=== PATIENT | male | born 1935 | race African-American/Black ===

== ENCOUNTER 2018-04-23 16:51 | Inpatient (IN) | payer MEDICARE, OTHER ==
[~2018-04-23] VITALS: Ht 170.2 cm; Wt 67.4 kg
[~2018-04-23 16:51] MED LIST: ADALAT20 MG ORAL; AMLODIPINE BESY10 MG ORAL; ASPIR 8181 MG ORAL; DOCUSATE SODIU100 MG ORAL; DOCUSIL100 M1 ORAL; KEPPRA500 MG PO; LABETALOL HCL200 MG PO; LISINOPRIL20 MG ORAL; LOVASTATIN20 MG PO; NAMENDA10 MG ORAL; NORMODYNE300 MG ORAL; TAMSULOSIN HCL0.4 MG ORAL; TEMAZEPAM15 MG ORAL; ZESTRIL10 MG PO; ZOLPIDEM TARTRA10 MG ORAL
[2018-04-23 18:00] VITALS: BP 136/62
[2018-04-23 18:45] LABS: APPEARANCE,URINE SLIGHTLY CLOUDY; BILIRUBIN, URINE NEGATIVE (NEGATIVE); COLOR,URINE PALE YELLOW; GLUCOSE, URINE (UA) NEGATIVE (NEGATIVE); KETONES,URINE NEGATIVE (NEGATIVE); LEUKOCYTE ESTERASE ,URINE NEGATIVE (NEGATIVE); NITRITE,URINE NEGATIVE (NEGATIVE); PH,URINE 5 (4.5-8.0); PROTEIN,URINE 2+ (NEGATIVE); UROBILINOGEN,URINE NORMAL MG/DL (0.0-1.0)
[2018-04-23 18:45] LABS: BASOPHILS % (AUTO) 2.1 % (0.0-2.0); EOSINOPHILS % (AUTO) 4.9 % (0.0-3.0); HEMATOCRIT 44.4 % (42.0-52.0); MEAN CORPUSCULAR VOLUME 83 FL (80-99); MONOCYTES % (AUTO) 9.6 % (1.0-10.0); NEUTROPHILS % (AUTO) 65.3 % (45.0-75.0); PLATELET COUNT 301 K/UL (150-450); RED BLOOD COUNT 5.35 M/UL (4.70-6.10); WHITE BLOOD COUNT 6.2 K/UL (4.8-10.8)
[2018-04-23 19:13] LABS: ANION GAP 9 mmol/L (5-15); BLOOD UREA NITROGEN 23 mg/dL (7-18); CALCIUM 8.4 MG/DL (8.5-10.1); CARBON DIOXIDE 23 MMOL/L (21-32); CHLORIDE 107 MMOL/L (98-107); CREATININE 1.8 MG/DL (0.55-1.30); POTASSIUM 4.3 MMOL/L (3.5-5.1); SODIUM 139 MMOL/L (136-145)
[2018-04-23 19:27] LABS: ALANINE AMINOTRANSFERASE 28 U/L (12-78); ALBUMIN 3.4 G/DL (3.4-5.0); ALBUMIN/GLOBULIN RATIO 0.8 (1.0-2.7); ALKALINE PHOSPHATASE 89 U/L (46-116); ASPARTATE AMINO TRANSFERASE 18 U/L (15-37); BILIRUBIN,TOTAL 0.4 MG/DL (0.2-1.0); CREATINE KINASE 277 U/L (26-308); PHOSPHORUS 3.6 MG/DL (2.5-4.9)
[2018-04-23] MEDS ORDERED: UNOBMED (20:33)
[2018-04-23 21:21] VITALS: BP 128/57
--- NOTE | 2018-04-23 22:15 | Emergency Room Report ---
History of Present Illness General Chief Complaint: Male Urogenital Problems Source: Medical Record, EMS Present Illness HPI Patient is an 82-year-old male brought in by EMS after increased hematuria. [facility] was [facility]. Patient prior history of prostate cancer. Patient previously been diagnosed with a abdominal aortic aneurysm. Patient had been noted to have increased blood in his urine. Patient was sent in by Dr. Harry.History is limited by poor historian. Allergies: Coded Allergies: No Known Allergies (Verified , 11/13/08) Patient History Past Medical History: see triage record Reviewed Nursing Documentation: PMH: Agreed; PSxH: Agreed Nursing Documentation-PMH Past Medical History: No History, Except For Hx Hypertension: Yes Hx Seizures: Yes Review of Systems All Other Systems: limited - by poor historian Physical Exam Vital Signs Date Time Temp Pulse Resp B/P (MAP) Pulse Ox O2 Delivery O2 Flow Rate FiO2 04/23/18 17:04 98.6 73 24 136/62 93 Non-Rebreather 98.6 Sp02 EP Interpretation: reviewed, normal General Appearance: normal inspection, well appearing, no apparent distress, alert, Chronically Ill Head: atraumatic ENT: normal voice Neck: normal inspection, supple, no bony tend, limited range of motion Respiratory: normal inspection, lungs clear, normal breath sounds, no respiratory distress, no retraction, no wheezing Cardiovascular #1: regular rate, rhythm Gastrointestinal: normal inspection, normal bowel sounds, non tender, soft, no guarding, no hernia Genitourinary: no CVA tenderness Musculoskeletal: normal inspection, back normal, normal range of motion Neurologic: normal inspection, alert, responsive, other - slow speech Psychiatric: normal inspection, judgement/insight normal, mood/affect normal Skin: normal inspection, normal color, no rash Medical Decision Making Diagnostic Impression: Primary Impression: Prostate CA Additional Impressions: Abdominal aortic aneurysm (AAA) 3.0 cm to 5.5 cm in diameter in male Hematuria ER Course The patient presented for hematuria. Differential diagnosis included was not limited to urinary tract infection, renal cell carcinoma, bladder CA pyelonephritis among others.Because of complexity of patient's case laboratory testing and imaging studies were ordered. CT imaging of the abdomen pelvis read by radiology showed 4.5 cm fusiform abdominal aortic aneurysm the patient was initially noted to have a large prostate. The patient was discussed with Dr. Harry who states that this aneurysm has been diagnosed in the past. Patient had previously declined operative management of prostate cancer.Dr. Harry the was contacted for inpatient management due to primary care physician and will further evaluate hematuria Labs Test 04/23/18 17:40 04/23/18 18:20 Urine Color Pale yellow Urine Appearance Slightly cloudy Urine pH 5 (4.5-8.0) Urine Specific [place] 1.015 (1.005-1.035) Urine Protein 2+ (NEGATIVE) Urine Glucose (UA) Negative (NEGATIVE) Urine Ketones Negative (NEGATIVE) Urine Blood 5+ (NEGATIVE) Urine Nitrite Negative (NEGATIVE) Urine Bilirubin Negative (NEGATIVE) Urine Urobilinogen Normal MG/DL (0.0-1.0) Urine Leukocyte Esterase Negative (NEGATIVE) Urine RBC Tntc /HPF (0 - 0) Urine WBC 0-2 /HPF (0 - 0) Urine Squamous Epithelial Cells Few /LPF (NONE/OCC) Urine Bacteria Occasional /HPF (NONE) White Blood Count 6.2 K/UL (4.8-10.8) Red Blood Count 5.35 M/UL (4.70-6.10) Hemoglobin 14.0 G/DL (14.2-18.0) Hematocrit 44.4 % (42.0-52.0) Mean Corpuscular Volume 83 FL (80-99) Mean Corpuscular Hemoglobin 26.2 PG (27.0-31.0) Mean Corpuscular Hemoglobin Concent 31.5 G/DL (32.0-36.0) Red Cell Distribution Width 16.0 % (11.6-14.8) Platelet Count 301 K/UL (150-450) Mean Platelet Volume 8.3 FL (6.5-10.1) Neutrophils (%) (Auto) 65.3 % (45.0-75.0) Lymphocytes (%) (Auto) 18.0 % (20.0-45.0) Monocytes (%) (Auto) 9.6 % (1.0-10.0) Eosinophils (%) (Auto) 4.9 % (0.0-3.0) Basophils (%) (Auto) 2.1 % (0.0-2.0) Sodium Level 139 MMOL/L (136-145) Potassium Level 4.3 MMOL/L (3.5-5.1) Chloride Level 107 MMOL/L (98-107) Carbon Dioxide Level 23 MMOL/L (21-32) Anion Gap 9 mmol/L (5-15) Blood Urea Nitrogen 23 mg/dL (7-18) Creatinine 1.8 MG/DL (0.55-1.30) Estimat Glomerular Filtration Rate mL/min (>60) Glucose Level 114 MG/DL (74-106) Lactic Acid Level 1.20 mmol/L (0.4-2.0) Calcium Level 8.4 MG/DL (8.5-10.1) Phosphorus Level 3.6 MG/DL (2.5-4.9) Magnesium Level 2.4 MG/DL (1.8-2.4) Total Bilirubin 0.4 MG/DL (0.2-1.0) Aspartate Amino Transf (AST/SGOT) 18 U/L (15-37) Alanine Aminotransferase (ALT/SGPT) 28 U/L (12-78) Alkaline Phosphatase 89 U/L (46-116) Total Creatine Kinase 277 U/L (26-308) Creatine Kinase MB 3.0 NG/ML (0.0-3.6) Creatine Kinase MB Relative Index 1.0 Troponin I 0.015 ng/mL (0.000-0.056) Pro-B-Type Natriuretic Peptide 563 pg/mL (0-125) Total Protein 7.5 G/DL (6.4-8.2) Albumin 3.4 G/DL (3.4-5.0) Globulin 4.1 g/dL Albumin/Globulin Ratio 0.8 (1.0-2.7) EKG Diagnostic Results Rate: normal Rhythm: NSR ST Segments: other - lateral twave inversion Last Vital Signs Date Time Temp Pulse Resp B/P (MAP) Pulse Ox O2 Delivery O2 Flow Rate FiO2 04/23/18 21:21 98.6 72 22 128/57 94 Room Air 98.6 Status: unchanged Disposition: ADMITTED INPATIENT Condition: Serious Referrals: John Hay MD (PCP) Damian Lozada MD Apr 23, 2018 22:15
[2018-04-23] MEDS ORDERED: COLACE100 MG ORAL (22:54)
[2018-04-23] MEDS ORDERED: LIPITOR20 MG ORAL (23:07)
[2018-04-24] MEDS ORDERED: Acetaminophen 500mg (ES) tab ORAL PRN (00:15)
[2018-04-24] MEDS ORDERED: Norco 5mg/325mg tab ORAL PRN (00:15)
[2018-04-24] MEDS ORDERED: Docusate 100mg cap ORAL PRN (00:30)
[2018-04-24] MEDS ORDERED: Zolpidem 5mg tab ORAL PRN (00:30)
[2018-04-24] MEDS ORDERED: 1/2NS w/KCl 20mEq 1000ml 1,000 ML IV ONE (01:04)
[2018-04-24] MEDS: Potassium Chloride 20 MEQ in 1/2 NS 1000ml 1,000 ML IV SCH ×2 (02:08→15:12)
[2018-04-24 06:56] LABS: BASOPHILS % (AUTO) 2.2 % (0.0-2.0); EOSINOPHILS % (AUTO) 5.2 % (0.0-3.0); HEMATOCRIT 43.9 % (42.0-52.0); HEMOGLOBIN 13.9 G/DL (14.2-18.0); LYMPHOCYTES % (AUTO) 13.2 % (20.0-45.0); MEAN CORPUSCULAR VOLUME 80 FL (80-99); MONOCYTES % (AUTO) 10.1 % (1.0-10.0); NEUTROPHILS % (AUTO) 69.4 % (45.0-75.0); PLATELET COUNT 236 K/UL (150-450); RED BLOOD COUNT 5.47 M/UL (4.70-6.10); RED CELL DISTRIBUTION WIDTH 15.7 % (11.6-14.8); WHITE BLOOD COUNT 5.8 K/UL (4.8-10.8)
[2018-04-24 07:10] LABS: ANION GAP 9 mmol/L (5-15); BLOOD UREA NITROGEN 17 mg/dL (7-18); CALCIUM 8.2 MG/DL (8.5-10.1); CARBON DIOXIDE 21 MMOL/L (21-32); CHLORIDE 108 MMOL/L (98-107); CREATININE 1.6 MG/DL (0.55-1.30); POTASSIUM 4.5 MMOL/L (3.5-5.1); SODIUM 138 MMOL/L (136-145)
[2018-04-24] MEDS: Memantine 5 MG TAB ORAL SCH ×2 (08:32→18:13)
[2018-04-24] MEDS: Lisinopril 20mg tab ORAL SCH (08:33)
[2018-04-24 08:35] VITALS: BP 149/75
--- NOTE | 2018-04-24 08:53 | Diagnostic Imaging Report ---
Indication: Shortness of breath Technique: One view of the chest Comparison: 01/17/2018 Findings: Inspiration is suboptimal. There is a triangular opacity in the right infrahilar region, may reflect crowding of previously prominent bronchovascular markings but area of consolidation is possible. There is generalized interstitial prominence throughout the right mid and lower lung. The heart is mildly enlarged. The pleural spaces are clear. The upper lungs are clear. Impression: Right basal triangular opacity. Review of subsequent chest CT indicates that this is most likely on the basis of crowded bronchovascular markings. Interstitial changes of the right mid and lower lung are probably on the basis of chronic fibrotic change. No definite acute process Cardiomegaly
[2018-04-24] MEDS ORDERED: Memantine 10mg tab ORAL SCH (09:00)
[2018-04-24] MEDS: Minoxidil 2.5mg tab ORAL SCH ×2 (10:10→21:34)
[2018-04-24 12:38] VITALS: BP 138/74
--- NOTE | 2018-04-24 12:46 | Diagnostic Imaging Report ---
Indication: Abdominal pain, hematuria Technique: Spiral acquisitions obtained through the abdomen and pelvis. No oral contrast utilized, per emergency room physician request No IV contrast utilized, per referring physician request.. Multiplanar reconstructions were generated. Total dose length product 711.83 mGycm. CTDIvol(s) 11.63,10.82 mGy. Dose reduction achieved using automated exposure control Comparison: None. Reference made to abdomen ultrasound from 2009 Findings: There is some image degradation due to respiratory motion artifact. Bullous changes, interstitial opacities, and scarring are seen at both lung bases, right greater than left. The right kidney is atrophic, demonstrates fairly extensive perinephric fat stranding. The left kidney demonstrates mild perinephric fat stranding. No hydronephrosis or hydroureter, renal or ureteral calculi demonstrated. The bladder is unremarkable. The prostate is enlarged. Lack of IV contrast limits assessment of the renal parenchyma. No gross renal parenchymal mass or cyst is evident. Lack of IV contrast limits assessment of the other solid organs. The liver demonstrates a cyst in segment 2. It also demonstrate one or more subcentimeter low-attenuation lesions which are too small to characterize, most likely represent benign simple cysts. The gallbladder, bile ducts, pancreas, spleen, adrenals are all unremarkable. No retroperitoneal or mesenteric mass or adenopathy. There is an unusual fluid attenuation mass anterior to the right side of the bladder which measures 2.6 cm in diameter. This extends to the edge of the inguinal canal but does not frankly herniate. There is extensive colonic diverticulosis. No evidence of acute diverticulitis. Appendix is normal. No small bowel distention. No free or loculated intraperitoneal gas or fluid is evident. The distal esophagus demonstrates a small sliding-type hiatal hernia. The remainder the stomach is unremarkable. The duodenum is unremarkable. There is a tiny fat-containing umbilical hernia incidentally noted There is a fusiform aneurysm of the proximal abdominal aorta which measures up to 4.5 cm in diameter. This extends to the level of the superior mesenteric artery origin. Distal to this, the abdominal aorta is ectatic but not frankly aneurysmal. The heart is enlarged. There is a pericardial effusion, which measures up to 8 mm thick The bones demonstrate bilateral L5 spondylolysis, grade 1 L5 on S1 spondylolisthesis. There are secondary degenerative change of the lumbosacral junction. Degenerative spondylosis changes are seen elsewhere as well. Impression: Atrophic right kidney. Nonspecific extensive perinephric fat stranding, could indicate acute nephritis or could be chronic. Less extensive left perinephric fat stranding is nonspecific, minimal Prostatomegaly Otherwise, no definite findings to suggest etiology of stated clinical history of hematuria Bullous changes, interstitial opacities, scarring seen at both lung bases, right greater than left 4.5 cm fusiform proximal abdominal aortic aneurysm Cardiomegaly Pericardial effusion Left lobe liver cysts. Subcentimeter low-attenuation liver lesions, too small to characterize, most likely benign simple cortical cysts Unusual fluid attenuation mass anterior to the right side of the bladder, significance uncertain but appears to be cystic. Colonic diverticulosis. No evidence of diverticulitis Bilateral L5 spondylolysis, grade 1 L5 on S1 spondylolisthesis. Incidental findings as noted, including degenerative spondylosis, sliding-type hiatal hernia, tiny fat-containing umbilical hernia This agrees with the preliminary interpretation provided overnight by Dr. Haji The CT scanner at [facility] is accredited by the [employer] and the scans are performed using protocols designed to limit radiation exposure to as low as reasonably achievable to attain images of sufficient resolution adequate for diagnostic evaluation.
--- NOTE | 2018-04-24 13:45 | History and Physical Report ---
DATE OF ADMISSION: 04/23/2018 CHIEF COMPLAINT: Gross hematuria. HISTORY OF PRESENT ILLNESS: This is an 82-year-old male, who lives in a board and [facility] facility. The patient was complaining of intermittent gross hematuria. He has a known history of prostate cancer. The patient has been seen by several urologists. His regular urologist is Dr. Matt More. The patient's family before declined surgery for the patient. The patient is alert and is open for surgical option. The patient has multiple risk factors including abdominal aortic aneurysm and hypertensive cardiovascular disease with renal impairment. The decision to operate, they was debated about two years ago, and the patient's family made a decision not to operate. PAST MEDICAL HISTORY: 1. 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 2. Abdominal aortic aneurysm, last known diameter of 4 cm. 3. History of prostate CA. 4. Seizure disorder. HOME MEDICATIONS: Amlodipine, baby aspirin, atorvastatin, sodium docusate, labetalol, Keppra, Zestril, lovastatin, Namenda, nifedipine, tamsulosin, and temazepam. ALLERGIES: No known drug allergies. FAMILY HISTORY: Unremarkable. SOCIAL HISTORY: He lives in a [place] and [facility]. HABITS: He is a cigarette smoker. There is no history of alcohol abuse or a drug abuse. REVIEW OF SYSTEMS: HEENT: Hearing and eyesight are normal. ENDOCRINE: No history of diabetes, thyroid, or adrenal problems. RESPIRATORY: He has some shortness of breath and occasionally wheezes. CARDIOVASCULAR: He denies chest pain or palpitations. He has a history of abdominal aortic aneurysm, but asymptomatic from that standpoint. The patient was seen by vascular surgery before, but had no regular followup. NEUROLOGIC: No history of stroke, syncope, or Parkinson disease. PHYSICAL EXAMINATION: GENERAL: This is an elderly male, who is in no acute distress. VITAL SIGNS: Blood pressure 149/75, pulse 75, respirations 20, and temperature 98.2. HEENT: The head is normocephalic and atraumatic. Pupils are equal, round, and reactive to light and accommodation consensually. NECK: Supple. Trachea midline. There was no lymphadenopathy or thyromegaly. LUNGS: Clear to auscultation and percussion with a few wheezes. HEART: There is a grade 2 systolic ejection murmur. ABDOMEN: Soft and nontender. Bowel sounds were active. EXTREMITIES: No clubbing, cyanosis, or edema. NEUROLOGICAL: He is alert and oriented x4. Cranial nerves II through XII intact. LABORATORY AND ANCILLARY DATA: CBC within normal limits. Serum chemistry, electrolytes within normal limits. Creatinine on admission 1.8, today 1.6, BUN 17, PSA 7.71. Urinalysis, 5+ blood on dipstick, too numerous to count red blood cells. IMAGING STUDIES: CT scan reported by ER physician is not an official report shows fusiform 4.5 cm abdominal aortic aneurysm. ASSESSMENT: 1. Gross hematuria due to known prostate CA. 2. Fusiform 4.5 diameter abdominal aortic aneurysm. 3. 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 4. History of prostate CA. 5. Seizure disorder. PLAN: 1. His blood pressure needs to be optimized better given his history of extensive fusiform aortic aneurysm and hypertensive nephrosclerosis. 2. The question of surgical intervention for his prostate cancer should be revisited with the caveats of the patient is having multiple risk factors, which include the abdominal aortic aneurysm, hypertensive cardiovascular disease, and the main thing is abdominal aortic aneurysm. John Hay M.D. DR: QUE JOB#: [id number] CC:
[2018-04-24 15:53] VITALS: BP 149/69
--- NOTE | 2018-04-24 19:01 | Cardiology Report ---
APPROVED REPORT EKG Measurement Heart [id number] Normal sinus rhythm Possible Left atrial enlargement Abnormal ECG
[2018-04-24 20:00] VITALS: BP 144/77
[2018-04-24] MEDS: Tamsulosin 0.4mg cap ORAL SCH (21:34)
[2018-04-25] MEDS: Potassium Chloride 20 MEQ in 1/2 NS 1000ml 1,000 ML IV SCH ×2 (03:11→17:23)
--- NOTE | 2018-04-25 04:15 | Consultation ---
DATE OF CONSULTATION: 04/24/2018 UROLOGY CONSULTATION ATTENDING/CONSULTING PHYSICIAN: John Hay M.D. CHIEF COMPLAINT AND HISTORY OF PRESENT ILLNESS: I was asked by Dr. Hay to evaluate this very pleasant 82-year-old gentleman regarding history of gross hematuria and prostate cancer. Briefly, the patient has a history of prostate cancer and is followed at an outside facility regarding the same. He presented to the hospital with intermittent hematuria. He was admitted to the hospital and given the above, I was asked to evaluate the patient. PAST MEDICAL HISTORY: 1. Prostate cancer. 2. Intermittent hematuria. 3. 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 4. Abdominal aortic aneurysm. 5. Seizure disorder. MEDICATIONS: Please see the chart for current medications and administration details. Briefly, the patient does take baby aspirin daily at home. He is receiving levofloxacin for antibiotic coverage. ALLERGIES: No known drug allergies. SOCIAL HISTORY: Unremarkable for tobacco, alcohol, or drug use. The patient lives in a board and care. FAMILY HISTORY: Unremarkable. REVIEW OF SYSTEMS: A 12-system review of systems was essentially unremarkable outside what is described above. PHYSICAL EXAMINATION: GENERAL: The patient is an elderly gentleman. Awake, alert, and oriented x4, pleasant, in no obvious distress. HEENT: NC/AT. EOMI. Oropharynx clear. NECK: Supple. Full range of motion. CHEST: Within normal limits. ABDOMEN: Soft, nontender, and nondistended. EXTREMITIES: Warm and well perfused. No cyanosis, clubbing, or edema. BACK: No CVA tenderness to percussion. NEUROLOGIC: Grossly nonfocal. GENITOURINARY: Reveals normal male external genitalia. LABORATORY DATA: White blood cell count 5.8, hematocrit 43.9, and platelets 236. Sodium 138, potassium 4.5, chloride 108, bicarbonate 21, BUN 17, creatinine 1.6, glucose 102, and calcium 8.2. LFTs within normal limits. Urinalysis, specific gravity 1.015, pH 5.0. Dip test notable for 2+ protein, 5+ occult blood. Microanalysis with too numerous to count red blood cells per high-power field, 0 to 2 white blood cells per high-power field, and occasional bacteria seen. DIAGNOSTIC IMAGING: CT scan of the abdomen and pelvis reveals an atrophic right kidney. There is nonspecific extensive perinephric fat stranding. There is prostatomegaly. There was no other noted source of possible hematuria. There are bullous changes in both lung bases and a 4.5 cm fusiform proximal abdominal aortic aneurysm. There is cardiomegaly and pericardial effusion. There are liver cysts. There is diverticulosis without diverticulitis. ASSESSMENT AND PLAN: In summary, the patient is an 82-year-old gentleman with a history of prostate cancer. He presented with a history of some gross hematuria. Physical exam is essentially unremarkable and his urine at the bedside now is currently clear. Laboratory data is notable for evidence of microhematuria and renal insufficiency. Diagnostic imaging does not reveal any additional source of hematuria. It does reveal some renal atrophy. It appears that this patient's hematuria has improved after some antibiotics and fluids. I will place him on observation for the same. Once he is discharged, he can follow up with his regular urologist for cystoscopy to complete his workup. Thank you for allowing me to participate in the care of this unfortunate gentleman. Please do not hesitate to contact me with any questions that you may further have regarding his care. I will see him with you as needed. Javi Renteria M.D. DR: KADY JOB#: [id number] CC:
[2018-04-25 08:14] LABS: ANION GAP 10 mmol/L (5-15); BLOOD UREA NITROGEN 23 mg/dL (7-18); CALCIUM 8.3 MG/DL (8.5-10.1); CARBON DIOXIDE 22 MMOL/L (21-32); CHLORIDE 109 MMOL/L (98-107); CREATININE 1.7 MG/DL (0.55-1.30); POTASSIUM 4.6 MMOL/L (3.5-5.1); SODIUM 141 MMOL/L (136-145)
[2018-04-25 09:00] VITALS: BP 131/66
[2018-04-25] MEDS: Lisinopril 20mg tab ORAL SCH (09:27)
[2018-04-25] MEDS: Minoxidil 2.5mg tab ORAL SCH ×2 (09:28→21:31)
[2018-04-25] MEDS: Memantine 5 MG TAB ORAL SCH ×2 (09:28→17:23)
--- NOTE | 2018-04-25 12:43 | General Progress Note ---
Assessment/Plan Assessment/Plan Gross Hematuris - resolved 4.5 AAA - Vascular Surgery Eval pending. Subjective Allergies: Coded Allergies: No Known Allergies (Verified , 11/13/08) Subjective No new c/o. Gross hematuria resolved. Objective Last 24 Hour Vital Signs Date Time Temp Pulse Resp B/P (MAP) Pulse Ox O2 Delivery O2 Flow Rate FiO2 04/25/18 09:29 76 131/66 04/25/18 09:28 131/66 04/25/18 09:28 76 131/66 04/25/18 09:27 131/66 04/25/18 09:00 Room Air 04/25/18 09:00 97.9 76 19 131/66 (87) 99 97.9 04/24/18 21:35 78 144/77 04/24/18 21:34 144/77 04/24/18 21:00 Room Air 04/24/18 20:00 98.6 78 19 144/77 (99) 95 98.6 04/24/18 15:53 98.8 69 22 149/69 (95) 95 98.8 Intake and Output 04/24/18 04/25/18 19:00 07:00 Intake Total 1280 ml 1520 ml Output Total 700 ml 600 ml Balance 580 ml 920 ml Intake Oral 380 ml 720 ml IV Total 900 ml 800 ml Output Urine Total 700 ml 600 ml # Voids 3 # Bowel Movements 1 Laboratory Tests 04/25/18 06:35: Sodium Level 141, Potassium Level 4.6, Chloride Level 109H, Carbon Dioxide Level 22, Anion Gap 10, Blood Urea Nitrogen 23H, Creatinine 1.7H, Estimat Glomerular Filtration Rate , Glucose Level 98, Calcium Level 8.3L Height (Feet): 5 Height (Inches): 7.00 Weight (Pounds): 148 Objective CV RR Lungs CTA Abd SNT. BS + E No CCE John Hay MD Apr 25, 2018 12:43
[2018-04-25 16:22] LABS: APPEARANCE,URINE CLEAR; BILIRUBIN, URINE NEGATIVE (NEGATIVE); COLOR,URINE YELLOW; GLUCOSE, URINE (UA) NEGATIVE (NEGATIVE); KETONES,URINE NEGATIVE (NEGATIVE); LEUKOCYTE ESTERASE ,URINE NEGATIVE (NEGATIVE); NITRITE,URINE NEGATIVE (NEGATIVE); PH,URINE 5 (4.5-8.0); PROTEIN,URINE 1+ (NEGATIVE); UROBILINOGEN,URINE NORMAL MG/DL (0.0-1.0)
[2018-04-25] MEDS ORDERED: Tubing IV Secondary IV ONE (17:19)
[2018-04-25 21:00] VITALS: BP 127/67
[2018-04-25] MEDS: Tamsulosin 0.4mg cap ORAL SCH (21:30)
--- NOTE | 2018-04-25 21:41 | General Progress Note ---
Progress Note Progress Note Patient seen and examined earlier in am Asked to eval re AAA No abd pain No back pain No leg pain Abdo soft nontender 2+ femorals intact pedal dopplers 4.5 cm AAA Smoker renal failure hematuria Rec F/U as outpatient in out office Hematuria w/u per renal Ok for d/c per vascular point once medically cleared d/w pt at length d/w nurse at bedside Rasta Llamas MD Apr 25, 2018 21:41
[2018-04-26] VITALS: BP 122/60
[2018-04-26 04:00] VITALS: BP 117/60
[2018-04-26] MEDS: Potassium Chloride 20 MEQ in 1/2 NS 1000ml 1,000 ML IV SCH ×2 (06:07→11:08)
[2018-04-26 08:13] LABS: BASOPHILS % (AUTO) 1.6 % (0.0-2.0); EOSINOPHILS % (AUTO) 5.5 % (0.0-3.0); HEMATOCRIT 41.7 % (42.0-52.0); LYMPHOCYTES % (AUTO) 16.1 % (20.0-45.0); MEAN CORPUSCULAR VOLUME 81 FL (80-99); MONOCYTES % (AUTO) 10.5 % (1.0-10.0); NEUTROPHILS % (AUTO) 66.3 % (45.0-75.0); PLATELET COUNT 221 K/UL (150-450); RED BLOOD COUNT 5.12 M/UL (4.70-6.10); RED CELL DISTRIBUTION WIDTH 16.1 % (11.6-14.8); WHITE BLOOD COUNT 5.6 K/UL (4.8-10.8)
[2018-04-26] MEDS: Lisinopril 20mg tab ORAL SCH (08:41)
[2018-04-26] MEDS: Memantine 5 MG TAB ORAL SCH ×2 (08:41→16:47)
[2018-04-26] MEDS: Minoxidil 2.5mg tab ORAL SCH ×2 (08:42→21:19)
[2018-04-26 08:46] LABS: ALANINE AMINOTRANSFERASE 21 U/L (12-78); ALBUMIN 2.6 G/DL (3.4-5.0); ALBUMIN/GLOBULIN RATIO 0.7 (1.0-2.7); ALKALINE PHOSPHATASE 73 U/L (46-116); ANION GAP 10 mmol/L (5-15); ASPARTATE AMINO TRANSFERASE 17 U/L (15-37); BILIRUBIN,TOTAL 0.4 MG/DL (0.2-1.0); BLOOD UREA NITROGEN 25 mg/dL (7-18); CALCIUM 7.5 MG/DL (8.5-10.1); CARBON DIOXIDE 16 MMOL/L (21-32); CHLORIDE 112 MMOL/L (98-107); CREATININE 1.8 MG/DL (0.55-1.30); POTASSIUM 5.1 MMOL/L (3.5-5.1); SODIUM 138 MMOL/L (136-145)
[2018-04-26 09:00] VITALS: BP 107/67
[2018-04-26] MEDS ORDERED: Potassium Chloride 20 MEQ in 1/2 NS 1000ml 1,000 ML IV SCH (11:00)
[2018-04-26 12:00] VITALS: BP 120/63
--- NOTE | 2018-04-26 15:51 | General Progress Note ---
Assessment/Plan Assessment/Plan Gross Hematuris - resolved 4.5 AAA - Vascular Surgery Eval noted. Spoke to Vasc. Sx. Patient nonambulatory. Vascular surgery to complete eval CHRISTINE!. Subjective Allergies: Coded Allergies: No Known Allergies (Verified , 11/13/08) Subjective No new c/o. Gross hematuria resolved. Objective Last 24 Hour Vital Signs Date Time Temp Pulse Resp B/P (MAP) Pulse Ox O2 Delivery O2 Flow Rate FiO2 04/26/18 12:00 97.3 75 21 120/63 (82) 96 97.3 04/26/18 09:00 Room Air 04/26/18 09:00 98.6 79 18 107/67 (80) 95 98.6 04/26/18 08:43 81 128/76 04/26/18 08:42 128/76 04/26/18 08:42 81 128/76 04/26/18 08:41 128/76 04/26/18 04:00 98.2 73 20 117/60 (79) 98 98.2 04/26/18 00:00 98.0 74 20 122/60 (80) 100 98.0 04/25/18 21:31 127/67 04/25/18 21:31 78 127/67 04/25/18 21:00 98.4 78 20 127/67 (87) 97 98.4 04/25/18 21:00 Room Air Intake and Output 04/25/18 04/26/18 19:00 07:00 Intake Total 800 ml 900 ml Output Total 400 ml Balance 800 ml 500 ml Intake Oral 800 ml IV Total 900 ml Output Urine Total 400 ml # Bowel Movements 4 Laboratory Tests 04/26/18 06:10: White Blood Count 5.6, Red Blood Count 5.12, Hemoglobin 13.0L, Hematocrit 41.7L , Mean Corpuscular Volume 81, Mean Corpuscular Hemoglobin 25.3L, Mean Corpuscular Hemoglobin Concent 31.1L, Red Cell Distribution Width 16.1H, Platelet Count 221, Mean Platelet Volume 6.4L, Neutrophils (%) (Auto) 66.3, Lymphocytes (%) (Auto) 16.1L, Monocytes (%) (Auto) 10.5H, Eosinophils (%) (Auto ) 5.5H, Basophils (%) (Auto) 1.6, Sodium Level 138, Potassium Level 5.1, Chloride Level 112H, Carbon Dioxide Level 16L, Anion Gap 10, Blood Urea Nitrogen 25H, Creatinine 1.8H, Estimat Glomerular Filtration Rate , Glucose Level 86, Calcium Level 7.5L, Total Bilirubin 0.4, Aspartate Amino Transf (AST/ SGOT) 17, Alanine Aminotransferase (ALT/SGPT) 21, Alkaline Phosphatase 73, Total Protein 6.1L, Albumin 2.6L, Globulin 3.5, Albumin/Globulin Ratio 0.7L Height (Feet): 5 Height (Inches): 7.00 Weight (Pounds): 148 Objective CV RR Lungs CTA Abd SNT. BS + E No CCE John Hay MD Apr 26, 2018 15:51
[2018-04-26 21:00] VITALS: BP 125/60
[2018-04-26] MEDS: Tamsulosin 0.4mg cap ORAL SCH (21:19)
[2018-04-27 08:00] VITALS: BP_SYST 125; BP_SYST 134; BP_DIAS 59; BP_DIAS 60
[2018-04-27] MEDS: Minoxidil 2.5mg tab ORAL SCH (08:29)
[2018-04-27] MEDS: Memantine 5 MG TAB ORAL SCH (08:29)
[2018-04-27] MEDS: Lisinopril 20mg tab ORAL SCH (08:29)
[2018-04-27 08:30] VITALS: BP 125/60
[2018-04-27 08:43] LABS: ANION GAP 9 mmol/L (5-15); BLOOD UREA NITROGEN 27 mg/dL (7-18); CALCIUM 7.6 MG/DL (8.5-10.1); CARBON DIOXIDE 19 MMOL/L (21-32); CHLORIDE 111 MMOL/L (98-107); CREATININE 1.9 MG/DL (0.55-1.30); POTASSIUM 4.5 MMOL/L (3.5-5.1); SODIUM 139 MMOL/L (136-145)
--- NOTE | 2018-04-27 10:48 | General Progress Note ---
Assessment/Plan Assessment/Plan Gross Hematuris - resolved 4.5 AAA - Vascular Surgery Eval noted. Spoke to Vasc. Sx. Patient nonambulatory. DC to B+C. Subjective Allergies: Coded Allergies: No Known Allergies (Verified , 11/13/08) Subjective No new c/o. Gross hematuria resolved. Objective Last 24 Hour Vital Signs Date Time Temp Pulse Resp B/P (MAP) Pulse Ox O2 Delivery O2 Flow Rate FiO2 04/27/18 09:00 Room Air 04/27/18 08:30 79 125/60 04/27/18 08:29 125/60 04/27/18 08:29 125/60 04/27/18 08:29 79 125/60 04/27/18 08:00 98.1 78 22 125/59 (81) 97 98.1 04/26/18 21:19 125/60 04/26/18 21:18 79 125/60 04/26/18 21:00 98.2 79 19 125/60 (81) 95 98.2 04/26/18 21:00 Room Air 04/26/18 12:00 97.3 75 21 120/63 (82) 96 97.3 Intake and Output 04/26/18 04/27/18 19:00 07:00 Intake Total 630 ml 300 ml Output Total 650 ml Balance 630 ml -350 ml Intake Oral 480 ml 250 ml IV Total 150 ml 50 ml Output Urine Total 650 ml # Voids 3 Laboratory Tests 04/27/18 07:20: Sodium Level 139, Potassium Level 4.5, Chloride Level 111H, Carbon Dioxide Level 19L, Anion Gap 9, Blood Urea Nitrogen 27H, Creatinine 1.9H, Estimat Glomerular Filtration Rate , Glucose Level 92, Calcium Level 7.6L Height (Feet): 5 Height (Inches): 7.00 Weight (Pounds): 148 Objective CV RR Lungs CTA Abd SNT. BS + E No [place] John Hay MD Apr 27, 2018 10:48
--- NOTE | 2018-05-01 08:34 | Discharge Summary ---
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 Laboratory workup revealed no leukocytosis, stable hemoglobin and hematocrit. Stable electrolytes. BUN 23, creatinine 1.4. Troponin negative. Pro BNP 563. Lactic acid 1.2. Urinalysis with evidence of proteinuria and hematuria ,+2 protein, no evidence of infection. Chest x-ray revealed cardiomegaly, but no definite acute process. CT of the abdomen and pelvis revealed bullous changes at both lung bases, right greater than left. Atrophic right kidney. Nonspecific extensive perinephric fat stranding possibly indicative of acute nephritis versus chronic. Prostatomegaly. Cardiomegaly. 4.5 cm fusiform proximal abdominal aortic aneurysm. Colonic diverticulosis without evidence of diverticulitis. 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 CONSULTANTS: vascular surgery Dr. Gabrielarian urologist Dr. Renteria [facility]: Patient admitted and started on IV fluids and empiric antibiotics. Vascular surgery and urology consults were requested. Urologist seen and evaluated patient. Hematuria improved with IV hydration and empiric antibiotic, Hemoglobin and hematocrit remained stable. CT scan, as mentioned above, revealed renal atrophy. Land Degradation Analyst recommended to follow-up with regular urologist for cystoscopy as outpatient to complete the workup. Renal parameters and electrolytes were closely monitored, nephrotoxic were avoided, and electrolytes were corrected as needed. Creatinine remained on the baseline. Antihypertensive regimen was optimized to keep blood pressure under control. Blood pressure was managed with multiply regimen of antihypertensives, including calcium channel arun, beta arun, DAVEY inhibitor, and minoxidil. Statin was continued. Flomax was continued. Pain management was addressed, and pain was controlled. Bowel regimen instituted. Seizure precautions maintained, no evidence of seizure activity while in the hospital. Vascular surgeon seen and evaluated patient for aortic abdominal aneurysm. Patient had no back pain, no leg pain, no abdominal pain. Intact pedal pulses. Vascular surgeon recommended to follow-up as outpatient with vascular surgeon for close monitoring . Patient condition's stabilized and he was ready for discharge back to assisted living for continuation of care FINAL DIAGNOSES: Gross hematuria- resolved 4.5 cm fusiform aortic abdominal aneurysm Hypertensive cardiovascular disease with hypertensive nephrosclerosis History of prostate cancer Seizure disorder DISCHARGE MEDICATIONS: List of medication was sent with patient DISCHARGE INSTRUCTIONS: Patient was [facility]. Follow up with primary care provider in one week. Follow-up with urologist and vascular surgeon as outpatient. I have been assigned to dictate discharge summary for this account. I was not involved in the patient's management. Nishi Whyte NP May 01, 2018 08:34
--- NOTE | 2018-05-02 23:30 | Consultation ---
DATE OF CONSULTATION: 04/25/2018 VASCULAR SURGERY CONSULTATION CONSULTING PHYSICIAN: Rasta Llamas M.D. REFERRING PHYSICIAN: John Hay M.D. REASON FOR CONSULTATION: Aortic aneurysm. HISTORY OF PRESENT ILLNESS: This is an 82-year-old male who presented with hematuria. The patient has renal failure and hypertension and is a smoker. The patient underwent a CT scan of his abdomen, which revealed an incidental finding of 4.5 cm abdominal aortic aneurysm without any evidence of rupture or hematoma. The patient has no abdominal pain. Vascular Surgery is consulted for further evaluation. PAST MEDICAL HISTORY: As above. History of hypertension, renal failure, hematuria, smoker, and newly diagnosed abdominal aortic aneurysm. MEDICATIONS: See attached MAR. ALLERGIES: No known drug allergies. SOCIAL HISTORY: History of smoking. No history of alcohol or drug use. FAMILY HISTORY: Unremarkable. SYSTEM REVIEW: CARDIOVASCULAR: No history of chest pain or palpitations. PULMONARY: No cough. No hemoptysis. GASTROINTESTINAL: No history of abdominal pain, constipation, or diarrhea. GENITOURINARY: As above. NEUROLOGIC: No history of strokes or seizures. PHYSICAL EXAMINATION: VITAL SIGNS: The patient has palpable radial pulses. LUNGS: Clear to auscultation. HEART: Regular rate and rhythm. ABDOMEN: Soft and nontender. EXTREMITIES: He has palpable femoral pulses. Intact pedal pulses bilaterally. IMPRESSION: 1. A 4.5 cm infrarenal incidental abdominal aortic aneurysm. 2. History of renal failure with hematuria. 3. Hypertension. 4. Smoker. 5. COPD. 6. Obesity. PLAN AND RECOMMENDATIONS: 1. Hematuria workup per Renal and Urology Service. 2. Follow up as an outpatient. 3. The patient will need surveillance aortic aneurysm duplex and CT scan. If aneurysm goes more than half a centimeter in 6 months or if he grows to 5.5 cm, then the will need an aortic aneurysm repair. 4. The patient is cleared for discharge from Vascular Surgery standpoint once medically optimized and cleared. 5. The above was discussed at length with the patient and the nurse at bedside. Rasta Llamas M.D. DR: JAVIER JOB#: [id number] CC: John Hay M.D.; Fax#: [phone]
== END 2018-04-27 14:20 | DRG 468 ==
LOC: EDBD 16:51 → EMR 17:48 → 4E 19:26 → EDBEDREQ 20:12 → 4E 04-24 02:59
DX: R31.0 Gross hematuria (principal); C61 Malignant neoplasm of prostate; G40.909 Epilepsy, unspecified, not intractable, without status epilepticus; I13.10 Hypertensive heart and chronic kidney disease without heart failure, with stage 1 through stage 4 chronic kidney disease, or unspecified chronic kidney disease; N18.9 Chronic kidney disease, unspecified; I71.4 Abdominal aortic aneurysm, without rupture; F17.200 Nicotine dependence, unspecified, uncomplicated
CPT/HCPCS: 36415; 71045; 74176; 80048; 80053; 81001; 81003; 82550; 82553; 83605; 83735; 83880; 84100; 84153; 84484; 85025; 87040; 87081; 93005; 99285

== ENCOUNTER 2019-11-27 09:59 | Inpatient (IN) | payer MEDICARE, OTHER ==
[~2019-11-27] VITALS: Ht 177.8 cm; Wt 71.7 kg
[~2019-11-27 09:59] MED LIST changes: +COLACE100 MG ORAL; +LIPITOR20 MG ORAL; +UNOBMED
[2019-11-27] MEDS ORDERED: CRESTOR10 M2 ORAL (10:08)
[2019-11-27] MEDS ORDERED: OMEPRAZOLE20 M3 ORAL (10:08)
--- NOTE | 2019-11-27 10:36 | NUR ---
ED Nurse Note: Pt from [facility] broguht in by [facility] came in due to SOB since this morning. O2 sat 86 % in NC at 3L. Upojn arrival changed to simple mask 6L.
--- NOTE | 2019-11-27 10:38 | NUR ---
ED Nurse Note: IV accessed, All labs sent.
[2019-11-27 10:53] LABS: HEMATOCRIT 45.8 % (42.0-52.0); HEMOGLOBIN 14.5 G/DL (14.2-18.0); MEAN CORPUSCULAR VOLUME 78 FL (80-99); PLATELET COUNT 391 K/UL (150-450); RED BLOOD COUNT 5.89 M/UL (4.70-6.10); RED CELL DISTRIBUTION WIDTH 15.2 % (11.6-14.8); WHITE BLOOD COUNT 8.2 K/UL (4.8-10.8)
[2019-11-27 11:05] VITALS: BP 147/76
[2019-11-27 11:10] LABS: ANION GAP 17 mmol/L (5-15); BLOOD UREA NITROGEN 41 mg/dL (7-18); CALCIUM 8.4 MG/DL (8.5-10.1); CARBON DIOXIDE 18 MMOL/L (21-32); CHLORIDE 108 MMOL/L (98-107); CREATININE 2.4 MG/DL (0.55-1.30); POTASSIUM 4.7 MMOL/L (3.5-5.1); SODIUM 143 MMOL/L (136-145)
--- NOTE | 2019-11-27 11:11 | NUR ---
ED Nurse Note: TO for moore catheter per ERMD
--- NOTE | 2019-11-27 11:16 | Emergency Room Report ---
History of Present Illness General Chief Complaint: Dyspnea/Respdistress Source: Patient, Medical Record Present Illness HPI Patient presents from nursing facility with reports of desaturation and shortness of breath Patient himself is awake and alert does report increased cough Denies any vomiting or diarrhea denies any chest pain patient has been weaker than usual Unknown regarding fevers denies any neck pain or photophobia Allergies: Coded Allergies: No Known Allergies (Verified , 11/13/08) COVID-19 Screening Contact w/high risk pt: No Recent Travel to affected area: No Experienced COVID-19 symptoms?: Yes COVID-19 symptoms experienced: Shortness of Breath Patient History Past Medical History: see triage record Reviewed Nursing Documentation: PMH: Agreed; PSxH: Agreed Nursing Documentation-PMH Past Medical History: No History, Except For Hx Hypertension: Yes - malignant HTN Hx Dementia: Yes Hx Seizures: Yes Review of Systems All Other Systems: negative except mentioned in HPI Physical Exam Vital Signs Date Time Temp Pulse Resp B/P (MAP) Pulse Ox O2 Delivery O2 Flow Rate FiO2 11/27/19 10:00 99.0 80 20 147/76 (99) 86 Nasal Cannula 3.0 Sp02 EP Interpretation: reviewed, normal General Appearance: other - Mildly tachypneic Head: normocephalic, atraumatic Eyes: bilateral eye PERRL, bilateral eye EOMI ENT: hearing grossly normal, normal pharynx, TMs + canals normal, uvula midline Neck: full range of motion, supple, no meningismus, no bony tend Respiratory: no respiratory distress, no retraction, no accessory muscle use, crackles - Both lower lobes, somewhat tachypneic Cardiovascular #1: normal peripheral pulses, regular rate, rhythm, no edema, no gallop, no JVD, no murmur Gastrointestinal: normal bowel sounds, non tender, soft, no mass, no organomegaly, non-distended, no guarding, no hernia, no pulsatile mass, no rebound Genitourinary: no CVA tenderness Musculoskeletal: normal inspection Neurologic: motor strength/tone normal, identity access management architect III-XII nml as tested, oriented x3 , sensory intact, responsive Psychiatric: normal inspection, mood/affect normal Skin: no rash Lymphatic: normal inspection, no adenopathy Procedures Critical Care Time Critical Care Time 40 minutes for multiple re-evaluations critical presentation hypoxic findings concerning for respiratory failure not including any procedural time Medical Decision Making Diagnostic Impression: Primary Impression: Pneumonia Additional Impression: Suspected COVID-19 virus infection ER Course Patient is a fairly complex patient with multiple differential to consideration including but not limited to cardiac cardiopulmonary and vascular emergencies Patient's x-ray shows concerning findings of bilateral infiltrates Patient's BNP and kidney function also elevated troponin is mildly elevated Patient receiving further symptomatic care and admitted for further inpatient evaluation Labs Test 11/27/19 10:20 11/27/19 12:00 11/28/19 05:34 11/29/19 05:30 White Blood Count 8.2 K/UL (4.8-10.8) 9.0 K/UL (4.8-10.8) Red Blood Count 5.89 M/UL (4.70-6.10) 5.63 M/UL (4.70-6.10) Hemoglobin 14.5 G/DL (14.2-18.0) 13.8 G/DL (14.2-18.0) Hematocrit 45.8 % (42.0-52.0) 43.2 % (42.0-52.0) Mean Corpuscular Volume 78 FL (80-99) 77 FL (80-99) Mean Corpuscular Hemoglobin 24.6 PG (27.0-31.0) 24.4 PG (27.0-31.0) Mean Corpuscular Hemoglobin Concent 31.6 G/DL (32.0-36.0) 31.9 G/DL (32.0-36.0) Red Cell Distribution Width 15.2 % (11.6-14.8) 15.3 % (11.6-14.8) Platelet Count 391 K/UL (150-450) 418 K/UL (150-450) Mean Platelet Volume 6.8 FL (6.5-10.1) 7.3 FL (6.5-10.1) Neutrophils (%) (Auto) % (45.0-75.0) % (45.0-75.0) Lymphocytes (%) (Auto) % (20.0-45.0) % (20.0-45.0) Monocytes (%) (Auto) % (1.0-10.0) % (1.0-10.0) Eosinophils (%) (Auto) % (0.0-3.0) % (0.0-3.0) Basophils (%) (Auto) % (0.0-2.0) % (0.0-2.0) Differential Total Cells Counted 100 100 Neutrophils % (Manual) 86 % (45-75) 88 % (45-75) Lymphocytes % (Manual) 7 % (20-45) 4 % (20-45) Monocytes % (Manual) 6 % (1-10) 8 % (1-10) Eosinophils % (Manual) 1 % (0-3) 0 % (0-3) Basophils % (Manual) 0 % (0-2) 0 % (0-2) Band Neutrophils 0 % (0-8) 0 % (0-8) Platelet Estimate Adequate Adequate Platelet Morphology Normal Normal Hypochromasia 1+ Anisocytosis 1+ 1+ Microcytosis 1+ 1+ Sodium Level 143 MMOL/L (136-145) 146 MMOL/L (136-145) Potassium Level 4.7 MMOL/L (3.5-5.1) 4.5 MMOL/L (3.5-5.1) Chloride Level 108 MMOL/L (98-107) 111 MMOL/L (98-107) Carbon Dioxide Level 18 MMOL/L (21-32) 18 MMOL/L (21-32) Anion Gap 17 mmol/L (5-15) 17 mmol/L (5-15) Blood Urea Nitrogen 41 mg/dL (7-18) 40 mg/dL (7-18) Creatinine 2.4 MG/DL (0.55-1.30) 2.1 MG/DL (0.55-1.30) Estimat Glomerular Filtration Rate 31.5 mL/min (>60) 36.7 mL/min (>60) Glucose Level 103 MG/DL (74-106) 97 MG/DL (74-106) Lactic Acid Level 1.20 mmol/L (0.4-2.0) Calcium Level 8.4 MG/DL (8.5-10.1) 8.0 MG/DL (8.5-10.1) Total Bilirubin 0.7 MG/DL (0.2-1.0) 0.8 MG/DL (0.2-1.0) Aspartate Amino Transf (AST/SGOT) 39 U/L (15-37) 41 U/L (15-37) Alanine Aminotransferase (ALT/SGPT) 10 U/L (12-78) 15 U/L (12-78) Alkaline Phosphatase 87 U/L (46-116) 88 U/L (46-116) Total Creatine Kinase 774 U/L (26-308) 855 U/L (26-308) Creatine Kinase MB 3.5 NG/ML (0.0-3.6) Creatine Kinase MB Relative Index 0.4 Troponin I 0.136 ng/mL (0.000-0.056) Pro-B-Type Natriuretic Peptide 2798 pg/mL (0-125) Total Protein 8.0 G/DL (6.4-8.2) 7.6 G/DL (6.4-8.2) Albumin 2.9 G/DL (3.4-5.0) 2.5 G/DL (3.4-5.0) Globulin 5.1 g/dL 5.1 g/dL Albumin/Globulin Ratio 0.6 (1.0-2.7) 0.5 (1.0-2.7) Urine Color Yellow Urine Appearance Clear Urine pH 5 (4.5-8.0) Urine Specific [place] 1.020 (1.005-1.035) Urine Protein 4+ (NEGATIVE) Urine Glucose (UA) Negative (NEGATIVE) Urine Ketones 3+ (NEGATIVE) Urine Blood 5+ (NEGATIVE) Urine Nitrite Negative (NEGATIVE) Urine Bilirubin Negative (NEGATIVE) Urine Urobilinogen Normal MG/DL (0.0-1.0) Urine Leukocyte Esterase Negative (NEGATIVE) Urine RBC 2-4 /HPF (0 - 0) Urine WBC 0-2 /HPF (0 - 0) Urine Squamous Epithelial Cells Occasional /LPF Urine Bacteria Occasional /HPF (NONE) Red Blood Cell Morphology Rhythm Strip Diag. Results EP Interpretation: yes Rate: 77 Rhythm: NSR, no PVC's, no ectopy Chest X-Ray Diagnostic Results Chest X-Ray Diagnostic Results : Chest X-Ray Ordered: Yes # of Views/Limited/Complete: 1 View Indication: Shortness of Breath EP Interpretation: Yes Interpretation: no pneumothorax, other - Bilaterally patchy markings, borderline cardiomegaly Impression: Other - Bilateral patchy markings consider infiltrate Electronically Signed by: Adam Martinez DO Last Vital Signs Date Time Temp Pulse Resp B/P (MAP) Pulse Ox O2 Delivery O2 Flow Rate FiO2 11/27/19 11:04 100.2 11/27/19 10:00 80 20 147/76 (99) 86 Nasal Cannula 3.0 Status: improved Disposition: ADMITTED INPATIENT Condition: Serious Referrals: NOT CHOSEN IPA/,REFERRING (PCP) Adam Martinez DO November 27, 2019 11:16
[2019-11-27 11:22] LABS: ALANINE AMINOTRANSFERASE 10 U/L (12-78); ALBUMIN 2.9 G/DL (3.4-5.0); ALBUMIN/GLOBULIN RATIO 0.6 (1.0-2.7); ALKALINE PHOSPHATASE 87 U/L (46-116); ASPARTATE AMINO TRANSFERASE 39 U/L (15-37); BILIRUBIN,TOTAL 0.7 MG/DL (0.2-1.0); CKMB 3.5 NG/ML (0.0-3.6); CREATINE KINASE 774 U/L (26-308)
[2019-11-27] MEDS ORDERED: Azithromycin 500 MG in NS 275 ML IV ONE (11:30)
[2019-11-27] MEDS ORDERED: cefTRIAXone 1 GM in NS 55 ML IVPB ONE (11:30)
[2019-11-27 12:00] VITALS: BP 110/75
[2019-11-27 12:53] LABS: APPEARANCE,URINE CLEAR; BILIRUBIN, URINE NEGATIVE (NEGATIVE); GLUCOSE, URINE (UA) NEGATIVE (NEGATIVE); KETONES,URINE 3+ (NEGATIVE); LEUKOCYTE ESTERASE ,URINE NEGATIVE (NEGATIVE); NITRITE,URINE NEGATIVE (NEGATIVE); PH,URINE 5 (4.5-8.0); PROTEIN,URINE 4+ (NEGATIVE); UROBILINOGEN,URINE NORMAL MG/DL (0.0-1.0)
[2019-11-27 13:07] LABS: COLOR,URINE YELLOW
--- NOTE | 2019-11-27 13:10 | NUR ---
ED Nurse Note: Patient resting in bed. Patient on simple face mask at 6L, O2 sat 95%. Breathing even and unlabored. no s/s of acute distress.
--- NOTE | 2019-11-27 13:34 | Diagnostic Imaging Report ---
Indication: Shortness of breath Technique: One view of the chest Comparison: 04/23/2018 Findings: There are bilateral basilar an midlung reticular and consolidative opacities. The heart border is obscured, heart size is probably upper limits of normal. Impression: Bilateral mid and lower lung reticular and consolidative infiltrates, likely pneumonia.
[2019-11-27 14:00] VITALS: BP 98/76
--- NOTE | 2019-11-27 14:16 | NUR ---
ED Nurse Note: Patient resting in bed no s/s of acute distress. Patient on simple face mask at 6L, O2 sat 94%. Breathing even and unlabored. Will continue to monitor.
[2019-11-27 15:26] VITALS: BP 101/74
--- NOTE | 2019-11-27 16:00 | NUR ---
TRANSFER TO FLOOR: Patient transferred to Telemetry by RN and kiln firer. Patient in no acute distress, patient accepted by [facility]. All belongings with patient.
--- NOTE | 2019-11-27 16:30 | NUR ---
NURSE NOTES: Patient received from ED. Patient stable. AOx1 but easily reoriented and follows commands. Placed on monitor technician. Correa draining well to gravity. Skin checked and is intact with only a scrape to LT elbow. Sacral skin intact. Rt UA IV in place. Diminished breath sounds with rales present. Cardiac sounds WNL. No edema to LE. Side rails upx2, call light within reach, bed low and locked. Will continue to monitor.
[2019-11-27] MEDS ORDERED: AMBIEN10 M1 ORAL (18:38)
--- NOTE | 2019-11-27 19:52 | NUR ---
NURSE NOTES: Paged Dr. Hay for possible restraints order. Awaiting callback.
[2019-11-27 20:00] VITALS: BP 145/80
--- NOTE | 2019-11-27 20:04 | NUR ---
HAND-OFF: Report given to MARIANNA BALDWIN RN. Patient stable. Plan of care endorsed. Patient just placed on restraints due to patient pulling off medical devices and ambulating without assistance and high risk for falls. Attempted numerous times to reorient and do frequent (q15min) rounds with bed alarm on but failed.
--- NOTE | 2019-11-27 20:08 | NUR ---
NURSE NOTES: Received report from ALETA Baird. Patient is asleep lying semi-hammond's; resting comfortably. No signs of acute distress or pain noted at this time. On 6L simple mask. AOx1-2; able to make needs known. Checked IV site; patent and flushed. No erythema, bleeding, or infiltration noted. Correa catheter draining dark red to dark olivia urine. Bed at lowest position, brakes on, siderails up x3. Call light within reach. Will continue to monitor.
[2019-11-27] MEDS ORDERED: cefTRIAXone 1 GM in D5W 55 ML IVPB SCH (21:00)
[2019-11-27] MEDS: Doxycycline Monohydrate 100mg ORAL SCH (21:50)
[2019-11-27] MEDS: Tamsulosin 0.4mg cap ORAL SCH (21:50)
[2019-11-27] MEDS: Zolpidem 5mg tab ORAL SCH (21:51)
[2019-11-27] MEDS: Atorvastatin 20mg tab ORAL SCH (21:51)
--- NOTE | 2019-11-27 22:59 | Consultation ---
DATE OF CONSULTATION: 11/27/2019 REASON FOR CONSULTATION: Shortness of breath and possible COVID pneumonia. HISTORY OF PRESENT ILLNESS: This is an 84-year-old male who presents from a nursing facility with a report of oxygen desaturation and shortness of breath. The patient is awake. No cough and no significant sputum. Denies any vomiting, diarrhea. The patient care discussed and reviewed and the patient imaging reviewed as well. Laboratory data is well obtained. The patient does have left shift. The patient also with renal impairment and evidence of protein-calorie malnutrition. The patient has been placed on isolation at present time. The patient's events fairly acute in nature. PAST MEDICAL HISTORY: Notable for hypertension, dementia and seizures. The patient also with hypercholesterolemia, reflux disease and issues with insomnia. FAMILY HISTORY: Not available. ALLERGIES TO MEDICATIONS: Reviewed. REVIEW OF SYSTEMS: Difficult to obtain at the present time. PHYSICAL EXAMINATION: GENERAL: Advanced age male. The patient with minimal shortness of breath at this time. VITAL SIGNS: Blood pressure 101/74, sats 94% on 6 liters, temperature is 99, heart rate 91, and respiratory rate 20. HEENT: Negative. NECK: Supple. LUNGS: Moderate breath sounds. Minimal rhonchi. CARDIAC: S1, S2. Regular rate and rhythm. Distant without murmurs, rubs or gallops. ABDOMEN: Soft and nontender. EXTREMITIES: No cyanosis or clubbing. No significant edema. NEUROLOGICALLY: Slightly confused, weak overall. LABORATORY DATA: Reviewed. BUN 41, creatinine 2.4. Troponin 0.136. Bicarbonate is 18 and albumin is 2.9. White cell count is 8.2 and platelets of 391. Urinalysis with 3+ ketones, 5+ blood. Chest x-ray with noted infiltrates. IMPRESSION: Pneumonia, possible COVID, possible mcc, hematuria, evidence of chronic renal failure, possibly with acute component, elevated troponin, possible non-STEMI [place], elevated natriuretic peptide, possible pulmonary edema, evidence of left shift with predominance of neutrophils, possible underlying infection and sepsis. RECOMMENDATIONS: Supportive care, respiratory care, isolation for now. Oxygen therapy for now. group home related antibiotics. Consider empiric therapy for COVID related pneumonia. Strongly recommend Infectious Disease consultation. Will follow x-ray. Follow up imaging. Monitor acid-base. Monitor oxygenation. Following tele for now. We will monitor clinically for further changes and interventions. Saran Lynch M.D. DR: Rosalba JOB#: [id number] CC:
--- NOTE | 2019-11-27 23:29 | History and Physical Report ---
DATE OF ADMISSION: 11/27/2019 CHIEF COMPLAINT AND REASON FOR HOSPITALIZATION: Patient is an 84-year-old man admitted for weakness, cough, pulmonary infiltrates. HISTORY OF PRESENT ILLNESS: Patient is a poor historian. He is a resident of an assisted living facility. He presents with cough and weakness. There are known cases of COVID-19 at the same facility. Patient has had a prior history of hypertensive cardiovascular disease, prostate cancer, seizure disorder, abdominal aortic aneurysms, COPD. ALLERGIES: None known. HABITS: He is a current smoker. No alcohol or drugs. MEDICATIONS: Include aspirin 81 mg daily, lisinopril 20 mg daily, tamsulosin 0.4 mg daily, rosuvastatin 10 mg daily, labetalol 300 mg 2 times a day, omeprazole 20 mg daily, zolpidem 10 mg at bedtime, amlodipine 10 mg daily, DSS 100 mg b.i.d., and Namenda 14 mg sustained release daily. SYSTEM REVIEW: HEAD, EYES, EARS, NOSE, AND THROAT: Vision and hearing are preserved. ENDOCRINE: No diabetes or thyroid disease. PULMONARY: History of COPD. CARDIAC: History of hypertensive heart disease. He has had an asymptomatic aortic aneurysm. GASTROINTESTINAL: No abdominal pain, nausea, or vomiting. NEUROLOGIC: No CVA or seizures. PHYSICAL EXAMINATION: GENERAL: Patient is alert man, seen in the emergency department. He is somewhat agitated, wearing an oxygen mask. VITAL SIGNS: Temperature 100.2, pulse 80, respirations 20, blood pressure 147/76. HEAD, EYES, EARS, NOSE, AND THROAT: Sclerae are nonicteric. Oral mucosa is moist. NECK: No adenopathy. LUNGS: Few crackles at the bases. HEART: Regular rhythm. No murmur. ABDOMEN: Soft without organomegaly. EXTREMITIES: No edema, cyanosis, or clubbing. NEUROLOGIC: He is alert and responsive. Moves all extremities. No focal weakness. PSYCHIATRIC: He is very anxious in the emergency room. PERTINENT LABORATORIES: White count 8.2, hemoglobin 14.5. BUN 41, creatinine 2.4, sodium 143, potassium 4.7, chloride 108, CO2 is 18, glucose 103. Lactic acid 1.2. CK 774. Troponin 0.136. BNP 2798. Urine is pending. Chest x-ray shows bilateral basilar infiltrates. IMPRESSION: 1. Pneumonia, community acquired. 2. Possible COVID-19. 3. Elevated BUN and creatinine. Possible chronic kidney disease stage 3 or 4 versus acute kidney injury. 4. Hypertensive heart disease. 5. History of psychiatric disorder. 6. COPD and current smoker. 7. History of gastritis, on omeprazole. 8. History of hyperlipidemia. 9. History of some dementia. PLAN: At this time, he will be treated with antibiotics for community-acquired pneumonia. He will be watched closely for possible COVID-19. We will try to update laboratories and follow closely. He is at high risk in view of his comorbidities and age. Fuad Schafer M.D. DR: ARUN JOB#: [id number] CC:
[2019-11-28] VITALS (11 sets, daily range): BP systolic 116–153; BP diastolic 63–83
--- NOTE | 2019-11-28 03:20 | NUR ---
NURSE NOTES: Patient is asleep lying semi-hammond's; resting comfortably. Correa catheter draining well to gravity. In stable condition.
--- NOTE | 2019-11-28 07:21 | NUR ---
HAND-OFF: Report given to ALETA Ho. Patient is awake lying semi-hammond's watching TV; resting comfortably. On 6L simple mask. Correa catheter draining well to gravity. In stable condition.
[2019-11-28 07:46] LABS: HEMATOCRIT 43.2 % (42.0-52.0); HEMOGLOBIN 13.8 G/DL (14.2-18.0); MEAN CORPUSCULAR VOLUME 77 FL (80-99); PLATELET COUNT 418 K/UL (150-450); RED BLOOD COUNT 5.63 M/UL (4.70-6.10); RED CELL DISTRIBUTION WIDTH 15.3 % (11.6-14.8)
[2019-11-28 08:18] LABS: ALANINE AMINOTRANSFERASE 15 U/L (12-78); ALBUMIN 2.5 G/DL (3.4-5.0); ALBUMIN/GLOBULIN RATIO 0.5 (1.0-2.7); ALKALINE PHOSPHATASE 88 U/L (46-116); ANION GAP 17 mmol/L (5-15); ASPARTATE AMINO TRANSFERASE 41 U/L (15-37); BILIRUBIN,TOTAL 0.8 MG/DL (0.2-1.0); BLOOD UREA NITROGEN 40 mg/dL (7-18); CARBON DIOXIDE 18 MMOL/L (21-32); CHLORIDE 111 MMOL/L (98-107); CREATINE KINASE 855 U/L (26-308); CREATININE 2.1 MG/DL (0.55-1.30); POTASSIUM 4.5 MMOL/L (3.5-5.1); SODIUM 146 MMOL/L (136-145)
--- NOTE | 2019-11-28 08:59 | Pulmonology Progress Note ---
Subjective Allergies: Coded Allergies: No Known Allergies (Verified , 11/13/08) Subjective d/w RN no pain no sob on low flow oxygen Objective Last 24 Hour Vital Signs Date Time Temp Pulse Resp B/P (MAP) Pulse Ox O2 Delivery O2 Flow Rate FiO2 11/28/19 04:00 98.1 79 20 125/65 (85) 92 11/28/19 04:00 72 11/28/19 00:00 98.0 80 20 151/81 (104) 94 11/28/19 00:00 79 11/27/19 21:50 97 145/80 11/27/19 21:00 Simple Mask 6.0 11/27/19 20:00 100 11/27/19 20:00 98.1 97 21 145/80 (101) 92 11/27/19 19:22 91 11/27/19 16:30 Simple Mask 6.0 11/27/19 16:00 99.0 91 20 101/74 94 Nasal Cannula 6.0 11/27/19 15:26 20 101/74 94 Nasal Cannula 6.0 11/27/19 14:00 22 98/76 93 6.0 11/27/19 12:00 20 110/75 96 6.0 11/27/19 11:30 80 20 Nasal Cannula 3.0 11/27/19 11:05 100.2 20 147/76 86 Nasal Cannula 3.0 11/27/19 11:04 100.2 11/27/19 10:00 99.0 80 20 147/76 (99) 86 Nasal Cannula 3.0 Intake and Output 11/27/19 11/28/19 19:00 07:00 Intake Total 0 ml 240 ml Output Total 500 ml Balance 0 ml -260 ml Intake Oral 0 ml 240 ml Output Urine Total 500 ml Objective GENERAL: Advanced age male. no shortness of breath or distress HEENT: Negative. NECK: Supple. LUNGS: Moderate breath sounds. Minimal rhonchi. CARDIAC: S1, S2. Regular rate and rhythm. Distant without murmurs, rubs or gallops. ABDOMEN: Soft and nontender. no distention EXTREMITIES: No cyanosis or clubbing. No significant edema. NEUROLOGICALLY: Slightly confused, weak overall. reviewed and edited Microbiology Date/Time Source Procedure Growth Status 11/27/19 10:12 Nasal Nares - Final Complete 11/27/19 10:12 Nasal Nares - Final Complete Laboratory Tests 11/27/19 10:20: White Blood Count 8.2, Red Blood Count 5.89, Hemoglobin 14.5, Hematocrit 45.8, Mean Corpuscular Volume 78L, Mean Corpuscular Hemoglobin 24.6L, Mean Corpuscular Hemoglobin Concent 31.6L, Red Cell Distribution Width 15.2H, Platelet Count 391, Mean Platelet Volume 6.8, Neutrophils (%) (Auto) , Lymphocytes (%) (Auto) , Monocytes (%) (Auto) , Eosinophils (%) (Auto) , Basophils (%) (Auto) , Differential Total Cells Counted 100, Neutrophils % ( Manual) 86H, Lymphocytes % (Manual) 7L, Monocytes % (Manual) 6, Eosinophils % ( Manual) 1, Basophils % (Manual) 0, Band Neutrophils 0, Platelet Estimate Adequate, Platelet Morphology Normal, Hypochromasia 1+, Anisocytosis 1+, Microcytosis 1+, Sodium Level 143, Potassium Level 4.7, Chloride Level 108H, Carbon Dioxide Level 18L, Anion Gap 17H, Blood Urea Nitrogen 41H, Creatinine 2.4H, Estimat Glomerular Filtration Rate 31.5, Glucose Level 103, Lactic Acid Level 1.20, Calcium Level 8.4L, Total Bilirubin 0.7, Aspartate Amino Transf (AST /SGOT) 39H, Alanine Aminotransferase (ALT/SGPT) 10L, Alkaline Phosphatase 87, Total Creatine Kinase 774H, Creatine Kinase MB 3.5, Creatine Kinase MB Relative Index 0.4, Troponin I 0.136H, Pro-B-Type Natriuretic Peptide 2798H, Total Protein 8.0, Albumin 2.9L, Globulin 5.1, Albumin/Globulin Ratio 0.6L 11/27/19 12:00: Urine Color Yellow, Urine Appearance Clear, Urine pH 5, Urine Specific [place] 1.020, Urine Protein 4+H, Urine Glucose (UA) Negative, Urine Ketones 3+H, Urine Blood 5+H, Urine Nitrite Negative, Urine Bilirubin Negative, Urine Urobilinogen Normal, Urine Leukocyte Esterase Negative, Urine RBC 2-4H, Urine WBC 0-2, Urine Squamous Epithelial Cells Occasional, Urine Bacteria Occasional 11/28/19 05:34: White Blood Count 9.0, Red Blood Count 5.63, Hemoglobin 13.8L, Hematocrit 43.2, Mean Corpuscular Volume 77L, Mean Corpuscular Hemoglobin 24.4L, Mean Corpuscular Hemoglobin Concent 31.9L, Red Cell Distribution Width 15.3H, Platelet Count 418, Mean Platelet Volume 7.3, Neutrophils (%) (Auto) , Lymphocytes (%) (Auto) , Monocytes (%) (Auto) , Eosinophils (%) (Auto) , Basophils (%) (Auto) , Neutrophils % (Manual) [Pending], Lymphocytes % (Manual) [Pending], Platelet Estimate [Pending], Platelet Morphology [Pending], Sodium Level 146H, Potassium Level 4.5, Chloride Level 111H, Carbon Dioxide Level 18L, Anion Gap 17H, Blood Urea Nitrogen 40H, Creatinine 2.1H, Estimat Glomerular Filtration Rate 36.7, Glucose Level 97, Calcium Level 8.0L, Total Bilirubin 0.8 , Aspartate Amino Transf (AST/SGOT) 41H, Alanine Aminotransferase (ALT/SGPT) 15 , Alkaline Phosphatase 88, Total Creatine Kinase 855H, Total Protein 7.6, Albumin 2.5L, Globulin 5.1, Albumin/Globulin Ratio 0.5L Current Medications Medications (Trade) Dose Ordered Sig/Viridiana Route PRN Reason Start Time Stop Time Status Last Admin Dose Admin Amlodipine Besylate (Norvasc) 10 mg DAILY ORAL 11/28/19 09:00 12/28/19 08:59 Aspirin (Ecotrin) 81 mg DAILY ORAL 11/28/19 09:00 01/12/20 08:59 Atorvastatin Calcium (Lipitor) 20 mg QHS ORAL 11/27/19 21:00 02/25/20 20:59 11/27/19 21:51 Azithromycin 500 mg/Dextrose 275 ml @ 275 mls/hr Q24HRS IV 11/28/19 12:00 12/04/19 12:59 Ceftriaxone Sodium 1 gm/ Dextrose 55 ml @ 110 mls/hr Q24H IVPB 11/28/19 09:00 12/05/19 08:59 Doxycycline Monohydrate (Doxycycline Monohydrate) 100 mg EVERY 12 HOURS ORAL 11/27/19 21:00 12/04/19 20:59 11/27/19 21:50 Labetalol HCl (Normodyne) 300 mg EVERY 12 HOURS ORAL 11/27/19 21:00 12/27/19 20:59 11/27/19 21:50 Lisinopril (PriniviL) 20 mg DAILY ORAL 11/28/19 09:00 12/28/19 08:59 Memantine (Namenda) 5 mg BID ORAL 11/28/19 09:00 12/28/19 08:59 Pantoprazole (Protonix) 40 mg ACBREAKFAST ORAL 11/28/19 06:30 12/28/19 06:29 11/28/19 06:39 Tamsulosin HCl (Flomax) 0.4 mg BEDTIME ORAL 11/27/19 21:00 12/27/19 20:59 11/27/19 21:50 Zolpidem Tartrate (Ambien) 5 mg QHS ORAL 11/27/19 21:00 12/04/19 20:59 11/27/19 21:51 Assessment/Plan Assessment/Plan IMPRESSION: Pneumonia, possible COVID, possible long term, hematuria, evidence of chronic renal failure, possibly with acute component, elevated troponin, possible non-STEMI NC, elevated natriuretic peptide, possible pulmonary edema, evidence of left shift with predominance of neutrophils, possible underlying infection and sepsis. PLAN care noted oxygen as needed respiratory care await COVID follow up results follow up imaging impression, plan, and exam edited and reviewed in detail care discussed with Saran Scott MD November 28, 2019 08:59
[2019-11-28] MEDS: Doxycycline Monohydrate 100mg ORAL SCH ×2 (09:00→21:00)
[2019-11-28] MEDS: Memantine 5 MG TAB ORAL SCH ×2 (09:00→17:53)
[2019-11-28] MEDS: Lisinopril 20mg tab ORAL SCH (09:00)
[2019-11-28] MEDS: Aspirin EC 81mg tab ORAL SCH (09:00)
[2019-11-28] MEDS: cefTRIAXone 1 GM in D5W 55 ML IVPB SCH (09:00)
--- NOTE | 2019-11-28 09:59 | NUR ---
*-* INSURANCE *-* ALL AVAILABLE CLINICALS HAVE BEEN FAXED TO: KALEE GARCIA: FELIX P- [phone] F- [phone]...........REVIEW/CLINICAL
--- NOTE | 2019-11-28 11:47 | General Progress Note ---
Assessment/Plan Problem List: (1) COPD (chronic obstructive pulmonary disease) ICD Codes: J44.9 - Chronic obstructive pulmonary disease, unspecified SNOMED: 24360204 (2) Hypertensive nephrosclerosis ICD Codes: I12.9 - Hypertensive chronic kidney disease with stage 1 through stage 4 chronic kidney disease, or unspecified chronic kidney disease SNOMED: 734960453 (3) CKD (chronic kidney disease) stage 3, GFR 30-59 ml/min ICD Codes: N18.3 - Chronic kidney disease, stage 3 (moderate) SNOMED: 704837412 (4) Suspected COVID-19 virus infection ICD Codes: Z20.828 - Contact with and (suspected) exposure to other viral communicable diseases SNOMED: 502796178 (5) Pneumonia ICD Codes: J18.9 - Pneumonia, unspecified organism SNOMED: 133031611 (6) Respiratory distress ICD Codes: R06.03 - Acute respiratory distress SNOMED: 353113156 Assessment/Plan: continue empiric atb, pulm care, oxygen, tele Subjective Constitutional: Reports: weakness HEENT: Reports: no symptoms Cardiovascular: Reports: no symptoms Respiratory: Reports: cough, shortness of breath Gastrointestinal/Abdominal: Reports: poor appetite Genitourinary: Reports: no symptoms Neurologic/Psychiatric: Reports: emotional problems Endocrine: Reports: no symptoms Allergies: Coded Allergies: No Known Allergies (Verified , 11/13/08) Objective Last 24 Hour Vital Signs Date Time Temp Pulse Resp B/P (MAP) Pulse Ox O2 Delivery O2 Flow Rate FiO2 11/28/19 09:00 125/65 11/28/19 09:00 72 125/65 11/28/19 09:00 72 125/65 11/28/19 04:00 98.1 79 20 125/65 (85) 92 11/28/19 04:00 72 11/28/19 00:00 98.0 80 20 151/81 (104) 94 11/28/19 00:00 79 11/27/19 21:50 97 145/80 11/27/19 21:00 Simple Mask 6.0 11/27/19 20:00 100 11/27/19 20:00 98.1 97 21 145/80 (101) 92 11/27/19 19:22 91 11/27/19 16:30 Simple Mask 6.0 11/27/19 16:00 99.0 91 20 101/74 94 Nasal Cannula 6.0 11/27/19 15:26 20 101/74 94 Nasal Cannula 6.0 11/27/19 14:00 22 98/76 93 6.0 11/27/19 12:00 20 110/75 96 6.0 Intake and Output 11/27/19 11/28/19 19:00 07:00 Intake Total 0 ml 240 ml Output Total 500 ml Balance 0 ml -260 ml Intake Oral 0 ml 240 ml Output Urine Total 500 ml Laboratory Tests 11/27/19 12:00: Urine Color Yellow, Urine Appearance Clear, Urine pH 5, Urine Specific [place] 1.020, Urine Protein 4+H, Urine Glucose (UA) Negative, Urine Ketones 3+H, Urine Blood 5+H, Urine Nitrite Negative, Urine Bilirubin Negative, Urine Urobilinogen Normal, Urine Leukocyte Esterase Negative, Urine RBC 2-4H, Urine WBC 0-2, Urine Squamous Epithelial Cells Occasional, Urine Bacteria Occasional 11/28/19 05:34: White Blood Count 9.0, Red Blood Count 5.63, Hemoglobin 13.8L, Hematocrit 43.2, Mean Corpuscular Volume 77L, Mean Corpuscular Hemoglobin 24.4L, Mean Corpuscular Hemoglobin Concent 31.9L, Red Cell Distribution Width 15.3H, Platelet Count 418, Mean Platelet Volume 7.3, Neutrophils (%) (Auto) , Lymphocytes (%) (Auto) , Monocytes (%) (Auto) , Eosinophils (%) (Auto) , Basophils (%) (Auto) , Differential Total Cells Counted 100, Neutrophils % ( Manual) 88H, Lymphocytes % (Manual) 4L, Monocytes % (Manual) 8, Eosinophils % ( Manual) 0, Basophils % (Manual) 0, Band Neutrophils 0, Platelet Estimate Adequate, Platelet Morphology Normal, Red Blood Cell Morphology , Anisocytosis 1 +, Microcytosis 1+, Sodium Level 146H, Potassium Level 4.5, Chloride Level 111H , Carbon Dioxide Level 18L, Anion Gap 17H, Blood Urea Nitrogen 40H, Creatinine 2.1H, Estimat Glomerular Filtration Rate 36.7, Glucose Level 97, Calcium Level 8.0L, Total Bilirubin 0.8, Aspartate Amino Transf (AST/SGOT) 41H, Alanine Aminotransferase (ALT/SGPT) 15, Alkaline Phosphatase 88, Total Creatine Kinase 855H, Total Protein 7.6, Albumin 2.5L, Globulin 5.1, Albumin/Globulin Ratio 0.5L Height (Feet): 5 Height (Inches): 10.00 Weight (Pounds): 150 General Appearance: mild distress EENT: normal ENT inspection Neck: non-tender Cardiovascular: normal rate, regular rhythm Respiratory/Chest: crackles/rales Abdomen: non tender Extremities: non-tender Edema: no edema noted Arm (L), no edema noted Arm (R), no edema noted Leg (L), no edema noted Leg (R), no edema noted Pedal (L), no edema noted Pedal (R), no edema noted 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
[2019-11-28] MEDS ORDERED: Azithromycin 500 MG in D5W 275 ML IV SCH (12:00)
[2019-11-28] MEDS ORDERED: Vancomycin 1 GM in D5W 275 ML IVPB ONE (15:00)
--- NOTE | 2019-11-28 15:23 | NUR ---
CASE MANAGEMENT:REVIEW 84 YR OLD MALE BIBA FROM [facility] CC: SOB SI: RESPIRATORY DISTRESS 100.2 80 20 147/76 86% ON 3L/NC BUN+41 CR+2.4 TCK+774 TROPONIN (+) 0.136 IS: IV ROCEPHIN IV AZITHROMYCIN CHEST XRAY BLOOD CX COVID 19 SWAB : TO TELEMETRY DCP: DISCHARGE DISPOSITION WILL HINGE ON HOSPITALIZATION OUTCOME
--- NOTE | 2019-11-28 19:50 | NUR ---
NURSE NOTES: Received report from Edson Crowell RN. Pt in stable condition, appears to be sleeping comfortably. No signs or symptoms of distress noted at this time. Will continue plan of care and close monitoring.
--- NOTE | 2019-11-28 20:15 | NUR ---
NURSE NOTES: Pt in bed, appeared to be sleeping comfortably during rounds. At 2014, loud thud sound overheard from pt's room. Pt found on floor lying on his back with his head against the wall, awake, alert, and oriented to name, place and situation. 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 No change in orientation or level of conscious noted. Abrasion noted on back of pt's head, see WCP. VS: 144/80, P 87, 91% on non-rebreather mask, RR 22, denies pain at this time. Post fall assessment unremarkable, no changes from baseline. Charge nurse Tena Sarabia RN, paged primary MD Vilchis paged at 2024, 2044, and 2054. Spoke with covering MD Schafer at 2099, received orders for head CT and bilateral soft wrist restraints. Orders carried out. MD Vilchis returned call at 2119 and gave no additional orders. Attempted to notify family of incident, but all listed phone numbers had been disconnected. Neuro checks completed as ordered, all WNL. Will continue close monitoring, post fall intervention per protocol, and plan of care.
[2019-11-28] MEDS: Tamsulosin 0.4mg cap ORAL SCH (21:00)
[2019-11-28] MEDS: Atorvastatin 20mg tab ORAL SCH (21:00)
[2019-11-28] MEDS: Zolpidem 5mg tab ORAL SCH (21:00)
--- NOTE | 2019-11-28 21:31 | Diagnostic Imaging Report ---
EXAM: CT Head Without Intravenous Contrast CLINICAL HISTORY: FALL TECHNIQUE: Axial computed tomography images of the head/brain without intravenous contrast. CTDI is 53 mGy and DLP is 1018 mGy-cm. One or more of the following dose reduction techniques were used: automated exposure control, adjustment of the mA and/or kV according to patient size, use of iterative reconstruction technique. COMPARISON: 07/18/2009. FINDINGS: Brain: No acute intracranial hemorrhage or cortical ischemia. Chronic small vessel ischemic changes. Cannot exclude [id number] ischemia on CT. Followup as clinically indicated. Ventricles: Unremarkable. Bones/joints: Unremarkable. No acute fracture. Soft tissues: Unremarkable. Sinuses: Unremarkable as visualized. Mastoid air cells: Unremarkable as visualized. IMPRESSION: No acute intracranial hemorrhage or skull fracture.
[2019-11-29] VITALS (7 sets, daily range): BP systolic 112–123; BP diastolic 58–67
--- NOTE | 2019-11-29 07:18 | NUR ---
HAND-OFF: Report given to Edson Crowell RN. Pt in stable condition, appears to be sleeping comfortably. No signs or symptoms of distress noted at this time.
[2019-11-29 07:53] LABS: ALANINE AMINOTRANSFERASE 21 U/L (12-78); ALBUMIN 2.4 G/DL (3.4-5.0); ALBUMIN/GLOBULIN RATIO 0.5 (1.0-2.7); ALKALINE PHOSPHATASE 77 U/L (46-116); ANION GAP 14 mmol/L (5-15); ASPARTATE AMINO TRANSFERASE 33 U/L (15-37); BILIRUBIN,TOTAL 0.7 MG/DL (0.2-1.0); BLOOD UREA NITROGEN 51 mg/dL (7-18); CARBON DIOXIDE 19 MMOL/L (21-32); CHLORIDE 110 MMOL/L (98-107); CREATINE KINASE 972 U/L (26-308); CREATININE 2.4 MG/DL (0.55-1.30); POTASSIUM 4.6 MMOL/L (3.5-5.1); SODIUM 143 MMOL/L (136-145)
--- NOTE | 2019-11-29 08:41 | NUR ---
CASE MANAGEMENT:REVIEW 11/29/19 SI: PNA. RESPIRATORY DISTRESS COPD. CKD. COVID NEGATIVE 98.0 74 18 112/58 95% ON NON REBREATHER BUN+51 CR+2.4 TCK+972 TROPONIN(+) 0.089 IS: IV AZITHROMYCIN Q24 IV ROCEPHIN Q24 DOXYCYCLINE PO Q12 NORVASC PO QD ASA PO QD LISINOPRIL PO QD NAMENDA PO BID PROTONIX PO QAM LABETALOL PO Q12 FLOMAX PO QHS LIPITOR PO QHS : TELEMETRY STATUS DCP: FROM [facility]
[2019-11-29] MEDS: Lisinopril 20mg tab ORAL SCH (09:00)
[2019-11-29] MEDS: Memantine 5 MG TAB ORAL SCH ×2 (09:00→18:19)
[2019-11-29] MEDS: Aspirin EC 81mg tab ORAL SCH (09:00)
[2019-11-29] MEDS: Doxycycline Monohydrate 100mg ORAL SCH (09:00)
[2019-11-29] MEDS: cefTRIAXone 1 GM in D5W 55 ML IVPB SCH (09:00)
--- NOTE | 2019-11-29 09:00 | NUR ---
DISCHARGE PLANNING COVID 19 NOT DETECTED NOT READY FOR DISCHARGE D/T NON REBREATHER
--- NOTE | 2019-11-29 10:18 | Infectious Diseases Prog Note ---
Assessment/Plan Assessment/Plan antibiotics : ceftriaxone, azithromycin A 1. pneumonia r/o COVID 19, test negative x 1 on O2, 6 liters, saturation 98 percent 2. hypertension 3. staph sepsis 4. COPD 5. seizures 6. prostate cancer 7. renal failure P 1. continue ceftriaxone 2. d/c azithromycin 3. start linezolid, hydroxychloroquine 4. repeat COVID 19 test 5. continue isolation 6. will follow up cultures Subjective ROS Limited/Unobtainable: Yes Allergies: Coded Allergies: No Known Allergies (Verified , 11/13/08) Objective Vital Signs Last 24 Hour Vital Signs Date Time Temp Pulse Resp B/P (MAP) Pulse Ox O2 Delivery O2 Flow Rate FiO2 11/29/19 09:00 112/58 11/29/19 09:00 76 112/58 11/29/19 09:00 76 112/58 11/29/19 08:00 76 11/29/19 04:00 98.0 75 18 112/58 (76) 95 11/29/19 04:00 74 11/29/19 00:00 97.0 71 18 119/61 (80) 95 11/29/19 00:00 73 11/28/19 23:00 98.3 81 21 121/71 (88) 95 11/28/19 22:15 97.0 77 18 117/68 (84) 93 11/28/19 21:45 97.3 77 19 116/63 (80) 93 11/28/19 21:15 98.6 86 22 153/83 (106) 94 11/28/19 21:00 86 133/72 11/28/19 21:00 Non-Rebreather 15.0 11/28/19 20:45 97.1 86 22 133/72 (92) 94 11/28/19 20:45 97.4 91 Non-Rebreather 15.0 11/28/19 20:15 87 22 91 11/28/19 20:15 97.4 87 18 144/80 (101) 91 11/28/19 20:00 75 11/28/19 16:00 97.7 81 18 132/81 (98) 94 11/28/19 16:00 83 11/28/19 12:00 98.7 79 20 136/71 (92) 93 11/28/19 12:00 88 Height (Feet): 5 Height (Inches): 10.00 Weight (Pounds): 141 Microbiology Date/Time Source Procedure Growth Status 11/27/19 10:50 Blood Blood Culture - Preliminary NO GROWTH AFTER 24 HOURS Resulted 11/27/19 10:20 Blood Blood Culture - Preliminary Staphylococcus Species Resulted 11/27/19 10:12 Nasal Nares - Final Complete 11/27/19 10:12 Nasal Nares - Final Complete 11/27/19 10:12 Nasopharynx Coronavirus COVID-19 PCR ([facility]) - Final Complete Laboratory Tests Test 11/29/19 05:30 Sodium Level 143 MMOL/L (136-145) Potassium Level 4.6 MMOL/L (3.5-5.1) Chloride Level 110 MMOL/L (98-107) H Carbon Dioxide Level 19 MMOL/L (21-32) L Anion Gap 14 mmol/L (5-15) Blood Urea Nitrogen 51 mg/dL (7-18) H Creatinine 2.4 MG/DL (0.55-1.30) H Estimat Glomerular Filtration Rate 31.5 mL/min (>60) Glucose Level 105 MG/DL (74-106) Calcium Level 8.0 MG/DL (8.5-10.1) L Total Bilirubin 0.7 MG/DL (0.2-1.0) Aspartate Amino Transf (AST/SGOT) 33 U/L (15-37) Alanine Aminotransferase (ALT/SGPT) 21 U/L (12-78) Alkaline Phosphatase 77 U/L (46-116) Total Creatine Kinase 972 U/L (26-308) H Troponin I 0.089 ng/mL (0.000-0.056) Total Protein 7.1 G/DL (6.4-8.2) Albumin 2.4 G/DL (3.4-5.0) L Globulin 4.7 g/dL Albumin/Globulin Ratio 0.5 (1.0-2.7) L Thyroid Stimulating Hormone (TSH) 1.153 uiU/mL (0.358-3.740) Current Medications Medications (Trade) Dose Ordered Sig/Viridiana Route PRN Reason Start Time Stop Time Status Last Admin Dose Admin Amlodipine Besylate (Norvasc) 10 mg DAILY ORAL 11/28/19 09:00 12/28/19 08:59 11/29/19 09:00 Aspirin (Ecotrin) 81 mg DAILY ORAL 11/28/19 09:00 01/12/20 08:59 11/29/19 09:00 Atorvastatin Calcium (Lipitor) 20 mg QHS ORAL 11/27/19 21:00 02/25/20 20:59 11/28/19 21:00 Azithromycin 500 mg/Dextrose 275 ml @ 275 mls/hr Q24HRS IV 11/28/19 12:00 12/04/19 12:59 11/28/19 12:00 Ceftriaxone Sodium 1 gm/ Dextrose 55 ml @ 110 mls/hr Q24H IVPB 11/28/19 09:00 12/05/19 08:59 11/29/19 09:00 Doxycycline Monohydrate (Doxycycline Monohydrate) 100 mg EVERY 12 HOURS ORAL 11/27/19 21:00 12/04/19 20:59 11/29/19 09:00 Labetalol HCl (Normodyne) 300 mg EVERY 12 HOURS ORAL 11/27/19 21:00 12/27/19 20:59 11/29/19 09:00 Lisinopril (PriniviL) 20 mg DAILY ORAL 11/28/19 09:00 12/28/19 08:59 11/29/19 09:00 Memantine (Namenda) 5 mg BID ORAL 11/28/19 09:00 12/28/19 08:59 11/29/19 09:00 Pantoprazole (Protonix) 40 mg ACBREAKFAST ORAL 11/28/19 06:30 12/28/19 06:29 11/29/19 06:49 Tamsulosin HCl (Flomax) 0.4 mg BEDTIME ORAL 11/27/19 21:00 12/27/19 20:59 11/28/19 21:00 Zolpidem Tartrate (Ambien) 5 mg QHS ORAL 11/27/19 21:00 12/04/19 20:59 11/27/19 21:51 Sandip Wong MD November 29, 2019 10:18
[2019-11-29] MEDS ORDERED: Hydroxychloroquine Fact Sheet MISC ONE (10:30)
--- NOTE | 2019-11-29 11:02 | General Progress Note ---
Assessment/Plan Problem List: (1) COPD (chronic obstructive pulmonary disease) ICD Codes: J44.9 - Chronic obstructive pulmonary disease, unspecified SNOMED: 92509101 (2) Hypertensive nephrosclerosis ICD Codes: I12.9 - Hypertensive chronic kidney disease with stage 1 through stage 4 chronic kidney disease, or unspecified chronic kidney disease SNOMED: 599243808 (3) CKD (chronic kidney disease) stage 3, GFR 30-59 ml/min ICD Codes: N18.3 - Chronic kidney disease, stage 3 (moderate) SNOMED: 947112908 (4) Suspected COVID-19 virus infection ICD Codes: Z20.828 - Contact with and (suspected) exposure to other viral communicable diseases SNOMED: 261846681 (5) Pneumonia ICD Codes: J18.9 - Pneumonia, unspecified organism SNOMED: 786537308 (6) Respiratory distress ICD Codes: R06.03 - Acute respiratory distress SNOMED: 504999933 (7) Troponin I above reference range ICD Codes: R79.89 - Other specified abnormal findings of blood chemistry SNOMED: 820629197 (8) Bacteremia due to Gram-positive bacteria ICD Codes: R78.81 - Bacteremia SNOMED: 100760054748 (9) Staph infection ICD Codes: B95.8 - Unspecified staphylococcus as the cause of diseases classified elsewhere SNOMED: 20288915 Assessment/Plan: continue empiric atb, pulm care, oxygen, tele, cardiac eval, d/w ID about antibiotics Subjective Constitutional: Reports: weakness HEENT: Reports: no symptoms Cardiovascular: Reports: no symptoms Respiratory: Reports: cough, shortness of breath Gastrointestinal/Abdominal: Reports: no symptoms Genitourinary: Reports: no symptoms Neurologic/Psychiatric: Reports: pre-existing deficit Endocrine: Reports: no symptoms Allergies: Coded Allergies: No Known Allergies (Verified , 11/13/08) Objective Last 24 Hour Vital Signs Date Time Temp Pulse Resp B/P (MAP) Pulse Ox O2 Delivery O2 Flow Rate FiO2 11/29/19 09:00 112/58 11/29/19 09:00 76 112/58 11/29/19 09:00 76 112/58 11/29/19 08:00 76 11/29/19 04:00 98.0 75 18 112/58 (76) 95 11/29/19 04:00 74 11/29/19 00:00 97.0 71 18 119/61 (80) 95 11/29/19 00:00 73 11/28/19 23:00 98.3 81 21 121/71 (88) 95 11/28/19 22:15 97.0 77 18 117/68 (84) 93 11/28/19 21:45 97.3 77 19 116/63 (80) 93 11/28/19 21:15 98.6 86 22 153/83 (106) 94 11/28/19 21:00 86 133/72 11/28/19 21:00 Non-Rebreather 15.0 11/28/19 20:45 97.1 86 22 133/72 (92) 94 11/28/19 20:45 97.4 91 Non-Rebreather 15.0 11/28/19 20:15 87 22 91 11/28/19 20:15 97.4 87 18 144/80 (101) 91 11/28/19 20:00 75 11/28/19 16:00 97.7 81 18 132/81 (98) 94 11/28/19 16:00 83 11/28/19 12:00 98.7 79 20 136/71 (92) 93 11/28/19 12:00 88 Intake and Output 11/28/19 11/29/19 19:00 07:00 Output Total 700 ml Balance -700 ml Output Urine Total 700 ml # Bowel Movements 1 2 Laboratory Tests 11/29/19 05:30: Sodium Level 143, Potassium Level 4.6, Chloride Level 110H, Carbon Dioxide Level 19L, Anion Gap 14, Blood Urea Nitrogen 51H, Creatinine 2.4H, Estimat Glomerular Filtration Rate 31.5, Glucose Level 105, Calcium Level 8.0L, Total Bilirubin 0.7, Aspartate Amino Transf (AST/SGOT) 33, Alanine Aminotransferase ( ALT/SGPT) 21, Alkaline Phosphatase 77, Total Creatine Kinase 972H, Troponin I 0.089H, Total Protein 7.1, Albumin 2.4L, Globulin 4.7, Albumin/Globulin Ratio 0.5L, Thyroid Stimulating Hormone (TSH) 1.153 Height (Feet): 5 Height (Inches): 10.00 Weight (Pounds): 141 General Appearance: alert, confused EENT: normal ENT inspection Neck: normal alignment Cardiovascular: regular rhythm Respiratory/Chest: crackles/rales Abdomen: non tender, soft Edema: no edema noted Arm (L), no edema noted Arm (R), no edema noted Leg (L), no edema noted Leg (R), no edema noted Pedal (L), no edema noted Pedal (R), no edema noted Generalized Fuad Schafer MD November 29, 2019 11:02
[2019-11-29] MEDS ORDERED: Nitroglycerin Subl 0.4mg tab SL PRN (11:15)
[2019-11-29] MEDS: Nitroglycerin Patch 0.2mg/hr TDERMAL SCH (12:00)
--- NOTE | 2019-11-29 15:45 | Pulmonology Progress Note ---
Subjective ROS Limited/Unobtainable: Yes Allergies: Coded Allergies: No Known Allergies (Verified , 11/13/08) Subjective d/w RN no pain no sob but confused on low flow oxygen Objective Last 24 Hour Vital Signs Date Time Temp Pulse Resp B/P (MAP) Pulse Ox O2 Delivery O2 Flow Rate FiO2 11/29/19 12:00 98.2 82 18 114/58 (76) 96 11/29/19 09:00 112/58 11/29/19 09:00 76 112/58 11/29/19 09:00 76 112/58 11/29/19 09:00 Non-Rebreather 15.0 11/29/19 08:00 97.9 73 20 123/61 (81) 93 11/29/19 08:00 76 11/29/19 04:00 98.0 75 18 112/58 (76) 95 11/29/19 04:00 74 11/29/19 00:00 97.0 71 18 119/61 (80) 95 11/29/19 00:00 73 11/28/19 23:00 98.3 81 21 121/71 (88) 95 11/28/19 22:15 97.0 77 18 117/68 (84) 93 11/28/19 21:45 97.3 77 19 116/63 (80) 93 11/28/19 21:15 98.6 86 22 153/83 (106) 94 11/28/19 21:00 86 133/72 11/28/19 21:00 Non-Rebreather 15.0 11/28/19 20:45 97.1 86 22 133/72 (92) 94 11/28/19 20:45 97.4 91 Non-Rebreather 15.0 11/28/19 20:15 87 22 91 11/28/19 20:15 97.4 87 18 144/80 (101) 91 11/28/19 20:00 75 11/28/19 16:00 97.7 81 18 132/81 (98) 94 11/28/19 16:00 83 Intake and Output 11/28/19 11/29/19 19:00 07:00 Output Total 700 ml Balance -700 ml Output Urine Total 700 ml # Bowel Movements 1 2 Objective GENERAL: Advanced age male. no shortness of breath or distress HEENT: Negative. NECK: Supple. LUNGS: Moderate breath sounds. Minimal rhonchi. CARDIAC: S1, S2. Regular rate and rhythm. Distant without murmurs, rubs or gallops. ABDOMEN: Soft and nontender. no distention EXTREMITIES: No cyanosis or clubbing. No significant edema. NEUROLOGICALLY: Slightly confused, weak overall. reviewed and edited Microbiology Date/Time Source Procedure Growth Status 11/27/19 10:50 Blood Blood Culture - Preliminary NO GROWTH AFTER 24 HOURS Resulted 11/27/19 10:20 Blood Blood Culture - Preliminary Staphylococcus Species Resulted 11/27/19 10:12 Nasal Nares - Final Complete 11/27/19 10:12 Nasal Nares - Final Complete 11/27/19 10:12 Nasopharynx Coronavirus COVID-19 PCR ([facility]) - Final Complete Laboratory Tests 11/29/19 05:30: Sodium Level 143, Potassium Level 4.6, Chloride Level 110H, Carbon Dioxide Level 19L, Anion Gap 14, Blood Urea Nitrogen 51H, Creatinine 2.4H, Estimat Glomerular Filtration Rate 31.5, Glucose Level 105, Calcium Level 8.0L, Total Bilirubin 0.7, Aspartate Amino Transf (AST/SGOT) 33, Alanine Aminotransferase ( ALT/SGPT) 21, Alkaline Phosphatase 77, Total Creatine Kinase 972H, Troponin I 0.089H, Total Protein 7.1, Albumin 2.4L, Globulin 4.7, Albumin/Globulin Ratio 0.5L, Thyroid Stimulating Hormone (TSH) 1.153 Current Medications Medications (Trade) Dose Ordered Sig/Viridiana Route PRN Reason Start Time Stop Time Status Last Admin Dose Admin Amlodipine Besylate (Norvasc) 10 mg DAILY ORAL 11/28/19 09:00 12/28/19 08:59 11/29/19 09:00 Aspirin (Ecotrin) 81 mg DAILY ORAL 11/28/19 09:00 01/12/20 08:59 11/29/19 09:00 Atorvastatin Calcium (Lipitor) 20 mg QHS ORAL 11/27/19 21:00 02/25/20 20:59 11/28/19 21:00 Ceftriaxone Sodium 1 gm/ Dextrose 55 ml @ 110 mls/hr Q24H IVPB 11/28/19 09:00 12/05/19 08:59 11/29/19 09:00 Hydroxychloroquine Sulfate (Plaquenil) 200 mg Q12HR ORAL 11/30/19 09:00 12/03/19 21:01 Hydroxychloroquine Sulfate (Plaquenil) 400 mg Q12HR ORAL 11/29/19 11:01 11/29/19 21:01 Labetalol HCl (Normodyne) 300 mg EVERY 12 HOURS ORAL 11/27/19 21:00 12/27/19 20:59 11/29/19 09:00 Linezolid 300 ml @ 300 mls/hr Q12H IVPB 11/29/19 12:00 12/06/19 11:59 Lisinopril (PriniviL) 20 mg DAILY ORAL 11/28/19 09:00 12/28/19 08:59 11/29/19 09:00 Memantine (Namenda) 5 mg BID ORAL 11/28/19 09:00 12/28/19 08:59 11/29/19 09:00 Nitroglycerin (Ntg) 0.4 mg Q5M PRN SL Prn Chest Pain 11/29/19 11:15 12/29/19 11:14 Nitroglycerin (Ntg) 1 patch Q24H TDERMAL 11/29/19 12:00 12/29/19 11:59 Pantoprazole (Protonix) 40 mg ACBREAKFAST ORAL 11/28/19 06:30 12/28/19 06:29 11/29/19 06:49 Sodium Chloride 1,000 ml @ 50 mls/hr Q20H IV 11/29/19 11:15 12/29/19 11:14 Tamsulosin HCl (Flomax) 0.4 mg BEDTIME ORAL 11/27/19 21:00 12/27/19 20:59 11/28/19 21:00 Zolpidem Tartrate (Ambien) 5 mg QHS ORAL 11/27/19 21:00 12/04/19 20:59 11/27/19 21:51 Assessment/Plan Assessment/Plan IMPRESSION: Pneumonia, possible COVID, possible fci, hematuria, evidence of chronic renal failure, possibly with acute component, elevated troponin, possible non-STEMI CO, elevated natriuretic peptide, possible pulmonary edema, evidence of left shift with predominance of neutrophils, possible underlying infection and sepsis. PLAN care noted oxygen needs reviewed respiratory care await COVID follow up results follow up imaging for change- none yet will order impression, plan, and exam edited and reviewed in detail care discussed with RN Ishaaya,Saran M MD November 29, 2019 15:45
--- NOTE | 2019-11-29 15:51 | NUR ---
*-* INSURANCE *-* ALL AVAILABLE CLINICALS HAVE BEEN FAXED TO: [facility]IA: FELIX P- [phone]...........REVIEW/CLINICAL
--- NOTE | 2019-11-29 19:30 | NUR ---
NURSE NOTES: Received report and endorsement of care from Edson Crowell RN. Pt in stable condition, denies pain. No signs or symptoms of distress noted at this time. Bed in lowest positions, bilateral wrist restraints in place, bed alarm armed. Will continue plan of care and monitor closely.
[2019-11-29] MEDS: Zolpidem 5mg tab ORAL SCH (21:35)
[2019-11-29] MEDS: Atorvastatin 20mg tab ORAL SCH (21:35)
[2019-11-29] MEDS: Tamsulosin 0.4mg cap ORAL SCH (21:35)
--- NOTE | 2019-11-29 22:37 | NUR ---
NURSE NOTES: Unable to get consent from pt's family for Plaquenil. Pt is unable to consent to treatment himself. Dr. Wong made aware and stated to continue med treatment even if unable to get consent from family. Called [facility], nurse service and repair supervisor Moon Harrington RN, and charge nurse Tena Pinto RN all made aware and all agree. Will continue to monitor pt closely.
[2019-11-30] VITALS (7 sets, daily range): BP systolic 98–120; BP diastolic 56–69
--- NOTE | 2019-11-30 04:30 | Consultation ---
DATE OF CONSULTATION: CARDIOLOGY CONSULTATION CONSULTING PHYSICIAN: Jarod Clark MD. REFERRING PHYSICIAN: John Hay MD. REASON: Elevated troponin level. HISTORY OF PRESENT ILLNESS: This is an elderly resident of an assisted living facility. He was brought into this facility 2 days ago with cough and congestion and weakness. Concern was raised over COVID-19 infection since several other residents had contracted it at the facility. Thus far, the patient has 1 negatgive COVID-19 swab. The second swab is pending. Of concern, I am prompting this consultation as an elevated troponin level. Once the patient is a poor historian, he does have congestion and shortness of breath, but no chest pain. PAST MEDICAL HISTORY: Prostate cancer, hypertension, history of abdominal aortic aneurysm, COPD, seizure disorder, prostatic hypertrophy, dementia with agitation, and hyperlipidemia. MEDICATIONS: Prior to admission, reviewed and reconciled. ALLERGIES: None known. SOCIAL HISTORY: Active smoker 14-[id number] years. No alcohol or substance abuse. FAMILY HISTORY: Noncontributory. REVIEW OF SYSTEMS: A 10-point review of systems was performed. All negative other than noted above. PHYSICAL EXAMINATION: VITAL SIGNS: Blood pressure 114/58, heart rate 82, respirations 18, afebrile. LUNGS: Coarse breath sounds, rhonchi. CARDIAC: Regular rhythm and rate. Normal S1 and S2. A 1/6 systolic murmur at lower left sternal border. ABDOMEN: Soft, nontender. EXTREMITIES: No edema. LABORATORY DATA: Echocardiogram performed revealed normal ejection fraction and no regurgitations or stenosing in the setting of mild degenerative valve disease. Troponin #1 was 0.136 and troponin #2 was 0.089. BUN 51, creatinine 2.4, and potassium 4.6. IMPRESSION: 1. Healthcare-associated pneumonia. 2. Concern of a COVID-19, although first swab is negative. 3. Non ST-elevation myocardial infarction. 4. Acute on chronic diastolic congestive heart failure with elevated natriuretic peptide assay. 5. COPD. 6. Acute on chronic renal failure. PLAN: 1. Cardiac monitoring. 2. Antimicrobials. 3. Respiratory hygiene. 4. Antiplatelet therapy with aspirin. 5. Beta-blockade. 6. Would discontinue hydroxychloroquine for now as the patient is at increased risk for arrhythmias in this clinical setting and COVID-19 infection has yet to be confirmed. Jarod Clark M.D. DR: DAYAN JOB#: [id number] CC:
--- NOTE | 2019-11-30 07:34 | NUR ---
NURSE NOTES: Nurse report given by ALETA Yadav. Patient's awake and sitting in bed, high hammond position, eyes open spontaneously, breathing regular and unlabored. Bed low and locked, call light within reach, side rails x 3, bed alarm is armed, patient fall teaching provided, side rails padded for seizure precaution. Bilateral wrist restraints, pulse present, equally both siders, no s/s of skin alteration. IV is running fluid, no s/s of tenderness or infiltration. Patient's on non-rebreather, at 15L goal. AO x 2, denies pain, agitated and wanted to pull restraints off. Restraints reposition. Will continue to monitor.
--- NOTE | 2019-11-30 07:34 | NUR ---
HAND-OFF: Report given to Emily Acevedo RN. Pt in stable condition, appears to be resting comfortably. No signs or symptoms of distress noted at this time.
--- NOTE | 2019-11-30 07:34 | NUR ---
NURSE NOTES: Correa noted, intact, and draining well. Urine noted to be dark brown, sediments noted.
[2019-11-30 08:05] LABS: BASOPHILS % (AUTO) 0.7 % (0.0-2.0); EOSINOPHILS % (AUTO) 1.4 % (0.0-3.0); HEMATOCRIT 40.6 % (42.0-52.0); HEMOGLOBIN 13.1 G/DL (14.2-18.0); LYMPHOCYTES % (AUTO) 6.4 % (20.0-45.0); MEAN CORPUSCULAR VOLUME 76 FL (80-99); MONOCYTES % (AUTO) 7.8 % (1.0-10.0); NEUTROPHILS % (AUTO) 83.6 % (45.0-75.0); PLATELET COUNT 434 K/UL (150-450); RED BLOOD COUNT 5.38 M/UL (4.70-6.10); RED CELL DISTRIBUTION WIDTH 15.1 % (11.6-14.8); WHITE BLOOD COUNT 9.4 K/UL (4.8-10.8)
[2019-11-30 08:39] LABS: ANION GAP 14 mmol/L (5-15); BLOOD UREA NITROGEN 49 mg/dL (7-18); CALCIUM 7.8 MG/DL (8.5-10.1); CARBON DIOXIDE 20 MMOL/L (21-32); CHLORIDE 109 MMOL/L (98-107); CREATININE 2.3 MG/DL (0.55-1.30); POTASSIUM 3.8 MMOL/L (3.5-5.1); SODIUM 143 MMOL/L (136-145)
[2019-11-30] MEDS: Aspirin EC 81mg tab ORAL SCH (08:58)
[2019-11-30] MEDS: cefTRIAXone 1 GM in D5W 55 ML IVPB SCH (08:59)
[2019-11-30] MEDS: Memantine 5 MG TAB ORAL SCH ×2 (08:59→17:48)
[2019-11-30] MEDS: Lisinopril 20mg tab ORAL SCH (08:59)
--- NOTE | 2019-11-30 10:23 | Pulmonology Progress Note ---
Subjective ROS Limited/Unobtainable: Yes Allergies: Coded Allergies: No Known Allergies (Verified , 11/13/08) Subjective d/w RN no pain no sob but confused on nonrebreater oxygen Objective Last 24 Hour Vital Signs Date Time Temp Pulse Resp B/P (MAP) Pulse Ox O2 Delivery O2 Flow Rate FiO2 11/30/19 09:00 Non-Rebreather 15.0 11/30/19 08:59 120/61 11/30/19 08:59 70 120/61 11/30/19 08:59 70 120/61 11/30/19 08:00 97.6 70 20 120/61 (80) 95 11/30/19 07:44 62 11/30/19 04:00 66 11/30/19 04:00 97.9 67 18 116/57 (76) 98 11/30/19 00:00 97.8 68 18 98/57 (71) 92 11/30/19 00:00 69 11/29/19 21:36 93 123/67 11/29/19 21:00 Non-Rebreather 15.0 11/29/19 20:45 97.4 93 Non-Rebreather 15.0 11/29/19 20:00 80 11/29/19 20:00 97.7 86 20 123/67 (85) 93 11/29/19 16:00 97.6 76 22 118/62 (80) 95 11/29/19 16:00 81 11/29/19 12:00 98.2 82 18 114/58 (76) 96 11/29/19 12:00 114/58 11/29/19 12:00 88 Intake and Output 11/29/19 11/30/19 19:00 07:00 Intake Total 360 ml Output Total 700 ml 500 ml Balance -340 ml -500 ml Intake Oral 360 ml Output Urine Total 700 ml 500 ml # Bowel Movements 1 Objective GENERAL: Advanced age male. no shortness of breath or distress HEENT: Negative. NECK: Supple. LUNGS: Moderate breath sounds. noted rhonchi. CARDIAC: S1, S2. Regular rate and rhythm. Distant without murmurs, rubs or gallops. ABDOMEN: Soft and nontender. no distention EXTREMITIES: No cyanosis or clubbing. No significant edema. NEUROLOGICALLY: Slightly confused, weak overall. reviewed and edited Microbiology Date/Time Source Procedure Growth Status 11/27/19 10:50 Blood Blood Culture - Preliminary NO GROWTH AFTER 48 HOURS Resulted Laboratory Tests 11/30/19 07:05: White Blood Count 9.4, Red Blood Count 5.38, Hemoglobin 13.1L, Hematocrit 40.6L , Mean Corpuscular Volume 76L, Mean Corpuscular Hemoglobin 24.4L, Mean Corpuscular Hemoglobin Concent 32.3, Red Cell Distribution Width 15.1H, Platelet Count 434, Mean Platelet Volume 6.8, Neutrophils (%) (Auto) 83.6H, Lymphocytes (%) (Auto) 6.4L, Monocytes (%) (Auto) 7.8, Eosinophils (%) (Auto) 1.4, Basophils (%) (Auto) 0.7, Sodium Level 143, Potassium Level 3.8, Chloride Level 109H, Carbon Dioxide Level 20L, Anion Gap 14, Blood Urea Nitrogen 49H, Creatinine 2.3H, Estimat Glomerular Filtration Rate 33.1, Glucose Level 108H, Calcium Level 7.8L, Magnesium Level 2.8H, Troponin I 0.058H, Pro-B-Type Natriuretic Peptide 1751H Current Medications Medications (Trade) Dose Ordered Sig/Viridiana Route PRN Reason Start Time Stop Time Status Last Admin Dose Admin Amlodipine Besylate (Norvasc) 10 mg DAILY ORAL 11/28/19 09:00 12/28/19 08:59 11/30/19 08:59 Aspirin (Ecotrin) 81 mg DAILY ORAL 11/28/19 09:00 01/12/20 08:59 11/30/19 08:58 Atorvastatin Calcium (Lipitor) 20 mg QHS ORAL 11/27/19 21:00 02/25/20 20:59 11/29/19 21:35 Ceftriaxone Sodium 1 gm/ Dextrose 55 ml @ 110 mls/hr Q24H IVPB 11/28/19 09:00 12/05/19 08:59 11/30/19 08:59 Labetalol HCl (Normodyne) 300 mg EVERY 12 HOURS ORAL 11/27/19 21:00 12/27/19 20:59 11/30/19 08:59 Linezolid 300 ml @ 300 mls/hr Q12H IVPB 11/29/19 12:00 12/06/19 11:59 11/30/19 00:00 Lisinopril (PriniviL) 20 mg DAILY ORAL 11/28/19 09:00 12/28/19 08:59 11/30/19 08:59 Memantine (Namenda) 5 mg BID ORAL 11/28/19 09:00 12/28/19 08:59 11/30/19 08:59 Nitroglycerin (Ntg) 0.4 mg Q5M PRN SL Prn Chest Pain 11/29/19 11:15 12/29/19 11:14 Nitroglycerin (Ntg) 1 patch Q24H TDERMAL 11/29/19 12:00 12/29/19 11:59 11/29/19 12:00 Pantoprazole (Protonix) 40 mg ACBREAKFAST ORAL 11/28/19 06:30 12/28/19 06:29 11/30/19 06:37 Sodium Chloride 1,000 ml @ 50 mls/hr Q20H IV 11/29/19 11:15 12/29/19 11:14 11/30/19 06:38 Tamsulosin HCl (Flomax) 0.4 mg BEDTIME ORAL 11/27/19 21:00 12/27/19 20:59 11/29/19 21:35 Zolpidem Tartrate (Ambien) 5 mg QHS ORAL 11/27/19 21:00 12/04/19 20:59 11/29/19 21:35 Assessment/Plan Assessment/Plan IMPRESSION: Pneumonia, negative COVID, possible alf, hematuria, evidence of chronic renal failure, possibly with acute component, elevated troponin, possible non-STEMI CO, elevated natriuretic peptide, possible pulmonary edema, pneumonia and sepsis. PLAN care noted oxygen needs worse respiratory care ABG and CXR will order off load aspiration precautions ID noted impression, plan, and exam edited and reviewed in detail care discussed with Saran Scott MD November 30, 2019 10:23
--- NOTE | 2019-11-30 10:51 | Infectious Diseases Prog Note ---
Assessment/Plan Assessment/Plan antibiotics : linezolid, ceftriaxone A 1. pneumonia r/o COVID 19, test negative x 1 on O2, 15 liters, saturation 90 percent 2. hypertension 3. coag neg staph likely contaminated 4. COPD 5. seizures 6. prostate cancer 7. renal failure P 1. continue ceftriaxone 2. hydroxychloroquine d/c 3. start ivermectin x 1 dose, no family available 4. continue isolation 5. will follow up cultures 6. UA and urine culture Subjective ROS Limited/Unobtainable: Yes Allergies: Coded Allergies: No Known Allergies (Verified , 11/13/08) Objective Vital Signs Last 24 Hour Vital Signs Date Time Temp Pulse Resp B/P (MAP) Pulse Ox O2 Delivery O2 Flow Rate FiO2 11/30/19 09:00 Non-Rebreather 15.0 11/30/19 08:59 120/61 11/30/19 08:59 70 120/61 11/30/19 08:59 70 120/61 11/30/19 08:00 97.6 70 20 120/61 (80) 95 11/30/19 07:44 62 11/30/19 04:00 66 11/30/19 04:00 97.9 67 18 116/57 (76) 98 11/30/19 00:00 97.8 68 18 98/57 (71) 92 11/30/19 00:00 69 11/29/19 21:36 93 123/67 11/29/19 21:00 Non-Rebreather 15.0 11/29/19 20:45 97.4 93 Non-Rebreather 15.0 11/29/19 20:00 80 11/29/19 20:00 97.7 86 20 123/67 (85) 93 11/29/19 16:00 97.6 76 22 118/62 (80) 95 11/29/19 16:00 81 11/29/19 12:00 98.2 82 18 114/58 (76) 96 11/29/19 12:00 114/58 11/29/19 12:00 88 Height (Feet): 5 Height (Inches): 10.00 Weight (Pounds): 141 Microbiology Date/Time Source Procedure Growth Status 11/27/19 10:50 Blood Blood Culture - Preliminary NO GROWTH AFTER 48 HOURS Resulted Laboratory Tests Test 11/30/19 07:05 White Blood Count 9.4 K/UL (4.8-10.8) Red Blood Count 5.38 M/UL (4.70-6.10) Hemoglobin 13.1 G/DL (14.2-18.0) L Hematocrit 40.6 % (42.0-52.0) L Mean Corpuscular Volume 76 FL (80-99) L Mean Corpuscular Hemoglobin 24.4 PG (27.0-31.0) L Mean Corpuscular Hemoglobin Concent 32.3 G/DL (32.0-36.0) Red Cell Distribution Width 15.1 % (11.6-14.8) H Platelet Count 434 K/UL (150-450) Mean Platelet Volume 6.8 FL (6.5-10.1) Neutrophils (%) (Auto) 83.6 % (45.0-75.0) H Lymphocytes (%) (Auto) 6.4 % (20.0-45.0) L Monocytes (%) (Auto) 7.8 % (1.0-10.0) Eosinophils (%) (Auto) 1.4 % (0.0-3.0) Basophils (%) (Auto) 0.7 % (0.0-2.0) Sodium Level 143 MMOL/L (136-145) Potassium Level 3.8 MMOL/L (3.5-5.1) Chloride Level 109 MMOL/L (98-107) H Carbon Dioxide Level 20 MMOL/L (21-32) L Anion Gap 14 mmol/L (5-15) Blood Urea Nitrogen 49 mg/dL (7-18) H Creatinine 2.3 MG/DL (0.55-1.30) H Estimat Glomerular Filtration Rate 33.1 mL/min (>60) Glucose Level 108 MG/DL (74-106) H Calcium Level 7.8 MG/DL (8.5-10.1) L Magnesium Level 2.8 MG/DL (1.8-2.4) H Troponin I 0.058 ng/mL (0.000-0.056) Pro-B-Type Natriuretic Peptide 1751 pg/mL (0-125) H Current Medications Medications (Trade) Dose Ordered Sig/Viridiana Route PRN Reason Start Time Stop Time Status Last Admin Dose Admin Amlodipine Besylate (Norvasc) 10 mg DAILY ORAL 11/28/19 09:00 12/28/19 08:59 11/30/19 08:59 Aspirin (Ecotrin) 81 mg DAILY ORAL 11/28/19 09:00 01/12/20 08:59 11/30/19 08:58 Atorvastatin Calcium (Lipitor) 20 mg QHS ORAL 11/27/19 21:00 02/25/20 20:59 11/29/19 21:35 Ceftriaxone Sodium 1 gm/ Dextrose 55 ml @ 110 mls/hr Q24H IVPB 11/28/19 09:00 12/05/19 08:59 11/30/19 08:59 Labetalol HCl (Normodyne) 300 mg EVERY 12 HOURS ORAL 11/27/19 21:00 12/27/19 20:59 11/30/19 08:59 Linezolid 300 ml @ 300 mls/hr Q12H IVPB 11/29/19 12:00 12/06/19 11:59 11/30/19 00:00 Lisinopril (PriniviL) 20 mg DAILY ORAL 11/28/19 09:00 12/28/19 08:59 11/30/19 08:59 Memantine (Namenda) 5 mg BID ORAL 11/28/19 09:00 12/28/19 08:59 11/30/19 08:59 Nitroglycerin (Ntg) 0.4 mg Q5M PRN SL Prn Chest Pain 11/29/19 11:15 12/29/19 11:14 Nitroglycerin (Ntg) 1 patch Q24H TDERMAL 11/29/19 12:00 12/29/19 11:59 11/29/19 12:00 Pantoprazole (Protonix) 40 mg ACBREAKFAST ORAL 11/28/19 06:30 12/28/19 06:29 11/30/19 06:37 Sodium Chloride 1,000 ml @ 50 mls/hr Q20H IV 11/29/19 11:15 12/29/19 11:14 11/30/19 06:38 Tamsulosin HCl (Flomax) 0.4 mg BEDTIME ORAL 11/27/19 21:00 12/27/19 20:59 11/29/19 21:35 Zolpidem Tartrate (Ambien) 5 mg QHS ORAL 11/27/19 21:00 12/04/19 20:59 11/29/19 21:35 Sandip Wong MD November 30, 2019 10:51
--- NOTE | 2019-11-30 11:51 | NUR ---
NURSE NOTES: Collected urine and sent to the lab
[2019-11-30] MEDS: Nitroglycerin Patch 0.2mg/hr TDERMAL SCH (12:00)
[2019-11-30 12:18] LABS: APPEARANCE,URINE SLIGHTLY CLOUDY; BILIRUBIN, URINE NEGATIVE (NEGATIVE); GLUCOSE, URINE (UA) NEGATIVE (NEGATIVE); KETONES,URINE 1+ (NEGATIVE); LEUKOCYTE ESTERASE ,URINE 1+ (NEGATIVE); NITRITE,URINE NEGATIVE (NEGATIVE); PH,URINE 5 (4.5-8.0); PROTEIN,URINE 3+ (NEGATIVE); UROBILINOGEN,URINE NORMAL MG/DL (0.0-1.0)
[2019-11-30 12:19] LABS: COLOR,URINE YELLOW
--- NOTE | 2019-11-30 13:30 | NUR ---
NURSE NOTES: Collected Covid swab and logged in specimen to Lab.
[2019-11-30] MEDS ORDERED: NS 275ml ONE (14:24)
[2019-11-30] MEDS ORDERED: 1/2 NS 1000ml IV ONE (14:24)
[2019-11-30] MEDS ORDERED: Tubing IV Secondary IV ONE (14:24)
[2019-11-30] MEDS ORDERED: NS Irrig 1000ml ONE (14:24)
--- NOTE | 2019-11-30 14:37 | Diagnostic Imaging Report ---
EXAM: XR Chest, 1 View CLINICAL HISTORY: SOB TECHNIQUE: Frontal view of the chest. COMPARISON: 11/27/19. FINDINGS: Bilateral airspace consolidation again noted. This is more pronounced in lower lobes appears slightly worse since the right midlung. Cardiac contour is not well assessed due to adjacent infiltrates, but possible mild cardiomegaly. Calcification of the aorta. No pneumothorax. Degeneration of the acromioclavicular joints. IMPRESSION: Lower lobe predominant consolidation again noted. Increasing infiltrates in the right midlung.
--- NOTE | 2019-11-30 15:30 | NUR ---
NURSE NOTES: Informed Dr. Lynch regarding patient's ABG result. No new order at this time. Will continue to monitor.
--- NOTE | 2019-11-30 15:58 | NUR ---
NURSE NOTES: Dr. Lynch order patient to be transfer to [facility]. ordered Bipap 15/8 100%. Orders acknowledged and carried out.
--- NOTE | 2019-11-30 16:59 | NUR ---
NURSE NOTES: Patient's transferred to [facility] per Dr. Lynch's order d/t abnormal ABG results. Patient's in stable condition, no s/s of labored breathing, no s/s of distress, confused. IV is intact, running fluid, no s/s of tenderness or SOB. Patient's transferred with oxygen. Notified RT to have Bipap for the patient per MD order. Patient's belonging list signed by both nurses at bedside. Nurse report handoff to ALETA Cross. Plan of care endorsed.
--- NOTE | 2019-11-30 17:05 | NUR ---
Received report from ALETA Diaz on 2E. Patient is alert, awake and confused. Patient has bilateral soft wrist restraints. No swelling, no redness noted. Elimination offered and fluids running 0.5 NS @75 cc/hr. Patient was on non-rebreather mask. MD aware of patient's ABG results. As ordered; patient is placed on bipap with settings 20/8 FiO2 100%. RR 22 breaths/min and oxygen saturation at 100%. Correa catheter in place, no leaking, intact. Belongings checked and review. Patient has a back of the head and left elbow abrasion. No pain noted. No pressure sores noted. LFA 22g, intact, asymptomatic, no swelling, patent. Bowel movement x2. Yellow gown placed. Bed alarm on. Bed locked in lowest positon. Call light within reach. Will continue to monitor.
[2019-11-30] MEDS ORDERED: Nitroglycerin Subl 0.4mg tab SL PRN (17:45)
--- NOTE | 2019-11-30 19:15 | NUR ---
HAND-OFF: Report given to Kayla Mello RN. Continue with bipap settings as ordered; 20/8, 100%. VSS, oxygen saturation at 99%. No pain noted. Correa catheter in place, draining, and intact no leaking. LFA 22g, dry, intact and patent. Patient turn and repostioned for comfort. Bilateral soft wrist restraints assessed. No swelling, no redness noted. Elimination offered. Therapy talk offered. Call light within reach. Bed locked in lowest position. Bed alarm on. Will continue to monitor.
--- NOTE | 2019-11-30 19:19 | General Progress Note ---
Assessment/Plan Problem List: (1) COPD (chronic obstructive pulmonary disease) ICD Codes: J44.9 - Chronic obstructive pulmonary disease, unspecified SNOMED: 89980518 (2) Hypertensive nephrosclerosis ICD Codes: I12.9 - Hypertensive chronic kidney disease with stage 1 through stage 4 chronic kidney disease, or unspecified chronic kidney disease SNOMED: 805309388 (3) CKD (chronic kidney disease) stage 3, GFR 30-59 ml/min ICD Codes: N18.3 - Chronic kidney disease, stage 3 (moderate) SNOMED: 308126598 (4) Suspected COVID-19 virus infection ICD Codes: Z20.828 - Contact with and (suspected) exposure to other viral communicable diseases SNOMED: 494561670 (5) Pneumonia ICD Codes: J18.9 - Pneumonia, unspecified organism SNOMED: 505587905 (6) Respiratory distress ICD Codes: R06.03 - Acute respiratory distress SNOMED: 717724036 (7) Troponin I above reference range ICD Codes: R79.89 - Other specified abnormal findings of blood chemistry SNOMED: 387894309 (8) Bacteremia due to Gram-positive bacteria ICD Codes: R78.81 - Bacteremia SNOMED: 252220928037 (9) Staph infection ICD Codes: B95.8 - Unspecified staphylococcus as the cause of diseases classified elsewhere SNOMED: 71754821 Assessment/Plan: continue empiric atb, pulm care, oxygen, tele, cardiac eval, d/w ID about antibiotics Subjective ROS Limited/Unobtainable: Yes Allergies: Coded Allergies: No Known Allergies (Verified , 11/13/08) Objective Last 24 Hour Vital Signs Date Time Temp Pulse Resp B/P (MAP) Pulse Ox O2 Delivery O2 Flow Rate FiO2 11/30/19 17:20 Bi-pap 11/30/19 17:20 97.7 81 22 101/69 (80) 100 11/30/19 17:14 67 22 91 100 11/30/19 16:00 74 11/30/19 16:00 97.2 75 22 112/58 (76) 94 11/30/19 12:00 61 11/30/19 12:00 97.8 66 19 106/56 (73) 98 11/30/19 12:00 102/56 11/30/19 09:00 Non-Rebreather 15.0 11/30/19 08:59 120/61 11/30/19 08:59 70 120/61 11/30/19 08:59 70 120/61 11/30/19 08:00 97.6 70 20 120/61 (80) 95 11/30/19 07:44 62 11/30/19 04:00 66 11/30/19 04:00 97.9 67 18 116/57 (76) 98 11/30/19 00:00 97.8 68 18 98/57 (71) 92 11/30/19 00:00 69 11/29/19 21:36 93 123/67 11/29/19 21:00 Non-Rebreather 15.0 11/29/19 20:45 97.4 93 Non-Rebreather 15.0 11/29/19 20:00 80 11/29/19 20:00 97.7 86 20 123/67 (85) 93 Intake and Output 11/29/19 11/30/19 19:00 07:00 Intake Total 360 ml Output Total 700 ml 500 ml Balance -340 ml -500 ml Intake Oral 360 ml Output Urine Total 700 ml 500 ml # Bowel Movements 1 Laboratory Tests 11/30/19 07:05: White Blood Count 9.4, Red Blood Count 5.38, Hemoglobin 13.1L, Hematocrit 40.6L , Mean Corpuscular Volume 76L, Mean Corpuscular Hemoglobin 24.4L, Mean Corpuscular Hemoglobin Concent 32.3, Red Cell Distribution Width 15.1H, Platelet Count 434, Mean Platelet Volume 6.8, Neutrophils (%) (Auto) 83.6H, Lymphocytes (%) (Auto) 6.4L, Monocytes (%) (Auto) 7.8, Eosinophils (%) (Auto) 1.4, Basophils (%) (Auto) 0.7, Sodium Level 143, Potassium Level 3.8, Chloride Level 109H, Carbon Dioxide Level 20L, Anion Gap 14, Blood Urea Nitrogen 49H, Creatinine 2.3H, Estimat Glomerular Filtration Rate 33.1, Glucose Level 108H, Calcium Level 7.8L, Magnesium Level 2.8H, Troponin I 0.058H, Pro-B-Type Natriuretic Peptide 1751H 11/30/19 11:59: Urine Color Yellow, Urine Appearance Slightly cloudy, Urine pH 5, Urine Specific [place] 1.020, Urine Protein 3+H, Urine Glucose (UA) Negative, Urine Ketones 1+H, Urine Blood 5+H, Urine Nitrite Negative, Urine Bilirubin Negative, Urine Urobilinogen Normal, Urine Leukocyte Esterase 1+H, Urine RBC TntcH, Urine WBC 2-4, Urine Squamous Epithelial Cells Occasional, Urine Amorphous Sediment ModerateH, Urine Bacteria Few 11/30/19 14:47: Arterial Blood pH 7.400, Arterial Blood Partial Pressure CO2 27.5L, Arterial Blood Partial Pressure O2 61.4L, Arterial Blood HCO3 16.7*L, Arterial Blood Oxygen Saturation 89.1*L, Arterial Blood Base Excess -6.6L, William Test N/a Height (Feet): 5 Height (Inches): 10.00 Weight (Pounds): 141 General Appearance: alert, confused, mild distress EENT: normal ENT inspection Neck: supple Cardiovascular: regular rhythm Respiratory/Chest: crackles/rales Abdomen: soft Extremities: normal range of motion Edema: no edema noted Arm (L), no edema noted Arm (R), no edema noted Leg (L), no edema noted Leg (R), no edema noted Pedal (L), no edema noted Pedal (R), no edema noted Generalized Neurologic: revenue coordinator II-XII grossly normal Fuad Schafer MD November 30, 2019 19:19
--- NOTE | 2019-11-30 19:22 | NUR ---
NURSE NOTES: received pt from Aggie RIVER., pt is awake and AO x 1-2 at this moment. pt is on bipap and O2sat is at 100%. foely cath is in place draining well with gravity, Left FA 22G IV site intact, clean, and patent. bilateral soft wrist restrain noted, pulse noted, skin intact, 2 fingers space noted for bilateral soft wrist restrain. call light within reach. bed at the lowest position, alarmed, and locked. will continue to monitor pt with plan of care.
[2019-11-30] MEDS: Atorvastatin 20mg tab ORAL SCH (21:00)
[2019-11-30] MEDS: Zolpidem 5mg tab ORAL SCH (21:00)
[2019-11-30] MEDS: Tamsulosin 0.4mg cap ORAL SCH (21:00)
--- NOTE | 2019-11-30 22:30 | NUR ---
NURSE NOTES: pt's result came out positive (lab technician Mala sent result), pt remains airborn and contact precaution.
--- NOTE | 2019-11-30 22:55 | NUR ---
NURSE NOTES: left voice mail to Dr. Wogn regarding Covid Swab came out positive. will wait for call back.
--- NOTE | 2019-11-30 23:00 | NUR ---
NURSE NOTES: no new order from regarding Covid-19 positive result.
[2019-12-01] VITALS (8 sets, daily range): BP systolic 100–137; BP diastolic 59–67
--- NOTE | 2019-12-01 00:14 | Progress Note ---
DATE: 11/30/2019 The patient's blood pressure is stable, 120/61. Heart rate 70, respiratory rate 20. Monitored sinus with atrial ectopics and episodes of sinus arrhythmia. Exam, bilateral breath sounds, rhonchi. Regular rhythm, rate. Normal S1, S2. Abdomen soft. No edema. White count 9.4 hemoglobin 13, sodium 143, potassium 3.8, BUN 49 creatinine 2.3, bicarb 20. Troponin down to 0.058. Pro-natriuretic peptide is down to 1751. COVID-19 negative x1. Chest x-ray today reveals lower lobe consolidation and right mid lung infiltrates. IMPRESSION: 1. Xau-CE-acgoyffmg myocardial infarction, acute on chronic diastolic congestive heart failure. 2. Healthcare-acquired pneumonia, presently no definitive sign of COVID-19 infection. 3. Chronic obstructive pulmonary disease. PLAN: I discontinued hydroxychloroquine yesterday due to increased risk. If the patient is COVID-19 positive with the second swab, we will reassess the risk/benefit ratio of the therapy. In the interim, he will continue on anti-platelet therapy and beta-blockade. Diuresis will be held and reassessed based on daily clinical parameters. Jarod Clark M.D. DR: DAKSHA JOB#: [id number] CC:
--- NOTE | 2019-12-01 04:00 | NUR ---
NURSE NOTES: cleaned pt, provided new gown, new blanket, oral care given. call light within reach. no SOB noted
--- NOTE | 2019-12-01 07:10 | NUR ---
NURSE NOTES: Received report from Kayla Mello RN. Patient is AOx2-3. Appears calm, confused. Tolerating bipap settings as ordered. VSS, SR on vibration analyst. No respiratory distress or pain noted. Turned and repositioned for comfort. Correa catheter in place; patent, no leaks. LFA 22 g patent, dry and intact.Bed locked and in lowest position. Call light within reach. Will continue to monitor.
--- NOTE | 2019-12-01 07:10 | NUR ---
HAND-OFF: Report given to Bebeto RN., pt is stable condition, and endorsed plan of care.
--- NOTE | 2019-12-01 07:53 | Pulmonology Progress Note ---
Subjective ROS Limited/Unobtainable: Yes Allergies: Coded Allergies: No Known Allergies (Verified , 11/13/08) Subjective d/w RN significant oxygen needs on 100% transferred to GABE now on BIPAP and oxygen needs down to 70% improved O2 saturations Objective Last 24 Hour Vital Signs Date Time Temp Pulse Resp B/P (MAP) Pulse Ox O2 Delivery O2 Flow Rate FiO2 12/01/19 04:00 70 12/01/19 04:00 Bi-pap 12/01/19 04:00 97.0 62 19 100/59 (73) 100 12/01/19 04:00 66 12/01/19 03:09 64 19 100 70 12/01/19 00:00 68 12/01/19 00:00 100 12/01/19 00:00 Bi-pap 12/01/19 00:00 97.4 66 20 105/67 (80) 100 11/30/19 22:49 69 24 100 100 11/30/19 21:00 63 101/69 11/30/19 20:45 97.4 Non-Rebreather 15.0 11/30/19 20:00 Bi-pap 11/30/19 20:00 97.3 63 22 101/69 (80) 100 11/30/19 19:26 67 11/30/19 19:19 72 25 100 100 11/30/19 17:20 Bi-pap 11/30/19 17:20 97.7 81 22 101/69 (80) 100 11/30/19 17:14 67 22 91 100 11/30/19 16:00 74 11/30/19 16:00 97.2 75 22 112/58 (76) 94 11/30/19 12:00 61 11/30/19 12:00 97.8 66 19 106/56 (73) 98 11/30/19 12:00 102/56 11/30/19 09:00 Non-Rebreather 15.0 11/30/19 08:59 120/61 11/30/19 08:59 70 120/61 11/30/19 08:59 70 120/61 11/30/19 08:00 97.6 70 20 120/61 (80) 95 Intake and Output 11/30/19 12/01/19 19:00 07:00 Intake Total 180 ml 500 ml Output Total 650 ml 1000 ml Balance -470 ml -500 ml Intake Oral 180 ml IV Total 500 ml Output Urine Total 650 ml 1000 ml # Bowel Movements 5 Objective GENERAL: Advanced age male. on BIPAP HEENT: Negative. NECK: Supple. LUNGS: Moderate breath sounds. noted rhonchi. L>R CARDIAC: S1, S2. Regular rate and rhythm. Distant without murmurs, rubs or gallops. ABDOMEN: Soft and nontender. no distention EXTREMITIES: No cyanosis or clubbing. No significant edema. NEUROLOGICALLY: Slightly confused, weak overall. same reviewed and edited Laboratory Tests 11/30/19 11:59: Urine Color Yellow, Urine Appearance Slightly cloudy, Urine pH 5, Urine Specific [place] 1.020, Urine Protein 3+H, Urine Glucose (UA) Negative, Urine Ketones 1+H, Urine Blood 5+H, Urine Nitrite Negative, Urine Bilirubin Negative, Urine Urobilinogen Normal, Urine Leukocyte Esterase 1+H, Urine RBC TntcH, Urine WBC 2-4, Urine Squamous Epithelial Cells Occasional, Urine Amorphous Sediment ModerateH, Urine Bacteria Few 11/30/19 14:47: Arterial Blood pH 7.400, Arterial Blood Partial Pressure CO2 27.5L, Arterial Blood Partial Pressure O2 61.4L, Arterial Blood HCO3 16.7*L, Arterial Blood Oxygen Saturation 89.1*L, Arterial Blood Base Excess -6.6L, William Test N/a Current Medications Medications (Trade) Dose Ordered Sig/Viridiana Route PRN Reason Start Time Stop Time Status Last Admin Dose Admin Amlodipine Besylate (Norvasc) 10 mg DAILY ORAL 12/01/19 09:00 12/28/19 08:59 Aspirin (Ecotrin) 81 mg DAILY ORAL 12/01/19 09:00 01/12/20 08:59 Atorvastatin Calcium (Lipitor) 20 mg QHS ORAL 11/30/19 21:00 02/25/20 20:59 Ceftriaxone Sodium 1 gm/ Dextrose 55 ml @ 110 mls/hr Q24H IVPB 12/01/19 09:00 12/05/19 08:59 Labetalol HCl (Normodyne) 300 mg EVERY 12 HOURS ORAL 11/30/19 21:00 12/27/19 20:59 Lisinopril (PriniviL) 20 mg DAILY ORAL 12/01/19 09:00 12/28/19 08:59 Memantine (Namenda) 5 mg BID ORAL 11/30/19 18:00 12/28/19 08:59 Nitroglycerin (Ntg) 0.4 mg Q5M PRN SL Prn Chest Pain 11/30/19 17:45 12/29/19 11:14 Nitroglycerin (Ntg) 1 patch Q24H TDERMAL 12/01/19 12:00 12/29/19 11:59 Pantoprazole (Protonix) 40 mg ACBREAKFAST ORAL 12/01/19 06:30 12/28/19 06:29 Sodium Chloride 1,000 ml @ 50 mls/hr Q20H IV 11/30/19 17:45 12/29/19 11:14 11/30/19 18:16 Tamsulosin HCl (Flomax) 0.4 mg BEDTIME ORAL 11/30/19 21:00 12/27/19 20:59 Zolpidem Tartrate (Ambien) 5 mg QHS ORAL 11/30/19 21:00 12/04/19 20:59 Assessment/Plan Assessment/Plan IMPRESSION: Pneumonia, +COVID, hematuria, evidence of chronic renal failure, possibly with acute component, elevated troponin, possible non-STEMI IN, elevated natriuretic peptide, possible pulmonary edema, pneumonia and sepsis. hypoxemia. concern for aspiration PLAN care noted oxygen needs better BIPAP for now respiratory care ABG and CXR on follow up off load aspiration precautions ID noted and reviewed repeat imaging impression, plan, and exam edited and reviewed in detail care discussed with Saran Scott MD December 01, 2019 07:53
--- NOTE | 2019-12-01 08:32 | NUR ---
NURSE NOTES: Dr. Lynch on the unit. Updated MD on patient's respiratory status. Continue with bipap settings ordered; 20/8, FiO2% 70. Ordered stat ABG, per MD order. Will continue to monitor.
[2019-12-01] MEDS: cefTRIAXone 1 GM in D5W 55 ML IVPB SCH (09:00)
[2019-12-01] MEDS: Aspirin EC 81mg tab ORAL SCH (09:01)
[2019-12-01] MEDS: Memantine 5 MG TAB ORAL SCH ×2 (09:01→18:06)
[2019-12-01] MEDS: Lisinopril 20mg tab ORAL SCH (09:23)
--- NOTE | 2019-12-01 10:54 | NUR ---
NURSE NOTES: Notified Dr. Lynch regarding patient's ABG results. Received new order for bicarb 2 amps IVP x1 now and ABG tomorrow am. Noted and carried out. Will continue to monitor.
[2019-12-01] MEDS ORDERED: Sodium Bicarbonate 50ml Carp IV SCH (11:00)
--- NOTE | 2019-12-01 11:48 | Infectious Diseases Prog Note ---
Assessment/Plan Assessment/Plan A A; 1. pneumonia with COVID 19, 2. hypertension 3. coag neg staph likely contaminated 4. COPD 5. seizures 6. prostate cancer 7. renal failure P 1. continue ceftriaxone 2. continue isolation 3. will follow up cultures Subjective ROS Limited/Unobtainable: Yes Neurologic: Reports: confusion, other - on restraint Allergies: Coded Allergies: No Known Allergies (Verified , 11/13/08) Objective Vital Signs Last 24 Hour Vital Signs Date Time Temp Pulse Resp B/P (MAP) Pulse Ox O2 Delivery O2 Flow Rate FiO2 12/01/19 09:24 66 125/61 12/01/19 09:24 66 125/61 12/01/19 09:23 125/61 12/01/19 09:21 96.7 66 20 125/61 (82) 100 12/01/19 08:00 Bi-pap 12/01/19 08:00 97.2 67 20 125/61 (82) 100 12/01/19 08:00 70 12/01/19 08:00 62 12/01/19 06:55 69 24 100 70 12/01/19 04:00 70 12/01/19 04:00 Bi-pap 12/01/19 04:00 97.0 62 19 100/59 (73) 100 12/01/19 04:00 66 12/01/19 03:09 64 19 100 70 12/01/19 00:00 68 12/01/19 00:00 100 12/01/19 00:00 Bi-pap 12/01/19 00:00 97.4 66 20 105/67 (80) 100 11/30/19 22:49 69 24 100 100 11/30/19 21:00 63 101/69 11/30/19 20:45 97.4 Non-Rebreather 15.0 11/30/19 20:00 Bi-pap 11/30/19 20:00 97.3 63 22 101/69 (80) 100 11/30/19 19:26 67 11/30/19 19:19 72 25 100 100 11/30/19 17:20 Bi-pap 11/30/19 17:20 97.7 81 22 101/69 (80) 100 11/30/19 17:14 67 22 91 100 11/30/19 16:00 74 11/30/19 16:00 97.2 75 22 112/58 (76) 94 11/30/19 12:00 61 11/30/19 12:00 97.8 66 19 106/56 (73) 98 11/30/19 12:00 102/56 Height (Feet): 5 Height (Inches): 10.00 Weight (Pounds): 141 HEENT: mucous membranes moist Respiratory/Chest: other - oxygen by rebreathing mask Cardiovascular: normal rate Abdomen: soft, non tender Neurologic/Psychiatric: unresponsiveness Microbiology Date/Time Source Procedure Growth Status 11/29/19 13:30 Nasopharynx Coronavirus COVID-19 PCR ([facility]) - Final Complete Laboratory Tests Test 11/30/19 11:59 11/30/19 14:47 12/01/19 08:47 Urine Color Yellow Urine Appearance Slightly cloudy Urine pH 5 (4.5-8.0) Urine Specific [place] 1.020 (1.005-1.035) Urine Protein 3+ (NEGATIVE) H Urine Glucose (UA) Negative (NEGATIVE) Urine Ketones 1+ (NEGATIVE) H Urine Blood 5+ (NEGATIVE) H Urine Nitrite Negative (NEGATIVE) Urine Bilirubin Negative (NEGATIVE) Urine Urobilinogen Normal MG/DL (0.0-1.0) Urine Leukocyte Esterase 1+ (NEGATIVE) H Urine RBC Tntc /HPF (0 - 0) H Urine WBC 2-4 /HPF (0 - 0) Urine Squamous Epithelial Cells Occasional /LPF Urine Amorphous Sediment Moderate /LPF (NONE) H Urine Bacteria Few /HPF (NONE) Arterial Blood pH 7.400 (7.350-7.450) 7.375 (7.350-7.450) Arterial Blood Partial Pressure CO2 27.5 mmHg (35.0-45.0) L 25.1 mmHg (35.0-45.0) L Arterial Blood Partial Pressure O2 61.4 mmHg (75.0-100.0) L 71.3 mmHg (75.0-100.0) L Arterial Blood HCO3 16.7 mmol/L (22.0-26.0) *L 14.3 mmol/L (22.0-26.0) *L Arterial Blood Oxygen Saturation 89.1 % (95-100) *L 92.6 % (95-100) L Arterial Blood Base Excess -6.6 (-2-2) L -9.0 (-2-2) L William Test N/a Positive Current Medications Medications (Trade) Dose Ordered Sig/Viridiana Route PRN Reason Start Time Stop Time Status Last Admin Dose Admin Amlodipine Besylate (Norvasc) 10 mg DAILY ORAL 12/01/19 09:00 12/28/19 08:59 12/01/19 09:24 Aspirin (Ecotrin) 81 mg DAILY ORAL 12/01/19 09:00 01/12/20 08:59 12/01/19 09:01 Atorvastatin Calcium (Lipitor) 20 mg QHS ORAL 11/30/19 21:00 02/25/20 20:59 Ceftriaxone Sodium 1 gm/ Dextrose 55 ml @ 110 mls/hr Q24H IVPB 12/01/19 09:00 12/05/19 08:59 12/01/19 09:00 Labetalol HCl (Normodyne) 300 mg EVERY 12 HOURS ORAL 11/30/19 21:00 12/27/19 20:59 12/01/19 09:24 Lisinopril (PriniviL) 20 mg DAILY ORAL 12/01/19 09:00 12/28/19 08:59 12/01/19 09:23 Memantine (Namenda) 5 mg BID ORAL 11/30/19 18:00 12/28/19 08:59 12/01/19 09:01 Nitroglycerin (Ntg) 0.4 mg Q5M PRN SL Prn Chest Pain 11/30/19 17:45 12/29/19 11:14 Nitroglycerin (Ntg) 1 patch Q24H TDERMAL 12/01/19 12:00 12/29/19 11:59 Pantoprazole (Protonix) 40 mg ACBREAKFAST ORAL 12/01/19 06:30 12/28/19 06:29 Sodium Bicarbonate (Sodium Bicarbonate) 100 ml ONCE IV 12/01/19 11:00 12/01/19 12:00 Sodium Chloride 1,000 ml @ 50 mls/hr Q20H IV 11/30/19 17:45 12/29/19 11:14 11/30/19 18:16 Tamsulosin HCl (Flomax) 0.4 mg BEDTIME ORAL 11/30/19 21:00 12/27/19 20:59 Zolpidem Tartrate (Ambien) 5 mg QHS ORAL 11/30/19 21:00 12/04/19 20:59 Ta Parker MD December 01, 2019 11:48
[2019-12-01] MEDS: Nitroglycerin Patch 0.2mg/hr TDERMAL SCH (12:40)
--- NOTE | 2019-12-01 13:28 | NUR ---
NURSE NOTES: Dr. Schafer on the unit. Updated him on patient tolerating bipap. MD stated to continue with ordered bipap settings. No new orders given. Will continue to monitor.
[2019-12-01] MEDS ORDERED: Sodium Bicarbonate 100 ML in D5W 1000ml 1,000 ML IV SCH (14:30)
[2019-12-01] MEDS ORDERED: 1/2 NS 1000ml IV ONE (14:55)
--- NOTE | 2019-12-01 15:20 | NUR ---
NURSE NOTES: Called pharmacy to verify if MD order for sodium bicarb can be y-tubed with KCl due to patient is a hard stick. Attempted multiple times to access new line. Unable to access and pharmacy is aware. Pharmacy stated that it was safe to y-tube both medications. Will continue to monitor.
--- NOTE | 2019-12-01 17:31 | NUR ---
NURSE NOTES: Partial bed bath done. Patient turn and repositioned for comfort. Tolerating order bipap settings well. oxygen saturation at 98%. No pain noted. Bed locked and in lowest position. Call light within reach. Will continue to monitor.
--- NOTE | 2019-12-01 19:11 | NUR ---
HAND-OFF: Report given to Kayla Mello RN. Patient is AOx3. VSS with no respiratory distress or pain noted. Patient is on bipap as ordered; 15/8, FiO2% 70%, oxygen saturation 98%, RR 20 breaths/min. Correa catheter in place, no leaking, patent. Left wrist 22g intact, dry and patent running Na Bicarb @ 50 cc/hr and KCl @75 cc/hr. Per pharmacy, ok to run both medications through y-tubing. Bed locked in lowest position. Call light within reach. Bed alarm on.
--- NOTE | 2019-12-01 19:12 | NUR ---
NURSE NOTES: received pt from Bebeto RN., pt is awake and AO x2 confused and agitated at this moment. pt is on Bipap and O2sat is at 98 %.pt state no pain at this moment. moore cath in place draining well with gravity. bilateral wrist soft restrain intact, pulse noted, skin intact, no edema noted. call light within reach. left Hand IV site 22G clean, patent, and intact. will continue to monitor pt with plan of care.
--- NOTE | 2019-12-01 19:36 | General Progress Note ---
Assessment/Plan Problem List: (1) COPD (chronic obstructive pulmonary disease) ICD Codes: J44.9 - Chronic obstructive pulmonary disease, unspecified SNOMED: 69416522 (2) Hypertensive nephrosclerosis ICD Codes: I12.9 - Hypertensive chronic kidney disease with stage 1 through stage 4 chronic kidney disease, or unspecified chronic kidney disease SNOMED: 881384445 (3) CKD (chronic kidney disease) stage 3, GFR 30-59 ml/min ICD Codes: N18.3 - Chronic kidney disease, stage 3 (moderate) SNOMED: 299950990 (4) Suspected COVID-19 virus infection ICD Codes: Z20.828 - Contact with and (suspected) exposure to other viral communicable diseases SNOMED: 578647904 (5) Pneumonia ICD Codes: J18.9 - Pneumonia, unspecified organism SNOMED: 714114013 (6) Respiratory distress ICD Codes: R06.03 - Acute respiratory distress SNOMED: 061911364 (7) Troponin I above reference range ICD Codes: R79.89 - Other specified abnormal findings of blood chemistry SNOMED: 098883819 (8) Bacteremia due to Gram-positive bacteria ICD Codes: R78.81 - Bacteremia SNOMED: 676994049095 (9) Staph infection ICD Codes: B95.8 - Unspecified staphylococcus as the cause of diseases classified elsewhere SNOMED: 78316857 Assessment/Plan: continue empiric atb, pulm care, oxygen, tele, cardiac eval, d/w ID about antibiotics reduce iv fluids Subjective ROS Limited/Unobtainable: Yes Allergies: Coded Allergies: No Known Allergies (Verified , 11/13/08) Objective Last 24 Hour Vital Signs Date Time Temp Pulse Resp B/P (MAP) Pulse Ox O2 Delivery O2 Flow Rate FiO2 12/01/19 19:25 80 25 94 70 12/01/19 16:41 78 12/01/19 16:00 70 12/01/19 16:00 97.2 72 20 137/62 (87) 98 12/01/19 16:00 Bi-pap 12/01/19 15:15 82 24 100 60 12/01/19 13:06 97.7 77 21 127/63 (84) 97 12/01/19 12:40 123/60 12/01/19 12:00 69 12/01/19 12:00 70 12/01/19 12:00 Bi-pap 12/01/19 12:00 97.7 77 21 127/63 (84) 97 12/01/19 10:30 69 24 100 70 12/01/19 09:24 66 125/61 12/01/19 09:24 66 125/61 12/01/19 09:23 125/61 12/01/19 09:21 96.7 66 20 125/61 (82) 100 12/01/19 08:00 Bi-pap 12/01/19 08:00 97.2 67 20 125/61 (82) 100 12/01/19 08:00 70 12/01/19 08:00 62 12/01/19 06:55 69 24 100 70 12/01/19 04:00 70 12/01/19 04:00 Bi-pap 12/01/19 04:00 97.0 62 19 100/59 (73) 100 12/01/19 04:00 66 12/01/19 03:09 64 19 100 70 12/01/19 00:00 68 12/01/19 00:00 100 12/01/19 00:00 Bi-pap 12/01/19 00:00 97.4 66 20 105/67 (80) 100 11/30/19 22:49 69 24 100 100 11/30/19 21:00 63 101/69 11/30/19 20:45 97.4 Non-Rebreather 15.0 11/30/19 20:00 Bi-pap 11/30/19 20:00 97.3 63 22 101/69 (80) 100 Intake and Output 11/30/19 12/01/19 19:00 07:00 Intake Total 180 ml 500 ml Output Total 650 ml 1000 ml Balance -470 ml -500 ml Intake Oral 180 ml IV Total 500 ml Output Urine Total 650 ml 1000 ml # Bowel Movements 5 Laboratory Tests 12/01/19 08:47: Arterial Blood pH 7.375, Arterial Blood Partial Pressure CO2 25.1L, Arterial Blood Partial Pressure O2 71.3L, Arterial Blood HCO3 14.3*L, Arterial Blood Oxygen Saturation 92.6L, Arterial Blood Base Excess -9.0L, William Test Positive Height (Feet): 5 Height (Inches): 10.00 Weight (Pounds): 141 General Appearance: confused, other - on bipap Neck: normal alignment Cardiovascular: regular rhythm Respiratory/Chest: rhonchi - bilaterally Abdomen: soft Edema: no edema noted Arm (L), no edema noted Arm (R), no edema noted Leg (L), no edema noted Leg (R), no edema noted Pedal (L), no edema noted Pedal (R), no edema noted Generalized Neurologic: disoriented Fuad Schafer MD December 01, 2019 19:36
[2019-12-01] MEDS: Zolpidem 5mg tab ORAL SCH (20:46)
[2019-12-01] MEDS: Tamsulosin 0.4mg cap ORAL SCH (20:46)
[2019-12-01] MEDS: Atorvastatin 20mg tab ORAL SCH (20:46)
[2019-12-02] VITALS (9 sets, daily range): BP systolic 100–154; BP diastolic 49–75
--- NOTE | 2019-12-02 02:30 | Progress Note ---
DATE: 12/01/2019 CARDIOLOGY PROGRESS NOTE SUBJECTIVE: The patient remains on BiPAP support. Oxygen requirements are high, but slightly decreased. PHYSICAL EXAMINATION: VITAL SIGNS: Blood pressure 137/62, heart rate 72, respiratory rate 20, afebrile. Monitor reveals sinus rhythm with atrial ectopy. LUNGS: Bilateral breath sounds, rhonchi, rales. CARDIAC: Regular rhythm and rate. Normal S1 and S2 with no appreciable murmur. ABDOMEN: Soft. EXTREMITIES: There is no edema. LABORATORY DATA: Blood culture x1 with Staph hominis. White count 9.4 yesterday and hemoglobin 13. ABG today, 7.37, 25, 71. IMPRESSION: 1. Non ST-elevation myocardial infarction. 2. Acute on chronic diastolic congestive heart failure. 3. Possible Staph bacteremia versus contaminant. 4. Healthcare-associated pneumonia with hypoxia. 5. Acute on chronic renal failure. PLAN: 1. Taper oxygen as able. 2. BiPAP as needed. 3. Cautious hydration. 4. Antianginal therapy without change. 5. Followup blood culture. 6. DVT prophylaxis. 7. Followup lab studies ordered. Jarod Clark M.D. DR: DAYAN JOB#: [id number] CC:
--- NOTE | 2019-12-02 04:30 | NUR ---
NURSE NOTES: cleaned pt, new gown and new blanket provided,BM noted, no bleeding noted. pt is keep taking out the bipap, explained risk and benefits for the bipap. call light within reach.
[2019-12-02 05:47] LABS: BASOPHILS % (AUTO) 0.9 % (0.0-2.0); EOSINOPHILS % (AUTO) 2.3 % (0.0-3.0); HEMATOCRIT 43.1 % (42.0-52.0); HEMOGLOBIN 13.9 G/DL (14.2-18.0); LYMPHOCYTES % (AUTO) 7.2 % (20.0-45.0); MEAN CORPUSCULAR VOLUME 76 FL (80-99); MONOCYTES % (AUTO) 6.9 % (1.0-10.0); NEUTROPHILS % (AUTO) 82.7 % (45.0-75.0); PLATELET COUNT 438 K/UL (150-450); RED BLOOD COUNT 5.68 M/UL (4.70-6.10); RED CELL DISTRIBUTION WIDTH 15.1 % (11.6-14.8); WHITE BLOOD COUNT 8.2 K/UL (4.8-10.8)
--- NOTE | 2019-12-02 06:00 | NUR ---
NURSE NOTES: pt pulled out the IV, so inserted new IV on right Hand 22G. pt tolerated without difficulties. call light within reach.
[2019-12-02 06:32] LABS: ANION GAP 12 mmol/L (5-15); BLOOD UREA NITROGEN 41 mg/dL (7-18); CALCIUM 7.9 MG/DL (8.5-10.1); CARBON DIOXIDE 24 MMOL/L (21-32); CHLORIDE 108 MMOL/L (98-107); CHOLESTEROL 119 MG/DL (< 200); CREATININE 1.8 MG/DL (0.55-1.30); FERRITIN 213 NG/ML (8-388); HDL CHOLESTEROL 27 MG/DL (40-60); POTASSIUM 4.5 MMOL/L (3.5-5.1); SODIUM 144 MMOL/L (136-145); TRIGLYCERIDES 158 MG/DL (30-150)
--- NOTE | 2019-12-02 07:10 | NUR ---
HAND-OFF: Report given to Marsha RIVER., pt is in stable condition, endorsed plan of care.
--- NOTE | 2019-12-02 07:20 | NUR ---
NURSE NOTES: Received report from ALETA Campos. The patient is resting on the bed but being anxious and agitated. The patient's bed in the lowest position, call light in reach, and fall, aspiration, and seizure precaution reinforced. The patient is on Bipap with following settin/8 FiO2 70% ans oxygen saturation 100%. The patient is on bilateral soft wrist restraints per order and circulation and skin is intact. R hand 22G IV intact and patent and running IVF per order. Correa intact and draining by gravity. Skin issue noted. Will continue plan of care.
--- NOTE | 2019-12-02 07:50 | NUR ---
NURSE NOTES: Notified Dr. Clark regarding uptrend of Troponin from 0.058 to 0.179. No new order at this time. No chest pain noted. Will closely monitor the patient.
--- NOTE | 2019-12-02 08:40 | Pulmonology Progress Note ---
Subjective ROS Limited/Unobtainable: Yes Allergies: Coded Allergies: No Known Allergies (Verified , 11/13/08) Subjective d/w RN transferred to [facility] remains on BIPAP and oxygen needs at 70% vitals reviewed Objective Last 24 Hour Vital Signs Date Time Temp Pulse Resp B/P (MAP) Pulse Ox O2 Delivery O2 Flow Rate FiO2 12/02/19 08:10 80 21 95 70 12/02/19 05:14 76 23 94 70 12/02/19 04:00 70 12/02/19 04:00 Bi-pap 12/02/19 04:00 94 12/02/19 04:00 97.3 79 32 135/70 (91) 95 12/02/19 03:39 89 12/02/19 02:51 79 22 94 70 12/02/19 00:00 70 12/02/19 00:00 Bi-pap 12/02/19 00:00 97.0 75 19 136/65 (88) 96 12/02/19 00:00 78 12/01/19 22:31 77 24 95 70 12/01/19 21:54 77 136/67 12/01/19 20:45 97.4 Bi-pap 12/01/19 20:00 70 12/01/19 20:00 Bi-pap 12/01/19 20:00 97.3 73 20 133/62 (85) 95 12/01/19 19:29 79 12/01/19 19:25 80 25 94 70 12/01/19 16:41 78 12/01/19 16:00 70 12/01/19 16:00 97.2 72 20 137/62 (87) 98 12/01/19 16:00 Bi-pap 12/01/19 15:15 82 24 100 60 12/01/19 13:06 97.7 77 21 127/63 (84) 97 12/01/19 12:40 123/60 12/01/19 12:00 69 12/01/19 12:00 70 12/01/19 12:00 Bi-pap 12/01/19 12:00 97.7 77 21 127/63 (84) 97 12/01/19 10:30 69 24 100 70 12/01/19 09:24 66 125/61 12/01/19 09:24 66 125/61 12/01/19 09:23 125/61 12/01/19 09:21 96.7 66 20 125/61 (82) 100 Intake and Output 12/01/19 12/02/19 19:00 07:00 Intake Total 300 ml 700 ml Output Total 600 ml 650 ml Balance -300 ml 50 ml IV Total 300 ml 700 ml Output Urine Total 600 ml 650 ml # Bowel Movements 2 1 Objective GENERAL: Advanced age male. on BIPAP HEENT: Negative. NECK: Supple. LUNGS: Moderate breath sounds. noted rhonchi. L>R CARDIAC: S1, S2. Regular rate and rhythm. Distant without murmurs, rubs or gallops. ABDOMEN: Soft and nontender. no distention EXTREMITIES: No cyanosis or clubbing. No significant edema. NEUROLOGICALLY: Slightly confused, weak overall. same reviewed and edited HEENT: mucous membranes moist Abdomen: soft, non tender Neurologic/Psychiatric: unresponsiveness Microbiology Date/Time Source Procedure Growth Status 11/29/19 13:30 Nasopharynx Coronavirus COVID-19 PCR ([facility]) - Final Complete Laboratory Tests 12/01/19 08:47: Arterial Blood pH 7.375, Arterial Blood Partial Pressure CO2 25.1L, Arterial Blood Partial Pressure O2 71.3L, Arterial Blood HCO3 14.3*L, Arterial Blood Oxygen Saturation 92.6L, Arterial Blood Base Excess -9.0L, William Test Positive 12/02/19 04:00: White Blood Count 8.2, Red Blood Count 5.68, Hemoglobin 13.9L, Hematocrit 43.1, Mean Corpuscular Volume 76L, Mean Corpuscular Hemoglobin 24.4L, Mean Corpuscular Hemoglobin Concent 32.2, Red Cell Distribution Width 15.1H, Platelet Count 438, Mean Platelet Volume 5.8L, Neutrophils (%) (Auto) 82.7H, Lymphocytes (%) (Auto) 7.2L, Monocytes (%) (Auto) 6.9, Eosinophils (%) (Auto) 2.3, Basophils (%) (Auto) 0.9, Sodium Level 144, Potassium Level 4.5, Chloride Level 108H, Carbon Dioxide Level 24, Anion Gap 12, Blood Urea Nitrogen 41H, Creatinine 1.8H, Estimat Glomerular Filtration Rate 43.9, Glucose Level 126H, Calcium Level 7.9L, Magnesium Level 2.9H, Ferritin 213, Troponin I 0.179H, Pro-B -Type Natriuretic Peptide 1925H, Triglycerides Level 158H, Cholesterol Level 119 , LDL Cholesterol 70, HDL Cholesterol 27L, Cholesterol/HDL Ratio 4.4 12/02/19 08:20: Arterial Blood pH 7.470H, Arterial Blood Partial Pressure CO2 29.4L, Arterial Blood Partial Pressure O2 61.9L, Arterial Blood HCO3 20.9L, Arterial Blood Oxygen Saturation 91.0L, Arterial Blood Base Excess -1.6, William Test Positive Current Medications Medications (Trade) Dose Ordered Sig/Viridiana Route PRN Reason Start Time Stop Time Status Last Admin Dose Admin Amlodipine Besylate (Norvasc) 10 mg DAILY ORAL 12/01/19 09:00 12/28/19 08:59 12/01/19 09:24 Aspirin (Ecotrin) 81 mg DAILY ORAL 12/01/19 09:00 01/12/20 08:59 12/01/19 09:01 Atorvastatin Calcium (Lipitor) 20 mg QHS ORAL 11/30/19 21:00 02/25/20 20:59 12/01/19 20:46 Ceftriaxone Sodium 1 gm/ Dextrose 55 ml @ 110 mls/hr Q24H IVPB 12/01/19 09:00 12/05/19 08:59 12/01/19 09:00 Labetalol HCl (Normodyne) 300 mg EVERY 12 HOURS ORAL 11/30/19 21:00 12/27/19 20:59 12/01/19 21:54 Lisinopril (PriniviL) 20 mg DAILY ORAL 12/01/19 09:00 12/28/19 08:59 12/01/19 09:23 Memantine (Namenda) 5 mg BID ORAL 11/30/19 18:00 12/28/19 08:59 12/01/19 18:06 Nitroglycerin (Ntg) 0.4 mg Q5M PRN SL Prn Chest Pain 11/30/19 17:45 12/29/19 11:14 Nitroglycerin (Ntg) 1 patch Q24H TDERMAL 12/01/19 12:00 12/29/19 11:59 12/01/19 12:40 Pantoprazole (Protonix) 40 mg ACBREAKFAST ORAL 12/01/19 06:30 12/28/19 06:29 Potassium Chloride 40 meq/ Dextrose 1,020 ml @ 50 mls/hr [id number] IV 12/01/19 21:00 12/31/19 20:59 12/01/19 21:32 Sodium Bicarbonate 100 ml/Dextrose 1,100 ml @ 50 mls/hr Q22H IV 12/01/19 14:30 12/31/19 14:29 12/01/19 14:41 Tamsulosin HCl (Flomax) 0.4 mg BEDTIME ORAL 11/30/19 21:00 12/27/19 20:59 12/01/19 20:46 Zolpidem Tartrate (Ambien) 5 mg QHS ORAL 11/30/19 21:00 12/04/19 20:59 12/01/19 20:46 Assessment/Plan Assessment/Plan IMPRESSION: Pneumonia, +COVID, hematuria, evidence of chronic renal failure, possibly with acute component, elevated troponin, possible non-STEMI WI, elevated natriuretic peptide, possible pulmonary edema, pneumonia and sepsis. hypoxemia. concern for aspiration PLAN care noted taper oxygen BIPAP for now respiratory care ABG and CXR on follow up for change off load aspiration precautions ID noted and reviewed labile and at risk for intubation impression, plan, and exam edited and reviewed in detail care discussed with Saran Scott MD December 02, 2019 08:40
[2019-12-02] MEDS: cefTRIAXone 1 GM in D5W 55 ML IVPB SCH (09:41)
[2019-12-02] MEDS: Memantine 5 MG TAB ORAL SCH ×2 (09:42→17:07)
[2019-12-02] MEDS: Aspirin EC 81mg tab ORAL SCH (09:42)
[2019-12-02] MEDS: Lisinopril 20mg tab ORAL SCH (09:43)
[2019-12-02] MEDS ORDERED: Sodium Bicarbonate 100 ML in D5W 1000ml 1,000 ML IV SCH (10:00)
--- NOTE | 2019-12-02 10:00 | NUR ---
NURSE NOTES: Dr. Lynch at the bedside assessed the patient. Notifed abnormal ABG and lab result. Dr. Lynch ordered to discontinue D5W with 40mEq KCL but continue on sodium bicarb drip per order. Will follow as ordered. The patient is agitated but vital signs stable. Will closely monitor the patient. Will continue plan of care.
[2019-12-02] MEDS: Nitroglycerin Patch 0.2mg/hr TDERMAL SCH (11:04)
--- NOTE | 2019-12-02 11:10 | Infectious Diseases Prog Note ---
Assessment/Plan Assessment/Plan antibiotics : ceftriaxone A 1. COVID 19 pneumonia on bipap 70 %, saturation 100 percent hydroxychloroquine d/c due to high risk s/p ivermectin x 1 dose 2. hypertension 3. coag neg staph likely contaminated in blood 4. COPD 5. seizures 6. prostate cancer 7. renal failure P 1. d/c ceftriaxone 2. continue isolation 3. will follow up cultures Subjective ROS Limited/Unobtainable: Yes Allergies: Coded Allergies: No Known Allergies (Verified , 11/13/08) Objective Vital Signs Last 24 Hour Vital Signs Date Time Temp Pulse Resp B/P (MAP) Pulse Ox O2 Delivery O2 Flow Rate FiO2 12/02/19 11:04 143/75 12/02/19 11:00 97.2 77 18 143/75 (97) 100 12/02/19 09:58 90 25 99 70 12/02/19 09:43 153/68 12/02/19 09:43 80 153/68 12/02/19 09:42 80 153/68 12/02/19 08:10 80 21 95 70 12/02/19 08:00 97.9 94 30 153/68 (96) 96 12/02/19 08:00 79 12/02/19 05:14 76 23 94 70 12/02/19 04:00 70 12/02/19 04:00 Bi-pap 12/02/19 04:00 94 12/02/19 04:00 97.3 79 32 135/70 (91) 95 12/02/19 03:39 89 12/02/19 02:51 79 22 94 70 12/02/19 00:00 70 12/02/19 00:00 Bi-pap 12/02/19 00:00 97.0 75 19 136/65 (88) 96 12/02/19 00:00 78 12/01/19 22:31 77 24 95 70 12/01/19 21:54 77 136/67 12/01/19 20:45 97.4 Bi-pap 12/01/19 20:00 70 12/01/19 20:00 Bi-pap 12/01/19 20:00 97.3 73 20 133/62 (85) 95 12/01/19 19:29 79 12/01/19 19:25 80 25 94 70 12/01/19 16:41 78 12/01/19 16:00 70 12/01/19 16:00 97.2 72 20 137/62 (87) 98 12/01/19 16:00 Bi-pap 12/01/19 15:15 82 24 100 60 12/01/19 13:06 97.7 77 21 127/63 (84) 97 12/01/19 12:40 123/60 12/01/19 12:00 69 12/01/19 12:00 70 12/01/19 12:00 Bi-pap 12/01/19 12:00 97.7 77 21 127/63 (84) 97 Height (Feet): 5 Height (Inches): 10.00 Weight (Pounds): 141 HEENT: status post trach Microbiology Date/Time Source Procedure Growth Status 11/29/19 13:30 Nasopharynx Coronavirus COVID-19 PCR ([facility]) - Final Complete Laboratory Tests Test 12/02/19 04:00 12/02/19 08:20 White Blood Count 8.2 K/UL (4.8-10.8) Red Blood Count 5.68 M/UL (4.70-6.10) Hemoglobin 13.9 G/DL (14.2-18.0) L Hematocrit 43.1 % (42.0-52.0) Mean Corpuscular Volume 76 FL (80-99) L Mean Corpuscular Hemoglobin 24.4 PG (27.0-31.0) L Mean Corpuscular Hemoglobin Concent 32.2 G/DL (32.0-36.0) Red Cell Distribution Width 15.1 % (11.6-14.8) H Platelet Count 438 K/UL (150-450) Mean Platelet Volume 5.8 FL (6.5-10.1) L Neutrophils (%) (Auto) 82.7 % (45.0-75.0) H Lymphocytes (%) (Auto) 7.2 % (20.0-45.0) L Monocytes (%) (Auto) 6.9 % (1.0-10.0) Eosinophils (%) (Auto) 2.3 % (0.0-3.0) Basophils (%) (Auto) 0.9 % (0.0-2.0) Sodium Level 144 MMOL/L (136-145) Potassium Level 4.5 MMOL/L (3.5-5.1) Chloride Level 108 MMOL/L (98-107) H Carbon Dioxide Level 24 MMOL/L (21-32) Anion Gap 12 mmol/L (5-15) Blood Urea Nitrogen 41 mg/dL (7-18) H Creatinine 1.8 MG/DL (0.55-1.30) H Estimat Glomerular Filtration Rate 43.9 mL/min (>60) Glucose Level 126 MG/DL (74-106) H Calcium Level 7.9 MG/DL (8.5-10.1) L Magnesium Level 2.9 MG/DL (1.8-2.4) H Ferritin 213 NG/ML (8-388) Troponin I 0.179 ng/mL (0.000-0.056) Pro-B-Type Natriuretic Peptide 1925 pg/mL (0-125) H Triglycerides Level 158 MG/DL (30-150) H Cholesterol Level 119 MG/DL (< 200) LDL Cholesterol 70 mg/dL (<100) HDL Cholesterol 27 MG/DL (40-60) L Cholesterol/HDL Ratio 4.4 (3.3-4.4) Arterial Blood pH 7.470 (7.350-7.450) Arterial Blood Partial Pressure CO2 29.4 mmHg (35.0-45.0) L Arterial Blood Partial Pressure O2 61.9 mmHg (75.0-100.0) L Arterial Blood HCO3 20.9 mmol/L (22.0-26.0) L Arterial Blood Oxygen Saturation 91.0 % (95-100) L Arterial Blood Base Excess -1.6 (-2-2) William Test Positive Current Medications Medications (Trade) Dose Ordered Sig/Viridiana Route PRN Reason Start Time Stop Time Status Last Admin Dose Admin Amlodipine Besylate (Norvasc) 10 mg DAILY ORAL 12/01/19 09:00 12/28/19 08:59 12/02/19 09:43 Aspirin (Ecotrin) 81 mg DAILY ORAL 12/01/19 09:00 01/12/20 08:59 12/02/19 09:42 Atorvastatin Calcium (Lipitor) 20 mg QHS ORAL 11/30/19 21:00 02/25/20 20:59 12/01/19 20:46 Ceftriaxone Sodium 1 gm/ Dextrose 55 ml @ 110 mls/hr Q24H IVPB 12/01/19 09:00 12/05/19 08:59 12/02/19 09:41 Labetalol HCl (Normodyne) 300 mg EVERY 12 HOURS ORAL 11/30/19 21:00 12/27/19 20:59 12/02/19 09:42 Lisinopril (PriniviL) 20 mg DAILY ORAL 12/01/19 09:00 12/28/19 08:59 12/02/19 09:43 Memantine (Namenda) 5 mg BID ORAL 11/30/19 18:00 12/28/19 08:59 12/02/19 09:42 Nitroglycerin (Ntg) 0.4 mg Q5M PRN SL Prn Chest Pain 11/30/19 17:45 12/29/19 11:14 Nitroglycerin (Ntg) 1 patch Q24H TDERMAL 12/01/19 12:00 12/29/19 11:59 12/02/19 11:04 Pantoprazole (Protonix) 40 mg ACBREAKFAST ORAL 12/01/19 06:30 12/28/19 06:29 Sodium Bicarbonate 100 ml/Dextrose 1,100 ml @ 50 mls/hr Q22H IV 12/02/19 10:00 01/01/20 09:59 12/02/19 11:03 Tamsulosin HCl (Flomax) 0.4 mg BEDTIME ORAL 11/30/19 21:00 12/27/19 20:59 12/01/19 20:46 Zolpidem Tartrate (Ambien) 5 mg QHS ORAL 11/30/19 21:00 12/04/19 20:59 12/01/19 20:46 Sandip Wong MD December 02, 2019 11:10
--- NOTE | 2019-12-02 11:38 | NUR ---
Social Work This Sw received a consult to assist with locating family. Patient is from [facility]. This sW spoke with Parris, staff at the Assisted Living who explains niece, Bernice Milian phone number is: [phone]. This SW spoke with niece who explains she can be reached regarding any concerns, while also explains son, Rocael Milian is the primary decision maker; niece will locate his number and let this SW as soon as possible (awaiting call back from niece regarding son phone number at this time).
--- NOTE | 2019-12-02 12:00 | NUR ---
NURSE NOTES: The patient is mildly agitated but vital signs stable. Bilateral soft wrist restraints on and skin and circulation intact. Will closely monitor the patient.
--- NOTE | 2019-12-02 12:06 | NUR ---
*-* INSURANCE *-* UPDATED CLINICALS HAVE BEEN FAXED TO: KALEE GARCIA: FELIX P- [phone] F- [phone]...........REVIEW/CLINICAL
--- NOTE | 2019-12-02 13:02 | NUR ---
SS Note Contact: Son: Rocael ([phone])
--- NOTE | 2019-12-02 13:51 | NUR ---
RADIOLOGY DEPT., CHEST X-RAY DONE.-P.DYE
--- NOTE | 2019-12-02 14:00 | NUR ---
NURSE NOTES: The patient is still being agitated. Bilateral soft wrist restraints on and skin and circulation intact. Will closely monitor the patient. Will continue plan of care.
--- NOTE | 2019-12-02 16:00 | NUR ---
NURSE NOTES: Tolerating Bipap setting well on FiO2 70%. New IV inserted on L wrist 22G that is intact and patent. Will continue plan of care.
--- NOTE | 2019-12-02 17:08 | NUR ---
CASE MANAGEMENT: REVIEW SI: PNA . COVID-19 . COPD . PROSTATE CA T 97.5 HR 72 RR 18 BP 154/71 SAT 100% BIPAP FIO2 70 ABG: PH 7.470 PCO2 29.4 PO2 61.9 HCO3 20.9 O2 SAT 91.0 IS: SODIUM BICARB IV GTT LABETALOL PO Q12HR NITROGLYCERIN PATCH Q24HR ASPIRIN EC 81MG PO QD STEP DOWN UNIT STATUS DCP: PATIENT IS FROM [facility]
--- NOTE | 2019-12-02 19:20 | NUR ---
HAND-OFF: Report given to ALETA Campos. The patient is stable without acute distress or shortness of breath. Endorsed plan of care.
--- NOTE | 2019-12-02 19:21 | NUR ---
NURSE NOTES: received pt from Marsha RIVER., pt is awake and AO x2 confused and agitated at this moment. pt is on Bipap and O2sat is at 97%. pt state no pain at this moment. left wrist 22G IV site intact, clean, and patent. moore cath in place draining well with gravity. bilateral wrist soft restrain intact, pulse noted, skin intact, no edema noted. call light within reach. left Hand IV site 22G clean, patent, and intact. will continue to monitor pt with plan of care.
--- NOTE | 2019-12-02 19:27 | NUR ---
RESPIRATORY NOTE: Received pt on BiPAP 07/03, backup rate 12, 70%. Pt is on a Full Face mask, skin intact, no redness/breakdowns noted. Foam tape applied on pt's forehead/cheeks/chin/nosebridge to prevent mask irritations. Pt switches from Full Face to Facial mask. Pt is alert/awake, follows commands. B/S jose j. diminished, nonproductive cough. BiPAP plugged into red outlet, alarms on & audible. Pt in no apparent distress at this time. Will continue plan of care.
--- NOTE | 2019-12-02 20:00 | General Progress Note ---
Assessment/Plan Problem List: (1) COPD (chronic obstructive pulmonary disease) ICD Codes: J44.9 - Chronic obstructive pulmonary disease, unspecified SNOMED: 51524161 (2) Hypertensive nephrosclerosis ICD Codes: I12.9 - Hypertensive chronic kidney disease with stage 1 through stage 4 chronic kidney disease, or unspecified chronic kidney disease SNOMED: 066845748 (3) CKD (chronic kidney disease) stage 3, GFR 30-59 ml/min ICD Codes: N18.3 - Chronic kidney disease, stage 3 (moderate) SNOMED: 767521016 (4) Suspected COVID-19 virus infection ICD Codes: Z20.828 - Contact with and (suspected) exposure to other viral communicable diseases SNOMED: 696903631 (5) Pneumonia ICD Codes: J18.9 - Pneumonia, unspecified organism SNOMED: 679202985 (6) Respiratory distress ICD Codes: R06.03 - Acute respiratory distress SNOMED: 815561222 (7) Troponin I above reference range ICD Codes: R79.89 - Other specified abnormal findings of blood chemistry SNOMED: 300341705 (8) Bacteremia due to Gram-positive bacteria ICD Codes: R78.81 - Bacteremia SNOMED: 599153916021 (9) Staph infection ICD Codes: B95.8 - Unspecified staphylococcus as the cause of diseases classified elsewhere SNOMED: 68918800 Assessment/Plan: continue empiric atb, pulm care, oxygen,bipap tele, cardiac eval, d/w ID about antibiotics reduce iv fluids Subjective ROS Limited/Unobtainable: Yes Allergies: Coded Allergies: No Known Allergies (Verified , 11/13/08) Objective Last 24 Hour Vital Signs Date Time Temp Pulse Resp B/P (MAP) Pulse Ox O2 Delivery O2 Flow Rate FiO2 12/02/19 19:25 81 21 100 70 12/02/19 17:20 90 23 97 70 12/02/19 16:00 70 12/02/19 16:00 77 12/02/19 16:00 97.5 72 18 154/71 (98) 100 12/02/19 16:00 Bi-pap 12/02/19 15:25 79 22 100 70 12/02/19 15:10 97.5 72 18 154/71 (98) 100 12/02/19 12:00 97.2 77 18 143/75 (97) 100 12/02/19 12:00 Bi-pap 12/02/19 12:00 76 12/02/19 12:00 70 12/02/19 11:20 77 23 98 70 12/02/19 11:04 143/75 12/02/19 11:00 97.2 77 18 143/75 (97) 100 12/02/19 09:58 90 25 99 70 12/02/19 09:43 153/68 12/02/19 09:43 80 153/68 12/02/19 09:42 80 153/68 12/02/19 08:10 80 21 95 70 12/02/19 08:00 70 12/02/19 08:00 97.9 94 30 153/68 (96) 96 12/02/19 08:00 79 12/02/19 08:00 Bi-pap 12/02/19 05:14 76 23 94 70 12/02/19 04:00 70 12/02/19 04:00 Bi-pap 12/02/19 04:00 94 12/02/19 04:00 97.3 79 32 135/70 (91) 95 12/02/19 03:39 89 12/02/19 02:51 79 22 94 70 12/02/19 00:00 70 12/02/19 00:00 Bi-pap 12/02/19 00:00 97.0 75 19 136/65 (88) 96 12/02/19 00:00 78 12/01/19 22:31 77 24 95 70 12/01/19 21:54 77 136/67 12/01/19 20:45 97.4 Bi-pap 12/01/19 20:00 70 12/01/19 20:00 Bi-pap 12/01/19 20:00 97.3 73 20 133/62 (85) 95 Intake and Output 12/01/19 12/02/19 19:00 07:00 Intake Total 300 ml 700 ml Output Total 600 ml 650 ml Balance -300 ml 50 ml IV Total 300 ml 700 ml Output Urine Total 600 ml 650 ml # Bowel Movements 2 1 Laboratory Tests 12/02/19 04:00: White Blood Count 8.2, Red Blood Count 5.68, Hemoglobin 13.9L, Hematocrit 43.1, Mean Corpuscular Volume 76L, Mean Corpuscular Hemoglobin 24.4L, Mean Corpuscular Hemoglobin Concent 32.2, Red Cell Distribution Width 15.1H, Platelet Count 438, Mean Platelet Volume 5.8L, Neutrophils (%) (Auto) 82.7H, Lymphocytes (%) (Auto) 7.2L, Monocytes (%) (Auto) 6.9, Eosinophils (%) (Auto) 2.3, Basophils (%) (Auto) 0.9, Sodium Level 144, Potassium Level 4.5, Chloride Level 108H, Carbon Dioxide Level 24, Anion Gap 12, Blood Urea Nitrogen 41H, Creatinine 1.8H, Estimat Glomerular Filtration Rate 43.9, Glucose Level 126H, Calcium Level 7.9L, Magnesium Level 2.9H, Ferritin 213, Troponin I 0.179H, Pro-B -Type Natriuretic Peptide 1925H, Triglycerides Level 158H, Cholesterol Level 119 , LDL Cholesterol 70, HDL Cholesterol 27L, Cholesterol/HDL Ratio 4.4 12/02/19 08:20: Arterial Blood pH 7.470H, Arterial Blood Partial Pressure CO2 29.4L, Arterial Blood Partial Pressure O2 61.9L, Arterial Blood HCO3 20.9L, Arterial Blood Oxygen Saturation 91.0L, Arterial Blood Base Excess -1.6, William Test Positive Height (Feet): 5 Height (Inches): 10.00 Weight (Pounds): 141 General Appearance: moderate distress, other - on bipap Neck: normal alignment Cardiovascular: regular rhythm Respiratory/Chest: crackles/rales Edema: no edema noted Arm (L), no edema noted Arm (R), no edema noted Leg (L), no edema noted Leg (R), no edema noted Pedal (L), no edema noted Pedal (R), no edema noted Generalized Fuad Schafer MD December 02, 2019 20:00
[2019-12-02] MEDS: Tamsulosin 0.4mg cap ORAL SCH (20:34)
[2019-12-02] MEDS: Zolpidem 5mg tab ORAL SCH (20:34)
[2019-12-02] MEDS: Sodium Bicarbonate 100 ML in D5W 1000ml 1,000 ML IV SCH (20:34)
[2019-12-02] MEDS: Atorvastatin 20mg tab ORAL SCH (20:35)
--- NOTE | 2019-12-02 22:01 | NUR ---
NURSE NOTES: notified Dr. Clark regarding pt' increased [id number] per/min and low BP 93/65. will wait for call back.
--- NOTE | 2019-12-02 23:00 | NUR ---
NURSE NOTES: notified Dr. Clark regarding pt's first A.fib, new ABG result, and Vital signs. new order received. noted. will carry on
[2019-12-02] MEDS ORDERED: dilTIAZem HCl 25mg/5ml Inj IVP ONE (23:30)
[2019-12-03] VITALS (8 sets, daily range): BP systolic 98–146; BP diastolic 59–77
--- NOTE | 2019-12-03 00:15 | NUR ---
NURSE NOTES: VS: BP 98/55 HR (ranges from 118-127), RR 20, O2sat 97%. call light within reach. pt states no pain at this moment and asymptomatic Addendum: 12/03/19 at 0032 by ELIZABETH BANDA RN NURSE NOTES: after Cardizem IVP 15mg slowly. VS: BP 98/55 HR (ranges from 118-127), RR 20, O2sat 97%. call light within reach. pt states no pain at this moment and asymptomatic. Dr. Clark aware no new order received. will keep monitor pt closely.
[2019-12-03] MEDS ORDERED: NS 250 ML IVPB SCH ×2 (01:30→03:45)
[2019-12-03] MEDS ORDERED: Metoprolol Tartrate 50mg tab ORAL SCH (02:00)
[2019-12-03] MEDS ORDERED: Digoxin 0.5mg/2ml Inj IVP ONE (03:28)
--- NOTE | 2019-12-03 03:35 | NUR ---
NURSE NOTES: per. Dr. Clark do not give metoprolol if SBP less than 100. held that was due at 0200 due to low bp 93/55 after 250ml bolus of 0.9NS.
--- NOTE | 2019-12-03 03:35 | NUR ---
NURSE NOTES: mno Addendum: 12/03/19 at 0335 by ELIZABETH BANDA RN wrong pt
--- NOTE | 2019-12-03 03:36 | NUR ---
NURSE NOTES: Dr. Clark is aware regarding pt hx of AAA, per Dr. Clark it is okay to administer levonox via subq. no active bleeding noted at this moment. call light within reach. hbg and hct checked.
[2019-12-03] MEDS ORDERED: Digoxin 0.5mg/2ml Inj IVP SCH (03:45)
[2019-12-03] MEDS: Enoxaparin 60mg Inj SUBQ SCH (03:53)
[2019-12-03 04:29] LABS: ANION GAP 14 mmol/L (5-15); BLOOD UREA NITROGEN 35 mg/dL (7-18); CALCIUM 7.8 MG/DL (8.5-10.1); CARBON DIOXIDE 22 MMOL/L (21-32); CHLORIDE 110 MMOL/L (98-107); CREATININE 1.6 MG/DL (0.55-1.30); POTASSIUM 4.6 MMOL/L (3.5-5.1); SODIUM 146 MMOL/L (136-145)
--- NOTE | 2019-12-03 04:38 | NUR ---
NURSE NOTES: pt remains stable at this moment BP 130/77 after another 250ml 0.9NS bolus. pt states no pain at this moment. O2sat is at 98%. call light within reach.no SOB noted.
--- NOTE | 2019-12-03 06:34 | NUR ---
NURSE NOTES: left voice mail to Dr. browne regarding covid swab positive for November 28 and November 29
--- NOTE | 2019-12-03 07:25 | NUR ---
HAND-OFF: Report given to Lamont RN., pt is in stable condition, and endorsed plan of care.
--- NOTE | 2019-12-03 07:25 | NUR ---
NURSE NOTES: Received report from Trang RIVER.
--- NOTE | 2019-12-03 07:30 | Progress Note ---
DATE: 12/02/2019 CARDIOLOGY PROGRESS NOTE SUBJECTIVE: The patient is developing rapid atrial fibrillation this evening. He is short of breath and his blood pressure parameters have decreased. He remains on BiPAP support. OBJECTIVE: LUNGS: Bilateral breath sounds with rhonchi. CARDIAC: Irregularly irregular rhythm. Normal S1, S2. ABDOMEN: Soft. EXTREMITIES: Trace edema. LABORATORY DATA: White count 8.2, hemoglobin 13.9. ABG 7.50, 29, 62. Troponin 0.179, BUN 41, creatinine 1.8, potassium 4.5. Pro-natriuretic peptide is 1925. IMPRESSION: 1. Hypoxia 2. Acute respiratory insufficiency. 3. Acute myocardial ischemia and possible non-ST elevation infarction. 4. Paroxysmal atrial fibrillation with rapid ventricular response. 5. Possible staph bacteremia acute and chronic diastolic congestive heart failure. PLAN: 1. Continue beta-arun, intravenous diltiazem for rapid rate control. 2. BiPAP support. 3. Volume support for low blood pressure. 4. Full anticoagulation initiated. 5. Check venous duplex for possible source of pulmonary emboli. Jarod Clark M.D. DR: SABRINA JOB#: [id number] CC:
--- NOTE | 2019-12-03 08:40 | Pulmonology Progress Note ---
Subjective ROS Limited/Unobtainable: Yes Allergies: Coded Allergies: No Known Allergies (Verified , 11/13/08) Subjective d/w RN transferred to [facility] remains on BIPAP and oxygen needs at 70% and now tapered vitals reviewed Objective Last 24 Hour Vital Signs Date Time Temp Pulse Resp B/P (MAP) Pulse Ox O2 Delivery O2 Flow Rate FiO2 12/03/19 07:30 70 21 98 70 12/03/19 04:21 109 12/03/19 04:00 97.0 125 18 130/77 (94) 100 12/03/19 04:00 70 12/03/19 04:00 Bi-pap 12/03/19 03:50 137 12/03/19 03:18 133 23 98 70 12/03/19 02:00 141 93/55 12/03/19 00:43 97.2 120 18 98/65 (76) 100 12/03/19 00:00 Bi-pap 12/03/19 00:00 96.9 120 18 100/63 (75) 100 12/02/19 23:34 130 12/02/19 23:30 147 88/71 12/02/19 23:18 132 12/02/19 23:16 149 12/02/19 23:00 143 20 100 70 12/02/19 21:00 137 93/55 12/02/19 20:45 97.1 97 Bi-pap 12/02/19 20:00 Bi-pap 12/02/19 20:00 97.3 137 18 101/59 (73) 100 12/02/19 20:00 70 12/02/19 19:25 81 21 100 70 12/02/19 19:01 78 12/02/19 17:20 90 23 97 70 12/02/19 16:00 70 12/02/19 16:00 77 12/02/19 16:00 97.5 72 18 154/71 (98) 100 12/02/19 16:00 Bi-pap 12/02/19 15:25 79 22 100 70 12/02/19 15:10 97.5 72 18 154/71 (98) 100 12/02/19 12:00 97.2 77 18 143/75 (97) 100 12/02/19 12:00 Bi-pap 12/02/19 12:00 76 12/02/19 12:00 70 12/02/19 11:20 77 23 98 70 12/02/19 11:04 143/75 12/02/19 11:00 97.2 77 18 143/75 (97) 100 12/02/19 09:58 90 25 99 70 12/02/19 09:43 153/68 12/02/19 09:43 80 153/68 12/02/19 09:42 80 153/68 Intake and Output 12/02/19 12/03/19 19:00 07:00 Intake Total 300 ml Output Total 1000 ml 450 ml Balance -1000 ml -150 ml IV Total 300 ml Output Urine Total 1000 ml 450 ml # Bowel Movements 1 Objective GENERAL: Advanced age male. on BIPAP HEENT: Negative. NECK: Supple. LUNGS: Moderate breath sounds. noted rhonchi. L>R persistents CARDIAC: S1, S2. Regular rate and rhythm. Distant without murmurs, rubs or gallops. ABDOMEN: Soft and nontender. no distention no HSM EXTREMITIES: No cyanosis or clubbing. No significant edema. NEUROLOGICALLY: Slightly confused, weak overall. same reviewed and edited HEENT: status post trach Abdomen: soft, non tender Neurologic/Psychiatric: unresponsiveness Microbiology Date/Time Source Procedure Growth Status 11/30/19 13:44 Nasopharynx Coronavirus COVID-19 PCR ([facility]) - Final Complete Laboratory Tests 12/02/19 22:24: Arterial Blood pH 7.502H, Arterial Blood Partial Pressure CO2 28.8L, Arterial Blood Partial Pressure O2 61.7L, Arterial Blood HCO3 22.1, Arterial Blood Oxygen Saturation 90.7L, Arterial Blood Base Excess 0, William Test Positive 12/03/19 03:40: Sodium Level 146H, Potassium Level 4.6, Chloride Level 110H, Carbon Dioxide Level 22, Anion Gap 14, Blood Urea Nitrogen 35H, Creatinine 1.6H, Estimat Glomerular Filtration Rate 50.3, Glucose Level 132H, Calcium Level 7.8L, Magnesium Level 2.8H, Troponin I 0.057H, Pro-B-Type Natriuretic Peptide 3110H Current Medications Medications (Trade) Dose Ordered Sig/Viridiana Route PRN Reason Start Time Stop Time Status Last Admin Dose Admin Aspirin (Ecotrin) 81 mg DAILY ORAL 12/01/19 09:00 01/12/20 08:59 12/02/19 09:42 Atorvastatin Calcium (Lipitor) 20 mg QHS ORAL 11/30/19 21:00 02/25/20 20:59 12/02/19 20:35 Enoxaparin Sodium (Lovenox) 60 mg Q24H SUBQ 12/03/19 03:00 03/02/20 02:59 12/03/19 03:53 Lisinopril (PriniviL) 20 mg DAILY ORAL 12/01/19 09:00 12/28/19 08:59 12/02/19 09:43 Lorazepam (Ativan 2mg/ml 1ml) 1 mg Q4H PRN IV For Anxiety 12/02/19 22:00 12/09/19 21:59 Memantine (Namenda) 5 mg BID ORAL 11/30/19 18:00 12/28/19 08:59 12/02/19 17:07 Metoprolol Tartrate (Lopressor) 50 mg Q12HR ORAL 12/03/19 09:00 03/02/20 01:59 Nitroglycerin (Ntg) 0.4 mg Q5M PRN SL Prn Chest Pain 11/30/19 17:45 12/29/19 11:14 Nitroglycerin (Ntg) 1 patch Q24H TDERMAL 12/01/19 12:00 12/29/19 11:59 12/02/19 11:04 Pantoprazole (Protonix) 40 mg ACBREAKFAST ORAL 12/01/19 06:30 12/28/19 06:29 12/03/19 06:20 Sodium Bicarbonate 100 ml/Dextrose 1,100 ml @ 30 mls/hr Q24H IV 12/02/19 20:15 01/01/20 20:14 12/02/19 20:34 Tamsulosin HCl (Flomax) 0.4 mg BEDTIME ORAL 11/30/19 21:00 12/27/19 20:59 12/02/19 20:34 Zolpidem Tartrate (Ambien) 5 mg QHS ORAL 11/30/19 21:00 12/04/19 20:59 12/02/19 20:34 Assessment/Plan Assessment/Plan IMPRESSION: Pneumonia, +COVID, hematuria, evidence of chronic renal failure, possibly with acute component, elevated troponin, possible non-STEMI ID, elevated natriuretic peptide, possible pulmonary edema, pneumonia and sepsis. hypoxemia. concern for aspiration PLAN care noted taper oxygen BIPAP for now respiratory care ABG and CXR and assess for needed changes off load aspiration precautions ID noted and reviewed labile and at risk for intubation may need ICU impression, plan, and exam edited and reviewed in detail care discussed with Saran Scott MD December 03, 2019 08:40
[2019-12-03] MEDS: Memantine 5 MG TAB ORAL SCH ×2 (08:41→18:00)
[2019-12-03] MEDS: Aspirin EC 81mg tab ORAL SCH (08:41)
--- NOTE | 2019-12-03 09:00 | NUR ---
NURSE NOTES: Pt. in bed, awake, a/o x 1-2. Confused. No sign of distress. On Bipap cont. with setting 15/8 at 70%. No grimacing noted. IV site at left wrist #[id number]. in placed patent/intact running Sodium bicarbonate at 30cc/hr. F/C in placed patent/intact draining yellow colored urine. Bilateral soft wrist restrain in placed. (+) CMS. Bed in low position, locked. Call light within reach. Will cont. to monitor.
[2019-12-03] MEDS: Metoprolol Tartrate 50mg tab ORAL SCH ×2 (09:09→20:49)
[2019-12-03] MEDS: Lisinopril 20mg tab ORAL SCH (09:10)
--- NOTE | 2019-12-03 10:06 | NUR ---
CASE MANAGEMENT: REVIEW SI: PNA . COVID-19 . COPD . PROSTATE CA T 97.2 HR 141 RR 23 BP 93/55 SAT 98% BIPAP FIO2 70 ABG: PH 7.460 PCO2 33.4 PO2 70.7 O2 SAT 93.2 IS: SODIUM BICARB IV GTT LABETALOL PO Q12HR NITROGLYCERIN PATCH Q24HR ASPIRIN EC 81MG PO QD STEP DOWN UNIT STATUS DCP: PATIENT IS FROM [facility]
--- NOTE | 2019-12-03 10:32 | Infectious Diseases Prog Note ---
Assessment/Plan Assessment/Plan antibiotics : none A 1. COVID 19 pneumonia on bipap 70 %, saturation 100 percent hydroxychloroquine d/c due to high risk s/p ivermectin x 1 dose 2. hypertension 3. coag neg staph likely contaminated in blood 4. COPD 5. seizures 6. prostate cancer 7. renal failure improving P 1. observe off antibiotics 2. continue isolation 3. will follow up cultures Subjective ROS Limited/Unobtainable: Yes Allergies: Coded Allergies: No Known Allergies (Verified , 11/13/08) Objective Vital Signs Last 24 Hour Vital Signs Date Time Temp Pulse Resp B/P (MAP) Pulse Ox O2 Delivery O2 Flow Rate FiO2 12/03/19 09:10 128/70 12/03/19 09:09 78 128/70 12/03/19 08:01 65 12/03/19 08:00 70 12/03/19 08:00 65 12/03/19 08:00 97.2 85 21 128/70 (89) 100 12/03/19 07:30 70 21 98 70 12/03/19 04:21 109 12/03/19 04:00 97.0 125 18 130/77 (94) 100 12/03/19 04:00 70 12/03/19 04:00 Bi-pap 12/03/19 03:50 137 12/03/19 03:18 133 23 98 70 12/03/19 02:00 141 93/55 12/03/19 00:43 97.2 120 18 98/65 (76) 100 12/03/19 00:00 Bi-pap 12/03/19 00:00 96.9 120 18 100/63 (75) 100 12/02/19 23:34 130 12/02/19 23:30 147 88/71 12/02/19 23:18 132 12/02/19 23:16 149 12/02/19 23:00 143 20 100 70 12/02/19 21:00 137 93/55 12/02/19 20:45 97.1 97 Bi-pap 12/02/19 20:00 Bi-pap 12/02/19 20:00 97.3 137 18 101/59 (73) 100 12/02/19 20:00 70 12/02/19 19:25 81 21 100 70 12/02/19 19:01 78 12/02/19 17:20 90 23 97 70 12/02/19 16:00 70 12/02/19 16:00 77 12/02/19 16:00 97.5 72 18 154/71 (98) 100 12/02/19 16:00 Bi-pap 12/02/19 15:25 79 22 100 70 12/02/19 15:10 97.5 72 18 154/71 (98) 100 12/02/19 12:00 97.2 77 18 143/75 (97) 100 12/02/19 12:00 Bi-pap 12/02/19 12:00 76 12/02/19 12:00 70 12/02/19 11:20 77 23 98 70 12/02/19 11:04 143/75 12/02/19 11:00 97.2 77 18 143/75 (97) 100 Height (Feet): 5 Height (Inches): 10.00 Weight (Pounds): 141 HEENT: other - on bipap Microbiology Date/Time Source Procedure Growth Status 11/30/19 13:44 Nasopharynx Coronavirus COVID-19 PCR ([facility]) - Final Complete Laboratory Tests Test 12/02/19 22:24 12/03/19 03:40 12/03/19 08:40 Arterial Blood pH 7.502 (7.350-7.450) 7.460 (7.350-7.450) Arterial Blood Partial Pressure CO2 28.8 mmHg (35.0-45.0) L 33.4 mmHg (35.0-45.0) L Arterial Blood Partial Pressure O2 61.7 mmHg (75.0-100.0) L 70.7 mmHg (75.0-100.0) L Arterial Blood HCO3 22.1 mmol/L (22.0-26.0) 23.2 mmol/L (22.0-26.0) Arterial Blood Oxygen Saturation 90.7 % (95-100) L 93.2 % (95-100) L Arterial Blood Base Excess 0 (-2-2) 0 (-2-2) William Test Positive Positive Sodium Level 146 MMOL/L (136-145) H Potassium Level 4.6 MMOL/L (3.5-5.1) Chloride Level 110 MMOL/L (98-107) H Carbon Dioxide Level 22 MMOL/L (21-32) Anion Gap 14 mmol/L (5-15) Blood Urea Nitrogen 35 mg/dL (7-18) H Creatinine 1.6 MG/DL (0.55-1.30) H Estimat Glomerular Filtration Rate 50.3 mL/min (>60) Glucose Level 132 MG/DL (74-106) H Calcium Level 7.8 MG/DL (8.5-10.1) L Magnesium Level 2.8 MG/DL (1.8-2.4) H Troponin I 0.057 ng/mL (0.000-0.056) Pro-B-Type Natriuretic Peptide 3110 pg/mL (0-125) H Current Medications Medications (Trade) Dose Ordered Sig/Viridiana Route PRN Reason Start Time Stop Time Status Last Admin Dose Admin Aspirin (Ecotrin) 81 mg DAILY ORAL 12/01/19 09:00 01/12/20 08:59 12/03/19 08:41 Atorvastatin Calcium (Lipitor) 20 mg QHS ORAL 11/30/19 21:00 02/25/20 20:59 12/02/19 20:35 Enoxaparin Sodium (Lovenox) 60 mg Q24H SUBQ 12/03/19 03:00 03/02/20 02:59 12/03/19 03:53 Lisinopril (PriniviL) 20 mg DAILY ORAL 12/01/19 09:00 12/28/19 08:59 12/03/19 09:10 Lorazepam (Ativan 2mg/ml 1ml) 1 mg Q4H PRN IV For Anxiety 12/02/19 22:00 12/09/19 21:59 Memantine (Namenda) 5 mg BID ORAL 11/30/19 18:00 12/28/19 08:59 12/03/19 08:41 Metoprolol Tartrate (Lopressor) 50 mg Q12HR ORAL 12/03/19 09:00 03/02/20 01:59 12/03/19 09:09 Nitroglycerin (Ntg) 0.4 mg Q5M PRN SL Prn Chest Pain 11/30/19 17:45 12/29/19 11:14 Nitroglycerin (Ntg) 1 patch Q24H TDERMAL 12/01/19 12:00 12/29/19 11:59 12/02/19 11:04 Pantoprazole (Protonix) 40 mg ACBREAKFAST ORAL 12/01/19 06:30 12/28/19 06:29 12/03/19 06:20 Sodium Bicarbonate 100 ml/Dextrose 1,100 ml @ 30 mls/hr Q24H IV 12/02/19 20:15 01/01/20 20:14 12/02/19 20:34 Tamsulosin HCl (Flomax) 0.4 mg BEDTIME ORAL 11/30/19 21:00 12/27/19 20:59 12/02/19 20:34 Zolpidem Tartrate (Ambien) 5 mg QHS ORAL 11/30/19 21:00 12/04/19 20:59 12/02/19 20:34 Sandip Wong MD December 03, 2019 10:32
--- NOTE | 2019-12-03 12:27 | Diagnostic Imaging Report ---
Indication: Shortness of breath Technique: One view of the chest Comparison: 11/30/2019 Findings: Better inspiration currently. Bilateral mostly basilar infiltrates are unchanged. The heart is borderline enlarged. Impression: Unchanged, over 2 days, findings as above.
--- NOTE | 2019-12-03 12:30 | NUR ---
RD ASSESSMENT & RECOMMENDATIONS SEE CARE ACTIVITY FOR COMPLETE ASSESSMENT DAILY ESTIMATED NEEDS: Needs based on Pulmonary 64kg 25-30 kcals/kg 3532-5471 total kcals 1-1.5 g protein/kg 64-96 g total protein 25-30 mL/kg 8030-5389 total fluid mLs NUTRITION DIAGNOSIS: Inadequate oral intake r/t respiratory status as evidenced by pt w/ covid pna ++, now on Bipap, meals held d/t aspiration risk, now day 3. CURRENT DIET: regular soft easy chew, now on hold w/ bipap PO DIET RECOMMENDATIONS: Low Na diet as medically able ----- ADDITIONAL RECOMMENDATIONS: 1) Monitor NPO status, now day 3 2) rec D5 while NPO, w/ regular bed side BG testing for hypoglycemia 3) If medically appropriate, rec non oral feeds. 4) Maintain calibrated bed scale wts
[2019-12-03] MEDS: Nitroglycerin Patch 0.2mg/hr TDERMAL SCH (13:28)
--- NOTE | 2019-12-03 14:15 | NUR ---
*-* INSURANCE *-* UPDATED CLINICALS HAVE BEEN FAXED TO: KALEE GARCIA: FELIX P- [phone] F- [phone]...........REVIEW/CLINICAL
--- NOTE | 2019-12-03 15:44 | Consultation ---
DATE OF CONSULTATION: 11/28/2019 INFECTIOUS DISEASES CONSULTATION This consult is for coverage of Dr. Wong. CONSULTING PHYSICIAN: Ta Parker MD PRIMARY ATTENDING PHYSICIAN: Fuad Schafer MD REASON FOR CONSULTATION: Pneumonia, suspected COVID-19. HISTORY OF PRESENT ILLNESS: The patient is an 84-year-old male who is a [facility] resident admitted yesterday because of shortness of breath and decrease in O2 saturation, in hospital had low-grade fever up to 100.2, had no significant coughing. Chest x-ray showed bilateral infiltrate. PAST MEDICAL HISTORY: Significant for COPD, hypertension, dementia, hyperlipidemia, chronic kidney disease stage 3. ALLERGIES: No known drug allergies. MEDICATIONS: Getting Zithromax, amlodipine, aspirin, lisinopril, ceftriaxone, Protonix, labetalol, Flomax, Ambien, doxycycline, atorvastatin. SOCIAL HISTORY: assisted resident. Current smoker. No alcohol or drug abuse. REVIEW OF SYSTEMS: has shortness of breath and slightly confused. PHYSICAL EXAMINATION: VITAL SIGNS: Temperature is 98.1, pulse 72, blood pressure is 125/65. GENERAL APPEARANCE: Seems to have normal weight. HEAD AND NECK: [place] conjunctiva. HEART: Normal rate. LUNGS: Getting oxygen by rebreathing mask. ABDOMEN: Soft, nontender. EXTREMITIES: No edema. NEUROLOGIC: Awake, alert, according to nurse is disoriented. LABORATORY AND DIAGNOSTIC DATA: WBC 9, hemoglobin 13.8, hematocrit 43.2, and platelets is 418, lymphocyte count is 4%. Sodium 146, potassium 4.5, chloride 111, carbon dioxide 18, BUN 14, creatinine 2.1. Troponin is elevated 0.136. Blood culture x1 is growing gram-positive cocci in cluster. Chest x-ray showed bilateral mid and lower lung reticular and consolidation suspected for pneumonia. IMPRESSION: 1. Pneumonia, highly suspected of COVID-19. 2. Hypoxemia. 3. Dementia. 4. COPD. 5. Hypertension. 6. Hyperlipidemia. 7. Chronic kidney disease stage 3. 8. Prolongation of QT interval. 9. Positive blood culture. RECOMMENDATIONS: Continue with current antibiotics Zithromax, doxycycline, ceftriaxone, give a dose of vancomycin. We will follow up the cultures. We will follow COVID-19 tests. At the end of my exam, I thank Dr. Schafer for involving me in the care of this patient. Ta Parker M.D. DR: Galina JOB#: [id number] CC: [place]
--- NOTE | 2019-12-03 19:19 | NUR ---
HAND-OFF: Report given to Michael AGUILA Pt. remain stable. Addendum: 12/03/19 at 2012 by Michael Casillas RN Wrong patient
--- NOTE | 2019-12-03 19:20 | NUR ---
Received patient from ALETA Reeder. 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 Patient observed removing mask and trying to get out of bed. Patient is on BIpap 15/8 Fio2 60%. Nancy has a left elbow skin tear, medial head abrasion, and left lower arm cluster of intact blisters. Left wrist 22g IV site is intact and patent. Restraints in place, bed at its lowest position, call light in reach , bed locked, and x3 bed rails are up. Will continue to monitor. Addendum: 12/03/19 at 2028 by Michael Casillas RN NURSE NOTES: Received patient from ALETA Reeder. 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 Patient observed removing mask and trying to get out of bed. Patient is on BIpap 15/8 Fio2 60%. Nancy has a left elbow skin tear, medial head abrasion, and left lower arm cluster of intact blisters. Left wrist 22g IV site is intact and patent. Restraints in place, bed at its lowest position, call light in reach , bed locked, and x3 bed rails are up. Will continue to monitor.
[2019-12-03] MEDS: LORazepam Inj 2mg/ml 1ml IV PRN (19:31)
[2019-12-03] MEDS: Sodium Bicarbonate 100 ML in D5W 1000ml 1,000 ML IV SCH (19:35)
--- NOTE | 2019-12-03 20:45 | General Progress Note ---
Assessment/Plan Problem List: (1) COPD (chronic obstructive pulmonary disease) ICD Codes: J44.9 - Chronic obstructive pulmonary disease, unspecified SNOMED: 23913209 (2) Hypertensive nephrosclerosis ICD Codes: I12.9 - Hypertensive chronic kidney disease with stage 1 through stage 4 chronic kidney disease, or unspecified chronic kidney disease SNOMED: 933292745 (3) CKD (chronic kidney disease) stage 3, GFR 30-59 ml/min ICD Codes: N18.3 - Chronic kidney disease, stage 3 (moderate) SNOMED: 068720762 (4) Suspected COVID-19 virus infection ICD Codes: Z20.828 - Contact with and (suspected) exposure to other viral communicable diseases SNOMED: 977229373 (5) Pneumonia ICD Codes: J18.9 - Pneumonia, unspecified organism SNOMED: 630655610 (6) Respiratory distress ICD Codes: R06.03 - Acute respiratory distress SNOMED: 342600493 (7) Troponin I above reference range ICD Codes: R79.89 - Other specified abnormal findings of blood chemistry SNOMED: 586757343 (8) Bacteremia due to Gram-positive bacteria ICD Codes: R78.81 - Bacteremia SNOMED: 150598496325 (9) Staph infection ICD Codes: B95.8 - Unspecified staphylococcus as the cause of diseases classified elsewhere SNOMED: 72241516 Assessment/Plan: continue empiric atb, pulm care, oxygen,bipap tele, cardiac eval, d/w ID about antibiotics reduce iv fluids Subjective ROS Limited/Unobtainable: Yes Allergies: Coded Allergies: No Known Allergies (Verified , 11/13/08) Objective Last 24 Hour Vital Signs Date Time Temp Pulse Resp B/P (MAP) Pulse Ox O2 Delivery O2 Flow Rate FiO2 12/03/19 19:38 98.8 87 28 140/74 (96) 94 12/03/19 19:30 104 34 92 50 12/03/19 16:54 67 12/03/19 16:00 70 12/03/19 16:00 98.2 65 20 146/59 (88) 99 12/03/19 16:00 Bi-pap 12/03/19 15:21 59 20 98 50 12/03/19 13:28 144/66 12/03/19 12:00 Bi-pap 12/03/19 12:00 97.7 62 16 144/66 (92) 100 12/03/19 12:00 70 12/03/19 12:00 59 12/03/19 11:04 62 19 100 60 12/03/19 09:10 128/70 12/03/19 09:09 78 128/70 12/03/19 08:01 65 12/03/19 08:00 Bi-pap 12/03/19 08:00 70 12/03/19 08:00 65 12/03/19 08:00 97.2 85 21 128/70 (89) 100 12/03/19 07:30 70 21 98 70 12/03/19 04:21 109 12/03/19 04:00 97.0 125 18 130/77 (94) 100 12/03/19 04:00 70 12/03/19 04:00 Bi-pap 12/03/19 03:50 137 12/03/19 03:18 133 23 98 70 12/03/19 02:00 141 93/55 12/03/19 00:43 97.2 120 18 98/65 (76) 100 12/03/19 00:00 Bi-pap 12/03/19 00:00 96.9 120 18 100/63 (75) 100 12/02/19 23:34 130 12/02/19 23:30 147 88/71 12/02/19 23:18 132 12/02/19 23:16 149 12/02/19 23:00 143 20 100 70 12/02/19 21:00 137 93/55 12/02/19 20:45 97.1 97 Bi-pap Intake and Output 12/02/19 12/03/19 19:00 07:00 Intake Total 300 ml Output Total 1000 ml 450 ml Balance -1000 ml -150 ml IV Total 300 ml Output Urine Total 1000 ml 450 ml # Bowel Movements 1 Laboratory Tests 12/02/19 22:24: Arterial Blood pH 7.502H, Arterial Blood Partial Pressure CO2 28.8L, Arterial Blood Partial Pressure O2 61.7L, Arterial Blood HCO3 22.1, Arterial Blood Oxygen Saturation 90.7L, Arterial Blood Base Excess 0, William Test Positive 12/03/19 03:40: Sodium Level 146H, Potassium Level 4.6, Chloride Level 110H, Carbon Dioxide Level 22, Anion Gap 14, Blood Urea Nitrogen 35H, Creatinine 1.6H, Estimat Glomerular Filtration Rate 50.3, Glucose Level 132H, Calcium Level 7.8L, Magnesium Level 2.8H, Troponin I 0.057H, Pro-B-Type Natriuretic Peptide 3110H 12/03/19 08:40: Arterial Blood pH 7.460H, Arterial Blood Partial Pressure CO2 33.4L, Arterial Blood Partial Pressure O2 70.7L, Arterial Blood HCO3 23.2, Arterial Blood Oxygen Saturation 93.2L, Arterial Blood Base Excess 0, William Test Positive Height (Feet): 5 Height (Inches): 10.00 Weight (Pounds): 141 General Appearance: lethargic, other - on bipap Cardiovascular: regular rhythm Respiratory/Chest: rhonchi - bilaterally Edema: no edema noted Arm (L), no edema noted Arm (R), no edema noted Leg (L), no edema noted Leg (R), no edema noted Pedal (L), no edema noted Pedal (R), no edema noted Generalized Neurologic: supervisor braiding II-XII grossly normal Fuad Schafer MD December 03, 2019 20:45
[2019-12-03] MEDS: Atorvastatin 20mg tab ORAL SCH (20:49)
[2019-12-03] MEDS: Zolpidem 5mg tab ORAL SCH (20:49)
[2019-12-03] MEDS: Tamsulosin 0.4mg cap ORAL SCH (20:49)
--- NOTE | 2019-12-03 23:20 | NUR ---
NURSE NOTES: Patient continues to remove mask and manipulate restraints to attempt to exit bed. Educated patient on importance of bipap and reorient patient to place. Patient continues to be confused moments after reorientation. Patient needs education reenforcement and constant reorientation. Will continue to monitor.
[2019-12-04] VITALS: BP 128/81
[2019-12-04] MEDS: LORazepam Inj 2mg/ml 1ml IV PRN ×2 (00:53→18:55)
[2019-12-04] MEDS: Enoxaparin 60mg Inj SUBQ SCH (02:12)
--- NOTE | 2019-12-04 02:14 | Progress Note ---
DATE: 12/03/2019 CARDIOLOGY PROGRESS NOTE SUBJECTIVE: The patient has positive blood cultures. He is refusing some therapies. PHYSICAL EXAMINATION: VITAL SIGNS: Blood pressure 140/74, heart rate 87, respiratory rate 28, he is afebrile. He is on BiPAP support. LUNGS: Coarse breath sounds with rhonchi. HEART: Regular rhythm and rate. Normal S1, S2. A 1/6 systolic apical murmur. ABDOMEN: Soft. EXTREMITIES: Trace edema. LABORATORY AND DIAGNOSTIC DATA: Chest x-ray today reveals basilar infiltrates without change. Troponin is 0.057. Sodium 146, potassium 4.6, bicarb 22, BUN 35, creatinine 1.6. Magnesium 2.8. Pro natriuretic peptide is 3100. IMPRESSION: 1. Respiratory failure. 2. Bacteremia and sepsis. 3. Hypoxia. 4. Non ST-elevation myocardial infarction. 5. Paroxysmal atrial fibrillation. PLAN: 1. Antimicrobials. 2. BiPAP support. 3. Respiratory hygiene. 4. Full anticoagulation for cardioembolic prophylaxis. 5. Venous duplex scan pending to assess for source of pulmonary emboli. Jarod Clark M.D. DR: Corinne JOB#: [id number] CC:
[2019-12-04 03:57] VITALS: BP 163/86
[2019-12-04 06:56] LABS: ANION GAP 14 mmol/L (5-15); BLOOD UREA NITROGEN 31 mg/dL (7-18); CALCIUM 8.3 MG/DL (8.5-10.1); CARBON DIOXIDE 23 MMOL/L (21-32); CHLORIDE 108 MMOL/L (98-107); CREATININE 1.6 MG/DL (0.55-1.30); POTASSIUM 5.3 MMOL/L (3.5-5.1); SODIUM 145 MMOL/L (136-145)
--- NOTE | 2019-12-04 07:15 | NUR ---
HAND-OFF: Report given to ALETA Olivera.
--- NOTE | 2019-12-04 07:20 | NUR ---
NURSE NOTES: RECEIVED REPORT FROM FROM [facility].BRIDGETTE STATED THAT PT IS VERY HARD STICK AND UNABLE TO INSERT A NEW I.V. PT HAS NO I.V ACCES.PT IS FULL CODE STATUS .PT IS ON BIPAP 10/03, SAT 95%. PT ON DROPLET ISOLATION ROOM POSITIVE COVID-19. PLACED A TELEPHONE CALL TO DR SAENZ AND LEFT ON VOICE MAIL. A MESSAGE REGARDING PT HAS NO I.V ACCESS. AWAITING FOR M.D TO CALL ME BACK . WILL CONT TO MONITOR.
[2019-12-04 08:00] VITALS: BP 143/88
--- NOTE | 2019-12-04 08:50 | NUR ---
NURSE NOTES: RECEIVED TELEPHONE ORDERS FROM DR SANDHU TO INSERT PICC-LINE BY RADIOLOGY DPT. USAMA FROM RADIOLOGY DPT MADE AWARE AND NOTIFIED REGARDING M.D ORDER PICC-LINE PLACEMENT. WILL CONT TO MONITOR.
[2019-12-04] MEDS ORDERED: Lidocaine 1% Plain 30 ml INJ PRN (09:00)
[2019-12-04] MEDS ORDERED: Heparin1,000 units/500ml Premix(Conc:2 units/ml) IV PRN (09:00)
--- NOTE | 2019-12-04 09:15 | Pulmonology Progress Note ---
Subjective ROS Limited/Unobtainable: Yes Allergies: Coded Allergies: No Known Allergies (Verified , 11/13/08) Subjective d/w RN in GABE remains on BIPAP and oxygen needs still high vitals reviewed Objective Last 24 Hour Vital Signs Date Time Temp Pulse Resp B/P (MAP) Pulse Ox O2 Delivery O2 Flow Rate FiO2 12/04/19 07:07 89 27 100 50 12/04/19 04:00 50 12/04/19 04:00 Bi-pap 12/04/19 04:00 109 12/04/19 03:57 97.8 110 31 163/86 (111) 95 12/04/19 03:30 110 36 92 50 12/04/19 00:00 50 12/04/19 00:00 98.4 109 30 128/81 (97) 97 12/04/19 00:00 Bi-pap 12/03/19 23:41 93 12/03/19 23:30 93 27 92 50 12/03/19 20:49 87 140/74 12/03/19 20:45 97.1 94 Bi-pap 12/03/19 20:00 Bi-pap 12/03/19 20:00 50 12/03/19 19:38 98.8 87 28 140/74 (96) 94 12/03/19 19:33 86 12/03/19 19:30 104 34 92 50 12/03/19 16:54 67 12/03/19 16:00 70 12/03/19 16:00 98.2 65 20 146/59 (88) 99 12/03/19 16:00 Bi-pap 12/03/19 15:21 59 20 98 50 12/03/19 13:28 144/66 12/03/19 12:00 Bi-pap 12/03/19 12:00 97.7 62 16 144/66 (92) 100 12/03/19 12:00 70 12/03/19 12:00 59 12/03/19 11:04 62 19 100 60 Intake and Output 12/03/19 12/04/19 19:00 07:00 Intake Total 450 ml 222.5 ml Output Total 650 ml 600 ml Balance -200 ml -377.5 ml Intake Oral 120 ml IV Total 330 ml 222.5 ml Output Urine Total 650 ml 600 ml Objective GENERAL: Advanced age male. on BIPAP HEENT: Negative. NECK: Supple. LUNGS: Moderate breath sounds. noted rhonchi. L>R persistents CARDIAC: S1, S2. Regular rate and rhythm. Distant without murmurs, rubs or gallops. ABDOMEN: Soft and nontender. no distention no HSM EXTREMITIES: No cyanosis or clubbing. No significant edema. NEUROLOGICALLY: Slightly confused, weak overall. same reviewed and edited HEENT: other - on bipap Abdomen: soft, non tender Neurologic/Psychiatric: unresponsiveness Laboratory Tests 12/04/19 06:05: Sodium Level 145, Potassium Level 5.3H, Chloride Level 108H, Carbon Dioxide Level 23, Anion Gap 14, Blood Urea Nitrogen 31H, Creatinine 1.6H, Estimat Glomerular Filtration Rate 50.3, Glucose Level 83, Calcium Level 8.3L Current Medications Medications (Trade) Dose Ordered Sig/Viridiana Route PRN Reason Start Time Stop Time Status Last Admin Dose Admin Aspirin (Ecotrin) 81 mg DAILY ORAL 12/01/19 09:00 01/12/20 08:59 12/03/19 08:41 Atorvastatin Calcium (Lipitor) 20 mg QHS ORAL 11/30/19 21:00 02/25/20 20:59 12/03/19 20:49 Chlorhexidine Gluconate (Swapna-Hex 2%) 1 applic DAILY@1999 TOPIC 12/04/19 20:00 03/03/20 19:59 Enoxaparin Sodium (Lovenox) 60 mg Q24H SUBQ 12/03/19 03:00 03/02/20 02:59 12/04/19 02:12 Heparin Sodium/ Sodium Chloride (Heparin 1000 units/500ml Premix) 1,000 unit ONCE PRN IV PICC PLACEMENT 12/04/19 09:00 12/04/19 23:59 Lidocaine HCl (Xylocaine 1% 30ml) 30 ml NEEDED PRN INJ picc placement 12/04/19 09:00 12/04/19 23:59 Lisinopril (PriniviL) 20 mg DAILY ORAL 12/01/19 09:00 12/28/19 08:59 12/03/19 09:10 Lorazepam (Ativan 2mg/ml 1ml) 1 mg Q4H PRN IV For Anxiety 12/02/19 22:00 12/09/19 21:59 12/04/19 00:53 Memantine (Namenda) 5 mg BID ORAL 11/30/19 18:00 12/28/19 08:59 12/03/19 08:41 Metoprolol Tartrate (Lopressor) 50 mg Q12HR ORAL 12/03/19 09:00 03/02/20 01:59 12/03/19 20:49 Nitroglycerin (Ntg) 0.4 mg Q5M PRN SL Prn Chest Pain 11/30/19 17:45 12/29/19 11:14 Nitroglycerin (Ntg) 1 patch Q24H TDERMAL 12/01/19 12:00 12/29/19 11:59 12/03/19 13:28 Pantoprazole (Protonix) 40 mg ACBREAKFAST ORAL 12/01/19 06:30 12/28/19 06:29 12/04/19 06:13 Sodium Bicarbonate 100 ml/Dextrose 1,100 ml @ 30 mls/hr Q24H IV 12/02/19 20:15 01/01/20 20:14 12/03/19 19:35 Tamsulosin HCl (Flomax) 0.4 mg BEDTIME ORAL 11/30/19 21:00 12/27/19 20:59 12/03/19 20:49 Zolpidem Tartrate (Ambien) 5 mg QHS ORAL 11/30/19 21:00 12/04/19 20:59 12/03/19 20:49 Assessment/Plan Assessment/Plan IMPRESSION: Pneumonia, +COVID, hematuria, evidence of chronic renal failure, possibly with acute component, elevated troponin, possible non-STEMI [place], elevated natriuretic peptide, possible pulmonary edema, pneumonia and sepsis. hypoxemia. concern for aspiration PLAN care noted taper oxygen- now at 50% BIPAP for now and hope to dc respiratory care ABG and CXR and assess for needed changes daily off load aspiration precautions ID noted and reviewed labile and at risk for intubation some improvement noted impression, plan, and exam edited and reviewed in detail care discussed with Saran Scott MD December 04, 2019 09:15
--- NOTE | 2019-12-04 10:12 | Infectious Diseases Prog Note ---
Assessment/Plan Assessment/Plan antibiotics : none A 1. COVID 19 pneumonia on bipap 50 %, saturation 100 percent hydroxychloroquine d/c due to high risk s/p ivermectin x 1 dose 2. hypertension 3. coag neg staph likely contaminated in blood 4. COPD 5. seizures 6. prostate cancer 7. renal failure improving P 1. observe off antibiotics 2. continue isolation 3. will follow up cultures Subjective ROS Limited/Unobtainable: Yes Allergies: Coded Allergies: No Known Allergies (Verified , 11/13/08) Objective Vital Signs Last 24 Hour Vital Signs Date Time Temp Pulse Resp B/P (MAP) Pulse Ox O2 Delivery O2 Flow Rate FiO2 12/04/19 08:00 98.2 95 26 143/88 (106) 96 12/04/19 07:07 89 27 100 50 12/04/19 04:00 50 12/04/19 04:00 Bi-pap 12/04/19 04:00 109 12/04/19 03:57 97.8 110 31 163/86 (111) 95 12/04/19 03:30 110 36 92 50 12/04/19 00:00 50 12/04/19 00:00 98.4 109 30 128/81 (97) 97 12/04/19 00:00 Bi-pap 12/03/19 23:41 93 12/03/19 23:30 93 27 92 50 12/03/19 20:49 87 140/74 12/03/19 20:45 97.1 94 Bi-pap 12/03/19 20:00 Bi-pap 12/03/19 20:00 50 12/03/19 19:38 98.8 87 28 140/74 (96) 94 12/03/19 19:33 86 12/03/19 19:30 104 34 92 50 12/03/19 16:54 67 12/03/19 16:00 70 12/03/19 16:00 98.2 65 20 146/59 (88) 99 12/03/19 16:00 Bi-pap 12/03/19 15:21 59 20 98 50 12/03/19 13:28 144/66 12/03/19 12:00 Bi-pap 12/03/19 12:00 97.7 62 16 144/66 (92) 100 12/03/19 12:00 70 12/03/19 12:00 59 12/03/19 11:04 62 19 100 60 Height (Feet): 5 Height (Inches): 10.00 Weight (Pounds): 148 HEENT: other - on bipap Laboratory Tests Test 12/04/19 06:05 Sodium Level 145 MMOL/L (136-145) Potassium Level 5.3 MMOL/L (3.5-5.1) H Chloride Level 108 MMOL/L (98-107) H Carbon Dioxide Level 23 MMOL/L (21-32) Anion Gap 14 mmol/L (5-15) Blood Urea Nitrogen 31 mg/dL (7-18) H Creatinine 1.6 MG/DL (0.55-1.30) H Estimat Glomerular Filtration Rate 50.3 mL/min (>60) Glucose Level 83 MG/DL (74-106) Calcium Level 8.3 MG/DL (8.5-10.1) L Current Medications Medications (Trade) Dose Ordered Sig/Viridiana Route PRN Reason Start Time Stop Time Status Last Admin Dose Admin Aspirin (Ecotrin) 81 mg DAILY ORAL 12/01/19 09:00 01/12/20 08:59 12/03/19 08:41 Atorvastatin Calcium (Lipitor) 20 mg QHS ORAL 11/30/19 21:00 02/25/20 20:59 12/03/19 20:49 Chlorhexidine Gluconate (Swapna-Hex 2%) 1 applic DAILY@2000 TOPIC 12/04/19 20:00 03/03/20 19:59 Enoxaparin Sodium (Lovenox) 60 mg Q24H SUBQ 12/03/19 03:00 03/02/20 02:59 12/04/19 02:12 Heparin Sodium/ Sodium Chloride (Heparin 1000 units/500ml Premix) 1,000 unit ONCE PRN IV PICC PLACEMENT 12/04/19 09:00 12/04/19 23:59 Lidocaine HCl (Xylocaine 1% 30ml) 30 ml NEEDED PRN INJ picc placement 12/04/19 09:00 12/04/19 23:59 Lisinopril (PriniviL) 20 mg DAILY ORAL 12/01/19 09:00 12/28/19 08:59 12/03/19 09:10 Lorazepam (Ativan 2mg/ml 1ml) 1 mg Q4H PRN IV For Anxiety 12/02/19 22:00 12/09/19 21:59 12/04/19 00:53 Memantine (Namenda) 5 mg BID ORAL 11/30/19 18:00 12/28/19 08:59 12/03/19 08:41 Metoprolol Tartrate (Lopressor) 50 mg Q12HR ORAL 12/03/19 09:00 03/02/20 01:59 12/03/19 20:49 Nitroglycerin (Ntg) 0.4 mg Q5M PRN SL Prn Chest Pain 11/30/19 17:45 12/29/19 11:14 Nitroglycerin (Ntg) 1 patch Q24H TDERMAL 12/01/19 12:00 12/29/19 11:59 12/03/19 13:28 Pantoprazole (Protonix) 40 mg ACBREAKFAST ORAL 12/01/19 06:30 12/28/19 06:29 12/04/19 06:13 Sodium Bicarbonate 100 ml/Dextrose 1,100 ml @ 30 mls/hr Q24H IV 12/02/19 20:15 01/01/20 20:14 12/03/19 19:35 Tamsulosin HCl (Flomax) 0.4 mg BEDTIME ORAL 11/30/19 21:00 12/27/19 20:59 12/03/19 20:49 Zolpidem Tartrate (Ambien) 5 mg QHS ORAL 11/30/19 21:00 12/04/19 20:59 12/03/19 20:49 Sandip Wong MD December 04, 2019 10:12
[2019-12-04] MEDS: Memantine 5 MG TAB ORAL SCH ×2 (10:26→18:10)
[2019-12-04] MEDS: Aspirin EC 81mg tab ORAL SCH (10:26)
[2019-12-04] MEDS: Metoprolol Tartrate 50mg tab ORAL SCH ×2 (10:26→21:26)
[2019-12-04] MEDS: Lisinopril 20mg tab ORAL SCH (10:27)
[2019-12-04 12:00] VITALS: BP 110/76
--- NOTE | 2019-12-04 12:23 | NUR ---
*-* INSURANCE *-* UPDATED CLINICALS HAVE BEEN FAXED TO: [employer] GARCIA: FELIX P- [phone] F- [phone]...........REVIEW/CLINICAL
[2019-12-04] MEDS: Nitroglycerin Patch 0.2mg/hr TDERMAL SCH (12:47)
--- NOTE | 2019-12-04 14:00 | NUR ---
NURSE NOTES:PLACE A TELEPHONE CALL TO DR SAENZ AND MADE AWARE & NOTIFIED REGARDING PT HR [address] ALSO IS VERY AGITATED AND DR HERNÁNDEZ CAME TO SEE THE PT AND IS AWARE ABOUT PT IS TACHYCARDIC AND AGITATED . PT IS MORE AGITATED AND TRYING TO PULL MEDICAL DEVICES. Geraldine SAENZ ORDER TO GIVE ATIVAN 1MG P.O X1 FOR AGITATION. NEW ORDERS NOTED AND CARRIED OUT.PT MEDICATED WITH ATIVAN 1MG P.O PER M.Jesusita ORDERS . WILL CONT TO MONITOR.
[2019-12-04] MEDS ORDERED: LORazepam 1mg tab ORAL SCH (14:15)
--- NOTE | 2019-12-04 14:17 | NUR ---
CASE MANAGEMENT: REVIEW SI: PNA . COVID-19 . COPD . PROSTATE CA T 98.4 HR 1458 RR 26 BP 143/88 SAT 95% BIPAP FIO2 50 K+ 5.3 CHLORIDE 108 BUN 31 CR 1.6 CALCIUM 8.3 IS: SODIUM BICARB IV GTT LABETALOL PO Q12HR NITROGLYCERIN PATCH Q24HR ASPIRIN EC 81MG PO QD STEP DOWN UNIT STATUS DCP: PATIENT [facility]
[2019-12-04 15:40] VITALS: BP 140/75
--- NOTE | 2019-12-04 19:14 | General Progress Note ---
Assessment/Plan Problem List: (1) COPD (chronic obstructive pulmonary disease) ICD Codes: J44.9 - Chronic obstructive pulmonary disease, unspecified SNOMED: 08633865 (2) Hypertensive nephrosclerosis ICD Codes: I12.9 - Hypertensive chronic kidney disease with stage 1 through stage 4 chronic kidney disease, or unspecified chronic kidney disease SNOMED: 889032481 (3) CKD (chronic kidney disease) stage 3, GFR 30-59 ml/min ICD Codes: N18.3 - Chronic kidney disease, stage 3 (moderate) SNOMED: 212309556 (4) Suspected COVID-19 virus infection ICD Codes: Z20.828 - Contact with and (suspected) exposure to other viral communicable diseases SNOMED: 857383744 (5) Pneumonia ICD Codes: J18.9 - Pneumonia, unspecified organism SNOMED: 450058735 (6) Respiratory distress ICD Codes: R06.03 - Acute respiratory distress SNOMED: 102927164 (7) Troponin I above reference range ICD Codes: R79.89 - Other specified abnormal findings of blood chemistry SNOMED: 181813487 (8) Bacteremia due to Gram-positive bacteria ICD Codes: R78.81 - Bacteremia SNOMED: 930853562954 (9) Staph infection ICD Codes: B95.8 - Unspecified staphylococcus as the cause of diseases classified elsewhere SNOMED: 75958462 (10) Paroxysmal A-fib ICD Codes: I48.0 - Paroxysmal atrial fibrillation SNOMED: 587540867 Assessment/Plan: continue empiric atb, pulm care, oxygen,bipap tele, cardiac eval, d/w ID about antibiotics needs picc for iv access Subjective ROS Limited/Unobtainable: Yes Allergies: Coded Allergies: No Known Allergies (Verified , 11/13/08) Objective Last 24 Hour Vital Signs Date Time Temp Pulse Resp B/P (MAP) Pulse Ox O2 Delivery O2 Flow Rate FiO2 12/04/19 16:10 100 12/04/19 16:00 Bi-pap 12/04/19 16:00 149 12/04/19 16:00 50 12/04/19 15:40 98.2 140 28 140/75 (96) 91 12/04/19 15:23 139 36 95 50 12/04/19 13:06 172 12/04/19 12:47 110/76 12/04/19 12:00 50 12/04/19 12:00 66 12/04/19 12:00 98.4 145 26 110/76 (87) 95 12/04/19 12:00 Bi-pap 12/04/19 10:52 113 33 94 50 12/04/19 10:27 143/88 12/04/19 10:26 95 143/88 12/04/19 08:00 50 12/04/19 08:00 98.2 95 26 143/88 (106) 96 12/04/19 08:00 Bi-pap 12/04/19 07:43 84 12/04/19 07:07 89 27 100 50 12/04/19 04:00 50 12/04/19 04:00 Bi-pap 12/04/19 04:00 109 12/04/19 03:57 97.8 110 31 163/86 (111) 95 12/04/19 03:30 110 36 92 50 12/04/19 00:00 50 12/04/19 00:00 98.4 109 30 128/81 (97) 97 12/04/19 00:00 Bi-pap 12/03/19 23:41 93 12/03/19 23:30 93 27 92 50 12/03/19 20:49 87 140/74 12/03/19 20:45 97.1 94 Bi-pap 12/03/19 20:00 Bi-pap 12/03/19 20:00 50 12/03/19 19:38 98.8 87 28 140/74 (96) 94 12/03/19 19:33 86 12/03/19 19:30 104 34 92 50 Intake and Output 12/03/19 12/04/19 19:00 07:00 Intake Total 450 ml 222.5 ml Output Total 650 ml 600 ml Balance -200 ml -377.5 ml Intake Oral 120 ml IV Total 330 ml 222.5 ml Output Urine Total 650 ml 600 ml Laboratory Tests 12/04/19 06:05: Sodium Level 145, Potassium Level 5.3H, Chloride Level 108H, Carbon Dioxide Level 23, Anion Gap 14, Blood Urea Nitrogen 31H, Creatinine 1.6H, Estimat Glomerular Filtration Rate 50.3, Glucose Level 83, Calcium Level 8.3L Height (Feet): 5 Height (Inches): 10.00 Weight (Pounds): 148 General Appearance: lethargic, other - on bipap EENT: normal ENT inspection Cardiovascular: regularly irregular, tachycardia Respiratory/Chest: rhonchi - bilaterally Edema: no edema noted Arm (L), no edema noted Arm (R), no edema noted Leg (L), no edema noted Leg (R), no edema noted Pedal (L), no edema noted Pedal (R), no edema noted Generalized Neurologic: disoriented Fuad Schafer MD December 04, 2019 19:14
--- NOTE | 2019-12-04 19:15 | NUR ---
HAND-OFF: Report given to .JOE RIVER.
--- NOTE | 2019-12-04 19:20 | NUR ---
NURSE NOTES: CODY RIVER.
--- NOTE | 2019-12-04 19:30 | NUR ---
NURSE NOTES: Received pt from ALETA Olivera. pt is AO X1-2, agitated at this time. pt is on BiPAP with settings of 15/8, FiO2: 50%. tolerating settings well, saturation: 95%, no s/sx of respiratory distress noted. Bilateral soft wrist restraints noted, skin intact in surrounding areas, bilateral peripheral pulses present. F/C is patent and intact, draining dark olivia urine to gravity. KRYSTLE 20 G and JHON 20 G IV sites are patent and intact, asymptomatic. JHON 20 G IV site running D5W with sodium bicarb at 30 cc/hr as prescribed per MD. bed in lowest position and locked, padded siderails up X3, all needs attended to. will continue to monitor.
[2019-12-04 20:00] VITALS: BP 142/83
[2019-12-04] MEDS ORDERED: Dyna-Hex 2% Top Sol 2oz TOPIC SCH (20:00)
[2019-12-04] MEDS: Sodium Bicarbonate 100 ML in D5W 1000ml 1,000 ML IV SCH (20:15)
[2019-12-04] MEDS: Tamsulosin 0.4mg cap ORAL SCH (21:25)
[2019-12-04] MEDS: Atorvastatin 20mg tab ORAL SCH (21:25)
[2019-12-04] MEDS: Morphine Sulfate 2mg/ml Inj(IV/IM USE ONLY) IVP PRN (21:27)
[2019-12-05] VITALS (20 sets, daily range): BP systolic 86–179; BP diastolic 46–103
--- NOTE | 2019-12-05 01:45 | Progress Note ---
DATE: 12/04/2019 CARDIOLOGY PROGRESS NOTE SUBJECTIVE: The patient remains with serious condition and guarded prognosis. He has been increasingly agitated, rapid heart rate is noted. Blood pressure elevations as well. He has required restraints for safety. PHYSICAL EXAMINATION: VITAL SIGNS: Blood pressure 140/75, pulse rate 140, respiratory rate 28, afebrile. Monitored atrial fibrillation. LUNGS: Bilateral breath sounds with rhonchi. CARDIAC: Irregularly irregular rhythm. Normal S1, S2. ABDOMEN: Soft. EXTREMITIES: Trace edema. LABORATORY DATA: Sodium 145, potassium 5.3, bicarb 23, BUN 31, creatinine 1.6. IMPRESSION: 1. Non ST-elevation myocardial infarction. 2. Paroxysmal atrial fibrillation with rapid ventricular response. 3. Healthcare-associated pneumonia. 4. Acute respiratory failure on BiPAP. 5. Toxic encephalopathy. 6. Metabolic encephalopathy. 7. Acute on chronic renal failure. 8. Dehydration and hypernatremia, improved. 9. Bacteremia and sepsis. PLAN: Volume support. Beta blockade. Antimicrobials anxiolytics. Respiratory hygiene. Cardioembolic prophylaxis with full anticoagulation. Await results of venous duplex scan. Jarod Clark M.D. DR: JEAN-PAUL JOB#: [id number] CC:
[2019-12-05] MEDS: Enoxaparin 60mg Inj SUBQ SCH (02:04)
[2019-12-05] MEDS: LORazepam Inj 2mg/ml 1ml IV PRN (06:56)
--- NOTE | 2019-12-05 06:58 | NUR ---
NURSE NOTES: administered Ativan 1 mg as per MD order. unable to scan med d/t error message pop-up stating to scan pt ID band number despite numerous attempts to do so. Lot #: [id number], exp. date: 06/2022; [facility]: [id number]. will continue to monitor pt .
--- NOTE | 2019-12-05 07:43 | NUR ---
HAND-OFF: Report given to ALETA Marcial. endorsed plan of care.
--- NOTE | 2019-12-05 07:44 | NUR ---
NURSE NOTES: Received patient in bed. On continuous bipap. With moore cath noted. Bilateral soft wrist restraints noted bed alarm on. Hepa filter noted. Airborne isolation observed. Will continue plan of care. Patient appears agitated and not cooperative with care.
--- NOTE | 2019-12-05 08:59 | Pulmonology Progress Note ---
Subjective ROS Limited/Unobtainable: Yes Allergies: Coded Allergies: No Known Allergies (Verified , 11/13/08) Subjective d/w RN in GABE remains on BIPAP and oxygen needs down to 50% vitals reviewed Objective Last 24 Hour Vital Signs Date Time Temp Pulse Resp B/P (MAP) Pulse Ox O2 Delivery O2 Flow Rate FiO2 12/05/19 08:00 Bi-pap 12/05/19 08:00 97.5 85 15 160/87 (111) 94 12/05/19 04:00 Bi-pap 12/05/19 04:00 94 12/05/19 04:00 98.1 73 26 155/77 (103) 95 12/05/19 04:00 50 12/05/19 03:10 113 36 94 100 12/05/19 00:00 98.1 81 20 151/82 (105) 95 12/05/19 00:00 132 12/05/19 00:00 Bi-pap 12/05/19 00:00 50 12/04/19 23:49 91 36 97 100 12/04/19 21:26 113 142/83 12/04/19 20:31 113 38 93 100 12/04/19 20:00 107 12/04/19 20:00 98.2 113 35 142/83 (102) 95 12/04/19 20:00 Bi-pap 12/04/19 20:00 50 12/04/19 16:10 100 12/04/19 16:00 Bi-pap 12/04/19 16:00 149 12/04/19 16:00 50 12/04/19 15:40 98.2 140 28 140/75 (96) 91 12/04/19 15:23 139 36 95 50 12/04/19 13:06 172 12/04/19 12:47 110/76 12/04/19 12:00 50 12/04/19 12:00 66 12/04/19 12:00 98.4 145 26 110/76 (87) 95 12/04/19 12:00 Bi-pap 12/04/19 10:52 113 33 94 50 12/04/19 10:27 143/88 12/04/19 10:26 95 143/88 Intake and Output 12/04/19 12/05/19 19:00 07:00 Intake Total 100 ml 390 ml Output Total 450 ml 500 ml Balance -350 ml -110 ml Intake Oral 100 ml IV Total 390 ml Output Urine Total 450 ml 500 ml Objective GENERAL: Advanced age male. on BIPAP HEENT: Negative. NECK: Supple. LUNGS: Moderate breath sounds. noted rhonchi. L>R persistents CARDIAC: S1, S2. Regular rate and rhythm. Distant without murmurs, rubs or gallops. ABDOMEN: Soft and nontender. no distention no HSM EXTREMITIES: No cyanosis or clubbing. No significant edema. NEUROLOGICALLY: Slightly confused, weak overall. same reviewed and edited HEENT: other - on bipap Abdomen: soft, non tender Neurologic/Psychiatric: unresponsiveness Current Medications Medications (Trade) Dose Ordered Sig/Viridiana Route PRN Reason Start Time Stop Time Status Last Admin Dose Admin Aspirin (Ecotrin) 81 mg DAILY ORAL 12/01/19 09:00 01/12/20 08:59 12/04/19 10:26 Atorvastatin Calcium (Lipitor) 20 mg QHS ORAL 11/30/19 21:00 02/25/20 20:59 12/04/19 21:25 Chlorhexidine Gluconate (Swapna-Hex 2%) 1 applic DAILY@1999 TOPIC 12/04/19 20:00 03/03/20 19:59 12/04/19 20:39 Enoxaparin Sodium (Lovenox) 60 mg Q24H SUBQ 12/03/19 03:00 03/02/20 02:59 12/05/19 02:04 Lisinopril (PriniviL) 20 mg DAILY ORAL 12/01/19 09:00 12/28/19 08:59 12/04/19 10:27 Lorazepam (Ativan 2mg/ml 1ml) 1 mg Q4H PRN IV For Anxiety 12/02/19 22:00 12/09/19 21:59 12/05/19 06:56 Memantine (Namenda) 5 mg BID ORAL 11/30/19 18:00 12/28/19 08:59 12/04/19 18:10 Metoprolol Tartrate (Lopressor) 50 mg Q12HR ORAL 12/03/19 09:00 03/02/20 01:59 12/04/19 21:26 Morphine Sulfate (Morphine Sulfate) 2 mg Q2H PRN IVP For Pain 12/04/19 18:45 12/11/19 18:44 12/04/19 21:27 Nitroglycerin (Ntg) 0.4 mg Q5M PRN SL Prn Chest Pain 11/30/19 17:45 12/29/19 11:14 Nitroglycerin (Ntg) 1 patch Q24H TDERMAL 12/01/19 12:00 12/29/19 11:59 12/04/19 12:47 Pantoprazole (Protonix) 40 mg ACBREAKFAST ORAL 12/01/19 06:30 12/28/19 06:29 12/05/19 06:21 Sodium Bicarbonate 100 ml/Dextrose 1,100 ml @ 30 mls/hr Q24H IV 12/02/19 20:15 01/01/20 20:14 12/03/19 19:35 Tamsulosin HCl (Flomax) 0.4 mg BEDTIME ORAL 11/30/19 21:00 12/27/19 20:59 12/04/19 21:25 Assessment/Plan Assessment/Plan IMPRESSION: Pneumonia, +COVID, hematuria, evidence of chronic renal failure, possibly with acute component, elevated troponin, possible non-STEMI [place], elevated natriuretic peptide, possible pulmonary edema, pneumonia and sepsis. hypoxemia. concern for aspiration PLAN care noted taper oxygen- at 50% BIPAP for now and hope to dc and repeat ABG off respiratory care ABG and CXR on follow up off load aspiration precautions ID noted and reviewed labile and at risk for intubation some improvement noted impression, plan, and exam edited and reviewed in detail care discussed with Saran Scott MD December 05, 2019 08:59
[2019-12-05] MEDS: Aspirin EC 81mg tab ORAL SCH (09:00)
[2019-12-05] MEDS: Memantine 5 MG TAB ORAL SCH ×2 (09:00→18:00)
[2019-12-05] MEDS: Lisinopril 20mg tab ORAL SCH (09:00)
[2019-12-05] MEDS: Metoprolol Tartrate 50mg tab ORAL SCH ×2 (09:00→21:00)
--- NOTE | 2019-12-05 09:00 | NUR ---
RESPIRATORY NOTE: PT RECEIVED ON BIPAP WITH CURRENT SETTINGS: 15/8, RR:12, 100%. ALARMS ARE ON AND AUDIBLE. ALL VS ARE WNL. SPONGE TAPE REPLACE. FACE INSPECTED, NO FACIAL WOUNDS FOUND. WILL CONTINUE TO MONITOR.
--- NOTE | 2019-12-05 09:43 | NUR ---
NURSE NOTES: Left message to Dr. Lynch, latest ABG result needs to be reported. Awaiting fro call back.
--- NOTE | 2019-12-05 10:11 | NUR ---
RADIOLOGY DEPT., CHEST X-RAY DONE.-P.DYE
--- NOTE | 2019-12-05 10:13 | Infectious Diseases Prog Note ---
Assessment/Plan Assessment/Plan A: 1. pneumonia with COVID19, Positive:5/8 & 5/9 Negative: 5/6 2. hypertension 3. coag neg staph likely contaminated 4. COPD 5. seizures 6. prostate cancer 7. Acute renal failure 8. Respiratory failure with hypoxemia P 1. Repeat COVID19 2. continue isolation 3. will follow up cultures Subjective ROS Limited/Unobtainable: Yes Constitutional: Denies: fever Allergies: Coded Allergies: No Known Allergies (Verified , 11/13/08) Objective Vital Signs Last 24 Hour Vital Signs Date Time Temp Pulse Resp B/P (MAP) Pulse Ox O2 Delivery O2 Flow Rate FiO2 12/05/19 09:00 85 160/87 12/05/19 08:00 Bi-pap 12/05/19 08:00 97.5 85 15 160/87 (111) 94 12/05/19 08:00 100 12/05/19 04:00 Bi-pap 12/05/19 04:00 94 12/05/19 04:00 98.1 73 26 155/77 (103) 95 12/05/19 04:00 50 12/05/19 03:10 113 36 94 100 12/05/19 00:00 98.1 81 20 151/82 (105) 95 12/05/19 00:00 132 12/05/19 00:00 Bi-pap 12/05/19 00:00 50 12/04/19 23:49 91 36 97 100 12/04/19 21:26 113 142/83 12/04/19 20:31 113 38 93 100 12/04/19 20:00 107 12/04/19 20:00 98.2 113 35 142/83 (102) 95 12/04/19 20:00 Bi-pap 12/04/19 20:00 50 12/04/19 16:10 100 12/04/19 16:00 Bi-pap 12/04/19 16:00 149 12/04/19 16:00 50 12/04/19 15:40 98.2 140 28 140/75 (96) 91 12/04/19 15:23 139 36 95 50 12/04/19 13:06 172 12/04/19 12:47 110/76 12/04/19 12:00 50 12/04/19 12:00 66 12/04/19 12:00 98.4 145 26 110/76 (87) 95 12/04/19 12:00 Bi-pap 12/04/19 10:52 113 33 94 50 12/04/19 10:27 143/88 12/04/19 10:26 95 143/88 Height (Feet): 5 Height (Inches): 10.00 Weight (Pounds): 148 HEENT: mucous membranes moist Respiratory/Chest: other - on BIPAP Cardiovascular: normal rate Abdomen: soft, non tender Extremities: no edema Neurologic/Psychiatric: unresponsiveness Laboratory Tests Test 12/05/19 09:27 Arterial Blood pH 7.432 (7.350-7.450) Arterial Blood Partial Pressure CO2 36.4 mmHg (35.0-45.0) Arterial Blood Partial Pressure O2 62.0 mmHg (75.0-100.0) L Arterial Blood HCO3 23.7 mmol/L (22.0-26.0) Arterial Blood Oxygen Saturation 89.9 % (95-100) *L Arterial Blood Base Excess -0.2 (-2-2) William Test Positive Current Medications Medications (Trade) Dose Ordered Sig/Viridiana Route PRN Reason Start Time Stop Time Status Last Admin Dose Admin Aspirin (Ecotrin) 81 mg DAILY ORAL 12/01/19 09:00 01/12/20 08:59 12/04/19 10:26 Atorvastatin Calcium (Lipitor) 20 mg QHS ORAL 11/30/19 21:00 02/25/20 20:59 12/04/19 21:25 Chlorhexidine Gluconate (Swapna-Hex 2%) 1 applic DAILY@1999 TOPIC 12/04/19 20:00 03/03/20 19:59 12/04/19 20:39 Enoxaparin Sodium (Lovenox) 60 mg Q24H SUBQ 12/03/19 03:00 03/02/20 02:59 12/05/19 02:04 Lisinopril (PriniviL) 20 mg DAILY ORAL 12/01/19 09:00 12/28/19 08:59 12/04/19 10:27 Lorazepam (Ativan 2mg/ml 1ml) 1 mg Q4H PRN IV For Anxiety 12/02/19 22:00 12/09/19 21:59 12/05/19 06:56 Memantine (Namenda) 5 mg BID ORAL 11/30/19 18:00 12/28/19 08:59 12/04/19 18:10 Metoprolol Tartrate (Lopressor) 50 mg Q12HR ORAL 12/03/19 09:00 03/02/20 01:59 12/04/19 21:26 Morphine Sulfate (Morphine Sulfate) 2 mg Q2H PRN IVP For Pain 12/04/19 18:45 12/11/19 18:44 12/04/19 21:27 Nitroglycerin (Ntg) 0.4 mg Q5M PRN SL Prn Chest Pain 11/30/19 17:45 12/29/19 11:14 Nitroglycerin (Ntg) 1 patch Q24H TDERMAL 12/01/19 12:00 12/29/19 11:59 12/04/19 12:47 Pantoprazole (Protonix) 40 mg ACBREAKFAST ORAL 12/01/19 06:30 12/28/19 06:29 12/05/19 06:21 Sodium Bicarbonate 100 ml/Dextrose 1,100 ml @ 30 mls/hr Q24H IV 12/02/19 20:15 01/01/20 20:14 12/03/19 19:35 Tamsulosin HCl (Flomax) 0.4 mg BEDTIME ORAL 11/30/19 21:00 12/27/19 20:59 12/04/19 21:25 Ta Parker MD December 05, 2019 10:13
--- NOTE | 2019-12-05 10:21 | NUR ---
NURSE NOTES: Transfer order to ICU status obtained from Dr. Lynch. Chest Xray done this morning, awaiting for result to be posted in [employer]. Charge nurse made aware. Patient remains on bipap 15/8 Fio2 100%.
--- NOTE | 2019-12-05 10:56 | NUR ---
NURSE NOTES: Informed Dr. Lynch regarding today's xray, unchanged from previous xray on 12/01. Dr. Lynch said to keep monitoring patient in 2 hours. And to have ABG check in 2 hours from the last time check this morning.
--- NOTE | 2019-12-05 12:28 | NUR ---
NURSE NOTES: Dr. Schafer in the station, talking to Kem/Rocael Milian via telephone. Patient remains full code. Dr. Schafer discussed possibility of intubation, and patient's current condition. Addendum: 12/05/19 at 1238 by Rachel Teague RN above notes wrong entry-discard Addendum: 12/05/19 at 1401 by Rachel Teague RN Rachel Teague RN does not have note for this patient to discard-error
[2019-12-05] MEDS: Nitroglycerin Patch 0.2mg/hr TDERMAL SCH (12:34)
--- NOTE | 2019-12-05 12:40 | NUR ---
NURSE NOTES: Informed Dr. Lynch regarding second ABG results. With order to have another ABG check tomorrow AM.
--- NOTE | 2019-12-05 13:10 | NUR ---
NURSE NOTES: Covid-19 swab done and sent to lab per protocol, per Dr. Gina Parker's order.
--- NOTE | 2019-12-05 14:41 | NUR ---
CASE MANAGEMENT: REVIEW 12/05/2019 SI: BILATERAL PNA . COVID-19 ++ . COPD . PROSTATE CA 97.0 106 15 179/94 88% BIPAP FIO2 100 ABG: pH 7.457 pCO2 29.8 pCO2 63.4 HCO3- 20.6 O2 SAT 90.4 IS: IV LASIX X1 IV D5 @30ML/HR LABETALOL PO Q12HR LOVENOX SQ QD FLOMAX PO QHS LIPITOR PO QHS NITROGLYCERIN PATCH Q24HR ASPIRIN EC 81MG PO QD PROTONIX PO QAC \:STEP DOWN UNIT STATUS DCP: PATIENT IS FROM [facility] PLAN: MONITOR BP REPEAT COVID-19 TODAY MONITOR BEHAVIOR- NON VIOLENT RESTRAINTS IN PLACE
--- NOTE | 2019-12-05 15:48 | NUR ---
NURSE NOTES: Inform Dr. Schafer via telephone regarding latest ABG result. Bicarb level is 20.6, no new order at this time. Keep patient on IVF with no bicarb.
--- NOTE | 2019-12-05 16:00 | NUR ---
NURSE NOTES: Bed bath provided by 2 staff.
--- NOTE | 2019-12-05 16:30 | NUR ---
*-* INSURANCE *-* UPDATED CLINICALS HAVE BEEN FAXED TO: KALEE GARCIA: FELIX P- [phone] F- [phone]...........REVIEW/CLINICAL
[2019-12-05] MEDS: Morphine Sulfate 2mg/ml Inj(IV/IM USE ONLY) IVP PRN (16:53)
--- NOTE | 2019-12-05 19:25 | NUR ---
HAND-OFF: Report given to ALETA Gr.
--- NOTE | 2019-12-05 19:45 | NUR ---
NURSE NOTES: LE: PATIENT AWOKE, COMBATIVE TO CARE, DIS NOT FOLLOWED COMMANDS, DESATURATION 68% AND REMOVED BIPAP MASK STATUS THAT FIXED BIPAP MASK AND THE O2 SATURATION OVER 90% NOTED, NO COUGH SIGN, ABDOMEN SOFT, F/C INTACT AND PATENT, DARK YELLOW COLOR URINE OUTED, PPL TO BOTH UPPER ARM, INTACT AND PATENT, ONGOING D5W AT 30ML/HR VIA RIGHT SIDE PPL, 2 POINT SOFT RESTRAINTS STATUS, LOWER BED POSITION, ON BED ALARM AND LOCKED, PLACED CALL LIGHT WITHIN REACH, WILL CONTINUE TO MONITOR.
[2019-12-05] MEDS ORDERED: Nitroglycerin Patch 0.2mg/hr TDERMAL SCH (20:00)
[2019-12-05] MEDS ORDERED: dilTIAZem HCl 25mg/5ml Inj IVP SCH (21:00)
[2019-12-05] MEDS: Tamsulosin 0.4mg cap ORAL SCH (21:00)
[2019-12-05] MEDS: Atorvastatin 20mg tab ORAL SCH (21:00)
--- NOTE | 2019-12-05 21:10 | NUR ---
NURSE NOTES: LE; CALLED DR. SAENZ REGARDING HR OVER 170'S/MIN ST AND EKG RESULT AT 2048PM. GIVEN CARDIZEM 20MG BY IVP ORDERED AT THIS TIME, WILL CONTINUE TO MONITOR.
--- NOTE | 2019-12-05 22:00 | NUR ---
NURSE NOTES: LE: REMOVED BIPAP MASK STATUS, DESATURATION 56% NOTED AT 2140PM, CALLED RT THAT RT CAME, CHANGED TO FULL FACE MASK, PATIENT LETHARGIC, WEAKLY RESPONSE TO TACTILE STIMULI, COLD SKIN STATUS, O2 SATURATION GOES UP TO 88% , BS 148MG/DL NOTED AT 2150PM, BP 86/53MMHG, HR 170/MIN ST, RR 24, O2 SATURATION 92% ON BIPAP 15/8, FIO2 100% AT THIS TIME.
--- NOTE | 2019-12-05 22:21 | NUR ---
NURSE NOTES: CALLED BACK FROM DR. SAENZ THAT INFORMED CURRENT PT'S SITUATION, PENDING ABG'S RESULT.
[2019-12-05] MEDS ORDERED: dilTIAZem Premix 125mg/125ml 125 ML IVPB SCH (22:45)
--- NOTE | 2019-12-05 22:45 | NUR ---
NURSE NOTES: MOVE TO ROOM [id number] ORDER FOR CARDIZEM DRIP AND INTUBATION.
--- NOTE | 2019-12-05 23:18 | NUR ---
NURSE NOTES: Message left for MD Lynch at this time. Notified him patient HR 170. ABG results left in message. awaiting call back
[2019-12-05] MEDS ORDERED: dilTIAZem HCl 25mg/5ml Inj IVP ONE (23:30)
--- NOTE | 2019-12-05 23:54 | NUR ---
NURSE NOTES: Paged MD Lynch at this time message left, patient noted with low saturation. ABG done and per MD Clark intubation will be left for him to make.
[2019-12-06] VITALS (37 sets, daily range): BP systolic 73–168; BP diastolic 35–101
--- NOTE | 2019-12-06 00:36 | NUR ---
NURSE NOTES: ON BIPAP 07/03, FIO2 100%, O2 SATURATION 96% NOTED, HR 97/MIN SR W/ PAC'S, BP 116/52 MMHG, ONGOING CARDIZEM DRIP 10MG/HR AND IV FLUID 1/2 NS AT 125ML/HR VIA PPL, WILL CONTINUE PLAN OF CARE.
--- NOTE | 2019-12-06 00:45 | NUR ---
NURSE NOTES: Called and notified Nursing Divisional Human Resources Director MD Cris Rai is not returning calls and per MD Eduardo Keys is to be notified of ABG and decide about intubation. Nursing Divisional Human Resources Director will try to call MD Lynch.
--- NOTE | 2019-12-06 00:45 | Progress Note ---
DATE: 12/05/2019 CARDIOLOGY PROGRESS NOTE SUBJECTIVE: The patient's condition has deteriorated. He is increasingly hypoxic and in acute respiratory distress. Concomitantly has developed rapid atrial fibrillation with heart rate over 150. He was given a dose of diltiazem IV earlier for rate control that failed to decrease his heart rate. Subsequently has become increasingly hypoxic on 100% BiPAP and remains slightly hypotensive. PHYSICAL EXAMINATION: GENERAL: Agitated, confused. LUNGS: Bilateral rhonchi, no wheezing. HEART: Irregularly irregular rhythm. Rapid rate. Normal S1, S2. ABDOMEN: Soft. EXTREMITIES: No edema. LABORATORY DATA: ABG 7.45, 27, 51. No chemistry panel today. IMPRESSION: 1. Acute respiratory failure. 2. Hypoxia. 3. Paroxysmal atrial fibrillation with rapid ventricular response. 4. Pbq-KT-liucfyvle myocardial infarction. 5. Healthcare-associated pneumonia. 6. Toxic and metabolic encephalopathies. 7. Bacteremia and sepsis. PLAN: ICU transfer, may need intubation and mechanical ventilation. Oxygenation efforts, BiPAP, IV diltiazem to be considered for rate control subsequently. Recheck laboratory studies. Consideration for full anticoagulation. Hold antihypertensives for now. May need volume support. Jarod Clark M.D. DR: Corinne JOB#: [id number] CC:
--- NOTE | 2019-12-06 00:50 | NUR ---
NURSE NOTES: Nursing Magazine Filler spoke with MD Lynch and MD cardoza to intubate the patient. Magazine Filler Call ER MD Lozada to intubate the patient.
--- NOTE | 2019-12-06 01:30 | NUR ---
NURSE NOTES: ER MD intubated patient at this time. placed on AC 18, VT 500 peep 5 and fio2 100%. Stat chest x-ray and KUB pending at this time.
--- NOTE | 2019-12-06 01:30 | NUR ---
NURSE NOTES: LE: INTUBATED BY DR. HARVEY, ETT 7.5 LIP LINE 24CM, VNET SETTING AC 18/TV500/FIO2 100%/PEEP 5, O2 SATURATION OVER 95% NOTED AT THIS TIME.
--- NOTE | 2019-12-06 01:53 | NUR ---
NURSE NOTES: Called and Notified Rocael Milian (son) about patient Emergent intubation and now on medication to control is HR. Condition stable as of now. Will call back later to check on father condition.
--- NOTE | 2019-12-06 02:06 | Diagnostic Imaging Report ---
EXAM: XR Chest, 1 View CLINICAL HISTORY: S/P INTUB TECHNIQUE: Frontal view of the chest. COMPARISON: 11/30/2019. FINDINGS: Lungs: Bilateral diffuse ground glass opacities throughout the mid lower lung melo suggestive of pneumonia. These are slightly progressed on the left. Pleural space: No pleural effusion. No pneumothorax. Heart: Unremarkable. No cardiomegaly. Mediastinum: Unremarkable. Bones/joints: Unremarkable. Vasculature: Atherosclerotic disease of aorta. Tubes, lines and devices: The nasogastric tube has a tip below the diaphragm but not including the [id number]. The endotracheal tube has a tip approximately 4.2 cm above dennis. IMPRESSION: 1. Lines and tubes as described 2. Bilateral pulmonary infiltrates, on the left slightly progressed.
--- NOTE | 2019-12-06 02:07 | Diagnostic Imaging Report ---
EXAM: XR Abdomen, 2 Views CLINICAL HISTORY: TUBE PLCMT TECHNIQUE: Frontal view of the abdomen/pelvis with upright view of the abdomen. COMPARISON: 01/17/18. FINDINGS: Lower thorax: Interstitial opacity within the bilateral lung bases suggestive of pneumonia, progressed in the interval. Intraperitoneal space: No free air. Gastrointestinal tract: Unremarkable. No dilation. Bones/joints: Degenerative disease of the lumbar spine, bilateral SI joints and hips. Vasculature: Calcified atherosclerotic disease of aorta. Tubes, lines and devices: Nasogastric tube has a tip projecting over the gastric fundus and in normal location. Visualized visceral lines unremarkable. Other findings: Nonspecific gas pattern. IMPRESSION: 1. Nasogastric tube as described 2. Nonspecific gas pattern.
--- NOTE | 2019-12-06 02:41 | Emergency Room Report ---
History of Present Illness General Chief Complaint: Dyspnea/Respdistress Source: Medical Record Present Illness Allergies: Coded Allergies: No Known Allergies (Verified , 11/13/08) COVID-19 Screening Contact w/high risk pt: No Recent Travel to affected area: No Experienced COVID-19 symptoms?: Yes COVID-19 symptoms experienced: Shortness of Breath COVID-19 Testing performed DROP MAN: No COVID-19 Screening: Positive COVID-19 Nursing Documentation-PMH Past Medical History: No History, Except For Hx Hypertension: Yes - ESSENTIAL HYPERTENSION Hx Dementia: Yes Hx Alzheimer's Disease: Yes Hx Seizures: Yes Physical Exam Vital Signs Date Time Temp Pulse Resp B/P (MAP) Pulse Ox O2 Delivery O2 Flow Rate FiO2 12/02/19 08:00 Bi-pap 12/02/19 08:00 79 12/02/19 08:00 97.9 30 153/68 (96) 96 12/02/19 08:00 70 Procedures Intubation Intubation : Consent: Emergent Intubation Method: orotracheal Tube Size (cm): 8.0 Medications: Etomidate, Rocuronium Breath Sounds after Intubation: equal Intubation Complications: no complications Post Intubation Xray: Yes Attempts: One Patient Tolerated: Well Complications: None Progress Patient was intubated due to hypoxemia. Patient had been placed on a nonrebreather with history of coronavirus infection. Initially attempted to intubate the patient with a MAC 4 blade with difficult visualization and subsequently patient was intubated with glide scope after preoxygenation. Patient tolerated this well and had maintained oxygen saturation throughout attempt. ET tube was initially secured at 23 cm and was subsequently advanced to 24 after chest x-ray. Medical Decision Making Diagnostic Impression: Primary Impression: Pneumonia Additional Impression: Suspected COVID-19 virus infection Last Vital Signs Date Time Temp Pulse Resp B/P (MAP) Pulse Ox O2 Delivery O2 Flow Rate FiO2 12/06/19 02:15 107 31 157/76 (103) 97 12/06/19 01:39 100 12/06/19 00:00 Bi-pap 12/06/19 00:00 97.7 Disposition: ASSISTED LIVING Condition: Serious Referrals: John Hay MD (PCP) Damian Lozada MD December 06, 2019 02:41
[2019-12-06] MEDS: Enoxaparin 60mg Inj SUBQ SCH (02:42)
--- NOTE | 2019-12-06 02:47 | NUR ---
NURSE NOTES: CALLED DR. SAENZ REGARDING ABG'S RESULT AFTER INTUBATION THAT INFORMED
[2019-12-06] MEDS: LORazepam Inj 2mg/ml 1ml IV PRN ×4 (03:35→23:23)
--- NOTE | 2019-12-06 04:50 | NUR ---
NURSE NOTES: MORNING CARE AND ORAL CARE WAS DONE.
--- NOTE | 2019-12-06 06:33 | NUR ---
NURSE NOTES: CHANGED VENT SETTING PEEP 10 ORDER.
--- NOTE | 2019-12-06 07:00 | NUR ---
RESPIRATORY NOTE: Received pt on ETT 7.5@ 24cm lip line, pt is on current vent settings AC 65-187yg-066%FiO2-peep 5. Pt is agitated RR>30bpm, HR 106bpm, accessory muscle used, shallow/labor breathing noted.RN Abi aware. Alarms are set and audible, vent is plugged into the red outlet, ambu bag is at bedside. Will continue to monitor.
--- NOTE | 2019-12-06 07:22 | NUR ---
HAND-OFF: Report given to ALETA SUAREZ.
[2019-12-06 07:43] LABS: HEMATOCRIT 40.1 % (42.0-52.0); HEMOGLOBIN 12.6 G/DL (14.2-18.0); MEAN CORPUSCULAR VOLUME 77 FL (80-99); PLATELET COUNT 515 K/UL (150-450); RED BLOOD COUNT 5.21 M/UL (4.70-6.10); RED CELL DISTRIBUTION WIDTH 15.4 % (11.6-14.8); WHITE BLOOD COUNT 13.5 K/UL (4.8-10.8)
[2019-12-06 07:45] LABS: ALANINE AMINOTRANSFERASE 22 U/L (12-78); ALBUMIN 1.9 G/DL (3.4-5.0); ALBUMIN/GLOBULIN RATIO 0.4 (1.0-2.7); ALKALINE PHOSPHATASE 137 U/L (46-116); ANION GAP 13 mmol/L (5-15); ASPARTATE AMINO TRANSFERASE 28 U/L (15-37); BILIRUBIN,TOTAL 0.8 MG/DL (0.2-1.0); BLOOD UREA NITROGEN 52 mg/dL (7-18); CALCIUM 8.1 MG/DL (8.5-10.1); CARBON DIOXIDE 25 MMOL/L (21-32); CHLORIDE 114 MMOL/L (98-107); CREATININE 2.2 MG/DL (0.55-1.30); POTASSIUM 4.3 MMOL/L (3.5-5.1); SODIUM 152 MMOL/L (136-145)
--- NOTE | 2019-12-06 07:50 | NUR ---
NURSE NOTES: LATE ENTRY: RECEIVED REPORT FROM KYLE Ashraf PT IN SEMI FOWLERS, LABORED BREATHS, TACHYPNEIC AT 31, SP02 SATING 93. ETTUBE 7.5, 24CM AT LIP, AC 18, VT 500, PEEP 10, 100%FI02. VS: 105, 143/46, DIMINISHED LUNG SOUNDS. PT. A/OX1, AGITATED AND FATIGUED. NPO, RT NARES NGT. HYPOACTIVE BOWEL SOUNDS. SIMONS DRAINING MAGDA URINE. NO BM AT THIS TIME. SKIN- SEE ASSESSMENT. RT UPPER ARM 20G, LT UPPER ARM 20G. FLUIDS 1/2 NS @125ML/HR, CARDIZEM DRIP AT 10MG/HR. 98 TEMP. BILATERAL SOFT WRIST RESTRAINTS. BED LOCKED, IN LOW POSITION. AIRBORNE ISOLATION.
--- NOTE | 2019-12-06 08:18 | NUR ---
NURSE NOTES: MD TYSON HERE TO SEE PT. INFORMED OF PLT 515, NA 152. INTUBATED,PT AGITATED, HAS PRN ATIVAN. RECEIVED ORDER FOR FENTANYL SEDATION.
--- NOTE | 2019-12-06 08:33 | Pulmonology Progress Note ---
Subjective ROS Limited/Unobtainable: Yes Constitutional: Denies: fever Allergies: Coded Allergies: No Known Allergies (Verified , 11/13/08) Subjective d/w RN intubated very ill on 100% agitated vitals reviewed Objective Last 24 Hour Vital Signs Date Time Temp Pulse Resp B/P (MAP) Pulse Ox O2 Delivery O2 Flow Rate FiO2 12/06/19 07:00 106 34 100 12/06/19 07:00 111 24 143/46 (78) 90 12/06/19 06:00 105 33 116/101 (106) 92 12/06/19 05:00 105 31 116/60 (78) 91 12/06/19 04:00 100 12/06/19 04:00 97.7 102 32 99/59 (72) 89 12/06/19 04:00 Bi-pap 12/06/19 03:32 102 12/06/19 03:30 98 29 116/56 (76) 92 12/06/19 03:25 96 18 100 12/06/19 03:00 98 28 133/59 (83) 93 12/06/19 02:30 112 29 141/66 (91) 95 12/06/19 02:15 107 31 157/76 (103) 97 12/06/19 02:00 108 25 168/79 (108) 97 12/06/19 01:39 95 18 100 12/06/19 01:30 100 12/06/19 01:30 101 30 105/62 (76) 95 12/06/19 01:00 87 26 121/62 (81) 93 12/06/19 00:52 92 21 113/64 (80) 94 12/06/19 00:45 95 25 82/35 (51) 94 12/06/19 00:30 94 29 94/49 (64) 95 12/06/19 00:15 99 25 113/61 (78) 92 12/06/19 00:00 100 12/06/19 00:00 Bi-pap 12/06/19 00:00 97.7 86 23 103/43 (63) 88 12/05/19 23:45 121 26 88/61 (70) 86 12/05/19 23:39 186 94/56 12/05/19 23:38 178 27 141/99 (113) 92 12/05/19 23:32 169 12/05/19 23:30 153 27 94/56 (69) 92 12/05/19 23:20 134 28 89 100 12/05/19 23:15 137 23 125/103 (110) 87 12/05/19 23:00 164 24 110/58 (75) 88 12/05/19 22:00 175 32 86/53 (64) 92 12/05/19 21:25 175 12/05/19 21:16 135 91/56 12/05/19 21:09 164 12/05/19 21:00 135 36 91/52 (65) 86 12/05/19 21:00 135 91/56 12/05/19 20:00 97.1 145 30 91/56 (68) 97 12/05/19 20:00 100 12/05/19 20:00 Bi-pap 12/05/19 19:33 155 12/05/19 19:02 98 24 97 100 12/05/19 19:00 124 23 118/46 (70) 95 12/05/19 18:00 99 23 133/68 (89) 95 12/05/19 17:00 111 26 136/86 (103) 96 12/05/19 16:00 100 12/05/19 16:00 97.6 99 33 142/82 (102) 97 12/05/19 16:00 Bi-pap 12/05/19 15:26 111 12/05/19 15:00 119 26 142/71 (94) 95 12/05/19 15:00 107 25 98 100 12/05/19 14:00 89 26 153/80 (104) 91 12/05/19 13:00 97.2 102 26 171/88 (115) 90 12/05/19 12:34 179/94 12/05/19 12:30 92 19 94 100 12/05/19 12:00 97.0 106 15 179/94 (122) 88 12/05/19 12:00 Bi-pap 12/05/19 12:00 100 12/05/19 11:59 94 12/05/19 11:00 97.3 108 25 158/81 (106) 90 12/05/19 09:00 62 32 98 100 12/05/19 09:00 85 160/87 Intake and Output 12/05/19 12/06/19 19:00 07:00 Intake Total 330 ml 1172 ml Output Total 640 ml 350 ml Balance -310 ml 822 ml IV Total 330 ml 1112 ml Other 60 ml Output Urine Total 640 ml 350 ml Objective GENERAL: Advanced age male. on vent; oral ETT HEENT: Negative. NECK: Supple. LUNGS: Moderate breath sounds. noted rhonchi. CARDIAC: S1, S2. Regular rate and rhythm. Distant without murmurs, rubs or gallops. ABDOMEN: Soft and nontender. no distention no HSM EXTREMITIES: No cyanosis or clubbing. No significant edema. NEUROLOGICALLY: unable to assess; sedated reviewed and edited HEENT: mucous membranes moist Abdomen: soft, non tender Extremities: no edema Neurologic/Psychiatric: unresponsiveness Laboratory Tests 12/05/19 09:27: Arterial Blood pH 7.432, Arterial Blood Partial Pressure CO2 36.4, Arterial Blood Partial Pressure O2 62.0L, Arterial Blood HCO3 23.7, Arterial Blood Oxygen Saturation 89.9*L, Arterial Blood Base Excess -0.2, William Test Positive 12/05/19 12:15: Arterial Blood pH 7.457H, Arterial Blood Partial Pressure CO2 29.8L, Arterial Blood Partial Pressure O2 63.4L, Arterial Blood HCO3 20.6L, Arterial Blood Oxygen Saturation 90.4L, Arterial Blood Base Excess -2.1L, William Test Positive 12/05/19 22:14: Arterial Blood pH 7.450, Arterial Blood Partial Pressure CO2 27.7L, Arterial Blood Partial Pressure O2 51.5L, Arterial Blood HCO3 19.1L, Arterial Blood Oxygen Saturation 86.1*L, Arterial Blood Base Excess -3.4L, William Test Positive 12/06/19 02:30: Arterial Blood pH 7.303L, Arterial Blood Partial Pressure CO2 47.7H, Arterial Blood Partial Pressure O2 77.0, Arterial Blood HCO3 23.1, Arterial Blood Oxygen Saturation 92.4L, Arterial Blood Base Excess -3.5L, William Test Positive 12/06/19 05:30: White Blood Count 13.5H, Red Blood Count 5.21, Hemoglobin 12.6L, Hematocrit 40.1L, Mean Corpuscular Volume 77L, Mean Corpuscular Hemoglobin 24.2L, Mean Corpuscular Hemoglobin Concent 31.4L, Red Cell Distribution Width 15.4H, Platelet Count 515H, Mean Platelet Volume 5.9L, Neutrophils (%) (Auto) , Lymphocytes (%) (Auto) , Monocytes (%) (Auto) , Eosinophils (%) (Auto) , Basophils (%) (Auto) , Neutrophils % (Manual) [Pending], Lymphocytes % (Manual) [Pending], Platelet Estimate [Pending], Platelet Morphology [Pending], Sodium Level 152H, Potassium Level 4.3, Chloride Level 114H, Carbon Dioxide Level 25, Anion Gap 13, Blood Urea Nitrogen 52H, Creatinine 2.2H, Estimat Glomerular Filtration Rate 34.8, Glucose Level 129H, Calcium Level 8.1L, Magnesium Level 2.8H, Total Bilirubin 0.8, Aspartate Amino Transf (AST/SGOT) 28, Alanine Aminotransferase (ALT/SGPT) 22, Alkaline Phosphatase 137H, Troponin I 0.057H, Pro-B-Type Natriuretic Peptide 8922H, Total Protein 6.9, Albumin 1.9L, Globulin 5.0, Albumin/Globulin Ratio 0.4L 12/06/19 07:10: Arterial Blood pH 7.388, Arterial Blood Partial Pressure CO2 38.8, Arterial Blood Partial Pressure O2 66.3L, Arterial Blood HCO3 22.9, Arterial Blood Oxygen Saturation 90.7L, Arterial Blood Base Excess -1.8, William Test Positive Current Medications Medications (Trade) Dose Ordered Sig/Viridiana Route PRN Reason Start Time Stop Time Status Last Admin Dose Admin Aspirin (Ecotrin) 81 mg DAILY ORAL 12/01/19 09:00 01/12/20 08:59 12/04/19 10:26 Atorvastatin Calcium (Lipitor) 20 mg QHS ORAL 11/30/19 21:00 02/25/20 20:59 12/04/19 21:25 Diltiazem HCl 125 ml @ 0 mls/hr Q24H IVPB 12/05/19 22:45 12/29/19 22:44 12/05/19 23:38 Enoxaparin Sodium (Lovenox) 60 mg Q24H SUBQ 12/03/19 03:00 03/02/20 02:59 12/06/19 02:42 Fentanyl Citrate 1000 mcg/Sodium Chloride 100 ml @ 0 mls/hr Q24H IV 12/06/19 09:00 12/13/19 08:59 Lorazepam (Ativan 2mg/ml 1ml) 1 mg Q4H PRN IV For Anxiety 12/02/19 22:00 12/09/19 21:59 12/06/19 03:35 Memantine (Namenda) 5 mg BID ORAL 11/30/19 18:00 12/28/19 08:59 12/04/19 18:10 Metoprolol Tartrate (Lopressor) 50 mg Q12HR ORAL 12/03/19 09:00 03/02/20 01:59 12/04/19 21:26 Morphine Sulfate (Morphine Sulfate) 2 mg Q2H PRN IVP For Pain 12/04/19 18:45 12/11/19 18:44 12/05/19 16:53 Nitroglycerin (Ntg) 0.4 mg Q5M PRN SL Prn Chest Pain 11/30/19 17:45 12/29/19 11:14 Nitroglycerin (Ntg) 1 patch Q24H TDERMAL 12/01/19 12:00 12/29/19 11:59 12/05/19 12:34 Pantoprazole (Protonix) 40 mg ACBREAKFAST ORAL 12/01/19 06:30 12/28/19 06:29 12/06/19 05:52 Sodium Chloride 1,000 ml @ 125 mls/hr Q8H IV 12/05/19 22:45 01/04/20 22:44 12/06/19 06:21 Tamsulosin HCl (Flomax) 0.4 mg BEDTIME ORAL 11/30/19 21:00 12/27/19 20:59 12/04/19 21:25 Assessment/Plan Assessment/Plan IMPRESSION: hypoxemic respiratory failure, profound hypoxemi, probable ARDS, + COVID, hematuria, evidence of chronic renal failure, possibly with acute component, elevated troponin, possible non-STEMI OR, elevated natriuretic peptide, possible pulmonary edema, pneumonia and sepsis. hypoxemia. concern for aspiration PLAN care noted increase PEEP d/w ID; consider Actemra respiratory care otherwise as is ABG and CXR on follow up for change off load aspiration precautions ID noted and reviewed medications/laboratory data/nursing notes/ICU care reviewed in detail note reviewed and edited care discussed with RN and RT ICU time spent >40 minutes Saran Lynch MD December 06, 2019 08:33
[2019-12-06] MEDS: Memantine 5 MG TAB ORAL SCH (08:45)
[2019-12-06] MEDS: Aspirin EC 81mg tab ORAL SCH (08:45)
[2019-12-06] MEDS: Metoprolol Tartrate 50mg tab ORAL SCH ×2 (08:46→20:47)
--- NOTE | 2019-12-06 09:28 | NUR ---
RD ASSESSMENT & RECOMMENDATIONS SEE CARE ACTIVITY FOR COMPLETE ASSESSMENT DAILY ESTIMATED NEEDS: Needs based on Critical care 64kg 22-28 kcals/kg 6411-0997 total kcals 1.2-2 g protein/kg 77-128 g total protein 25-30 mL/kg 2702-0172 total fluid mLs NUTRITION DIAGNOSIS: Inadequate oral intake r/t respiratory status as evidenced by pt w/ covid pna ++, previously on Bipap and meals held d/t aspiration risk, now s/p oral intubation, NPO CURRENT TF:NPO PO DIET RECOMMENDATIONS: STATE [employer] DIRECTOR EVAL POST EXTUBATION ENTERAL NUTRITION RECOMMENDATIONS: Vital AF 1.2 @ 55ml/hr x 24 hrs to provide 1320ml, 1584kcal, 99g prot, 1070ml free water * W/ GI access, rec to initiate Vital AF for critical care * Initiate Vital AF 1.2 @ 15ml/hr x 6 hrs * Advance 10ml q 4-6 hrs as tolerated to goal * HOB over 30 degrees/ water flush per MD -- PT AT HIGH RISK FOR REFEEDING SYNDROME, INCREASE TF SLOWLY, CHECK LYTES CLOSELY. ADDITIONAL RECOMMENDATIONS: 1) Monitor NPO status, now day 6, now s/p intubation, rec to initiate TF 2) Monitor lytes closely w/ TF, replete as needed- high risk for refeeding 3) Monitor BGs closely w/ TF, need for NISS 4) Maintain calibrated bed scale wts 5) Consider adjusting IVF: on 1/2NS @ this time, Na trend up
[2019-12-06] MEDS ORDERED: Tocilizumab 400 MG in NS 110 ML IV ONE (10:00)
--- NOTE | 2019-12-06 10:09 | NUR ---
*-* INSURANCE *-* UPDATED CLINICALS HAVE BEEN FAXED TO: KALEE GARCIA: FELIX P- [phone] F- [phone]...........REVIEW/CLINICAL
--- NOTE | 2019-12-06 11:18 | General Progress Note ---
Assessment/Plan Problem List: (1) COPD (chronic obstructive pulmonary disease) ICD Codes: J44.9 - Chronic obstructive pulmonary disease, unspecified SNOMED: 45882160 (2) Hypertensive nephrosclerosis ICD Codes: I12.9 - Hypertensive chronic kidney disease with stage 1 through stage 4 chronic kidney disease, or unspecified chronic kidney disease SNOMED: 068306738 (3) CKD (chronic kidney disease) stage 3, GFR 30-59 ml/min ICD Codes: N18.3 - Chronic kidney disease, stage 3 (moderate) SNOMED: 225522922 (4) Suspected COVID-19 virus infection ICD Codes: Z20.828 - Contact with and (suspected) exposure to other viral communicable diseases SNOMED: 119628480 (5) Pneumonia ICD Codes: J18.9 - Pneumonia, unspecified organism SNOMED: 425437334 (6) Respiratory distress ICD Codes: R06.03 - Acute respiratory distress SNOMED: 785738791 (7) Troponin I above reference range ICD Codes: R79.89 - Other specified abnormal findings of blood chemistry SNOMED: 428595678 (8) Bacteremia due to Gram-positive bacteria ICD Codes: R78.81 - Bacteremia SNOMED: 349097792920 (9) Staph infection ICD Codes: B95.8 - Unspecified staphylococcus as the cause of diseases classified elsewhere SNOMED: 95004348 (10) Paroxysmal A-fib ICD Codes: I48.0 - Paroxysmal atrial fibrillation SNOMED: 004813942 (11) Respiratory failure ICD Codes: J96.90 - Respiratory failure, unspecified, unspecified whether with hypoxia or hypercapnia SNOMED: 374833654 Assessment/Plan: continue atb, pulm care,, intubated, ng feed, hydration, rx atrial fib, icu care all orders reviewed and updated, 40 min, family called again Subjective ROS Limited/Unobtainable: Yes Allergies: Coded Allergies: No Known Allergies (Verified , 11/13/08) Objective Last 24 Hour Vital Signs Date Time Temp Pulse Resp B/P (MAP) Pulse Ox O2 Delivery O2 Flow Rate FiO2 12/06/19 10:49 91 32 100 12/06/19 10:00 94 33 86/46 (59) 93 12/06/19 09:30 98 34 86/45 (59) 91 12/06/19 09:00 105 26 128/57 (80) 93 12/06/19 08:46 104 115/55 12/06/19 08:30 103 32 115/55 (75) 93 12/06/19 08:00 99.1 103 25 104/57 (73) 94 12/06/19 08:00 Bi-pap 12/06/19 07:00 106 34 100 12/06/19 07:00 111 24 143/46 (78) 90 12/06/19 06:00 105 33 116/101 (106) 92 12/06/19 05:00 105 31 116/60 (78) 91 12/06/19 04:00 100 12/06/19 04:00 97.7 102 32 99/59 (72) 89 12/06/19 04:00 Bi-pap 12/06/19 03:32 102 12/06/19 03:30 98 29 116/56 (76) 92 12/06/19 03:25 96 18 100 12/06/19 03:00 98 28 133/59 (83) 93 12/06/19 02:30 112 29 141/66 (91) 95 12/06/19 02:15 107 31 157/76 (103) 97 12/06/19 02:00 108 25 168/79 (108) 97 12/06/19 01:39 95 18 100 12/06/19 01:30 100 12/06/19 01:30 101 30 105/62 (76) 95 12/06/19 01:00 87 26 121/62 (81) 93 12/06/19 00:52 92 21 113/64 (80) 94 12/06/19 00:45 95 25 82/35 (51) 94 12/06/19 00:30 94 29 94/49 (64) 95 12/06/19 00:15 99 25 113/61 (78) 92 12/06/19 00:00 100 12/06/19 00:00 Bi-pap 12/06/19 00:00 97.7 86 23 103/43 (63) 88 12/05/19 23:45 121 26 88/61 (70) 86 12/05/19 23:39 186 94/56 12/05/19 23:38 178 27 141/99 (113) 92 12/05/19 23:32 169 12/05/19 23:30 153 27 94/56 (69) 92 12/05/19 23:20 134 28 89 100 12/05/19 23:15 137 23 125/103 (110) 87 12/05/19 23:00 164 24 110/58 (75) 88 12/05/19 22:00 175 32 86/53 (64) 92 12/05/19 21:25 175 12/05/19 21:16 135 91/56 12/05/19 21:09 164 12/05/19 21:00 135 36 91/52 (65) 86 12/05/19 21:00 135 91/56 12/05/19 20:00 97.1 145 30 91/56 (68) 97 12/05/19 20:00 100 12/05/19 20:00 Bi-pap 12/05/19 19:33 155 12/05/19 19:02 98 24 97 100 12/05/19 19:00 124 23 118/46 (70) 95 12/05/19 18:00 99 23 133/68 (89) 95 12/05/19 17:00 111 26 136/86 (103) 96 12/05/19 16:00 100 12/05/19 16:00 97.6 99 33 142/82 (102) 97 12/05/19 16:00 Bi-pap 12/05/19 15:26 111 12/05/19 15:00 119 26 142/71 (94) 95 12/05/19 15:00 107 25 98 100 12/05/19 14:00 89 26 153/80 (104) 91 12/05/19 13:00 97.2 102 26 171/88 (115) 90 12/05/19 12:34 179/94 12/05/19 12:30 92 19 94 100 12/05/19 12:00 97.0 106 15 179/94 (122) 88 12/05/19 12:00 Bi-pap 12/05/19 12:00 100 12/05/19 11:59 94 Intake and Output 12/05/19 12/06/19 19:00 07:00 Intake Total 330 ml 1172 ml Output Total 640 ml 350 ml Balance -310 ml 822 ml IV Total 330 ml 1112 ml Other 60 ml Output Urine Total 640 ml 350 ml Laboratory Tests 12/05/19 12:15: Arterial Blood pH 7.457H, Arterial Blood Partial Pressure CO2 29.8L, Arterial Blood Partial Pressure O2 63.4L, Arterial Blood HCO3 20.6L, Arterial Blood Oxygen Saturation 90.4L, Arterial Blood Base Excess -2.1L, William Test Positive 12/05/19 22:14: Arterial Blood pH 7.450, Arterial Blood Partial Pressure CO2 27.7L, Arterial Blood Partial Pressure O2 51.5L, Arterial Blood HCO3 19.1L, Arterial Blood Oxygen Saturation 86.1*L, Arterial Blood Base Excess -3.4L, William Test Positive 12/06/19 02:30: Arterial Blood pH 7.303L, Arterial Blood Partial Pressure CO2 47.7H, Arterial Blood Partial Pressure O2 77.0, Arterial Blood HCO3 23.1, Arterial Blood Oxygen Saturation 92.4L, Arterial Blood Base Excess -3.5L, William Test Positive 12/06/19 05:30: White Blood Count 13.5H, Red Blood Count 5.21, Hemoglobin 12.6L, Hematocrit 40.1L, Mean Corpuscular Volume 77L, Mean Corpuscular Hemoglobin 24.2L, Mean Corpuscular Hemoglobin Concent 31.4L, Red Cell Distribution Width 15.4H, Platelet Count 515H, Mean Platelet Volume 5.9L, Neutrophils (%) (Auto) , Lymphocytes (%) (Auto) , Monocytes (%) (Auto) , Eosinophils (%) (Auto) , Basophils (%) (Auto) , Differential Total Cells Counted 100, Neutrophils % ( Manual) 89H, Lymphocytes % (Manual) 4L, Monocytes % (Manual) 7, Eosinophils % ( Manual) 0, Basophils % (Manual) 0, Band Neutrophils 0, Platelet Estimate IncreasedH, Platelet Morphology Normal, Hypochromasia 1+, Anisocytosis 1+, Microcytosis , Sodium Level 152H, Potassium Level 4.3, Chloride Level 114H, Carbon Dioxide Level 25, Anion Gap 13, Blood Urea Nitrogen 52H, Creatinine 2.2H , Estimat Glomerular Filtration Rate 34.8, Glucose Level 129H, Calcium Level 8.1L, Magnesium Level 2.8H, Total Bilirubin 0.8, Aspartate Amino Transf (AST/ SGOT) 28, Alanine Aminotransferase (ALT/SGPT) 22, Alkaline Phosphatase 137H, Troponin I 0.057H, Pro-B-Type Natriuretic Peptide 8922H, Total Protein 6.9, Albumin 1.9L, Globulin 5.0, Albumin/Globulin Ratio 0.4L 12/06/19 07:10: Arterial Blood pH 7.388, Arterial Blood Partial Pressure CO2 38.8, Arterial Blood Partial Pressure O2 66.3L, Arterial Blood HCO3 22.9, Arterial Blood Oxygen Saturation 90.7L, Arterial Blood Base Excess -1.8, William Test Positive Height (Feet): 5 Height (Inches): 10.00 Weight (Pounds): 148 General Appearance: moderate distress, other - intubated EENT: normal ENT inspection Cardiovascular: regular rhythm, tachycardia Respiratory/Chest: rhonchi - bilaterally Abdomen: non tender, soft Edema: no edema noted Arm (L), no edema noted Arm (R), no edema noted Leg (L), no edema noted Leg (R), no edema noted Pedal (L), no edema noted Pedal (R), no edema noted Generalized Fuad Schafer MD December 06, 2019 11:18
--- NOTE | 2019-12-06 12:03 | Infectious Diseases Prog Note ---
Assessment/Plan Assessment/Plan antibiotics : none A 1. COVID 19 pneumonia on Fi O2 100 %, saturation 95 percent hydroxychloroquine d/c due to high risk s/p ivermectin x 1 dose 2. hypertension 3. coag neg staph likely contaminated in blood 4. COPD 5. seizures 6. prostate cancer 7. renal failure 8. respiratory failure P 1. 1 dose tocilizumab today no family member available to obtain consent 2. continue isolation 3. will follow up cultures 4. d/w Dr Lynch Subjective ROS Limited/Unobtainable: Yes Allergies: Coded Allergies: No Known Allergies (Verified , 11/13/08) Objective Vital Signs Last 24 Hour Vital Signs Date Time Temp Pulse Resp B/P (MAP) Pulse Ox O2 Delivery O2 Flow Rate FiO2 12/06/19 10:49 91 32 100 12/06/19 10:00 94 33 86/46 (59) 93 12/06/19 09:30 98 34 86/45 (59) 91 12/06/19 09:00 105 26 128/57 (80) 93 12/06/19 08:46 104 115/55 12/06/19 08:30 103 32 115/55 (75) 93 12/06/19 08:00 99.1 103 25 104/57 (73) 94 12/06/19 08:00 Bi-pap 12/06/19 07:00 106 34 100 12/06/19 07:00 111 24 143/46 (78) 90 12/06/19 06:00 105 33 116/101 (106) 92 12/06/19 05:00 105 31 116/60 (78) 91 12/06/19 04:00 100 12/06/19 04:00 97.7 102 32 99/59 (72) 89 12/06/19 04:00 Bi-pap 12/06/19 03:32 102 12/06/19 03:30 98 29 116/56 (76) 92 12/06/19 03:25 96 18 100 12/06/19 03:00 98 28 133/59 (83) 93 12/06/19 02:30 112 29 141/66 (91) 95 12/06/19 02:15 107 31 157/76 (103) 97 12/06/19 02:00 108 25 168/79 (108) 97 12/06/19 01:39 95 18 100 5/15/20 01:30 100 12/06/19 01:30 101 30 105/62 (76) 95 12/06/19 01:00 87 26 121/62 (81) 93 12/06/19 00:52 92 21 113/64 (80) 94 12/06/19 00:45 95 25 82/35 (51) 94 12/06/19 00:30 94 29 94/49 (64) 95 12/06/19 00:15 99 25 113/61 (78) 92 12/06/19 00:00 100 12/06/19 00:00 Bi-pap 12/06/19 00:00 97.7 86 23 103/43 (63) 88 12/05/19 23:45 121 26 88/61 (70) 86 12/05/19 23:39 186 94/56 12/05/19 23:38 178 27 141/99 (113) 92 12/05/19 23:32 169 12/05/19 23:30 153 27 94/56 (69) 92 12/05/19 23:20 134 28 89 100 12/05/19 23:15 137 23 125/103 (110) 87 12/05/19 23:00 164 24 110/58 (75) 88 12/05/19 22:00 175 32 86/53 (64) 92 12/05/19 21:25 175 12/05/19 21:16 135 91/56 12/05/19 21:09 164 12/05/19 21:00 135 36 91/52 (65) 86 12/05/19 21:00 135 91/56 12/05/19 20:00 97.1 145 30 91/56 (68) 97 12/05/19 20:00 100 12/05/19 20:00 Bi-pap 12/05/19 19:33 155 12/05/19 19:02 98 24 97 100 12/05/19 19:00 124 23 118/46 (70) 95 12/05/19 18:00 99 23 133/68 (89) 95 12/05/19 17:00 111 26 136/86 (103) 96 12/05/19 16:00 100 12/05/19 16:00 97.6 99 33 142/82 (102) 97 12/05/19 16:00 Bi-pap 12/05/19 15:26 111 12/05/19 15:00 119 26 142/71 (94) 95 12/05/19 15:00 107 25 98 100 12/05/19 14:00 89 26 153/80 (104) 91 12/05/19 13:00 97.2 102 26 171/88 (115) 90 12/05/19 12:34 179/94 12/05/19 12:30 92 19 94 100 12/05/19 12:00 97.0 106 15 179/94 (122) 88 12/05/19 12:00 Bi-pap 12/05/19 12:00 100 Height (Feet): 5 Height (Inches): 10.00 Weight (Pounds): 148 HEENT: other - intubated Laboratory Tests Test 12/05/19 12:15 12/05/19 22:14 12/06/19 02:30 12/06/19 05:30 Arterial Blood pH 7.457 (7.350-7.450) 7.450 (7.350-7.450) 7.303 (7.350-7.450) Arterial Blood Partial Pressure CO2 29.8 mmHg (35.0-45.0) L 27.7 mmHg (35.0-45.0) L 47.7 mmHg (35.0-45.0) H Arterial Blood Partial Pressure O2 63.4 mmHg (75.0-100.0) L 51.5 mmHg (75.0-100.0) L 77.0 mmHg (75.0-100.0) Arterial Blood HCO3 20.6 mmol/L (22.0-26.0) L 19.1 mmol/L (22.0-26.0) L 23.1 mmol/L (22.0-26.0) Arterial Blood Oxygen Saturation 90.4 % (95-100) L 86.1 % (95-100) *L 92.4 % (95-100) L Arterial Blood Base Excess -2.1 (-2-2) L -3.4 (-2-2) L -3.5 (-2-2) L William Test Positive Positive Positive White Blood Count 13.5 K/UL (4.8-10.8) H Red Blood Count 5.21 M/UL (4.70-6.10) Hemoglobin 12.6 G/DL (14.2-18.0) L Hematocrit 40.1 % (42.0-52.0) L Mean Corpuscular Volume 77 FL (80-99) L Mean Corpuscular Hemoglobin 24.2 PG (27.0-31.0) L Mean Corpuscular Hemoglobin Concent 31.4 G/DL (32.0-36.0) L Red Cell Distribution Width 15.4 % (11.6-14.8) H Platelet Count 515 K/UL (150-450) H Mean Platelet Volume 5.9 FL (6.5-10.1) L Neutrophils (%) (Auto) % (45.0-75.0) Lymphocytes (%) (Auto) % (20.0-45.0) Monocytes (%) (Auto) % (1.0-10.0) Eosinophils (%) (Auto) % (0.0-3.0) Basophils (%) (Auto) % (0.0-2.0) Differential Total Cells Counted 100 Neutrophils % (Manual) 89 % (45-75) H Lymphocytes % (Manual) 4 % (20-45) L Monocytes % (Manual) 7 % (1-10) Eosinophils % (Manual) 0 % (0-3) Basophils % (Manual) 0 % (0-2) Band Neutrophils 0 % (0-8) Platelet Estimate Increased H Platelet Morphology Normal Hypochromasia 1+ Anisocytosis 1+ Microcytosis Sodium Level 152 MMOL/L (136-145) H Potassium Level 4.3 MMOL/L (3.5-5.1) Chloride Level 114 MMOL/L (98-107) H Carbon Dioxide Level 25 MMOL/L (21-32) Anion Gap 13 mmol/L (5-15) Blood Urea Nitrogen 52 mg/dL (7-18) H Creatinine 2.2 MG/DL (0.55-1.30) H Estimat Glomerular Filtration Rate 34.8 mL/min (>60) Glucose Level 129 MG/DL (74-106) H Calcium Level 8.1 MG/DL (8.5-10.1) L Magnesium Level 2.8 MG/DL (1.8-2.4) H Total Bilirubin 0.8 MG/DL (0.2-1.0) Aspartate Amino Transf (AST/SGOT) 28 U/L (15-37) Alanine Aminotransferase (ALT/SGPT) 22 U/L (12-78) Alkaline Phosphatase 137 U/L (46-116) H Troponin I 0.057 ng/mL (0.000-0.056) Pro-B-Type Natriuretic Peptide 8922 pg/mL (0-125) H Total Protein 6.9 G/DL (6.4-8.2) Albumin 1.9 G/DL (3.4-5.0) L Globulin 5.0 g/dL Albumin/Globulin Ratio 0.4 (1.0-2.7) L Test 12/06/19 07:10 Arterial Blood pH 7.388 (7.350-7.450) Arterial Blood Partial Pressure CO2 38.8 mmHg (35.0-45.0) Arterial Blood Partial Pressure O2 66.3 mmHg (75.0-100.0) L Arterial Blood HCO3 22.9 mmol/L (22.0-26.0) Arterial Blood Oxygen Saturation 90.7 % (95-100) L Arterial Blood Base Excess -1.8 (-2-2) William Test Positive Current Medications Medications (Trade) Dose Ordered Sig/Viridiana Route PRN Reason Start Time Stop Time Status Last Admin Dose Admin Aspirin (Ecotrin) 81 mg DAILY ORAL 12/01/19 09:00 01/12/20 08:59 12/06/19 08:45 Atorvastatin Calcium (Lipitor) 20 mg QHS ORAL 11/30/19 21:00 02/25/20 20:59 12/04/19 21:25 Diltiazem HCl 125 ml @ 0 mls/hr Q24H IVPB 12/05/19 22:45 12/29/19 22:44 12/05/19 23:38 Enoxaparin Sodium (Lovenox) 60 mg Q24H SUBQ 12/03/19 03:00 03/02/20 02:59 12/06/19 02:42 Fentanyl Citrate 1000 mcg/Sodium Chloride 100 ml @ 0 mls/hr Q24H IV 12/06/19 09:00 12/13/19 08:59 Lorazepam (Ativan 2mg/ml 1ml) 1 mg Q4H PRN IV For Anxiety 12/02/19 22:00 12/09/19 21:59 12/06/19 08:46 Metoprolol Tartrate (Lopressor) 50 mg Q12HR ORAL 12/03/19 09:00 03/02/20 01:59 12/06/19 08:46 Morphine Sulfate (Morphine Sulfate) 2 mg Q2H PRN IVP For Pain 12/04/19 18:45 12/11/19 18:44 12/05/19 16:53 Nitroglycerin (Ntg) 0.4 mg Q5M PRN SL Prn Chest Pain 11/30/19 17:45 12/29/19 11:14 Pantoprazole (Protonix) 40 mg ACBREAKFAST ORAL 12/01/19 06:30 12/28/19 06:29 12/06/19 05:52 Sandip Wong MD December 06, 2019 12:03
--- NOTE | 2019-12-06 12:06 | NUR ---
NURSE NOTES: MD SAENZ HERE TO SEE PT. INFORMED HR BACK TO SR. MONTEIRO AT 8MG/HR. WILL CHANGE FLUIDS AND D/C DRIP.
--- NOTE | 2019-12-06 14:00 | NUR ---
NURSE NOTES: TUBE FEEDING TWO KRYSTINA RUNNING, D5W RUNNING AT 100ML/HR. PT GIVEN ATIVAN FOR AGITATION. REPOSITIONED AND ORAL CARE PROVIDED. WILL CONTINUE TO MONITOR.
--- NOTE | 2019-12-06 16:30 | Diagnostic Imaging Report ---
Procedure: XRAY Chest 1v Reason for study: Reason For Exam: SOB Comparison films: 12/02/2019. FINDINGS: A single one view chest is obtained. Vascularity is normal. Bibasilar infiltrates not significantly changed. Cardiomegaly stable. No large effusions. The bony thorax appear unremarkable. IMPRESSION: NO SIGNIFICANT CHANGE COMPARED TO PREVIOUS EXAM.
--- NOTE | 2019-12-06 16:37 | NUR ---
CASE MANAGEMENT: REVIEW 12/06/2019 SI;COVID 19 pneumonia T 99.1 HR 103 RR 25 B/P 104/57 SATS 94% ON BIPAP FIO2 100 LABS: WBC 13.5 NA 152 CL 114 BUN 52 CR 2.2 GLU 129 CA 8.1 MG 2.8 ALP 137 TROPONIN 0.057 BNP 8922 IS:DEXTROSE IV @ 100 ML/HR ASA PO QD LOPRESSOR PO Q12H FENTANYL IV PER PARAMETERS ICU
--- NOTE | 2019-12-06 19:34 | NUR ---
NURSE NOTES: CALLED AND LEFT MESSAGE REGARDING NEED FOR PO CARDIZEM. PT OFF DRIP SINCE 1300. AWAITING CALL BACK.
--- NOTE | 2019-12-06 19:37 | NUR ---
NURSE NOTES: RECEIVED CALL BACK FROM MD SAENZ. NO PO THANIA, WILL CONTINUE LOPRESSOR PO.
--- NOTE | 2019-12-06 19:53 | NUR ---
HAND-OFF: Report given to ALFREDO Ashraf PT IN NO ACUTE DISTRRESS.
--- NOTE | 2019-12-06 20:00 | NUR ---
NURSE NOTES: Received report from Abi RIVER. Patient in bed with eyes closed. Sinus rhythm on the monitor. Orally intubated 7.5, 24 cm lip line. Vent settings AC 18, Vt 500 peep 10 fio2 100%. Right nare NGT feeding two yuan 10ml/hr, no residual noted at this time. Right and and JHON IV sites patent and intact. No signs of redness or swelling noted. D5w @ 100 ml/hr running at this time. Bilateral Soft wrist restraints in place at this time. patient noted to have moment of agitation and reaching for ETT. Bed in lowest position. side rails upx3. No signs of distress noted. Will continue to monitor.
[2019-12-06] MEDS: Atorvastatin 20mg tab ORAL SCH (20:47)
--- NOTE | 2019-12-06 22:00 | NUR ---
NURSE NOTES: Patient turned and repositioned. Oral care provided at this time. No signs distress noted. Will continue to monitor.
--- NOTE | 2019-12-06 22:52 | NUR ---
HAND-OFF: Report given to Madeleine RIVER using SBAR. .
--- NOTE | 2019-12-06 22:53 | NUR ---
NURSE NOTES: Patient received from ALETA Travis. patient awake confused, agitated and restless. patient with 7.5 ETT at 24cm lip on ventilator AC 18 TV 500 PEEP 10 FiO2 100% oxygen saturation 93%. BP 139/62 HR108 and afebrile. patient with right nare NGT running two yuan @ 15ml/hr no residual noted. right hand gauge 22 and left upper arm gauge 20 asymptomatic running D5W@ 100ml/hr. moore catheter draining minimal olivia urine. left elbow skin tear, left forearm abrasion, and left upper arm blister noted. will continue to monitor.
[2019-12-07] VITALS (30 sets, daily range): BP systolic 73–153; BP diastolic 19–84
--- NOTE | 2019-12-07 | NUR ---
NURSE NOTES: patient asleep arousable to light pain. patient on ventilator AC 18 TV 500 PEEP 10 FiO2 100% oxygen saturation 93%. BP 90/45 HR100. patient with right nare NGT running two yuan @ 15ml/hr. moore catheter draining minimal olivia urine. patient repositioned and oral care provided. will continue to monitor.
--- NOTE | 2019-12-07 01:32 | NUR ---
NURSE NOTES: Called and left message for MD Clark at this time. Patient BP starting to decrease BP 71/41. Sinus rhythm on the monitor. Awaiting call back
--- NOTE | 2019-12-07 01:48 | NUR ---
NURSE NOTES: Dr. Clark returned page. BP 71/19 NSR on monitor. orders received, read back, carried out. will continue to monitor.
--- NOTE | 2019-12-07 02:12 | NUR ---
NURSE NOTES: Paged Dr. Clark to report BP 67/34 HR 84, NSR on monitor after receiving 500ml NS bolus. awaiting call back.
[2019-12-07] MEDS: Enoxaparin 60mg Inj SUBQ SCH (02:32)
--- NOTE | 2019-12-07 04:00 | NUR ---
NURSE NOTES: patient restless on ventilator AC 18 TV 500 PEEP 10 FiO2 100% oxygen saturation 96%. BP 143/62 HR89 NSR on monitor. patient received two 500ml NS bolus. patient with right nare NGT running two yuan @ 15ml/hr. moore catheter draining minimal olivia urine. patient bathed, repositioned, and oral care provided. will continue to monitor.
--- NOTE | 2019-12-07 04:15 | Progress Note ---
DATE: 12/06/2019 CARDIOLOGY PROGRESS NOTE SUBJECTIVE: The patient's condition remains critical. Prognosis guarded. He remains in the intensive care unit. Orally intubated. Mechanically ventilated. He had episodes of rapid atrial fibrillation last night. He was started on intravenous Cardizem bolus and the drip, he remains on a Cardizem drip. OBJECTIVE: VITAL SIGNS: Blood pressure 143/46, pulse 111, respirations 24, and afebrile. Monitored rhythm now sinus and sinus tachycardia. LUNGS: Bilateral breath sounds. Rhonchi. Trach secretions from endotracheal tube. CARDIAC: Regular rhythm. Rapid rate. Normal S1 and S2. ABDOMEN: Soft. EXTREMITIES: Trace edema. LABORATORY DATA: White count 13.5 and hemoglobin 12.6. Sodium 152, potassium 4.3, chloride 114, bicarb 25, BUN 55, and creatinine 2.2. Troponin 0.057. Pro-natriuretic peptide 8900. Albumin 1.9. Magnesium 2.8. X-ray of the chest reveals bilateral basilar infiltrates. IMPRESSION: 1. Respiratory failure. 2. Acute on chronic respiratory acidosis. 3. Healthcare associated pneumonia. 4. Paroxysmal atrial fibrillation with rapid ventricular response. 5. Possible COVID-19. 6. Hypertensive cardiomyopathy. 7. Chronic obstructive pulmonary disease exacerbation. 8. Acute myocardial ischemia. 9. Severe protein-calorie malnutrition. 10. Sepsis and bacteremia with increased risk for endocarditis. 11. The patient's condition is critical and prognosis guarded. PLAN: 1. Ventilator support. 2. Broad-spectrum antimicrobials. 3. Await results of sputum. 4. Hypotonic IV fluids. 5. Replace electrolytes as needed. 6. Taper off Cardizem drip. 7. Continue oral beta blockade. 8. Monitor acid-base parameters and volume status. 9. DVT and stress ulcer prophylaxis in place. 10. Cardiac monitoring will be continued and reviewed with adjustments to therapies as appropriate. 11. All discussed with ICU staff. Jarod Clark M.D. DR: SHERON JOB#: [id number] CC:
--- NOTE | 2019-12-07 06:00 | NUR ---
NURSE NOTES: patient restless on ventilator AC 18 TV 500 PEEP 10 FiO2 100% oxygen saturation 90%. BP 138/60 HR103 sinus tachy on monitor. patient with right nare NGT running two yuan @ 15ml/hr. left hand gauge 20 asymptomatic running D5W@ 100ml/hr. left elbow skin tear, left forearm abrasion, and left upper arm blister noted. moore catheter draining minimal olivia urine. patient repositioned and oral care provided. will continue to monitor.
[2019-12-07 06:05] LABS: HEMATOCRIT 33.4 % (42.0-52.0); HEMOGLOBIN 10.6 G/DL (14.2-18.0); MEAN CORPUSCULAR VOLUME 78 FL (80-99); PLATELET COUNT 421 K/UL (150-450); RED CELL DISTRIBUTION WIDTH 15.5 % (11.6-14.8); WHITE BLOOD COUNT 10.1 K/UL (4.8-10.8)
[2019-12-07 06:10] LABS: ANION GAP 11 mmol/L (5-15); BLOOD UREA NITROGEN 59 mg/dL (7-18); CALCIUM 7.1 MG/DL (8.5-10.1); CARBON DIOXIDE 26 MMOL/L (21-32); CHLORIDE 110 MMOL/L (98-107); CREATININE 3.3 MG/DL (0.55-1.30); POTASSIUM 3.7 MMOL/L (3.5-5.1); SODIUM 147 MMOL/L (136-145)
--- NOTE | 2019-12-07 06:55 | NUR ---
NURSE NOTES: Paged Dr. Clark to report abnormal lab values. message left. will endorse to day nurse.
--- NOTE | 2019-12-07 07:09 | NUR ---
HAND-OFF: Report given to ALETA Alex.
--- NOTE | 2019-12-07 07:30 | NUR ---
NURSE NOTES: LATE ENTRY: RECEIVED REPORT FROM HEAVEN Ashraf PT IN SEMI FOWLERS, A/OX1-2. LABORED BREATHS, TACHYPNEIC AT 31, SP02 SATING 90. ETTUBE 7.5 24CM AT LIP. VS: 102, 150/61, DIMINISHED THROUGH OUT, SCANT SECRETIONS, PINK IN COLOR. RT NARES NGT, TUBE FEEDING 2 KRYSTINA RUNNING AT 15ML/HR. BOWEL SOUNDS PRESENT IN ALL FOUR QUADRANTS. SIMONS DRAINING MAGDA URINE. NO BM AT THIS TIME. SKIN- SEE ASSESSMENT. RT HAND 22G, LT FA 20G, UPPER ARM 20G, FLUIDS D5W @100ML/HR, 98.8 TEMP. BILATERAL SOFT WRIST RESTRAINTS. CIRCULATION CHECK COMPLETE. BED LOCKED, IN LOW POSITION. AIRBORNE ISOLATION. WILL CONTINUE TO MONITOR PT.
[2019-12-07] MEDS: Aspirin EC 81mg tab ORAL SCH (08:22)
[2019-12-07] MEDS: Metoprolol Tartrate 50mg tab ORAL SCH ×2 (08:23→20:26)
--- NOTE | 2019-12-07 10:30 | Pulmonology Progress Note ---
Subjective ROS Limited/Unobtainable: Yes Constitutional: Denies: fever Allergies: Coded Allergies: No Known Allergies (Verified , 11/13/08) Subjective d/w RN intubated very ill remains on 100% d/w ID vitals reviewed Objective Last 24 Hour Vital Signs Date Time Temp Pulse Resp B/P (MAP) Pulse Ox O2 Delivery O2 Flow Rate FiO2 12/07/19 10:00 99 31 124/67 (86) 96 12/07/19 09:30 106 30 133/66 (88) 97 12/07/19 09:00 98.7 101 31 122/62 (82) 97 12/07/19 08:00 Mechanical Ventilator 12/07/19 08:00 99 12/07/19 08:00 100 12/07/19 08:00 103 34 112/54 (73) 93 12/07/19 07:46 104 31 100 12/07/19 07:00 100 31 131/61 (84) 89 12/07/19 06:35 103 31 12/07/19 06:00 103 31 138/60 (86) 90 12/07/19 05:00 103 33 153/66 (95) 90 12/07/19 04:00 98.5 89 28 143/62 (89) 96 12/07/19 04:00 89 12/07/19 04:00 Mechanical Ventilator 12/07/19 04:00 100 12/07/19 03:10 86 27 100 12/07/19 03:00 85 29 82/44 (57) 95 12/07/19 02:30 89 27 109/55 (73) 100 12/07/19 02:00 97.7 83 26 74/19 (37) 100 12/07/19 01:30 88 26 73/23 (40) 100 12/07/19 01:00 100 29 105/50 (68) 94 12/07/19 00:00 100 12/07/19 00:00 98.5 103 29 90/45 (60) 92 12/07/19 00:00 108 12/07/19 00:00 Mechanical Ventilator 12/06/19 23:20 107 36 100 12/06/19 23:00 98.5 108 24 139/62 (87) 93 12/06/19 22:00 107 29 124/61 (82) 98 12/06/19 21:10 100 31 100 12/06/19 21:00 103 31 107/64 (78) 96 12/06/19 20:47 99 88/54 12/06/19 20:00 100 12/06/19 20:00 Mechanical Ventilator 12/06/19 20:00 99.1 98 33 81/53 (62) 97 12/06/19 20:00 98 12/06/19 19:02 97 33 100 12/06/19 19:00 101 33 108/57 (74) 97 12/06/19 18:00 94 31 82/50 (61) 97 12/06/19 17:00 93 32 88/50 (63) 95 12/06/19 16:00 98 12/06/19 16:00 99.3 92 32 73/47 (56) 92 12/06/19 16:00 Mechanical Ventilator 12/06/19 16:00 100 12/06/19 15:00 104 29 144/99 (114) 91 12/06/19 14:45 106 37 100 12/06/19 14:00 106 32 148/71 (96) 95 12/06/19 13:00 99 32 126/57 (80) 96 12/06/19 12:49 97 32 94/50 (65) 97 12/06/19 12:30 91 28 83/45 (58) 96 12/06/19 12:00 Bi-pap 12/06/19 12:00 99.0 95 35 120/54 (76) 96 12/06/19 12:00 96 12/06/19 12:00 Mechanical Ventilator 12/06/19 12:00 100 12/06/19 11:30 92 30 80/46 (57) 96 12/06/19 11:00 100 34 111/55 (73) 97 12/06/19 10:49 91 32 100 Intake and Output 12/06/19 12/07/19 19:00 07:00 Intake Total 1034 ml 2340 ml Output Total 385 ml 295 ml Balance 649 ml 2045 ml IV Total 959 ml 2100 ml Tube Feeding 60 ml 180 ml Other 15 ml 60 ml Output Urine Total 385 ml 295 ml Objective deferred due to COVID+ Microbiology Date/Time Source Procedure Growth Status 12/05/19 13:10 Nasopharynx Coronavirus COVID-19 PCR ([facility]) - Final Complete Laboratory Tests 12/07/19 04:00: White Blood Count 10.1, Red Blood Count 4.30L, Hemoglobin 10.6L, Hematocrit 33.4L, Mean Corpuscular Volume 78L, Mean Corpuscular Hemoglobin 24.6L, Mean Corpuscular Hemoglobin Concent 31.7L, Red Cell Distribution Width 15.5H, Platelet Count 421, Mean Platelet Volume 5.7L, Neutrophils (%) (Auto) , Lymphocytes (%) (Auto) , Monocytes (%) (Auto) , Eosinophils (%) (Auto) , Basophils (%) (Auto) , Differential Total Cells Counted 100, Neutrophils % ( Manual) 88H, Lymphocytes % (Manual) 7L, Monocytes % (Manual) 5, Eosinophils % ( Manual) 0, Basophils % (Manual) 0, Band Neutrophils 0, Platelet Estimate Adequate, Platelet Morphology Normal, Hypochromasia 1+, Anisocytosis 1+, Sodium Level 147H, Potassium Level 3.7, Chloride Level 110H, Carbon Dioxide Level 26, Anion Gap 11, Blood Urea Nitrogen 59H, Creatinine 3.3H, Estimat Glomerular Filtration Rate 21.8, Glucose Level 209H, Calcium Level 7.1L, Magnesium Level 2.7H, Troponin I 0.085H Current Medications Medications (Trade) Dose Ordered Sig/Viridiana Route PRN Reason Start Time Stop Time Status Last Admin Dose Admin Aspirin (Ecotrin) 81 mg DAILY ORAL 12/01/19 09:00 01/12/20 08:59 12/07/19 08:22 Atorvastatin Calcium (Lipitor) 20 mg QHS ORAL 11/30/19 21:00 02/25/20 20:59 12/06/19 20:47 Dextrose 1,000 ml @ 100 mls/hr Q10H IV 12/06/19 12:15 01/05/20 12:14 12/07/19 08:22 Enoxaparin Sodium (Lovenox) 60 mg Q24H SUBQ 12/03/19 03:00 03/02/20 02:59 12/07/19 02:32 Fentanyl Citrate 1000 mcg/Sodium Chloride 100 ml @ 0 mls/hr Q24H IV 12/06/19 09:00 12/13/19 08:59 Lorazepam (Ativan 2mg/ml 1ml) 1 mg Q4H PRN IV For Anxiety 12/02/19 22:00 12/09/19 21:59 12/06/19 23:23 Metoprolol Tartrate (Lopressor) 50 mg Q12HR ORAL 12/03/19 09:00 03/02/20 01:59 12/06/19 08:46 Morphine Sulfate (Morphine Sulfate) 2 mg Q2H PRN IVP For Pain 12/04/19 18:45 12/11/19 18:44 12/05/19 16:53 Pantoprazole (Protonix) 40 mg ACBREAKFAST ORAL 12/01/19 06:30 12/28/19 06:29 12/07/19 06:05 Assessment/Plan Assessment/Plan IMPRESSION: hypoxemic respiratory failure, profound hypoxemi, probable ARDS, + COVID, hematuria, evidence of chronic renal failure, possibly with acute component, elevated troponin, possible non-STEMI NC, elevated natriuretic peptide, possible pulmonary edema, pneumonia and sepsis. hypoxemia. PLAN care noted maintain PEEP d/w ID; started on Actemra respiratory care otherwise as is ABG and CXR monitoring off load aspiration precautions ID noted and reviewed critical at present medications/laboratory data/nursing notes/ICU care reviewed in detail note reviewed and edited care discussed with RN and RT ICU time spent >40 minutes Saran Lynch MD December 07, 2019 10:29
--- NOTE | 2019-12-07 10:55 | NUR ---
NURSE NOTES: MD GRIGGS HERE TO SEE PT. INFORMED OF RESULT FROM SWAB TAKEN 12/04, NEGATIVE. PT INTUBATED AND FI02 100%, LABORED BREATHS. CONTINUE ISOLATION. NO ADDITIONAL ORDERS.
--- NOTE | 2019-12-07 10:56 | NUR ---
NURSE NOTES: MD TYSON HERE TO SEE PT. INFORMED PT HYPOTENSIVE IN PM NEEDED BOLUS. MAY NEED LEVO, PICC REQUIRED. RECEIVED ORDER FOR PICC LINE.
[2019-12-07] MEDS ORDERED: Lidocaine 1% Plain 30 ml INJ PRN (11:18)
[2019-12-07] MEDS ORDERED: Heparin1,000 units/500ml Premix(Conc:2 units/ml) IV PRN (11:18)
--- NOTE | 2019-12-07 11:34 | Infectious Diseases Prog Note ---
Assessment/Plan Assessment/Plan antibiotics : none A 1. COVID 19 pneumonia on Fi O2 100 %, PEEP 10, saturation 100 percent hydroxychloroquine d/c due to high risk s/p ivermectin x 1 dose s/p tocilizumab 5.15.20 2. hypertension 3. coag neg staph likely contaminated in blood 4. COPD 5. seizures 6. prostate cancer 7. renal failure 8. respiratory failure P 1. continue isolation 2. will follow up cultures Subjective ROS Limited/Unobtainable: Yes Allergies: Coded Allergies: No Known Allergies (Verified , 11/13/08) Objective Vital Signs Last 24 Hour Vital Signs Date Time Temp Pulse Resp B/P (MAP) Pulse Ox O2 Delivery O2 Flow Rate FiO2 12/07/19 11:00 104 32 128/64 (85) 96 12/07/19 10:38 100 32 100 12/07/19 10:00 99 31 124/67 (86) 96 12/07/19 09:30 106 30 133/66 (88) 97 12/07/19 09:00 98.7 101 31 122/62 (82) 97 12/07/19 08:00 Mechanical Ventilator 12/07/19 08:00 99 12/07/19 08:00 100 12/07/19 08:00 103 34 112/54 (73) 93 12/07/19 07:46 104 31 100 12/07/19 07:00 100 31 131/61 (84) 89 12/07/19 06:35 103 31 12/07/19 06:00 103 31 138/60 (86) 90 12/07/19 05:00 103 33 153/66 (95) 90 12/07/19 04:00 98.5 89 28 143/62 (89) 96 12/07/19 04:00 89 12/07/19 04:00 Mechanical Ventilator 12/07/19 04:00 100 12/07/19 03:10 86 27 100 12/07/19 03:00 85 29 82/44 (57) 95 12/07/19 02:30 89 27 109/55 (73) 100 12/07/19 02:00 97.7 83 26 74/19 (37) 100 12/07/19 01:30 88 26 73/23 (40) 100 12/07/19 01:00 100 29 105/50 (68) 94 12/07/19 00:00 100 12/07/19 00:00 98.5 103 29 90/45 (60) 92 12/07/19 00:00 108 12/07/19 00:00 Mechanical Ventilator 12/06/19 23:20 107 36 100 12/06/19 23:00 98.5 108 24 139/62 (87) 93 12/06/19 22:00 107 29 124/61 (82) 98 12/06/19 21:10 100 31 100 12/06/19 21:00 103 31 107/64 (78) 96 12/06/19 20:47 99 88/54 12/06/19 20:00 100 12/06/19 20:00 Mechanical Ventilator 12/06/19 20:00 99.1 98 33 81/53 (62) 97 12/06/19 20:00 98 12/06/19 19:02 97 33 100 12/06/19 19:00 101 33 108/57 (74) 97 12/06/19 18:00 94 31 82/50 (61) 97 12/06/19 17:00 93 32 88/50 (63) 95 12/06/19 16:00 98 12/06/19 16:00 99.3 92 32 73/47 (56) 92 12/06/19 16:00 Mechanical Ventilator 12/06/19 16:00 100 12/06/19 15:00 104 29 144/99 (114) 91 12/06/19 14:45 106 37 100 12/06/19 14:00 106 32 148/71 (96) 95 12/06/19 13:00 99 32 126/57 (80) 96 12/06/19 12:49 97 32 94/50 (65) 97 12/06/19 12:30 91 28 83/45 (58) 96 12/06/19 12:00 Bi-pap 12/06/19 12:00 99.0 95 35 120/54 (76) 96 12/06/19 12:00 96 12/06/19 12:00 Mechanical Ventilator 12/06/19 12:00 100 Height (Feet): 5 Height (Inches): 10.00 Weight (Pounds): 146 HEENT: other - intubated Microbiology Date/Time Source Procedure Growth Status 12/05/19 13:10 Nasopharynx Coronavirus COVID-19 PCR ([facility]) - Final Complete Laboratory Tests Test 12/07/19 04:00 White Blood Count 10.1 K/UL (4.8-10.8) Red Blood Count 4.30 M/UL (4.70-6.10) L Hemoglobin 10.6 G/DL (14.2-18.0) L Hematocrit 33.4 % (42.0-52.0) L Mean Corpuscular Volume 78 FL (80-99) L Mean Corpuscular Hemoglobin 24.6 PG (27.0-31.0) L Mean Corpuscular Hemoglobin Concent 31.7 G/DL (32.0-36.0) L Red Cell Distribution Width 15.5 % (11.6-14.8) H Platelet Count 421 K/UL (150-450) Mean Platelet Volume 5.7 FL (6.5-10.1) L Neutrophils (%) (Auto) % (45.0-75.0) Lymphocytes (%) (Auto) % (20.0-45.0) Monocytes (%) (Auto) % (1.0-10.0) Eosinophils (%) (Auto) % (0.0-3.0) Basophils (%) (Auto) % (0.0-2.0) Differential Total Cells Counted 100 Neutrophils % (Manual) 88 % (45-75) H Lymphocytes % (Manual) 7 % (20-45) L Monocytes % (Manual) 5 % (1-10) Eosinophils % (Manual) 0 % (0-3) Basophils % (Manual) 0 % (0-2) Band Neutrophils 0 % (0-8) Platelet Estimate Adequate Platelet Morphology Normal Hypochromasia 1+ Anisocytosis 1+ Sodium Level 147 MMOL/L (136-145) H Potassium Level 3.7 MMOL/L (3.5-5.1) Chloride Level 110 MMOL/L (98-107) H Carbon Dioxide Level 26 MMOL/L (21-32) Anion Gap 11 mmol/L (5-15) Blood Urea Nitrogen 59 mg/dL (7-18) H Creatinine 3.3 MG/DL (0.55-1.30) H Estimat Glomerular Filtration Rate 21.8 mL/min (>60) Glucose Level 209 MG/DL (74-106) H Calcium Level 7.1 MG/DL (8.5-10.1) L Magnesium Level 2.7 MG/DL (1.8-2.4) H Troponin I 0.085 ng/mL (0.000-0.056) Current Medications Medications (Trade) Dose Ordered Sig/Viridiana Route PRN Reason Start Time Stop Time Status Last Admin Dose Admin Aspirin (Ecotrin) 81 mg DAILY ORAL 12/01/19 09:00 01/12/20 08:59 12/07/19 08:22 Atorvastatin Calcium (Lipitor) 20 mg QHS ORAL 11/30/19 21:00 02/25/20 20:59 12/06/19 20:47 Chlorhexidine Gluconate (Swapna-Hex 2%) 1 applic DAILY@2000 TOPIC 12/07/19 20:00 03/06/20 19:59 Dextrose 1,000 ml @ 100 mls/hr Q10H IV 12/06/19 12:15 01/05/20 12:14 12/07/19 08:22 Enoxaparin Sodium (Lovenox) 60 mg Q24H SUBQ 12/03/19 03:00 03/02/20 02:59 12/07/19 02:32 Fentanyl Citrate 1000 mcg/Sodium Chloride 100 ml @ 0 mls/hr Q24H IV 12/06/19 09:00 12/13/19 08:59 Heparin Sodium/ Sodium Chloride (Heparin 1000 units/500ml Premix) 1,000 unit ONCE PRN IV PICC 12/07/19 11:18 12/07/19 23:59 Lidocaine HCl (Xylocaine 1% 30ml) 30 ml ONCE PRN INJ PICC 12/07/19 11:18 12/07/19 23:59 Lorazepam (Ativan 2mg/ml 1ml) 1 mg Q4H PRN IV For Anxiety 12/02/19 22:00 12/09/19 21:59 12/06/19 23:23 Metoprolol Tartrate (Lopressor) 50 mg Q12HR ORAL 12/03/19 09:00 03/02/20 01:59 12/06/19 08:46 Morphine Sulfate (Morphine Sulfate) 2 mg Q2H PRN IVP For Pain 12/04/19 18:45 12/11/19 18:44 12/05/19 16:53 Pantoprazole (Protonix) 40 mg ACBREAKFAST ORAL 12/01/19 06:30 12/28/19 06:29 12/07/19 06:05 Sandip Wong MD December 07, 2019 11:34
--- NOTE | 2019-12-07 12:00 | NUR ---
NURSE NOTES: pt repositioned. bp stable at this time. hob 30. tolerating tube, no residual. no bm at this time. iv patent. restraints secured. vent settings no change.
[2019-12-07] MEDS ORDERED: NS 275ml ONE (13:48)
[2019-12-07] MEDS ORDERED: NS 500ML ONE (16:02)
[2019-12-07] MEDS ORDERED: D5 1/2NS 1000ml IV ONE (16:03)
--- NOTE | 2019-12-07 17:03 | NUR ---
NURSE NOTES: urine collected for random sample. oral care provided. vss.
--- NOTE | 2019-12-07 17:19 | NUR ---
HAND-OFF: Report given to hosea martines. pt in no acute distress
--- NOTE | 2019-12-07 17:30 | NUR ---
NURSE NOTES: Received report from Korin Rose RN. Patient alert and awake, unable to follow commands and make needs known. ETT 7.5, 24 cm at lip line, hooked to vent with settings of AC 18, TV 500, FiO2 100%, PEEP 10, saturating at 97%. Right NGT in place running twocal @ 15 cc/hr, no residuals noted, HoB elevated. Correa catheter patent and draining well. Left forearm 20g IV site infusing D5W @ 100 cc/hr. Left upper arm 20g saline lock asymptomatic. Patient noted with bilateral soft wrist restraints, skin intact, peripheral pulses present. Educated on removal criteria but patient is impulsive and unable to comprehend teaching at this time. Bed locked in lowest position with side rails up x 3. All needs attended to. Will continue to monitor.
--- NOTE | 2019-12-07 18:00 | NUR ---
NURSE NOTES: Urine specimen sent to lab.
--- NOTE | 2019-12-07 19:13 | NUR ---
HAND-OFF: Report given to Anni Becerril RN, using SBAR.
--- NOTE | 2019-12-07 19:30 | NUR ---
NURSE NOTES: SBAR from Racquel Ross RN. Patient is currently orally intubated ETT 7.5/24cm lower lip line, AC 18/500/100%/10. Patient is lethargic, eyes open spontaneously to painful stimulus. NGT noted and recieving Two Adrien at 15ml/hr. Correa catheter noted. JHON 20G and L FA 20G. Currently receiving D5W at 100ml/hr. Vitals are currently stable. Afebrile. Bilateral soft wrist restraints noted. Pulses are present, skin is intact.
--- NOTE | 2019-12-07 20:05 | General Progress Note ---
Assessment/Plan Problem List: (1) COPD (chronic obstructive pulmonary disease) ICD Codes: J44.9 - Chronic obstructive pulmonary disease, unspecified SNOMED: 39279803 (2) Hypertensive nephrosclerosis ICD Codes: I12.9 - Hypertensive chronic kidney disease with stage 1 through stage 4 chronic kidney disease, or unspecified chronic kidney disease SNOMED: 233820770 (3) CKD (chronic kidney disease) stage 3, GFR 30-59 ml/min ICD Codes: N18.3 - Chronic kidney disease, stage 3 (moderate) SNOMED: 475930932 (4) Suspected COVID-19 virus infection ICD Codes: Z20.828 - Contact with and (suspected) exposure to other viral communicable diseases SNOMED: 968739384 (5) Pneumonia ICD Codes: J18.9 - Pneumonia, unspecified organism SNOMED: 748166155 (6) Respiratory distress ICD Codes: R06.03 - Acute respiratory distress SNOMED: 539692578 (7) Troponin I above reference range ICD Codes: R79.89 - Other specified abnormal findings of blood chemistry SNOMED: 724210639 (8) Bacteremia due to Gram-positive bacteria ICD Codes: R78.81 - Bacteremia SNOMED: 072124701721 (9) Staph infection ICD Codes: B95.8 - Unspecified staphylococcus as the cause of diseases classified elsewhere SNOMED: 28144727 (10) Paroxysmal A-fib ICD Codes: I48.0 - Paroxysmal atrial fibrillation SNOMED: 535755383 (11) Respiratory failure ICD Codes: J96.90 - Respiratory failure, unspecified, unspecified whether with hypoxia or hypercapnia SNOMED: 444821934 (12) ALLIE (acute kidney injury) ICD Codes: N17.9 - Acute kidney failure, unspecified SNOMED: 1860010, 22557068 Assessment/Plan: allie studies ordered, continue atb, pulm care,, intubated, ng feed, hydration, rx atrial fib, icu care all orders reviewed and updated, 40 min, family called again Subjective ROS Limited/Unobtainable: Yes Allergies: Coded Allergies: No Known Allergies (Verified , 11/13/08) Objective Last 24 Hour Vital Signs Date Time Temp Pulse Resp B/P (MAP) Pulse Ox O2 Delivery O2 Flow Rate FiO2 12/07/19 19:00 104 35 120/57 (78) 97 12/07/19 18:00 107 34 128/84 (99) 96 12/07/19 17:00 101 44 110/58 (75) 96 12/07/19 16:30 102 32 111/58 (75) 95 12/07/19 16:00 Mechanical Ventilator 12/07/19 16:00 99.0 100 32 108/54 (72) 99 12/07/19 16:00 100 12/07/19 16:00 102 12/07/19 15:30 104 33 113/57 (75) 96 12/07/19 15:12 97 32 100 12/07/19 15:00 101 33 132/55 (80) 95 12/07/19 14:00 101 31 108/58 (75) 97 12/07/19 13:00 105 32 110/57 (74) 96 12/07/19 12:00 100 12/07/19 12:00 100 12/07/19 12:00 Mechanical Ventilator 12/07/19 12:00 101 32 127/61 (83) 97 12/07/19 11:00 104 32 128/64 (85) 96 12/07/19 10:38 100 32 100 12/07/19 10:00 99 31 124/67 (86) 96 12/07/19 09:30 106 30 133/66 (88) 97 12/07/19 09:00 98.7 101 31 122/62 (82) 97 12/07/19 08:00 Mechanical Ventilator 12/07/19 08:00 99 12/07/19 08:00 100 12/07/19 08:00 103 34 112/54 (73) 93 12/07/19 07:46 104 31 100 12/07/19 07:00 100 31 131/61 (84) 89 12/07/19 06:35 103 31 12/07/19 06:00 103 31 138/60 (86) 90 12/07/19 05:00 103 33 153/66 (95) 90 12/07/19 04:00 98.5 89 28 143/62 (89) 96 12/07/19 04:00 89 12/07/19 04:00 Mechanical Ventilator 12/07/19 04:00 100 12/07/19 03:10 86 27 100 12/07/19 03:00 85 29 82/44 (57) 95 5/16/20 02:30 89 27 109/55 (73) 100 12/07/19 02:00 97.7 83 26 74/19 (37) 100 12/07/19 01:30 88 26 73/23 (40) 100 12/07/19 01:00 100 29 105/50 (68) 94 12/07/19 00:00 100 12/07/19 00:00 98.5 103 29 90/45 (60) 92 12/07/19 00:00 108 12/07/19 00:00 Mechanical Ventilator 12/06/19 23:20 107 36 100 12/06/19 23:00 98.5 108 24 139/62 (87) 93 12/06/19 22:00 107 29 124/61 (82) 98 12/06/19 21:10 100 31 100 12/06/19 21:00 103 31 107/64 (78) 96 12/06/19 20:47 99 88/54 Intake and Output 12/06/19 12/07/19 19:00 07:00 Intake Total 1034 ml 2340 ml Output Total 385 ml 295 ml Balance 649 ml 2045 ml IV Total 959 ml 2100 ml Tube Feeding 60 ml 180 ml Other 15 ml 60 ml Output Urine Total 385 ml 295 ml Laboratory Tests 12/07/19 04:00: White Blood Count 10.1, Red Blood Count 4.30L, Hemoglobin 10.6L, Hematocrit 33.4L, Mean Corpuscular Volume 78L, Mean Corpuscular Hemoglobin 24.6L, Mean Corpuscular Hemoglobin Concent 31.7L, Red Cell Distribution Width 15.5H, Platelet Count 421, Mean Platelet Volume 5.7L, Neutrophils (%) (Auto) , Lymphocytes (%) (Auto) , Monocytes (%) (Auto) , Eosinophils (%) (Auto) , Basophils (%) (Auto) , Differential Total Cells Counted 100, Neutrophils % ( Manual) 88H, Lymphocytes % (Manual) 7L, Monocytes % (Manual) 5, Eosinophils % ( Manual) 0, Basophils % (Manual) 0, Band Neutrophils 0, Platelet Estimate Adequate, Platelet Morphology Normal, Hypochromasia 1+, Anisocytosis 1+, Sodium Level 147H, Potassium Level 3.7, Chloride Level 110H, Carbon Dioxide Level 26, Anion Gap 11, Blood Urea Nitrogen 59H, Creatinine 3.3H, Estimat Glomerular Filtration Rate 21.8, Glucose Level 209H, Calcium Level 7.1L, Magnesium Level 2.7H, Troponin I 0.085H Height (Feet): 5 Height (Inches): 10.00 Weight (Pounds): 146 General Appearance: other - sedated vent Cardiovascular: regular rhythm, tachycardia Respiratory/Chest: decreased breath sounds, accessory muscle use, rhonchi - bilaterally Abdomen: soft Edema: no edema noted Arm (L), no edema noted Arm (R), no edema noted Leg (L), no edema noted Leg (R), no edema noted Pedal (L), no edema noted Pedal (R), no edema noted Generalized Neurologic: unresponsive Fuad Schafer MD December 07, 2019 20:05
--- NOTE | 2019-12-07 20:21 | NUR ---
RESPIRATORY NOTE: Received pt on ETT 7.5mm at 24 cm at the lip. Current vent settings of AC 18, VT 500ml, FiO2 100%. Patient is currently sedated stating at 96% with a heart rate of 96. The alarms are on and audible. Ambu bag at bedside. Will continue to monitor throughout the night.
[2019-12-07] MEDS: Atorvastatin 20mg tab ORAL SCH (20:26)
[2019-12-07] MEDS: Dyna-Hex 2% Top Sol 2oz TOPIC SCH (20:26)
[2019-12-07 21:25] LABS: APPEARANCE,URINE SLIGHTLY CLOUDY; BILIRUBIN, URINE NEGATIVE (NEGATIVE); COLOR,URINE PALE YELLOW; GLUCOSE, URINE (UA) NEGATIVE (NEGATIVE); KETONES,URINE NEGATIVE (NEGATIVE); LEUKOCYTE ESTERASE ,URINE NEGATIVE (NEGATIVE); NITRITE,URINE NEGATIVE (NEGATIVE); PH,URINE 5 (4.5-8.0); PROTEIN,URINE 2+ (NEGATIVE); UROBILINOGEN,URINE NORMAL MG/DL (0.0-1.0)
--- NOTE | 2019-12-07 22:00 | NUR ---
NURSE NOTES: Sponge bath given Lavaged and suctioned Oral care performed Repositioned HR 104 ST/ BP 140/62 Afebrile 50ml water flush
[2019-12-08] VITALS (31 sets, daily range): BP systolic 79–149; BP diastolic 48–73
--- NOTE | 2019-12-08 | NUR ---
NURSE NOTES: Repositioned Pulses present Eyes open spontaneously upon stimulation HR 103 ST. BP: 123/68, 99.5F (ax) Lavaged and suctioned NAD at this time Safety measures remains in place.
--- NOTE | 2019-12-08 00:59 | Progress Note ---
DATE: 12/07/2019 The patient's condition deteriorated early this morning. Discussions were undertaken with ICU staff. The patient was given several fluid challenges for hypotension and episodes of tachycardia were noted as well. The patient's antihypertensives were all discontinued. The patient ultimately responded to fluid challenges. He remains on ventilator support. OBJECTIVE: LUNGS: Bilateral breath sounds, rhonchi. HEART: Regular rhythm, rapid rate. Normal S1, S2. ABDOMEN: Soft. EXTREMITIES: Trace edema. IMPRESSION: 1. Respiratory failure. 2. Healthcare-associated pneumonia. 3. Sepsis with shock. 4. Paroxysmal atrial fibrillation with episodes of rapid ventricular response. 5. Acute myocardial ischemia. 6. Severe protein-calorie malnutrition. 7. Increased risk for endocarditis due to bacteremia. PLAN: 1. Plan of care reviewed and updated. 2. Remains critical and guarded. 3. Discussed with ICU staff and sales support consultant. 4. Orders addressed. Jarod Clark M.D. DR: DAKSHA JOB#: [id number] CC:
--- NOTE | 2019-12-08 02:00 | NUR ---
NURSE NOTES: Pulses present Suctioned Repositioned VSS NAD at this time eyes open upon stimulation
[2019-12-08] MEDS: LORazepam Inj 2mg/ml 1ml IV PRN ×3 (03:00→22:21)
--- NOTE | 2019-12-08 03:00 | NUR ---
NURSE NOTES: Patient noted to be slightly agitated 0.4mg of Ativan given for sedation, low dose because of BP sensitivity
[2019-12-08] MEDS: Enoxaparin 60mg Inj SUBQ SCH (03:47)
--- NOTE | 2019-12-08 04:00 | NUR ---
NURSE NOTES: Sponge bath given Patient is calm and slightly sedated now from earlier Ativan push No BM yet Patient cleaned and kept dry New Maintenance fluid bag hung Lavaged and suctioned Am lab draw collected and sent to lab.
--- NOTE | 2019-12-08 06:00 | NUR ---
NURSE NOTES: Repositioned patient Patient remains calm and well sedated Oral care performed Vitals remains stable Remains Afebrile
[2019-12-08 06:03] LABS: HEMOGLOBIN 7.7 G/DL (14.2-18.0); MEAN CORPUSCULAR VOLUME 93 FL (80-99); PLATELET COUNT 328 K/UL (150-450); RED BLOOD COUNT 2.57 M/UL (4.70-6.10); RED CELL DISTRIBUTION WIDTH 18.1 % (11.6-14.8)
[2019-12-08 06:25] LABS: ALANINE AMINOTRANSFERASE 8 U/L (12-78); ALBUMIN 1.8 G/DL (3.4-5.0); ALBUMIN/GLOBULIN RATIO 0.3 (1.0-2.7); ALKALINE PHOSPHATASE 86 U/L (46-116); ANION GAP 15 mmol/L (5-15); ASPARTATE AMINO TRANSFERASE 25 U/L (15-37); BILIRUBIN,TOTAL 0.3 MG/DL (0.2-1.0); BLOOD UREA NITROGEN 50 mg/dL (7-18); CALCIUM 8.6 MG/DL (8.5-10.1); CARBON DIOXIDE 27 MMOL/L (21-32); CHLORIDE 98 MMOL/L (98-107); CREATINE KINASE 12 U/L (26-308); CREATININE 6.2 MG/DL (0.55-1.30); POTASSIUM 3.5 MMOL/L (3.5-5.1); SODIUM 140 MMOL/L (136-145)
--- NOTE | 2019-12-08 07:19 | NUR ---
HAND-OFF: Report given to Racquel Ross RN
--- NOTE | 2019-12-08 07:25 | NUR ---
NURSE NOTES: Received report from Anni Becerril RN. Patient alert and awake, impulsive, unable to follow commands and make needs known. ETT 7.5, 24 cm at lip line, hooked to vent with settings of AC 18, TV 500, FiO2 100%, PEEP 10, saturating at 100%. Right NGT in place running twocal @ 15 cc/hr, no residuals noted, HoB elevated. Correa catheter patent and draining well. Left forearm 20g IV site infusing D5W @ 100 cc/hr. Left upper arm 20g saline lock intact and asymptomatic. Patient noted with bilateral soft wrist restraints, skin intact, peripheral pulses present, no redness or edema noted. Educated on removal criteria but patient is unable to comprehend teaching at this time, patient continues to attempt pulling on lines and devices. Bed locked in lowest position with side rails up x 3. All needs attended to. Will continue to monitor.
[2019-12-08] MEDS: Aspirin EC 81mg tab ORAL SCH (08:18)
[2019-12-08] MEDS: Metoprolol Tartrate 50mg tab ORAL SCH ×2 (09:00→20:58)
--- NOTE | 2019-12-08 09:00 | NUR ---
NURSE NOTES: Lopressor 50 mg tab held d/t BP below parameters, 92/53. Will continue to monitor.
--- NOTE | 2019-12-08 10:00 | NUR ---
NURSE NOTES: Patient turned and repositioned, oral care given. No s/s of bleeding noted. NGT aspirated, no coffee ground emesis noted.
--- NOTE | 2019-12-08 11:57 | Infectious Diseases Prog Note ---
Assessment/Plan Assessment/Plan A: 1. pneumonia with COVID19, Positive:8 & 5/9 Negative: 5/6, 5/14 2. hypertension 3. coag neg staph likely contaminated 4. COPD 5. seizures 6. prostate cancer 7. Acute renal failure 8. Respiratory failure with hypoxemia P 1. Repeat COVID19 2. continue isolation 3. Start on Zosyn 4. Sputum culture Subjective ROS Limited/Unobtainable: Yes Respiratory: Reports: other - intubated in ICU Cardiovascular: Reports: other - Hypotensive Neurologic: Reports: confusion, other - on restraint Allergies: Coded Allergies: No Known Allergies (Verified , 11/13/08) Objective Vital Signs Last 24 Hour Vital Signs Date Time Temp Pulse Resp B/P (MAP) Pulse Ox O2 Delivery O2 Flow Rate FiO2 12/08/19 11:12 88 33 100 12/08/19 09:09 86 32 100 12/08/19 09:00 91 92/53 12/08/19 08:00 100 12/08/19 08:00 Mechanical Ventilator 12/08/19 07:33 99 35 100 12/08/19 07:00 93 31 107/57 (74) 100 12/08/19 06:30 96 32 114/60 (78) 100 12/08/19 06:30 96 31 12/08/19 06:00 93 30 104/57 (73) 100 12/08/19 05:30 93 28 121/55 (77) 100 12/08/19 05:00 91 26 97/55 (69) 100 12/08/19 04:30 93 31 102/54 (70) 100 12/08/19 04:00 Mechanical Ventilator 12/08/19 04:00 99.3 91 33 82/51 (61) 100 12/08/19 04:00 92 12/08/19 04:00 100 12/08/19 03:30 96 35 81/55 (64) 100 12/08/19 03:00 102 31 117/60 (79) 77 12/08/19 02:51 104 37 100 12/08/19 02:00 109 34 133/70 (91) 97 12/08/19 01:00 103 33 149/73 (98) 93 12/08/19 00:00 100 12/08/19 00:00 110 12/08/19 00:00 99.5 105 33 123/68 (86) 97 12/08/19 00:00 Mechanical Ventilator 12/07/19 23:00 102 30 116/68 (84) 98 12/07/19 22:52 102 35 100 12/07/19 22:00 101 34 132/65 (87) 95 12/07/19 21:00 101 30 98/59 (72) 99 12/07/19 20:26 99 101/53 12/07/19 20:10 99 34 100 12/07/19 20:00 106 12/07/19 20:00 100 12/07/19 20:00 Mechanical Ventilator 12/07/19 20:00 98.6 103 33 144/69 (94) 99 12/07/19 19:30 104 32 111/59 (76) 97 12/07/19 19:00 104 35 120/57 (78) 97 12/07/19 18:00 107 34 128/84 (99) 96 12/07/19 17:00 101 44 110/58 (75) 96 12/07/19 16:30 102 32 111/58 (75) 95 12/07/19 16:00 Mechanical Ventilator 12/07/19 16:00 99.0 100 32 108/54 (72) 99 12/07/19 16:00 100 12/07/19 16:00 102 12/07/19 15:30 104 33 113/57 (75) 96 12/07/19 15:12 97 32 100 12/07/19 15:00 101 33 132/55 (80) 95 12/07/19 14:00 101 31 108/58 (75) 97 12/07/19 13:00 105 32 110/57 (74) 96 12/07/19 12:00 100 12/07/19 12:00 100 12/07/19 12:00 Mechanical Ventilator 12/07/19 12:00 101 32 127/61 (83) 97 Height (Feet): 5 Height (Inches): 10.00 Weight (Pounds): 145 HEENT: other - orally intubated Respiratory/Chest: other - on ventilator Cardiovascular: normal rate Abdomen: soft, non tender, other - NG tube Neurologic/Psychiatric: disoriented Microbiology Date/Time Source Procedure Growth Status 12/05/19 13:10 Nasopharynx Coronavirus COVID-19 PCR ([facility]) - Final Complete Laboratory Tests Test 12/07/19 13:30 12/08/19 04:00 Urine Color Pale yellow Urine Appearance Slightly cloudy Urine pH 5 (4.5-8.0) Urine Specific [place] 1.015 (1.005-1.035) Urine Protein 2+ (NEGATIVE) H Urine Glucose (UA) Negative (NEGATIVE) Urine Ketones Negative (NEGATIVE) Urine Blood 5+ (NEGATIVE) H Urine Nitrite Negative (NEGATIVE) Urine Bilirubin Negative (NEGATIVE) Urine Urobilinogen Normal MG/DL (0.0-1.0) Urine Leukocyte Esterase Negative (NEGATIVE) Urine RBC 60-80 /HPF (0 - 0) H Urine WBC 0-2 /HPF (0 - 0) Urine Squamous Epithelial Cells None /LPF (NONE/OCC) Urine Bacteria Few /HPF (NONE) White Blood Count 13.0 K/UL (4.8-10.8) H Red Blood Count 2.57 M/UL (4.70-6.10) L Hemoglobin 7.7 G/DL (14.2-18.0) L Hematocrit 24.0 % (42.0-52.0) L Mean Corpuscular Volume 93 FL (80-99) # Mean Corpuscular Hemoglobin 29.9 PG (27.0-31.0) Mean Corpuscular Hemoglobin Concent 32.1 G/DL (32.0-36.0) Red Cell Distribution Width 18.1 % (11.6-14.8) H Platelet Count 328 K/UL (150-450) Mean Platelet Volume 7.6 FL (6.5-10.1) Neutrophils (%) (Auto) % (45.0-75.0) Lymphocytes (%) (Auto) % (20.0-45.0) Monocytes (%) (Auto) % (1.0-10.0) Eosinophils (%) (Auto) % (0.0-3.0) Basophils (%) (Auto) % (0.0-2.0) Sodium Level 140 MMOL/L (136-145) Potassium Level 3.5 MMOL/L (3.5-5.1) Chloride Level 98 MMOL/L (98-107) Carbon Dioxide Level 27 MMOL/L (21-32) Anion Gap 15 mmol/L (5-15) Blood Urea Nitrogen 50 mg/dL (7-18) H Creatinine 6.2 MG/DL (0.55-1.30) #H Estimat Glomerular Filtration Rate 10.5 mL/min (>60) Glucose Level 178 MG/DL (74-106) H Uric Acid 5.2 MG/DL (2.6-7.2) Calcium Level 8.6 MG/DL (8.5-10.1) # Total Bilirubin 0.3 MG/DL (0.2-1.0) Aspartate Amino Transf (AST/SGOT) 25 U/L (15-37) Alanine Aminotransferase (ALT/SGPT) 8 U/L (12-78) L Alkaline Phosphatase 86 U/L (46-116) Total Creatine Kinase 12 U/L (26-308) L Total Protein 7.3 G/DL (6.4-8.2) Albumin 1.8 G/DL (3.4-5.0) L Globulin 5.5 g/dL Albumin/Globulin Ratio 0.3 (1.0-2.7) L Current Medications Medications (Trade) Dose Ordered Sig/Viridiana Route PRN Reason Start Time Stop Time Status Last Admin Dose Admin Aspirin (Ecotrin) 81 mg DAILY ORAL 12/01/19 09:00 01/12/20 08:59 12/08/19 08:18 Atorvastatin Calcium (Lipitor) 20 mg QHS ORAL 11/30/19 21:00 02/25/20 20:59 12/07/19 20:26 Chlorhexidine Gluconate (Swapna-Hex 2%) 1 applic DAILY@2000 TOPIC 12/07/19 20:00 03/06/20 19:59 12/07/19 20:26 Dextrose 1,000 ml @ 100 mls/hr Q10H IV 12/06/19 12:15 01/05/20 12:14 12/08/19 03:47 Enoxaparin Sodium (Lovenox) 60 mg Q24H SUBQ 12/03/19 03:00 03/02/20 02:59 12/08/19 03:47 Fentanyl Citrate 1000 mcg/Sodium Chloride 100 ml @ 0 mls/hr Q24H IV 12/06/19 09:00 12/13/19 08:59 Lorazepam (Ativan 2mg/ml 1ml) 1 mg Q4H PRN IV For Anxiety 12/02/19 22:00 12/09/19 21:59 12/08/19 08:18 Metoprolol Tartrate (Lopressor) 50 mg Q12HR ORAL 12/03/19 09:00 03/02/20 01:59 12/06/19 08:46 Morphine Sulfate (Morphine Sulfate) 2 mg Q2H PRN IVP For Pain 12/04/19 18:45 12/11/19 18:44 12/05/19 16:53 Pantoprazole (Protonix) 40 mg ACBREAKFAST ORAL 12/01/19 06:30 12/28/19 06:29 12/08/19 03:47 Ta Parker MD December 08, 2019 11:57
--- NOTE | 2019-12-08 11:58 | NUR ---
NURSE NOTES: Dr. Parker at bedside, patient's temp above 99.0. Patient to start Zosyn.
--- NOTE | 2019-12-08 12:25 | NUR ---
NURSE NOTES: Dr. Schafer notified of decreased hgb 7.7, no s/s of bleeding noted. Creatinine increased to 6.2. Patient is oliguric, moore catheter is patent. Also made aware of patient's last BM on 12/01. Received order for Miralax 30g x 1. Addendum: 12/08/19 at 1755 by Racquel Ross RN Miralax 17g x 1. Per Dr. Schafer, keep patient on Lovenox
[2019-12-08] MEDS ORDERED: Miralax 17gm pkt NG SCH (12:45)
[2019-12-08] MEDS ORDERED: Piperacillin/Tazobactam 2.25 GM in D5W 55 ML IVPB SCH (14:00)
--- NOTE | 2019-12-08 14:00 | NUR ---
NURSE NOTES: Patient still sedated from previous Ativan administration, BP remains stable at 103/71. Will continue to monitor.
--- NOTE | 2019-12-08 14:10 | Pulmonology Progress Note ---
Subjective ROS Limited/Unobtainable: Yes Constitutional: Denies: fever Allergies: Coded Allergies: No Known Allergies (Verified , 11/13/08) Subjective doing poorly intubated very ill remains on 100% noted ID recommendations vitals reviewed Objective Last 24 Hour Vital Signs Date Time Temp Pulse Resp B/P (MAP) Pulse Ox O2 Delivery O2 Flow Rate FiO2 12/08/19 12:00 99.2 89 31 114/52 (72) 95 12/08/19 12:00 Mechanical Ventilator 12/08/19 12:00 100 12/08/19 11:12 88 33 100 12/08/19 11:00 92 32 103/63 (76) 95 12/08/19 10:00 93 32 107/58 (74) 93 12/08/19 09:09 86 32 100 12/08/19 09:00 91 34 79/50 (60) 91 12/08/19 09:00 91 92/53 12/08/19 08:00 99.1 92 32 112/63 (79) 98 12/08/19 08:00 100 12/08/19 08:00 Mechanical Ventilator 12/08/19 07:33 99 35 100 12/08/19 07:00 93 31 107/57 (74) 100 12/08/19 06:30 96 32 114/60 (78) 100 12/08/19 06:30 96 31 12/08/19 06:00 93 30 104/57 (73) 100 12/08/19 05:30 93 28 121/55 (77) 100 12/08/19 05:00 91 26 97/55 (69) 100 12/08/19 04:30 93 31 102/54 (70) 100 12/08/19 04:00 Mechanical Ventilator 12/08/19 04:00 99.3 91 33 82/51 (61) 100 12/08/19 04:00 92 12/08/19 04:00 100 12/08/19 03:30 96 35 81/55 (64) 100 12/08/19 03:00 102 31 117/60 (79) 77 12/08/19 02:51 104 37 100 12/08/19 02:00 109 34 133/70 (91) 97 12/08/19 01:00 103 33 149/73 (98) 93 12/08/19 00:00 100 12/08/19 00:00 110 12/08/19 00:00 99.5 105 33 123/68 (86) 97 12/08/19 00:00 Mechanical Ventilator 12/07/19 23:00 102 30 116/68 (84) 98 12/07/19 22:52 102 35 100 12/07/19 22:00 101 34 132/65 (87) 95 12/07/19 21:00 101 30 98/59 (72) 99 12/07/19 20:26 99 101/53 12/07/19 20:10 99 34 100 12/07/19 20:00 106 12/07/19 20:00 100 12/07/19 20:00 Mechanical Ventilator 12/07/19 20:00 98.6 103 33 144/69 (94) 99 12/07/19 19:30 104 32 111/59 (76) 97 12/07/19 19:00 104 35 120/57 (78) 97 12/07/19 18:00 107 34 128/84 (99) 96 12/07/19 17:00 101 44 110/58 (75) 96 12/07/19 16:30 102 32 111/58 (75) 95 12/07/19 16:00 Mechanical Ventilator 12/07/19 16:00 99.0 100 32 108/54 (72) 99 12/07/19 16:00 100 12/07/19 16:00 102 12/07/19 15:30 104 33 113/57 (75) 96 12/07/19 15:12 97 32 100 12/07/19 15:00 101 33 132/55 (80) 95 Intake and Output 12/07/19 12/08/19 19:00 07:00 Intake Total 1258.334 ml 1385.7 ml Output Total 400 ml 250 ml Balance 858.334 ml 1135.7 ml IV Total 1048.334 ml 1205.7 ml Tube Feeding 180 ml 180 ml Other 30 ml Output Urine Total 400 ml 250 ml Objective deferred due to COVID+ Laboratory Tests 12/08/19 04:00: White Blood Count 13.0H, Red Blood Count 2.57L, Hemoglobin 7.7L, Hematocrit 24.0L, Mean Corpuscular Volume 93#, Mean Corpuscular Hemoglobin 29.9, Mean Corpuscular Hemoglobin Concent 32.1, Red Cell Distribution Width 18.1H, Platelet Count 328, Mean Platelet Volume 7.6, Neutrophils (%) (Auto) , Lymphocytes (%) (Auto) , Monocytes (%) (Auto) , Eosinophils (%) (Auto) , Basophils (%) (Auto) , Sodium Level 140, Potassium Level 3.5, Chloride Level 98 , Carbon Dioxide Level 27, Anion Gap 15, Blood Urea Nitrogen 50H, Creatinine 6.2 #H, Estimat Glomerular Filtration Rate 10.5, Glucose Level 178H, Uric Acid 5.2, Calcium Level 8.6#, Total Bilirubin 0.3, Aspartate Amino Transf (AST/SGOT) 25, Alanine Aminotransferase (ALT/SGPT) 8L, Alkaline Phosphatase 86, Total Creatine Kinase 12L, Total Protein 7.3, Albumin 1.8L, Globulin 5.5, Albumin/Globulin Ratio 0.3L Current Medications Medications (Trade) Dose Ordered Sig/Viridiana Route PRN Reason Start Time Stop Time Status Last Admin Dose Admin Aspirin (Ecotrin) 81 mg DAILY ORAL 12/01/19 09:00 01/12/20 08:59 12/08/19 08:18 Atorvastatin Calcium (Lipitor) 20 mg QHS ORAL 11/30/19 21:00 02/25/20 20:59 12/07/19 20:26 Chlorhexidine Gluconate (Swapna-Hex 2%) 1 applic DAILY@2000 TOPIC 12/07/19 20:00 03/06/20 19:59 12/07/19 20:26 Dextrose 1,000 ml @ 100 mls/hr Q10H IV 12/06/19 12:15 01/05/20 12:14 12/08/19 13:23 Enoxaparin Sodium (Lovenox) 60 mg Q24H SUBQ 12/03/19 03:00 03/02/20 02:59 12/08/19 03:47 Fentanyl Citrate 1000 mcg/Sodium Chloride 100 ml @ 0 mls/hr Q24H IV 12/06/19 09:00 12/13/19 08:59 Lorazepam (Ativan 2mg/ml 1ml) 1 mg Q4H PRN IV For Anxiety 12/02/19 22:00 12/09/19 21:59 12/08/19 08:18 Metoprolol Tartrate (Lopressor) 50 mg Q12HR ORAL 12/03/19 09:00 03/02/20 01:59 12/06/19 08:46 Morphine Sulfate (Morphine Sulfate) 2 mg Q2H PRN IVP For Pain 12/04/19 18:45 12/11/19 18:44 12/05/19 16:53 Pantoprazole (Protonix) 40 mg ACBREAKFAST ORAL 12/01/19 06:30 12/28/19 06:29 12/08/19 03:47 Piperacillin Sod/ Tazobactam Sod 3.375 gm/Sodium Chloride 110 ml @ 27.5 mls/hr EVERY 12 HOURS IVPB 12/08/19 21:00 12/13/19 20:59 Polyethylene Glycol (Miralax) 17 gm ONCE NG 12/08/19 12:45 12/08/19 15:00 12/08/19 13:14 Assessment/Plan Assessment/Plan IMPRESSION: hypoxemic respiratory failure, profound hypoxemi, probable ARDS, + COVID, hematuria, evidence of chronic renal failure, possibly with acute component, elevated troponin, possible non-STEMI ND, elevated natriuretic peptide, possible pulmonary edema, pneumonia and sepsis. hypoxemia. PLAN care noted maintain PEEP as is d/w ID; on Actemra respiratory care otherwise as is ABG and CXR monitoring for change off load aspiration precautions ID noted and reviewed critical at present nutrition transfusion prognosis poor medications/laboratory data/nursing notes/ICU care reviewed in detail note reviewed and edited care discussed with RN and RT ICU time spent >40 minutes Saran Lynch MD December 08, 2019 14:10
--- NOTE | 2019-12-08 16:00 | NUR ---
NURSE NOTES: Patient educated on restraint use and removal but still unable to comprehend and patient reaches for ETT and NGT. ROM exercises provided and restraints kept in place.
--- NOTE | 2019-12-08 18:00 | NUR ---
NURSE NOTES: Sputum specimen collected as ordered.
--- NOTE | 2019-12-08 18:44 | General Progress Note ---
Assessment/Plan Problem List: (1) COPD (chronic obstructive pulmonary disease) ICD Codes: J44.9 - Chronic obstructive pulmonary disease, unspecified SNOMED: 91622860 (2) Hypertensive nephrosclerosis ICD Codes: I12.9 - Hypertensive chronic kidney disease with stage 1 through stage 4 chronic kidney disease, or unspecified chronic kidney disease SNOMED: 794405570 (3) CKD (chronic kidney disease) stage 3, GFR 30-59 ml/min ICD Codes: N18.3 - Chronic kidney disease, stage 3 (moderate) SNOMED: 031825514 (4) Suspected COVID-19 virus infection ICD Codes: Z20.828 - Contact with and (suspected) exposure to other viral communicable diseases SNOMED: 464747750 (5) Pneumonia ICD Codes: J18.9 - Pneumonia, unspecified organism SNOMED: 147737895 (6) Respiratory distress ICD Codes: R06.03 - Acute respiratory distress SNOMED: 130455494 (7) Troponin I above reference range ICD Codes: R79.89 - Other specified abnormal findings of blood chemistry SNOMED: 636093804 (8) Bacteremia due to Gram-positive bacteria ICD Codes: R78.81 - Bacteremia SNOMED: 205578342800 (9) Staph infection ICD Codes: B95.8 - Unspecified staphylococcus as the cause of diseases classified elsewhere SNOMED: 03716421 (10) Paroxysmal A-fib ICD Codes: I48.0 - Paroxysmal atrial fibrillation SNOMED: 893164810 (11) Respiratory failure ICD Codes: J96.90 - Respiratory failure, unspecified, unspecified whether with hypoxia or hypercapnia SNOMED: 980022069 (12) ALLIE (acute kidney injury) ICD Codes: N17.9 - Acute kidney failure, unspecified SNOMED: 1708331, 90758554 Assessment/Plan: allie studies ordered, continue atb, pulm care,, intubated, ng feed, hydration, rx atrial fib, icu care all orders reviewed and updated, 35 min, family called again Subjective ROS Limited/Unobtainable: Yes Allergies: Coded Allergies: No Known Allergies (Verified , 11/13/08) Objective Last 24 Hour Vital Signs Date Time Temp Pulse Resp B/P (MAP) Pulse Ox O2 Delivery O2 Flow Rate FiO2 12/08/19 18:00 86 31 100/50 (67) 94 12/08/19 17:00 86 33 96/50 (65) 94 12/08/19 16:00 Mechanical Ventilator 12/08/19 16:00 100 12/08/19 16:00 71 12/08/19 16:00 87 31 82/51 (61) 96 12/08/19 15:38 85 33 100 12/08/19 15:00 86 30 117/57 (77) 93 12/08/19 14:06 90 36 100 12/08/19 14:00 95 35 103/71 (82) 93 12/08/19 13:00 134 31 90/57 (68) 95 12/08/19 12:00 99.2 89 31 114/52 (72) 95 12/08/19 12:00 Mechanical Ventilator 12/08/19 12:00 100 12/08/19 11:18 92 12/08/19 11:12 88 33 100 12/08/19 11:00 92 32 103/63 (76) 95 12/08/19 10:00 93 32 107/58 (74) 93 12/08/19 09:09 86 32 100 12/08/19 09:00 91 34 79/50 (60) 91 12/08/19 09:00 91 92/53 12/08/19 08:00 99.1 92 32 112/63 (79) 98 12/08/19 08:00 100 12/08/19 08:00 Mechanical Ventilator 12/08/19 07:45 93 12/08/19 07:33 99 35 100 12/08/19 07:00 93 31 107/57 (74) 100 12/08/19 06:30 96 32 114/60 (78) 100 12/08/19 06:30 96 31 12/08/19 06:00 93 30 104/57 (73) 100 12/08/19 05:30 93 28 121/55 (77) 100 12/08/19 05:00 91 26 97/55 (69) 100 12/08/19 04:30 93 31 102/54 (70) 100 12/08/19 04:00 Mechanical Ventilator 12/08/19 04:00 99.3 91 33 82/51 (61) 100 12/08/19 04:00 92 12/08/19 04:00 100 12/08/19 03:30 96 35 81/55 (64) 100 12/08/19 03:00 102 31 117/60 (79) 77 12/08/19 02:51 104 37 100 12/08/19 02:00 109 34 133/70 (91) 97 12/08/19 01:00 103 33 149/73 (98) 93 12/08/19 00:00 100 12/08/19 00:00 110 12/08/19 00:00 99.5 105 33 123/68 (86) 97 12/08/19 00:00 Mechanical Ventilator 12/07/19 23:00 102 30 116/68 (84) 98 12/07/19 22:52 102 35 100 12/07/19 22:00 101 34 132/65 (87) 95 12/07/19 21:00 101 30 98/59 (72) 99 12/07/19 20:26 99 101/53 12/07/19 20:10 99 34 100 12/07/19 20:00 106 12/07/19 20:00 100 12/07/19 20:00 Mechanical Ventilator 12/07/19 20:00 98.6 103 33 144/69 (94) 99 12/07/19 19:30 104 32 111/59 (76) 97 12/07/19 19:00 104 35 120/57 (78) 97 Intake and Output 12/07/19 12/08/19 19:00 07:00 Intake Total 1258.334 ml 1385.7 ml Output Total 400 ml 250 ml Balance 858.334 ml 1135.7 ml IV Total 1048.334 ml 1205.7 ml Tube Feeding 180 ml 180 ml Other 30 ml Output Urine Total 400 ml 250 ml Laboratory Tests 12/08/19 04:00: White Blood Count 13.0H, Red Blood Count 2.57L, Hemoglobin 7.7L, Hematocrit 24.0L, Mean Corpuscular Volume 93#, Mean Corpuscular Hemoglobin 29.9, Mean Corpuscular Hemoglobin Concent 32.1, Red Cell Distribution Width 18.1H, Platelet Count 328, Mean Platelet Volume 7.6, Neutrophils (%) (Auto) , Lymphocytes (%) (Auto) , Monocytes (%) (Auto) , Eosinophils (%) (Auto) , Basophils (%) (Auto) , Sodium Level 140, Potassium Level 3.5, Chloride Level 98 , Carbon Dioxide Level 27, Anion Gap 15, Blood Urea Nitrogen 50H, Creatinine 6.2 #H, Estimat Glomerular Filtration Rate 10.5, Glucose Level 178H, Uric Acid 5.2, Calcium Level 8.6#, Total Bilirubin 0.3, Aspartate Amino Transf (AST/SGOT) 25, Alanine Aminotransferase (ALT/SGPT) 8L, Alkaline Phosphatase 86, Total Creatine Kinase 12L, Total Protein 7.3, Albumin 1.8L, Globulin 5.5, Albumin/Globulin Ratio 0.3L Height (Feet): 5 Height (Inches): 10.00 Weight (Pounds): 145 General Appearance: lethargic, other - on vent Cardiovascular: regular rhythm Respiratory/Chest: rhonchi - bilaterally Abdomen: soft Edema: no edema noted Arm (L), no edema noted Arm (R), no edema noted Leg (L), no edema noted Leg (R), no edema noted Pedal (L), no edema noted Pedal (R), no edema noted Generalized Neurologic: unresponsive Fuad Schafer MD December 08, 2019 18:44
--- NOTE | 2019-12-08 19:10 | NUR ---
HAND-OFF: Report given to Cornell Smith RN, using SBAR.
--- NOTE | 2019-12-08 19:40 | NUR ---
Nurse Note: Report received from ALETA Clement for continuity of care. N: Pt awake; pupils reactive but sluggish. Responds to pain and stimuli. Pt has LT FA and LT AC, patent. Fentanyl drip turned off. C: Sinus rhythm at rest. R: Pt orally intubated 12/05. ETT 7.5 24cm at lip with vent settings AC18, TV 500, FiO2 100% with titration, Peep 10; O2 sat at 94%. GI: RT NGT intact; Twocal infusing at 15cc. : Last BM on 12/01. Pt has a Correa cath; patent. S: Pt has bilateral soft wrist restraints for safety. On visual inspection, no skin breakdown. Sputum sample sent to lab. All safety measures met; will continue to monitor.
[2019-12-08] MEDS: Dyna-Hex 2% Top Sol 2oz TOPIC SCH (20:22)
[2019-12-08] MEDS: Zosyn 3.375gm in NS 110ml IVPB SCH (21:35)
--- NOTE | 2019-12-08 22:45 | Progress Note ---
DATE: 12/08/2019 CARDIOLOGY PROGRESS NOTE SUBJECTIVE: The patient's condition remains critical. Prognosis guarded. He is requiring ICU care. He is on 100% FiO2 on full ventilator support. Patient has required volume resuscitation, but has avoided pressors. Blood pressure parameters have been intermittently low and the patient has also had episodes of rapid atrial fibrillation. PHYSICAL EXAMINATION: VITAL SIGNS: Blood pressure 82/51 to 135/65, heart rate 93, respiratory rate 31 to 36, temperature 99.3. LUNGS: Bilateral rhonchi. HEENT: Thin trach secretions. CARDIAC: Regular rhythm and rate. Normal S1, S2. ABDOMEN: Soft. EXTREMITIES: 1+ dependent edema. LABORATORY DATA: Sodium 140, potassium 3.5, bicarb 27, BUN 50, creatinine 6.2, albumin 1.8. White count 13, hemoglobin 7.7. Urinalysis with 60 to 80 red cells, no white cells. IMPRESSION: 1. Acute renal failure. 2. Sepsis with shock. 3. Respiratory failure. 4. Healthcare-acquired pneumonia. 5. Paroxysmal atrial fibrillation. 6. Toxic and metabolic encephalopathies. 7. COPD. 8. COVID-19 negative x2. 9. Possible Staph aureus bacteremia and risk of endocarditis. PLAN: 1. No diuresis. 2. Volume support. 3. Discontinue statin drug for now. 4. Full anticoagulation for cardioembolic prophylaxis. 5. Maintain beta-arun if blood pressure parameters can tolerate. 6. May ultimately need hemodialysis and ultrafiltration. 7. Continue full ventilator support for now. Jarod Clark M.D. DR: GUERDA JOB#: [id number] CC:
--- NOTE | 2019-12-08 23:47 | NUR ---
Nurse Note: One episode of a-fib for approximally 30 mins. Pt converted back to sinus rhythm, HR 76. Pt tachypneic, RR 32.
[2019-12-09] VITALS (18 sets, daily range): BP systolic 38–159; BP diastolic 18–96
--- NOTE | 2019-12-09 02:00 | NUR ---
Nurse Note: Pt repositioned, suctioned, oral care completed as needed. Pt tachypneic, no changes to vent settings. No BM noted. All safety measures met; will continue to monitor.
[2019-12-09] MEDS: Enoxaparin 60mg Inj SUBQ SCH (02:55)
--- NOTE | 2019-12-09 04:30 | NUR ---
Nurse Note: Pt cleaned, total linen changed, turned. Pt suctioned with lavage as needed. No signs of acute distress. All safety measures met; will continue to monitor.
[2019-12-09 05:33] LABS: HEMATOCRIT 39.1 % (42.0-52.0); HEMOGLOBIN 12.5 G/DL (14.2-18.0); MEAN CORPUSCULAR VOLUME 78 FL (80-99); PLATELET COUNT 595 K/UL (150-450); RED BLOOD COUNT 5.02 M/UL (4.70-6.10); RED CELL DISTRIBUTION WIDTH 15.6 % (11.6-14.8); WHITE BLOOD COUNT 21.2 K/UL (4.8-10.8)
[2019-12-09 05:36] LABS: ANION GAP 8 mmol/L (5-15); BLOOD UREA NITROGEN 60 mg/dL (7-18); CALCIUM 7.1 MG/DL (8.5-10.1); CARBON DIOXIDE 25 MMOL/L (21-32); CHLORIDE 101 MMOL/L (98-107); CREATININE 3.1 MG/DL (0.55-1.30); POTASSIUM 5.2 MMOL/L (3.5-5.1); SODIUM 134 MMOL/L (136-145)
--- NOTE | 2019-12-09 06:00 | NUR ---
Nurse Note: N: Pt awake; pupils reactive but sluggish. Responds to pain and stimuli. Pt has LT FA and RT FA, patent. C: Sinus rhythm at rest. R: Pt orally intubated 12/05. ETT 7.5 24cm at lip with vent settings AC18, TV 500, FiO2 100% with titration, Peep 10; O2 sat at 94%. Pt tachypneic; RR>30 GI: RT NGT intact; Twocal infusing at 15cc. : Last BM on 12/01. Pt has a Correa cath; patent, total 300 urine output. S: Pt has bilateral soft wrist restraints for safety. Pt has gauze wrapped on LT arm. Cooling blanket applied on pt for 104F rectal. All safety measures met; will continue to monitor.
--- NOTE | 2019-12-09 07:20 | NUR ---
Nurse Note: Report given to ALETA Rangel for continuity of care.
--- NOTE | 2019-12-09 07:30 | NUR ---
NURSE NOTES: Pt received from ALETA Brown. Pt is comatose, non-responsive, unable to follow commands, no response to deep pain stimuli, gag reflex absent, no movements noted to extremities. Pupils are equal and round 3 mm bilaterally with sluggish light rxn. 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 Bilat radial and dorsalis pedis pulses noted 1+. Pt is hot to touch and noted with 104 rectal Temp at this time- cooling blanket started and ice packs utilized. Pt is mechanically intubated with 7.5 ETT noted 24 cm at lip with the following settings: AC 18 TV 500 FiO2 100% Peep 10. SpO2 noted in low 80s. Upper lung lobes noted with rhonchi and lower lobes noted diminished upon auscultation. Right NGT noted running Twocal at 15 cc/hr without gastric residuals. Abd is round and soft. Bowel sounds active to all quadrants. Pt has a moore draining small amount of olivia urine. Skin alterations noted. Pt has a RFA 20g IC noted occluded abd LW 20g IV running 1/2 NS at 150 cc/hr and zsyn at 27.5 cc/hr. Pt noted with LUMBER STICKER restraints- restraints removed and discontinued (pt is comatose). Bed is in lowest position, alarm on, side rails up x 2 and padded per seizure precaution, call light within reach.
--- NOTE | 2019-12-09 08:30 | NUR ---
NURSE NOTES: Left message for Dr Gandhi regarding pt's temp. Awaiting call back.
[2019-12-09] MEDS ORDERED: Aspirin Baby 81mg NG SCH (09:00)
--- NOTE | 2019-12-09 09:00 | NUR ---
NURSE NOTES: Received telephone order from Dr Gandhi with 650 mg Tylenol via NGT Q4 HR PRN temp>100.5 F. Preparing to administer Tylenol at this time.
[2019-12-09] MEDS ORDERED: Acetaminophen 650mg/20.3ml NG PRN (09:30)
[2019-12-09] MEDS: Zosyn 3.375gm in NS 110ml IVPB SCH (09:30)
[2019-12-09] MEDS: Metoprolol Tartrate 50mg tab ORAL SCH ×2 (09:31→09:45)
--- NOTE | 2019-12-09 10:46 | NUR ---
NURSE NOTES: Dr Wong at bedside assessing pt and made frederick of today's WBC results. No new orders at this time.
--- NOTE | 2019-12-09 11:00 | NUR ---
NURSE NOTES: Left message for Dr Lynch regarding pt's consistent spO2 in the 80s. Awaiting call back.
--- NOTE | 2019-12-09 11:18 | Pulmonology Progress Note ---
Subjective ROS Limited/Unobtainable: Yes Constitutional: Denies: fever Allergies: Coded Allergies: No Known Allergies (Verified , 11/13/08) Subjective doing poorly intubated very ill remains on 100% and desaturating tachypneic noted ID recommendations vitals reviewed Objective Last 24 Hour Vital Signs Date Time Temp Pulse Resp B/P (MAP) Pulse Ox O2 Delivery O2 Flow Rate FiO2 12/09/19 10:40 88 28 100 12/09/19 09:31 89 118/52 12/09/19 07:10 87 31 100 12/09/19 07:00 87 30 92/52 (65) 90 12/09/19 06:30 86 22 94/58 (70) 92 12/09/19 06:30 86 22 12/09/19 06:00 104.2 87 33 102/51 (68) 93 12/09/19 05:00 89 33 99/58 (72) 93 12/09/19 04:00 100 12/09/19 04:00 89 12/09/19 04:00 89 26 125/64 (84) 93 12/09/19 04:00 Mechanical Ventilator 12/09/19 03:52 79 31 100 12/09/19 03:00 90 29 122/63 (82) 94 12/09/19 02:00 88 26 131/68 (89) 90 12/09/19 01:00 81 32 97/50 (66) 93 12/09/19 00:00 Mechanical Ventilator 12/09/19 00:00 100.2 78 30 110/58 (75) 93 12/08/19 23:30 79 27 109/54 (72) 91 12/08/19 23:28 79 26 107/54 (71) 97 12/08/19 23:15 106 35 91 12/08/19 23:08 112 29 104/48 (66) 88 12/08/19 23:02 76 26 100 12/08/19 23:00 74 29 94/55 (68) 90 12/08/19 22:00 77 31 122/59 (80) 91 12/08/19 21:00 100.1 99 38 137/64 (88) 92 12/08/19 20:58 92 132/85 12/08/19 20:00 Mechanical Ventilator 12/08/19 20:00 99 30 139/61 (87) 93 12/08/19 20:00 100 12/08/19 20:00 98 12/08/19 19:46 98 31 100 12/08/19 19:00 93 36 135/65 (88) 94 12/08/19 18:00 86 31 100/50 (67) 94 12/08/19 17:00 86 33 96/50 (65) 94 12/08/19 16:00 Mechanical Ventilator 12/08/19 16:00 100 12/08/19 16:00 71 12/08/19 16:00 99.3 12/08/19 16:00 87 31 82/51 (61) 96 12/08/19 15:38 85 33 100 12/08/19 15:00 86 30 117/57 (77) 93 12/08/19 14:06 90 36 100 12/08/19 14:00 95 35 103/71 (82) 93 12/08/19 13:00 134 31 90/57 (68) 95 12/08/19 12:00 99.2 89 31 114/52 (72) 95 12/08/19 12:00 Mechanical Ventilator 12/08/19 12:00 100 12/08/19 11:18 92 Intake and Output 12/08/19 12/09/19 19:00 07:00 Intake Total 1678.334 ml 1655 ml Output Total 270 ml 300 ml Balance 1408.334 ml 1355 ml IV Total 1198.334 ml 1460 ml Tube Feeding 180 ml 195 ml Other 300 ml Output Urine Total 270 ml 300 ml Objective deferred due to COVID+ Microbiology Date/Time Source Procedure Growth Status 12/08/19 18:00 Sputum Gram Stain - Final Resulted 12/08/19 18:00 Sputum Sputum Culture Pending Resulted Laboratory Tests 12/09/19 03:45: White Blood Count 21.2#H, Red Blood Count 5.02, Hemoglobin 12.5#L, Hematocrit 39.1#L, Mean Corpuscular Volume 78#L, Mean Corpuscular Hemoglobin 24.9L, Mean Corpuscular Hemoglobin Concent 32.0, Red Cell Distribution Width 15.6H, Platelet Count 595#H, Mean Platelet Volume 6.9, Neutrophils (%) (Auto) , Lymphocytes (%) (Auto) , Monocytes (%) (Auto) , Eosinophils (%) (Auto) , Basophils (%) (Auto) , Differential Total Cells Counted 100, Neutrophils % ( Manual) 86H, Lymphocytes % (Manual) 9L, Monocytes % (Manual) 5, Eosinophils % ( Manual) 0, Basophils % (Manual) 0, Band Neutrophils 0, Platelet Estimate IncreasedH, Platelet Morphology Normal, Anisocytosis 1+, Microcytosis 1+, Sodium Level 134L, Potassium Level 5.2H, Chloride Level 101, Carbon Dioxide Level 25, Anion Gap 8, Blood Urea Nitrogen 60H, Creatinine 3.1H, Estimat Glomerular Filtration Rate 23.4, Glucose Level 131H, Calcium Level 7.1L Current Medications Medications (Trade) Dose Ordered Sig/Viridiana Route PRN Reason Start Time Stop Time Status Last Admin Dose Admin Acetaminophen (Tylenol) 650 mg Q4H PRN NG Temp>100.5 12/09/19 09:30 01/08/20 09:29 12/09/19 09:33 Aspirin (ASA) 81 mg DAILY NG 12/09/19 09:00 01/23/20 08:59 12/09/19 09:31 Chlorhexidine Gluconate (Swapna-Hex 2%) 1 applic DAILY@2000 TOPIC 12/07/19 20:00 03/06/20 19:59 12/08/19 20:22 Enoxaparin Sodium (Lovenox) 60 mg Q24H SUBQ 12/03/19 03:00 03/02/20 02:59 12/09/19 02:55 Fentanyl Citrate 1000 mcg/Sodium Chloride 100 ml @ 0 mls/hr Q24H IV 12/06/19 09:00 12/13/19 08:59 Lorazepam (Ativan 2mg/ml 1ml) 1 mg Q4H PRN IV For Anxiety 12/02/19 22:00 12/09/19 21:59 12/08/19 22:21 Metoprolol Tartrate (Lopressor) 50 mg Q12HR ORAL 12/03/19 09:00 03/02/20 01:59 12/09/19 09:31 Morphine Sulfate (Morphine Sulfate) 2 mg Q2H PRN IVP For Pain 12/04/19 18:45 12/11/19 18:44 12/05/19 16:53 Pantoprazole (Protonix) 40 mg ACBREAKFAST ORAL 12/01/19 06:30 12/28/19 06:29 12/09/19 06:26 Piperacillin Sod/ Tazobactam Sod 3.375 gm/Sodium Chloride 110 ml @ 27.5 mls/hr EVERY 12 HOURS IVPB 12/08/19 21:00 12/13/19 20:59 12/09/19 09:30 Sodium Chloride 1,000 ml @ 150 mls/hr Q6H40M IV 12/08/19 18:45 01/07/20 18:44 12/09/19 04:39 Assessment/Plan Assessment/Plan IMPRESSION: hypoxemic respiratory failure, profound hypoxemi, probable ARDS, + COVID, hematuria, evidence of chronic renal failure, possibly with acute component, elevated troponin, possible non-STEMI NV, elevated natriuretic peptide, possible pulmonary edema, pneumonia and sepsis. hypoxemia. PLAN care noted maintain PEEP and fio2 as is ID follow up zosyn added respiratory care otherwise as is but not improved cannot do proning in this ICU ABG and CXR monitoring for change off load aspiration precautions ID noted and reviewed critical at present nutrition prognosis very poor to discuss code status medications/laboratory data/nursing notes/ICU care reviewed in detail note reviewed and edited care discussed with RN and RT ICU time spent >40 minutes Saran Lynch MD December 09, 2019 11:18
--- NOTE | 2019-12-09 11:30 | NUR ---
NURSE NOTES: Dr Henry at bedside assessing pt and is aware that NGT is clamped at this time since security shift manager- he was also made aware that pt is no longer vomiting brown emesis since last night. Addendum: 12/09/19 at 1902 by Claire Christian RN WRONG PATIENT.
--- NOTE | 2019-12-09 11:31 | NUR ---
CASE MANAGEMENT: REVIEW SI: PNA . COVID-19 . COPD . PROSTATE CA T 104.2 HR 87 RR 33 BP 92/52 SAT 90% MECH VENT FIO2 100 WBC 21.2 NA 134 K 5.2 BUN 60 CR 3.1 IS: FENTANYL IV Q24HR NS IVF @ 150ML/HR ZOSYN IV Q12HR TYLENOL NGT Q4HR ICU STATUS DCP: PATIENT IS FROM [facility]
--- NOTE | 2019-12-09 11:45 | NUR ---
NURSE NOTES: Received call back from Dr Lynch with order for STAT ABG.
--- NOTE | 2019-12-09 11:52 | Infectious Diseases Prog Note ---
Assessment/Plan Assessment/Plan antibiotics : zosyn A 1. COVID 19 pneumonia on Fi O2 100 %, PEEP 10, saturation 90 percent hydroxychloroquine d/c due to high risk s/p ivermectin x 1 dose s/p tocilizumab 5.15.20 2. hypertension 3. coag neg staph likely contaminated in blood 4. COPD 5. seizures 6. prostate cancer 7. renal failure 8. respiratory failure 9. leucocytosis P 1. continue zosyn 2. continue isolation 3. will follow up cultures Subjective ROS Limited/Unobtainable: Yes Allergies: Coded Allergies: No Known Allergies (Verified , 11/13/08) Objective Vital Signs Last 24 Hour Vital Signs Date Time Temp Pulse Resp B/P (MAP) Pulse Ox O2 Delivery O2 Flow Rate FiO2 12/09/19 10:40 88 28 100 12/09/19 09:31 89 118/52 12/09/19 07:10 87 31 100 12/09/19 07:00 87 30 92/52 (65) 90 12/09/19 06:30 86 22 94/58 (70) 92 12/09/19 06:30 86 22 12/09/19 06:00 104.2 87 33 102/51 (68) 93 12/09/19 05:00 89 33 99/58 (72) 93 12/09/19 04:00 100 12/09/19 04:00 89 12/09/19 04:00 89 26 125/64 (84) 93 12/09/19 04:00 Mechanical Ventilator 12/09/19 03:52 79 31 100 12/09/19 03:00 90 29 122/63 (82) 94 12/09/19 02:00 88 26 131/68 (89) 90 12/09/19 01:00 81 32 97/50 (66) 93 12/09/19 00:00 Mechanical Ventilator 12/09/19 00:00 100.2 78 30 110/58 (75) 93 12/08/19 23:30 79 27 109/54 (72) 91 12/08/19 23:28 79 26 107/54 (71) 97 12/08/19 23:15 106 35 91 12/08/19 23:08 112 29 104/48 (66) 88 12/08/19 23:02 76 26 100 5/17/20 23:00 74 29 94/55 (68) 90 12/08/19 22:00 77 31 122/59 (80) 91 12/08/19 21:00 100.1 99 38 137/64 (88) 92 12/08/19 20:58 92 132/85 12/08/19 20:00 Mechanical Ventilator 12/08/19 20:00 99 30 139/61 (87) 93 12/08/19 20:00 100 12/08/19 20:00 98 12/08/19 19:46 98 31 100 12/08/19 19:00 93 36 135/65 (88) 94 12/08/19 18:00 86 31 100/50 (67) 94 12/08/19 17:00 86 33 96/50 (65) 94 12/08/19 16:00 Mechanical Ventilator 12/08/19 16:00 100 12/08/19 16:00 71 12/08/19 16:00 99.3 12/08/19 16:00 87 31 82/51 (61) 96 12/08/19 15:38 85 33 100 12/08/19 15:00 86 30 117/57 (77) 93 12/08/19 14:06 90 36 100 12/08/19 14:00 95 35 103/71 (82) 93 12/08/19 13:00 134 31 90/57 (68) 95 12/08/19 12:00 99.2 89 31 114/52 (72) 95 12/08/19 12:00 Mechanical Ventilator 12/08/19 12:00 100 Height (Feet): 5 Height (Inches): 10.00 Weight (Pounds): 158 HEENT: other - intubated Microbiology Date/Time Source Procedure Growth Status 12/08/19 18:00 Sputum Gram Stain - Final Resulted 12/08/19 18:00 Sputum Sputum Culture Pending Resulted Laboratory Tests Test 12/09/19 03:45 White Blood Count 21.2 K/UL (4.8-10.8) #H Red Blood Count 5.02 M/UL (4.70-6.10) Hemoglobin 12.5 G/DL (14.2-18.0) #L Hematocrit 39.1 % (42.0-52.0) #L Mean Corpuscular Volume 78 FL (80-99) #L Mean Corpuscular Hemoglobin 24.9 PG (27.0-31.0) L Mean Corpuscular Hemoglobin Concent 32.0 G/DL (32.0-36.0) Red Cell Distribution Width 15.6 % (11.6-14.8) H Platelet Count 595 K/UL (150-450) #H Mean Platelet Volume 6.9 FL (6.5-10.1) Neutrophils (%) (Auto) % (45.0-75.0) Lymphocytes (%) (Auto) % (20.0-45.0) Monocytes (%) (Auto) % (1.0-10.0) Eosinophils (%) (Auto) % (0.0-3.0) Basophils (%) (Auto) % (0.0-2.0) Differential Total Cells Counted 100 Neutrophils % (Manual) 86 % (45-75) H Lymphocytes % (Manual) 9 % (20-45) L Monocytes % (Manual) 5 % (1-10) Eosinophils % (Manual) 0 % (0-3) Basophils % (Manual) 0 % (0-2) Band Neutrophils 0 % (0-8) Platelet Estimate Increased H Platelet Morphology Normal Anisocytosis 1+ Microcytosis 1+ Sodium Level 134 MMOL/L (136-145) L Potassium Level 5.2 MMOL/L (3.5-5.1) H Chloride Level 101 MMOL/L (98-107) Carbon Dioxide Level 25 MMOL/L (21-32) Anion Gap 8 mmol/L (5-15) Blood Urea Nitrogen 60 mg/dL (7-18) H Creatinine 3.1 MG/DL (0.55-1.30) H Estimat Glomerular Filtration Rate 23.4 mL/min (>60) Glucose Level 131 MG/DL (74-106) H Calcium Level 7.1 MG/DL (8.5-10.1) L Current Medications Medications (Trade) Dose Ordered Sig/Viridiana Route PRN Reason Start Time Stop Time Status Last Admin Dose Admin Acetaminophen (Tylenol) 650 mg Q4H PRN NG Temp>100.5 12/09/19 09:30 01/08/20 09:29 12/09/19 09:33 Aspirin (ASA) 81 mg DAILY NG 12/09/19 09:00 01/23/20 08:59 12/09/19 09:31 Chlorhexidine Gluconate (Swapna-Hex 2%) 1 applic DAILY@2000 TOPIC 12/07/19 20:00 03/06/20 19:59 12/08/19 20:22 Enoxaparin Sodium (Lovenox) 60 mg Q24H SUBQ 12/03/19 03:00 03/02/20 02:59 12/09/19 02:55 Fentanyl Citrate 1000 mcg/Sodium Chloride 100 ml @ 0 mls/hr Q24H IV 12/06/19 09:00 12/13/19 08:59 Lorazepam (Ativan 2mg/ml 1ml) 1 mg Q4H PRN IV For Anxiety 12/02/19 22:00 12/09/19 21:59 12/08/19 22:21 Metoprolol Tartrate (Lopressor) 50 mg Q12HR ORAL 12/03/19 09:00 03/02/20 01:59 12/09/19 09:31 Morphine Sulfate (Morphine Sulfate) 2 mg Q2H PRN IVP For Pain 12/04/19 18:45 12/11/19 18:44 12/05/19 16:53 Pantoprazole (Protonix) 40 mg ACBREAKFAST ORAL 12/01/19 06:30 12/28/19 06:29 12/09/19 06:26 Piperacillin Sod/ Tazobactam Sod 3.375 gm/Sodium Chloride 110 ml @ 27.5 mls/hr EVERY 12 HOURS IVPB 12/08/19 21:00 12/13/19 20:59 12/09/19 09:30 Sodium Chloride 1,000 ml @ 150 mls/hr Q6H40M IV 12/08/19 18:45 01/07/20 18:44 12/09/19 04:39 Sandip Wong MD December 09, 2019 11:52
--- NOTE | 2019-12-09 12:00 | NUR ---
NURSE NOTES: Spoke with Dr Lynch over phone and relayed recent ABG results. No new orders received.
--- NOTE | 2019-12-09 12:41 | NUR ---
CODE BLUE: Pt noted with bracycardia (HR in 30s) evolving into asystole. CPR initiated and code blue protocol followed. See Code sheet which remains on paper.
[2019-12-09] MEDS ORDERED: Norepinephrine 4mg in D5W 250ml IV SCH (13:15)
--- NOTE | 2019-12-09 13:15 | NUR ---
NURSE NOTES: Message left for Dr Schafer (currently covering for Dr Gregory) at 1300 and pt's son Rocael at 1315 regarding pt's status post code blue. Awaiting call back.
[2019-12-09] MEDS ORDERED: Atropine Inj 1mg/10ml Syr ONE (13:36)
--- NOTE | 2019-12-09 13:37 | NUR ---
NURSE NOTES: engine testing supervisor ( Shante Bates) called the son ( Rocael) made him aware that patient is being Coded at this time- Rocael stated to warehouse person to stop the code Addendum: 12/10/19 at 1434 by Juana Vallecillo RN Above mentioned conversation witnessed by Nereida SUAREZ via telephone...
--- NOTE | 2019-12-09 13:45 | NUR ---
CODE BLUE: Pt noted with repeated episode of asystole following bradycardia. CPR and code blue protocol initiated again. See Code sheet which remains on paper. During CPR efforts, pt's son Rocael was contacted and requested that CPR measures be terminated immediately. Pt at 1336. Message left for Dr Schafer and pt's son Rocael regarding pt passing away. Awaiting call back.
--- NOTE | 2019-12-09 14:15 | NUR ---
NURSE NOTES: One legacy and deputy clerk of superior court notified of pt's expiration at this time.
--- NOTE | 2019-12-09 15:00 | NUR ---
NURSE NOTES: Post mortem care completed. Pharmacist In Charge Owner, Juana notified and also made aware that we were unable to locate pt's wallet containing $59 USD in neal per belongings on paper chart.
--- NOTE | 2019-12-09 15:03 | Emergency Room Report ---
History of Present Illness General Chief Complaint: Dyspnea/Respdistress Source: Medical Record Present Illness HPI CODE BLUE was called overhead on this patient I responded to the ICU. Allergies: Coded Allergies: No Known Allergies (Verified , 11/13/08) COVID-19 Screening Contact w/high risk pt: No Recent Travel to affected area: No Experienced COVID-19 symptoms?: Yes COVID-19 symptoms experienced: Shortness of Breath COVID-19 Testing performed HAY STACKER OPERATOR: No COVID-19 Screening: Positive COVID-19 Patient History Past Medical History: see triage record Nursing Documentation-PMH Past Medical History: No History, Except For Hx Hypertension: Yes - ESSENTIAL HYPERTENSION Hx Dementia: Yes Hx Alzheimer's Disease: Yes Hx Seizures: Yes Physical Exam Vital Signs Date Time Temp Pulse Resp B/P (MAP) Pulse Ox O2 Delivery O2 Flow Rate FiO2 12/05/19 07:33 71 12/05/19 08:00 100 12/05/19 08:00 97.5 15 160/87 (111) 94 12/05/19 08:00 Bi-pap Medical Decision Making Diagnostic Impression: Primary Impression: Cardiopulmonary arrest Additional Impression: COVID-19 ER Course This patient was residing in the ICU. A CODE BLUE was called overhead while I was working in the emergency department. The patient is suffering from respiratory failure and sepsis and COVID-19. Per the nursing report the patient became bradycardic and went into PEA arrest. There are multiple rounds of CODE BLUE. The patient had regained ROSC on the first 2 ACLS/CPR code. I responded to the third code. The patient underwent multiple rounds of epinephrine and continued to be in PEA arrest. The patient's family was contacted and they agreed that further CPR was futile and no further resuscitation continued. The patient . Time of 13:37. This patient is critically ill. This patient required complex medical decision- making, aggressive intervention and monitoring. Critical care time: 40 minutes. Last Vital Signs Date Time Temp Pulse Resp B/P (MAP) Pulse Ox O2 Delivery O2 Flow Rate FiO2 12/09/19 12:00 100 12/09/19 10:40 88 28 12/09/19 10:00 99.4 12/09/19 09:31 118/52 12/09/19 07:00 90 12/09/19 04:00 Mechanical Ventilator Disposition: Condition: Referrals: John Hay MD (PCP) Karena Hernandez DO December 09, 2019 15:03
--- NOTE | 2019-12-09 15:45 | NUR ---
*-* INSURANCE *-* UPDATED CLINICALS HAVE BEEN FAXED TO: KALEE GARCIA: FELIX P- [phone] F- [phone]...........REVIEW/CLINICAL
--- NOTE | 2019-12-09 19:30 | NUR ---
HAND-OFF: Report given to ALETA Garcia. Pt pending transport to [facility], guest service supervisor is aware and has been coordinating adequate personnel to assist in [facility] - security personnel unable to assist with lifting pt at this time (Per [facility] security compliance specialist- [facility] made aware of this at 1500 and again at 1800).
--- NOTE | 2019-12-09 19:31 | NUR ---
NURSE NOTES: Patient received from Claire Christian RN. Patient received , s/p code earlier today. Will complete any further post mordum care and transfer to [facility].
--- NOTE | 2019-12-10 04:30 | Progress Note ---
DATE: 12/09/2019 CARDIOLOGY PROGRESS NOTE SUBJECTIVE: Condition remains critical. Prognosis guarded. Patient remains on 100% FiO2 on mechanical ventilation. Blood pressure parameters are tenuous as well and patient is still hypoxic. PHYSICAL EXAMINATION: VITAL SIGNS: Blood pressure 118/52, heart rate 89, respirations 28. LUNGS: Bilateral breath sounds. Rhonchi. Wheezes. CARDIAC: Regular rhythm and rate. Normal S1, S2 with a fourth heart sound. ABDOMEN: Soft. EXTREMITIES: No edema. LABORATORY DATA: White count 21, hemoglobin 12. Sodium 134, potassium 5.2, BUN 60, creatinine 3.1. ABG 7.17, 57, 38. IMPRESSION: 1. Respiratory failure. 2. ARDS. 3. COVID-19 pneumonia. 4. Acute respiratory acidosis. 5. Sepsis. 6. Shock. 7. Acute renal failure. 8. Acute myocardial ischemia. LABORATORY DATA: Laboratories reviewed. PLAN: 1. Volume support. 2. Ventilator support. 3. Infectious Disease security sales consultant has outlined antiviral options that have been given. 4. Continue pressors. 5. Bicarb in the IV fluids. 6. Prognosis is grave. Jarod Clark M.D. DR: GUERDA JOB#: [id number] CC:
--- NOTE | 2019-12-10 11:35 | NUR ---
*-* NO DISCHARGE SUMMARY IN THE SYSTEM UNABLE TO SEND TO [facility]. *-*
--- NOTE | 2019-12-11 11:35 | Discharge Summary ---
Discharge Summary Discharge Summary _ SUMMARY DATE OF ADMISSION: 11/27/2019 DATE OF EXPIRATION: 12/09/2019 REASON FOR ADMISSION: 84 years old male, resident of assisted living, with past medical history of seizure disorder, hypertensive cardiovascular disease, chronic kidney disease, prostate cancer, COPD, abdominal aortic aneurysm, presented with cough and generalized weakness. They were known cases of COVID-19 at the same facility. Laboratory work-up revealed no leukocytosis, stable hemoglobin and hematocrit. Stable electrolytes. BUN 41, creatinine 2.4. Troponin 0.136. proBNP 2798. EKG revealed sinus rhythm no acute ischemic changes. Urinalysis revealed +4 protein, no evidence of urinary tract infection. Chest x-ray demonstrated bilateral mid and lower lung reticular and consolidative infiltrates, likely pneumonia. In emergency department patient was also swabbed for COVID-19. Patient subsequently admitted for further management. CONSULTANTS: window treatment installer Dr. Clark pulmonary Dr. Lynch ID specialist Dr. Wong HOSPITAL COURSE: Patient admitted to isolation room. Patient started on empiric antibiotic. Influenza swab was negative. CT of the head revealed no acute intracranial hemorrhage or skull fracture. Supplemental oxygen provided and titrated to keep pulse oximetry above 92%. Pulmonary toilet provided. Echocardiogram demonstrated preserved ejection fraction of 65%. No evidence of wall motion abnormality. Serial troponin trending down, still remained elevated. Per window treatment installer, patient probably NSTEMI. Patient also demonstrated episodes of paroxysmal atrial fibrillation. Initial SARS-CoV-2 by PCR on 11/26 was not detected. Repeated SARS-CoV-2 by PCR on 11/28 was detected. Patient was kept in isolation. Patient started on Plaquenil but later was discontinued due to increased cardiovascular risk. Patient received ivermectin x1. Antibiotic continued. Initial blood culture revealed 1 out of 2 Staph hominis likely contamination as per ID specialist. SARS-CoV-2 by PCR on 11/29 was not detected. Patient was kept in isolation as per ID specialist recommendation. Respiratory status gradually worsened. Due to progressively worsening hypoxemia, patient required simple mask, then 100 % nonrebreathing mask, and then was placed on the BiPAP. Patient was followed-up with chest x-ray. On 12/05 patient was orally intubated due to worsening respiratory failure. Ventilator support and pulmonary toilet provided. Unable to do proning in this ICU. Patient was followed-up with ABG and chest x-ray. Patient received 1 dose of Tocilizumab. Aspiration precaution maintained. Renal parameters and electrolytes were closely monitored, electrolytes corrected as needed. Creatinine up to 6.2 on . Patient had chronic kidney disease stage III with acute kidney injury. Patient noted to have atrial fibrillation with l rapid ventricular response. Patient started on Cardizem drip, from which he eventually was weaned off. Prognosis remained extremely poor. On 12/08 patient sustained cardiopulmonary arrest. ACLS protocol initiated. Patient had multiple rounds of CODE BLUE. During the first 2 codes patient regained circulation t. During the third code despite multiply intervention patient unfortunately remained in PEA arrest. Family was contacted and explained that further intervention would be futile. Patient was pronounced at 13:37 on 12/08. Cause of : cardiopulmonary arrest FINAL DIAGNOSES: Status post cardiopulmonary arrest x3 Confirmed COVID-19 infection Acute hypoxemic respiratory failure requiring intubation Probable ARDS Sepsis with shock COVID-19 pneumonia Acute kidney injury on chronic kidney disease stage III Elevated troponin, possible NSTEMI Paroxysmal atrial fibrillation with rapid ventricular response COPD Seizure disorder Prostate cancer Hypertensive nephrosclerosis Toxic metabolic encephalopathy Dehydration Severe protein calorie malnutrition I have been assigned to dictate discharge summary for this account. I was not involved in the patient's management. Nishi Whyte NP December 11, 2019 11:35
--- NOTE | 2019-12-11 13:42 | NUR ---
*-* INSURANCE *-* DISCHARGE SUMMARY HAS BEEN FAXED TO: KALEE GARCIA: FELIX P- [phone] F- [phone]...........REVIEW/CLINICAL
== END 2019-12-09 13:37 | disposition expired | DRG 720 ==
LOC: EDBD 09:59 → EMR 10:40 → EDBEDREQ 12:50 → 2E 13:11 → EDBEDREQ 13:17 → 2W 11-30 16:45 → ICU 12-05 22:43
PROC: 0BH17EZ Insertion of Endotracheal Airway into Trachea, Via Natural or Artificial Opening (ICD-10-PCS; principal; 2019-12-06)
PROC: 5A1945Z Respiratory Ventilation, 24-96 Consecutive Hours (ICD-10-PCS; principal; 2019-12-06)
PROC: 5A12012 Performance of Cardiac Output, Single, Manual (ICD-10-PCS; 2019-12-09)
DX: A41.89 Other specified sepsis (principal); U07.1 COVID-19; J12.89 Other viral pneumonia; J96.01 Acute respiratory failure with hypoxia; N18.3 Chronic kidney disease, stage 3 (moderate); I21.4 Non-ST elevation (NSTEMI) myocardial infarction; I50.33 Acute on chronic diastolic (congestive) heart failure; N17.9 Acute kidney failure, unspecified; I48.0 Paroxysmal atrial fibrillation; G92 Toxic encephalopathy; E86.0 Dehydration; E87.0 Hyperosmolality and hypernatremia; I13.0 Hypertensive heart and chronic kidney disease with heart failure and stage 1 through stage 4 chronic kidney disease, or unspecified chronic kidney disease; J44.0 Chronic obstructive pulmonary disease with (acute) lower respiratory infection; G40.909 Epilepsy, unspecified, not intractable, without status epilepticus; Z85.46 Personal history of malignant neoplasm of prostate; Z72.0 Tobacco use; E43 Unspecified severe protein-calorie malnutrition; Z68.22 Body mass index [BMI] 22.0-22.9, adult; R31.9 Hematuria, unspecified
CPT/HCPCS: 36415; 36600; 70450; 71045; 74018; 80048; 80053; 80061; 81001; 81003; 82550; 82553; 82570; 82728; 82803; 82962; 83605; 83735; 83880; 84300; 84443; 84484; 84550; 85007; 85025; 86710; 86850; 86900; 86901; 87040; 87070; 87181; 87205; 87635; 93005; 93306; 94002; 94003; 94660; 96365; 96368; 99285; J0171